=== PATIENT | male | born 1945 | race Caucasian/White ===

== ENCOUNTER 2017-06-07 09:24 | Emergency (ER) | payer OTHER ==
--- NOTE | 2017-06-07 10:25 | RAD REPORT ---
EXAM DESCRIPTION: CT - CTHCSPWOC - 06/07/2017 10:10 am CLINICAL HISTORY: Fall, head and neck injury COMPARISON: None. TECHNIQUE: Axial 5 mm thick images of the head were obtained. Axial 2 mm thick images of the cervic al spine were obtained with sagittal and coronal reconstruction images generated and reviewed. All CT scans are performed using dose optimization technique as appropriate and may include automated exposure control or mA/KV adjustment according to patient size. FINDINGS: No intracranial hemorrhage, mass, edema or acute intracranial finding. No suspicion for acute infarct ion. Atrophy and chronic ischemic changes are present similar to the April study. Ventricular size is in proportion. Arterial and physiologic calcifications are present. Mastoid air cells and paranas al sinuses are clear. No globe or orbit abnormality seen. Cervical body height and alignment are normal. C4-5, C5-6 and C6-7 disc space narrowing seen. Posteri or endplate spurring changes are present. No significant central spinal stenosis. Mild multilevel bon y foraminal encroachment changes are present. Central canal detail is inherently limited. No fracture or acute bony abnormality. No paraspinal mass or hematoma. IMPRESSION: Atrophy and chronic ischemic changes are present similar to prior imaging. No acute find ings seen. Cervical spine degenerative changes are present not substantially different from comparison. No acute finding.
--- NOTE | 2017-06-07 10:44 | RAD REPORT ---
EXAM DESCRIPTION: RAD - Pelvis - 06/07/2017 10:37 am CLINICAL HISTORY: History of fall with pain. COMPARISON: None. FINDINGS: No fracture, dislocation or radiographic evidence of AVN. IMPRESSION: Negative study.
--- NOTE | 2017-06-07 10:49 | RAD REPORT ---
EXAM DESCRIPTION: RAD - Wrist Right 3 View - 06/07/2017 10:37 am CLINICAL HISTORY: Pain COMPARISON: None. FINDINGS: Widening of the scapholunate interval is present suggesting underlying scapholunate ligame nt tear. Degenerative changes involve the first carpometacarpal joint. No acute fracture seen. No dis location evident. Soft tissue swelling is seen along the dorsum of the hand.
--- NOTE | 2017-06-07 10:50 | RAD REPORT ---
EXAM DESCRIPTION: RAD - Knee Left 3 View - 06/07/2017 10:37 am CLINICAL HISTORY: Trip and fall, knee pain COMPARISON: None. FINDINGS: No fracture, dislocation or periosteal reaction.No joint effusion seen. Medial compartment narrowing is present, mild in degree, with mild marginal spurring. There are mild spurs along the ar ticular margins of the patella. Arterial calcifications are present. No foreign body in the soft tiss ues. IMPRESSION: Knee degenerative changes are present but no acute bone or joint finding identifiable. Clinical concerns for internal derangement or occult bony injury could be further assessed with MR im aging.
[2017-06-07] MEDS ORDERED: HYDROCODONE/APAP 5/325 MG TAB ONE (11:04)
--- NOTE | 2017-06-07 11:21 | ER ---
Nurse's Notes [facility] Name: Honorio Toussaint Age: 71 yrs Sex: Male : 1945 Arrival Date: 06/07/2017 Time: 09:25 Bed 20 Private MD: Parveen Osborn Diagnosis: Sprain of ligaments of cervical spine;Other internal derangements of left knee;Disorder of ligament, right wrist Presentation: 06/07 09:42 Presenting complaint: Patient states: tripped over brick yesterday, falling from a ss standing position. Pt c/o pian to L knee and R hand. Transition of care: patient was not received from another setting of care. Onset of symptoms was June 06, 2017. Care prior to arrival: knee brace noted to L knee. 09:42 Method Of Arrival: Wheelchair ss 09:42 Acuity: ATIF 4 ss Historical: - Allergies: 09:43 Codeine; ss 09:43 PENICILLINS; ss - PMHx: 09:43 Anxiety; Cancer; Cellulitis; constipation; COPD; CVA; Depression; Diabetes - NIDDM; ss Hyperlipidemia; Hypertension; neck pain; Lymphadema; prostate probelm; Sleep Apnea; trigeminal neuralgia; - Immunization history:: Adult Immunizations up to date. - Social history:: Smoking status: Patient/guardian denies using tobacco, the patient reports quitting approximately 15 years ago. Screenin:51 Abuse screen: Denies threats or abuse. Nutritional screening: No deficits noted. em Tuberculosis screening: No symptoms or risk factors identified. Fall Risk None identified. Assessment: 09:50 General: Appears in no apparent distress. uncomfortable, Behavior is calm, cooperative. em General: reports tripping yesterday and hurting right hand and left knee, denies hitting head, is taking Warfarin. Pain: Complains of pain in left knee Pain currently is 10 out of 10 on a pain scale. Neuro: Level of Consciousness is awake, alert, obeys commands, Oriented to person, place, time, situation. Neuro: Denies dizziness, numbness. Cardiovascular: Capillary refill < 3 seconds Patient's skin is warm and dry. Respiratory: Airway is patent Respiratory effort is even, unlabored, Respiratory pattern is regular, symmetrical, wears oxygen at home via NC at 2L. GI: Abdomen is round non-distended, Patient currently denies nausea, vomiting. : No signs and/or symptoms were reported regarding the genitourinary system. EENT: No signs and/or symptoms were reported regarding the EENT system. Derm: Wound noted left knee Wound is abrasion noted to the left knee. Musculoskeletal: Range of motion: intact in all extremities. Injury Description: trip injury. 09:55 General: The previous assessment is accurate, call light remains within reach. . ss 10:56 Reassessment: Patient appears in no apparent distress at this time. Patient and/or em family updated on plan of care and expected duration. Pain level reassessed. Patient is alert, oriented x 3, equal unlabored respirations, skin warm/dry/pink. 11:55 Reassessment: Patient appears in no apparent distress at this time. Patient and/or em family updated on plan of care and expected duration. Pain level reassessed. Patient is alert, oriented x 3, equal unlabored respirations, skin warm/dry/pink. Patient states feeling better. Vital Signs: 09:43 BP 154 / 91; Pulse 78; Resp 23; Temp 98.3(O); Pulse Ox 96% on 2 lpm NC; Weight 96.16 ss kg; Height 5 ft. 8 in. (172.72 cm); Pain 10/10; 10:40 BP 127 / 86; Pulse 94; Resp 20; Pulse Ox 98% on 2 lpm NC; Pain 10/10; em 11:40 BP 146 / 94; Pulse 85; Resp 22; Pulse Ox 99% on 2 lpm NC; Pain 7/10; em 12:30 BP 150 / 88; Pulse 92; Resp 20; Pulse Ox 97% on 2 lpm NC; Pain 6/10; em 09:43 Body Mass Index 32.23 (96.16 kg, 172.72 cm) ED Course: 09:25 Patient arrived in ED. as 09:25 [facility], [facility] is Private Physician. as 09:39 Ceasar Costa LVN is Primary Nurse. em 09:42 Donavan Daily MD is Attending Physician. gs 09:42 Triage completed. ss 09:43 Arm band placed on right wrist. ss 09:51 Patient has correct armband on for positive identification. Bed in low position. Call em light in reach. Side rails up X2. Adult w/ patient. Pulse ox on. NIBP on. 09:51 No provider procedures requiring assistance completed. em 10:00 Radiology exam delayed due to PT IN CT. jb2 10:02 CT completed. Patient tolerated procedure well. Patient moved to CT via wheelchair. sj Patient moved to radiology Patient moved back from CT. 10:10 CT Head C Spine In Process Unspecified. EDMS 10:36 X-ray completed. Patient tolerated procedure well. Patient moved back from radiology. kw1 10:37 Wrist Right 3 View XRAY In Process Unspecified. EDMS 10:37 Knee Left 3 View XRAY In Process Unspecified. EDMS 10:37 Pelvis XRAY In Process Unspecified. EDMS 11:19 Junaid Lowery MD is Referral Physician. gs 12:28 Riky wrap to left knee Orthoglass splint: Thumb spica splint applied on right forearm. ag CMS and capillary refill with the right thumb spica are good. Patient wanted the riky bandages tighter but, informed him I could not do that. I explained to him he had to have room for the swelling. Knee immobilizer applied on left knee. 12:45 Patient did not have IV access during this emergency room visit. em Administered Medications: No medications were administered Outcome: 11:21 Discharge ordered by . gs 12:45 Discharged to home via wheelchair. em 12:45 Condition: good 12:45 Discharge instructions given to patient, Instructed on discharge instructions, follow up and referral plans. medication usage, Demonstrated understanding of instructions, follow-up care, medications, Prescriptions given X 1. 12:45 Patient left the ED. Signatures: Dispatcher [employer] EDMS Fabrice Martinez jb2 Alaina Green Edgar, ERGONOMICS TECHNICIAN ERGONOMICS TECHNICIAN Ramona Lewis Shelby, MANOLO RN Billie Robertson Gregory, MD MD Terese Capellan kw1 Corrections: (The following items were deleted from the chart) 12:39 12:28 Riky wrap to left knee Orthoglass splint: Thumb spica splint applied on right ag forearm. Knee immobilizer applied on left knee. ag
--- NOTE | 2017-06-07 11:21 | EDPHYS ---
Physician Documentation [facility] Name: Honorio Toussaint Age: 71 yrs Sex: Male : 1945 Arrival Date: 06/07/2017 Time: 09:25 Bed 20 [facility] Donavan Daily HPI: 06/07 11:15 This 71 yrs old Male presents to ER via Wheelchair with complaints of Fall gs Injury, Knee Pain, Hand Pain. 11:15 Details of fall: The patient fell from an upright position, while walking. Onset: The gs symptoms/episode began/occurred acutely, yesterday. Associated injuries: The patient sustained injury to the head, neck injury, medial aspect of right wrist, painful injury, swelling, left knee, painful injury, swelling. Severity of symptoms: At their worst the symptoms were moderate, in the emergency department the symptoms are unchanged. The patient has experienced a previous episode. The patient has not recently seen a physician. Historical: - Allergies: 09:43 Codeine; ss 09:43 PENICILLINS; ss - PMHx: 09:43 Anxiety; Cancer; Cellulitis; constipation; COPD; CVA; Depression; Diabetes - NIDDM; ss Hyperlipidemia; Hypertension; neck pain; Lymphadema; prostate probelm; Sleep Apnea; trigeminal neuralgia; - Immunization history:: Adult Immunizations up to date. - Social history:: Smoking status: Patient/guardian denies using tobacco, the patient reports quitting approximately 15 years ago. ROS: 11:15 Neuro: Negative for headache, on coumadin. gs 11:15 All other systems are negative. Exam: 11:15 Head/Face: Normocephalic, atraumatic. Eyes: Pupils equal round and reactive to light, gs extra-ocular motions intact. Lids and lashes normal. Conjunctiva and sclera are non-icteric and not injected. Cornea within normal limits. Periorbital areas with no swelling, redness, or edema. ENT: Nares patent. No nasal discharge, no septal abnormalities noted. Tympanic membranes are normal and external auditory canals are clear. Oropharynx with no redness, swelling, or masses, exudates, or evidence of obstruction, uvula midline. Mucous membranes moist. 11:15 Chest/axilla: Normal chest wall appearance and motion. Nontender with no deformity. No lesions are appreciated. Cardiovascular: Regular rate and rhythm with a normal S1 and S2. No gallops, murmurs, or rubs. Normal PMI, no JVD. No pulse deficits. Respiratory: Lungs have equal breath sounds bilaterally, clear to auscultation and percussion. No rales, rhonchi or wheezes noted. No increased work of breathing, no retractions or nasal flaring. Abdomen/GI: Soft, non-tender, with normal bowel sounds. No distension or tympany. No guarding or rebound. No evidence of tenderness throughout. Back: No spinal tenderness. No costovertebral tenderness. Full range of motion. 11:15 Constitutional: The patient appears alert, awake. 11:15 Neck: C-spine: vertebral tenderness, that is mild, appreciated at C5. 11:15 Musculoskeletal/extremity: Circulation is intact in all extremities. Sensation intact. Joints: the right wrist displays swelling, tenderness, the left knee displays effusion, swelling, tenderness, abrasion. 11:15 Skin: injury, abrasion(s), small abrasion noted, of the right arm, left arm and left leg. 11:15 Neuro: Orientation: is normal, Mentation: is normal, Memory: is normal, Cranial nerves: CN II- XII are normal as tested, Motor: no acute changes, Sensation: no acute changes. 12:25 Musculoskeletal/extremity: decreased extension left knee.. Vital Signs: 09:43 BP 154 / 91; Pulse 78; Resp 23; Temp 98.3(O); Pulse Ox 96% on 2 lpm NC; Weight 96.16 ss kg; Height 5 ft. 8 in. (172.72 cm); Pain 10/10; 10:40 BP 127 / 86; Pulse 94; Resp 20; Pulse Ox 98% on 2 lpm NC; Pain 10/10; em 11:40 BP 146 / 94; Pulse 85; Resp 22; Pulse Ox 99% on 2 lpm NC; Pain 7/10; em 12:30 BP 150 / 88; Pulse 92; Resp 20; Pulse Ox 97% on 2 lpm NC; Pain 6/10; em 09:43 Body Mass Index 32.23 (96.16 kg, 172.72 cm) ss MDM: 09:46 Patient medically screened. 11:15 Differential diagnosis: closed head injury, contusion, fracture. Data reviewed: vital gs signs, nurses notes. Response to treatment: the patient's symptoms have mildly improved after treatment, and as a result, I will discharge patient. 06/07 09:47 Order name: CT Head C Spine; Complete Time: 11:12 06/07 09:47 Order name: Wrist Right 3 View XRAY; Complete Time: 11:12 06/07 09:47 Order name: Knee Left 3 View XRAY; Complete Time: 11:12 06/07 09:47 Order name: Pelvis XRAY; Complete Time: 11:12 06/07 11:13 Order name: Splint - Thumb Spica; Complete Time: 12:19 gs 06/07 11:13 Order name: Knee Immobilizer; Complete Time: 12:19 gs Administered Medications: No medications were administered Disposition: 06/07/17 11:21 Discharged to Home. Impression: Sprain of ligaments of cervical spine, Other internal derangements of left knee, Disorder of ligament, right wrist. - Condition is Stable. - Discharge Instructions: Knee Effusion, Knee Immobilizer, Cervical Sprain. - Prescriptions for Tylenol- Codeine #4 300-60 mg Oral Tablet - take 1 tablet by ORAL route every 6 hours As needed; 10 tablet. - Medication Reconciliation Form, Thank You Letter, Antibiotic Education, Prescription Opioid Use form. - Follow up: Junaid Lowery MD; When: 2 - 3 days; Reason: Re-evaluation by your physician. Signatures: Dispatcher [employer] Dai Ochoa RN RN Donavan Daily MD MD
[2017-06-07 12:49] VITALS: TEMP 98.3
[2017-06-07 12:53] VITALS: BP 150/88; O2SAT 97
== END 2017-06-07 12:45 | disposition home or self-care (01) ==
LOC: ER 09:24
DX: M23.8X2 Other internal derangements of left knee (principal); S13.4XXA Sprain of ligaments of cervical spine, initial encounter; M24.231 Disorder of ligament, right wrist; W18.39XA Other fall on same level, initial encounter; Y93.01 Activity, walking, marching and hiking; Y92.89 Other specified places as the place of occurrence of the external cause; I10 Essential (primary) hypertension; Z79.01 Long term (current) use of anticoagulants; Z88.5 Allergy status to narcotic agent; Z88.0 Allergy status to penicillin; Z85.9 Personal history of malignant neoplasm, unspecified; Z86.73 Personal history of transient ischemic attack (TIA), and cerebral infarction without residual deficits
CPT/HCPCS: 70450; 72125; 72170; 99284

== ENCOUNTER 2017-07-11 09:43 | Inpatient (IN) | payer OTHER ==
--- NOTE | 2017-07-11 11:47 | RAD REPORT ---
EXAM DESCRIPTION: RAD - Chest Pa And Lat (2 Views) - 07/11/2017 11:39 am CLINICAL HISTORY: Shortness of breath COMPARISON: 05/06/2017 FINDINGS: The lungs are mildly emphysematous with an ill-defined opacity in the left posterior upper lobe. The heart is mildly prominent size. No displaced fractures. Multi lead pacer/defibrillator dev ice is present. IMPRESSION: No acute abnormality is seen.
[2017-07-11] MEDS ORDERED: ONDANSETRON 4 MG/2 ML VIAL ONE (12:07)
[2017-07-11] MEDS ORDERED: ALBUTEROL 2.5 MG/3 ML NEB SOL ONE (12:07)
[2017-07-11] MEDS ORDERED: CLINDAMYCIN 900MG/D5W 900 MG/50 ML BAG IV ONE (12:07)
[2017-07-11] MEDS ORDERED: MORPHINE 4 MG/ML SYR ONE ×2 (12:07→15:11)
--- NOTE | 2017-07-11 12:16 | EKG ---
Test Date: 2017-07-11 Test Time: 11:44:48 Entertainment Manager: MARBELLA MEASUREMENT RESULTS: Intervals: Rate: 81 TN: 220 QRSD: 88 QT: 384 QTc: 446 [place]: P: 39 TN: 220 QRS: 7 T: 31 INTERPRETIVE STATEMENTS: Sinus rhythm with 1st degree AV block Otherwise normal ECG Compared to ECG 05/03/2017 14:08:40 No significant changes Electronically Signed On 07-11-17 12:15:37 CDT by Fritz Sibley
[2017-07-11 12:56] LABS: Absolute Monocytes 1.1 K/uL (0.1-1.3); Absolute Neutrophil 10.9 K/uL (1.8-8.0); Basophils % 0.8 % (0-1.3); Eosinophils % 0.6 % (0-4.4); Hematocrit 37.2 % (39.6-49.0); Lymphocytes % 7.8 % (15.3-44.8); MCH 27.8 pg (27.0-35.0); MCV 86.7 fL (80-100); Monocytes % 8.2 % (3.3-12.3); RBC Red Blood Cell Count 4.29 M/uL (4.33-5.43)
[2017-07-11 13:07] LABS: Bicarbonate 26 mEq/L (21-31); Glucose Level 98 mg/dL (65-120); Potassium 4.4 mEq/L (3.6-5.0); Sodium Level 137 mEq/L (135-145)
[2017-07-11 13:08] LABS: Protime INR 3.61
[2017-07-11 13:14] LABS: ALT/SGPT 21 IU/L (10-60); AST/SGOT 19 IU/L (10-42); Albumin 4.1 g/dL (3.2-5.5); Alkaline Phosphatase 81 IU/L (42-121); BUN Blood Urea Nitrogen 20 mg/dL (6-20); Bilirubin Direct < 0.1 mg/dL (0-0.2); Bilirubin Total 0.7 mg/dL (0.3-1.2); Magnesium 1.6 mg/dL (1.8-2.5); Protein, Total 7.5 g/dL (6.0-8.3)
[2017-07-11] MEDS ORDERED: ACETAMINOPHEN 500 MG TAB PO PRN (14:29)
[2017-07-11] MEDS ORDERED: ONDANSETRON 4 MG/2 ML VIAL IV PRN (14:29)
[2017-07-11] MEDS ORDERED: VANCOMYCIN/NS 1 gm 1 GM/250 ML BAG IVPB SCH (14:30)
--- NOTE | 2017-07-11 14:30 | EDPHYS ---
Physician Documentation [facility] Name: Honorio Toussaint Age: 72 yrs Sex: Male : 1945 Arrival Date: 07/11/2017 Time: 09:46 Bed 18 Private MD: RAMY [place] ED Physician David Workman HPI: 07/11 14:18 This 72 yrs old Male presents to ER via Ambulatory with complaints of Arm wa Swelling. 14:18 The patient or guardian complains of swelling, tenderness. The complaints affect the wa Right forearm. Context: c/o swelling, redness and pain to R lateral forearm. denies fever.. 14:22 Onset: The symptoms/episode began/occurred 3 day(s) ago. Treatment prior to arrival wa includes: no previous treatment. Modifying factors: The symptoms are alleviated by nothing. the symptoms are aggravated by nothing. Associated signs and symptoms: Pertinent positives: erythema, pain, swelling, warmth, Pertinent negatives: deformity, fever. Severity of symptoms: At their worst the symptoms were moderate, in the emergency department the symptoms are unchanged. The patient has not experienced similar symptoms in the past. The patient has been recently seen by a physician: the patient's primary care provider. Historical: - Allergies: 10:17 Codeine; aj 10:17 PENICILLINS; aj - Home Meds: 10:17 albuterol sulfate 90 mcg/actuation Inhl HFAA 1 puff as needed [Active]; allopurinol 100 aj mg Oral tab 1 tab 2 times per day [Active]; Aspir-81 81 mg Oral TbEC 1 tab once daily [Active]; atrovastatin 40 mg daily [Active]; bupropion HCl 100 mg Oral tab 2 tab 2 times per day [Active]; Coumadin 3 mg Oral tab 1 tab mon-sat. [Active]; cyanocobalamin (vit B-12) 1000 mcg daily miscellaneous [Active]; docusate sodium 100 mg Oral cap 1 cap 2 times per day [Active]; finasteride 5 mg Oral tab 1 tab once daily [Active]; gabapentin 300 mg Oral cap 1 cap 3 times per day [Active]; Glucophage 1,000 mg Oral tab [Active]; isosorbide mononitrate 30 mg Oral Tb24 3 tabs once daily [Active]; Lasix 40 mg Oral tab 1 tab every other day. [Active]; montelukast 10 mg Oral tab [Active]; [place] 5-325 mg Oral tab 1 tab as needed [Active]; Prilosec 20 mg Oral cpDR 1 cap once daily [Active]; Spiriva with HandiHaler 18 mcg inhalation CpDv 1 cap once daily [Active]; spironolactone 25 mg Oral tab 1 tab once daily [Active]; Symbicort 160-4.5 mcg/actuation inhalation HFAA 2 puffs 2 times per day [Active]; tamsulosin 0.4 mg Oral cp24 1 cap once daily [Active]; valsartin [Active]; verapamil 120 mg Oral tab twice a day [Active]; warfarin 3 mg Oral tab once daily [Active]; - PMHx: 10:17 Anxiety; Cancer; Cellulitis; constipation; COPD; CVA; Depression; Diabetes - NIDDM; aj Hyperlipidemia; Hypertension; Lymphadema; neck pain; prostate probelm; Sleep Apnea; trigeminal neuralgia; - PSHx: 10:17 Pacemaker/Defibrillator; aj - Immunization history:: Adult Immunizations up to date. - Social history:: Smoking status: Patient/guardian denies using tobacco. - Family history:: not pertinent. - Hospitalizations: : No recent hospitalization is reported. ROS: 14:23 Constitutional: Negative for fever, chills, and weight loss, Eyes: Negative for injury, wa pain, redness, and discharge, ENT: Negative for injury, pain, and discharge, Neck: Negative for injury, pain, and swelling, Cardiovascular: Negative for chest pain, palpitations, and edema, Respiratory: Negative for shortness of breath, cough, wheezing, and pleuritic chest pain, Abdomen/GI: Negative for abdominal pain, nausea, vomiting, diarrhea, and constipation, Back: Negative for injury and pain, : Negative for injury, bleeding, discharge, and swelling, Neuro: Negative for headache, weakness, numbness, tingling, and seizure. 14:23 MS/extremity: Positive for erythema, pain, swelling, tenderness, of the dorsal aspect of right forearm. 14:23 Skin: Positive for abscess, cellulitis, erythema, swelling, of the dorsal aspect of right forearm. 14:23 All other systems are negative. Exam: 14:24 Constitutional: This is a well developed, well nourished patient who is awake, alert, wa and in no acute distress. Head/Face: Normocephalic, atraumatic. Eyes: Pupils equal round and reactive to light, extra-ocular motions intact. Lids and lashes normal. Conjunctiva and sclera are non-icteric and not injected. Cornea within normal limits. Periorbital areas with no swelling, redness, or edema. ENT: Nares patent. No nasal discharge, no septal abnormalities noted. Tympanic membranes are normal and external auditory canals are clear. Oropharynx with no redness, swelling, or masses, exudates, or evidence of obstruction, uvula midline. Mucous membranes moist. Neck: Trachea midline, no thyromegaly or masses palpated, and no cervical lymphadenopathy. Supple, full range of motion without nuchal rigidity, or vertebral point tenderness. No Meningismus. Chest/axilla: Normal chest wall appearance and motion. Nontender with no deformity. No lesions are appreciated. Cardiovascular: Regular rate and rhythm with a normal S1 and S2. No gallops, murmurs, or rubs. Normal PMI, no JVD. No pulse deficits. Abdomen/GI: Soft, non-tender, with normal bowel sounds. No distension or tympany. No guarding or rebound. No evidence of tenderness throughout. Back: No spinal tenderness. No costovertebral tenderness. Full range of motion. Neuro: Awake and alert, GCS 15, oriented to person, place, time, and situation. Cranial nerves II-XII grossly intact. Motor strength 5/5 in all extremities. Sensory grossly intact. Cerebellar exam normal. Normal gait. Psych: Awake, alert, with orientation to person, place and time. Behavior, mood, and affect are within normal limits. 14:24 Respiratory: the patient does not display signs of respiratory distress, Respirations: labored breathing, Breath sounds: decreased breath sounds, that are mild, are scattered. 14:24 Skin: Appearance: normal except for affected area, Color: abscess, of the right arm and dorsal aspect of right forearm, cellulitis, that is moderate. Vital Signs: 10:17 BP 116 / 64; Pulse 87; Resp 17; Temp 97.2; Pulse Ox 94% on 2 lpm NC; Weight 122.47 kg; aj Height 5 ft. 8 in. (172.72 cm); Pain 10/10; 14:00 BP 128 / 88; Pulse 75; Resp 19 S; Pulse Ox 95% on 2 lpm NC; Pain 10/10; iw 15:26 BP 127 / 64; Pulse 84; Resp 18 S; Pulse Ox 96% on 2 lpm NC; Pain 7/10; iw 10:17 Body Mass Index 41.05 (122.47 kg, 172.72 cm) aj Procedures: 14:28 I \T\ D: Incision and drainage was performed for an abscess of the right Prepped with ok Betadine, Anesthetized with 1 ml's 1% Lidocaine. Incised with #11 blade. Drained small amount Packed with none. Dressing: sterile 4x4 gauze, non-Adherent dressing, the patient tolerated the procedure well. MDM: 11:02 Patient medically screened. ok 14:25 Differential diagnosis: cellulitis arising from localized R lateral forearm small wa abscess. pt more SOB from baseline. wears home O2. will treat with abx. Will I\T\D. Data reviewed: vital signs, nurses notes. 14:27 Test interpretation: by ED physician or midlevel provider: labs noted for leukocytosis. wa CXR: no acute process. Response to treatment: the patient's symptoms have markedly improved after treatment. 14:36 Test interpretation: by ED physician or midlevel provider: EKG: HR 81. 1st Deg AV wa block. otherwise WNL. 07/11 11:23 Order name: BMP; Complete Time: 13:22 07/11 11:23 Order name: BNP; Complete Time: 13:22 07/11 11:23 Order name: CBC with Diff; Complete Time: 13:22 07/11 11:23 Order name: Hepatic Function; Complete Time: 13:22 07/11 11:23 Order name: Magnesium; Complete Time: 13:22 07/11 11:23 Order name: PT-INR; Complete Time: 13:22 07/11 11:23 Order name: XRAY Chest Pa And Lat (2 Views); Complete Time: 11:52 07/11 11:23 Order name: Troponin (emerg Dept Use Only); Complete Time: 13:22 07/11 11:23 Order name: EKG; Complete Time: 11:24 07/11 11:23 Order name: Cardiac monitoring; Complete Time: 13:01 07/11 11:23 Order name: EKG - Nurse/Tech; Complete Time: 13:07/11 11:23 Order name: IV Saline Lock; Complete Time: 13:07/11 11:23 Order name: Labs collected and sent; Complete Time: 13:07/11 11:23 Order name: O2 Per Protocol; Complete Time: 13:07/11 11:23 Order name: O2 Sat Monitoring; Complete Time: 13:07/11 14:00 Order name: Diet Regular; Complete Time: 14:01 iw Administered Medications: 13:00 Drug: Clindamycin 900 mg Route: IVPB; Infused Over: 30 mins; Site: left antecubital; em 14:00 Follow up: IV Status: Completed infusion iw 13:01 Drug: Albuterol 1.25 mg Route: Inhalation; em 13:05 Drug: morphine 4 mg Route: IVP; Site: left antecubital; iw 14:30 Follow up: Response: No adverse reaction iw 13:05 Drug: Zofran 4 mg Route: IVP; Site: left antecubital; iw 15:30 Follow up: Response: No adverse reaction iw 15:13 Drug: morphine 4 mg Route: IVP; Site: left antecubital; iw 15:30 Follow up: Response: No adverse reaction; Pain is decreased iw Disposition: 07/11/17 14:30 Hospitalization ordered by Dee Dee Boone for Observation. Preliminary diagnosis are Right lateral forearm abscess and Cellulitis, Dyspnea. - Bed requested for Telemetry/MedSurg (observation). - Status is Observation. em - Condition is Stable. - Problem is new. - Symptoms have improved. UTI on Admission? No Signatures: Dispatcher [employer] EDMS Taisha Funk Amanda, RN Ceasar Longoria, DOCK BUILDER DOCK BUILDER em Jessica Perez RN RN David Workman MD MD ok Corrections: (The following items were deleted from the chart) 17:39 14:30 Hospitalization Ordered by Dee Dee Boone MD for Observation. Preliminary diagnosis bd is Right lateral forearm abscess and Cellulitis; Dyspnea. Bed requested for Telemetry/MedSurg (observation). Status is Observation. Condition is Stable. Problem is new. Symptoms have improved. UTI on Admission? No. ok 18:18 17:39 07/11/2017 14:30 Hospitalization Ordered by Dee Dee Boone MD for Observation. em Preliminary diagnosis is Right lateral forearm abscess and Cellulitis; Dyspnea. Bed requested for Telemetry/MedSurg (observation). Status is Observation. Condition is Stable. Problem is new. Symptoms have improved. UTI on Admission? No. bd
--- NOTE | 2017-07-11 14:30 | ER ---
Nurse's Notes [facility] Name: Honorio Toussaint Age: 72 yrs Sex: Male : 1945 Arrival Date: 07/11/2017 Time: 09:46 Bed 18 Private MD: RAMY MCCANN Diagnosis: Right lateral forearm abscess and Cellulitis;Dyspnea Presentation: 07/11 10:14 Presenting complaint: Patient states: Abscess to posterior right forearm since aj yesterday. Redness and inflammation noted. Transition of care: patient was not received from another setting of care. Onset of symptoms was July 11, 2017. Initial Sepsis Screen: Does the patient meet any 2 criteria? No. Patient's initial sepsis screen is negative. Does the patient have a suspected source of infection? No. Patient's initial sepsis screen is negative. Care prior to arrival: None. 10:14 Method Of Arrival: Ambulatory 10:14 Acuity: ATIF 3 aj Triage Assessment: 10:17 General: Appears in no apparent distress. comfortable, Behavior is calm, cooperative, aj appropriate for age. Pain: Complains of pain in palmar aspect of right forearm Pain currently is 10 out of 10 on a pain scale. Neuro: Level of Consciousness is awake, alert, obeys commands, Oriented to person, place, time, situation, Appropriate for age. Respiratory: Airway is patent Respiratory effort is even, unlabored, Respiratory pattern is regular, symmetrical. Derm: Skin is intact, is healthy with good turgor, Skin is pink, warm \T\ dry. normal, Abscess located on palmar aspect of right forearm is dime sized, has no drainage, is hot to touch, is red, is raised. Historical: - Allergies: 10:17 Codeine; aj 10:17 PENICILLINS; aj - Home Meds: 10:17 albuterol sulfate 90 mcg/actuation Inhl HFAA 1 puff as needed [Active]; allopurinol 100 aj mg Oral tab 1 tab 2 times per day [Active]; Aspir-81 81 mg Oral TbEC 1 tab once daily [Active]; atrovastatin 40 mg daily [Active]; bupropion HCl 100 mg Oral tab 2 tab 2 times per day [Active]; Coumadin 3 mg Oral tab 1 tab mon-sat. [Active]; cyanocobalamin (vit B-12) 1000 mcg daily miscellaneous [Active]; docusate sodium 100 mg Oral cap 1 cap 2 times per day [Active]; finasteride 5 mg Oral tab 1 tab once daily [Active]; gabapentin 300 mg Oral cap 1 cap 3 times per day [Active]; Glucophage 1,000 mg Oral tab [Active]; isosorbide mononitrate 30 mg Oral Tb24 3 tabs once daily [Active]; Lasix 40 mg Oral tab 1 tab every other day. [Active]; montelukast 10 mg Oral tab [Active]; [place] 5-325 mg Oral tab 1 tab as needed [Active]; Prilosec 20 mg Oral cpDR 1 cap once daily [Active]; Spiriva with HandiHaler 18 mcg inhalation CpDv 1 cap once daily [Active]; spironolactone 25 mg Oral tab 1 tab once daily [Active]; Symbicort 160-4.5 mcg/actuation inhalation HFAA 2 puffs 2 times per day [Active]; tamsulosin 0.4 mg Oral cp24 1 cap once daily [Active]; valsartin [Active]; verapamil 120 mg Oral tab twice a day [Active]; warfarin 3 mg Oral tab once daily [Active]; - PMHx: 10:17 Anxiety; Cancer; Cellulitis; constipation; COPD; CVA; Depression; Diabetes - NIDDM; aj Hyperlipidemia; Hypertension; Lymphadema; neck pain; prostate probelm; Sleep Apnea; trigeminal neuralgia; - PSHx: 10:17 Pacemaker/Defibrillator; aj - Immunization history:: Adult Immunizations up to date. - Social history:: Smoking status: Patient/guardian denies using tobacco. - Family history:: not pertinent. - Hospitalizations: : No recent hospitalization is reported. Screenin:30 Abuse screen: Denies threats or abuse. Nutritional screening: No deficits noted. em Tuberculosis screening: No symptoms or risk factors identified. Fall Risk None identified. Assessment: 11:00 General: Appears in no apparent distress. uncomfortable, Behavior is calm, cooperative. em Pain: Complains of pain in dorsal aspect of right forearm and palmar aspect of right forearm Pain currently is 10 out of 10 on a pain scale. Pain began 1 day ago. Neuro: Level of Consciousness is awake, alert, obeys commands, Oriented to person, place, time, situation. Cardiovascular: Capillary refill < 3 seconds Patient's skin is warm and dry. Respiratory: Airway is patent Respiratory effort is even, unlabored, Respiratory pattern is regular, symmetrical, Breath sounds are diminished. GI: : No signs and/or symptoms were reported regarding the genitourinary system. EENT: No signs and/or symptoms were reported regarding the EENT system. Derm: Skin is intact, Skin is pink, warm \T\ dry. Derm: No signs and/or symptoms reported regarding the dermatologic system. Skin is abscess with redness noted to the right forearm. Musculoskeletal: Capillary refill < 3 seconds, Range of motion: intact in all extremities. 11:10 Reassessment: Patient appears in no apparent distress at this time. No changes from iw previously documented assessment. I agree with above assessment by Ceasar Costa LVN. 12:00 Reassessment: Patient appears in no apparent distress at this time. Patient and/or em family updated on plan of care and expected duration. Pain level reassessed. Patient is alert, oriented x 3, equal unlabored respirations, skin warm/dry/pink. Patient states feeling better. 13:00 Reassessment: Patient appears in no apparent distress at this time. Patient and/or em family updated on plan of care and expected duration. Pain level reassessed. Patient is alert, oriented x 3, equal unlabored respirations, skin warm/dry/pink. pt request a lunch tray, lunch tray ordered per Dr. Workman. 15:10 Reassessment: Patient appears in no apparent distress at this time. Patient and/or iw family updated on plan of care and expected duration. Pain level reassessed. Patient is alert, oriented x 3, equal unlabored respirations, skin warm/dry/pink. pt c/o pain, medicated per MAR, pt given sandwich. 16:53 Reassessment: Patient appears in no apparent distress at this time. Patient and/or em family updated on plan of care and expected duration. Pain level reassessed. Patient is alert, oriented x 3, equal unlabored respirations, skin warm/dry/pink. awaiting room assignment Patient states feeling better. Vital Signs: 10:17 BP 116 / 64; Pulse 87; Resp 17; Temp 97.2; Pulse Ox 94% on 2 lpm NC; Weight 122.47 kg; aj Height 5 ft. 8 in. (172.72 cm); Pain 10/10; 14:00 BP 128 / 88; Pulse 75; Resp 19 S; Pulse Ox 95% on 2 lpm NC; Pain 10/10; iw 15:26 BP 127 / 64; Pulse 84; Resp 18 S; Pulse Ox 96% on 2 lpm NC; Pain 7/10; iw 10:17 Body Mass Index 41.05 (122.47 kg, 172.72 cm) aj ED Course: 09:46 Patient arrived in ED. mr 09:47 VA, VA is Private Physician. mr 10:15 Triage completed. aj 10:17 Arm band placed on left wrist. Patient placed in waiting room, Patient notified of wait aj time. 11:02 David Workman MD is Attending Physician. wa 11:38 XRAY Chest Pa And Lat (2 Views) In Process Unspecified. EDMS 12:03 Ceasar Costa LVN is Primary Nurse. em 13:00 Patient has correct armband on for positive identification. Placed in gown. Call light em in reach. Side rails up X2. Adult w/ patient. 13:00 Inserted saline lock: 20 gauge in left antecubital area, using aseptic technique. Blood em collected. 13:00 Initial lab(s) drawn, by me, sent to lab. em 14:00 Assist provider with I \T\ D: of an abscess on right RFA Set up I\T\D tray. Performed by sandip Boone MD Wound packed. 4X4s, Dressing with 4X4s, tape Patient tolerated well. 14:29 Dee Dee Boone MD is Hospitalizing Provider. wa 18:17 Patient admitted, IV remains in place. em Administered Medications: 13:00 Drug: Clindamycin 900 mg Route: IVPB; Infused Over: 30 mins; Site: left antecubital; em 14:00 Follow up: IV Status: Completed infusion iw 13:01 Drug: Albuterol 1.25 mg Route: Inhalation; em 13:05 Drug: morphine 4 mg Route: IVP; Site: left antecubital; iw 14:30 Follow up: Response: No adverse reaction iw 13:05 Drug: Zofran 4 mg Route: IVP; Site: left antecubital; iw 15:30 Follow up: Response: No adverse reaction iw 15:13 Drug: morphine 4 mg Route: IVP; Site: left antecubital; iw 15:30 Follow up: Response: No adverse reaction; Pain is decreased iw Outcome: 14:30 Decision to Hospitalize by Provider. wa 18:17 Admitted to Med/surg accompanied by tech, via wheelchair, room 414, with oxygen, with em chart, Report called to Rosa Mendoza RN 18:17 Condition: good 18:17 Instructed on the need for admit, Demonstrated understanding of instructions. 18:18 Patient left the ED. em Signatures: Dispatcher [employer] Grace Gonzales, Andria Arteaga RN, Edgar, CAR SHAKEOUT OPERATOR CAR SHAKEOUT OPERATOR em Jessica Perez RN RN David Workman MD MD wa Corrections: (The following items were deleted from the chart) 15:29 13:00 No provider procedures requiring assistance completed. em iw
[2017-07-11] MEDS: Levofloxacin500mg IV 500 MG/100 ML BAG IV SCH (15:00)
[2017-07-11] MEDS: NA CHLORIDE 0.9% 1,000 ML IV SCH (15:00)
[2017-07-11] MEDS ORDERED: Levofloxacin500mg IV 500 MG/100 ML BAG IV ONE (17:06)
[2017-07-11] MEDS ORDERED: NA CHLORIDE 0.9% 1,000 ML ONE (17:06)
[2017-07-11] MEDS ORDERED: D50W 25 GM/50 ML SYRINGE IV PRN (17:44)
[2017-07-11] MEDS ORDERED: GLUCAGON 1 MG/VIAL IM PRN (17:44)
[2017-07-11] MEDS: VANCOMYCIN 2 GM in NA CHLORIDE 0.9% 500 ML IVPB SCH (19:00)
[2017-07-11] MEDS: INSULIN -REGULAR HUMAN 50 UNIT/0.5 ML ML SQ SCH (21:00)
[2017-07-11] MEDS: HYDROCODONE/APAP 7.5/325 MG TAB PO PRN (22:37)
[2017-07-12] MEDS: NA CHLORIDE 0.9% 1,000 ML IV SCH ×3 (01:00→11:00)
[2017-07-12 04:19] LABS: Absolute Lymphocytes (CBC) 1.2 K/uL (0.7-4.9); Basophils % 0.7 % (0-1.3); Eosinophils % 1.1 % (0-4.4); Hematocrit 37.3 % (39.6-49.0); Lymphocytes % 11.5 % (15.3-44.8); MCH 28.1 pg (27.0-35.0); MCV 87.2 fL (80-100); MPV 9.5 fL (7.6-11.3); Monocytes % 9.5 % (3.3-12.3); RBC Red Blood Cell Count 4.28 M/uL (4.33-5.43)
[2017-07-12 04:27] LABS: Potassium 3.9 mEq/L (3.6-5.0)
--- NOTE | 2017-07-12 04:46 | HP ---
Date of Admission: 07/11/2017 Chief Complaint: Right arm abscess. Code Status: Full. Primary Care Physician: RAMY. History Of Present Illness: The patient is a 72-year-old male with past medical history of hypertension; hyperlipidemia; diabetes; COPD, oxygen requiring; atrial fibrillation, on Coumadin; who was in his usual state of health until day of admission when the patient woke up with swelling of his right arm with some abscess. The patient denies any falls, trauma, or any insect bite. The patient does report some fever and chills, which were subjective. The patient's symptoms are constant, moderate, and progressively worsening. No alleviating or aggravating factors. When the patient came into the ER for vitals, his vital signs were stable. He was afebrile. His workup revealed white count of 13.2, H and H 11.9 and 37. Chest x-ray did not show any acute changes. The patient had an abscess on the right arm that was drained. The patient tolerated the procedure well. He was referred for admission for cellulitis of the right arm. When seen in the ER, the patient was awake, alert, oriented x3, in some mild distress. Past Medical History: Hypertension; hyperlipidemia; benign prostatic hyperplasia; diabetes mellitus type 2, non-insulin requiring; COPD with chronic respiratory failure, on 2 L of oxygen; history of lung cancer; chronic back pain ; atrial fibrillation. Surgical History: Pacemaker placement. Family History: Father had lung disease. Allergies: TO CODEINE, CAUSES HIVES AND RASH. PENICILLIN ALSO CAUSES HIVES. Social History: The patient is a former heavy smoker. No alcohol use, current tobacco use or illicit drug use. Lives at home, independent in his activities of daily living. Review of Systems: An 11-point system reviewed, negative except as per HPI. Physical Examination: Vital Signs: Temperature 97.2, heart rate 87, blood pressure 116/64, respirations 17, O2 saturation 94% on 2 L via nasal cannula. General: Awake, alert, oriented x3, in some mild distress. Ill-appearing elderly male, morbidly obese. HEENT: Normocephalic, atraumatic. PERRLA. EOMI. Moist mucous membranes. Oropharynx is clear. Poor dentition. Conjunctiva anicteric. Neck: Supple. No JVD. Trachea midline. CV: S1, S2. Peripheral pulses present. No murmurs. Respiratory: Moving air well bilaterally. No wheezing. No stridor. No use of accessory muscles. Gastrointestinal: Abdomen is soft, nontender, nondistended. Positive bowel sounds. No guarding or rigidity. Extremities: No clubbing, cyanosis. The patient does have lower extremity edema, 2+ bilaterally. Skin: Right arm erythematous, edematous. Mild tenderness to palpation. Incision site is bandaged. No drainage. Neuro: Cranial nerves 2 through 12 intact grossly. No focal neurological deficits. Speech is normal. Strength is 5/5 bilateral lower extremities. Sensation is decreased to light touch on the lower extremities. Psych: Mood is okay. Affect is full. Insight and judgment are good. Laboratory Data: Sodium 137, potassium 4.4, chloride 101, CO2 26, BUN 20, creatinine 0.98, glucose 98, calcium 9.1, magnesium 1.6. INR 3.61. WBC 13.2, H and H 11.9 and 37.2, platelets 249, neutrophils 82%. Chest x-ray, personally reviewed, shows no acute abnormality. Does have an ill-defined opacity in the left posterior upper lobe. Pacemaker defibrillator is present. Assessment And Plan: A 72-year-old male with, 1. Right arm cellulitis status post incision and drainage. We will obtain Ortho consult. We will monitor blood cultures and wound cultures. Continue with broad-spectrum IV antibiotics. Pain control. 2. Chronic obstructive pulmonary disease with chronic respiratory failure. The patient is on 2 L of oxygen at home. 3. Diastolic heart failure, chronic. Ejection fraction is 58% from 2016, compensated. 4. Diabetes mellitus type 2, non-insulin requiring with hyperglycemia. We will continue sliding scale insulin. 5. History of lung cancer. 6. Hyperlipidemia. 7. Benign prostatic hyperplasia, on Flomax. 8. Essential hypertension, stable. 9. Atrial fibrillation, controlled ventricular rate. INR is supratherapeutic. We will hold tonight's Coumadin dose. 10. Gastrointestinal and deep venous thrombosis prophylaxis with PPI and the patient is already on Coumadin. Plan: Admit the patient to Med-Surg for observation. No MPOA or living will SA/GERMAN Voice ID: [id number] MTDD
[2017-07-12 04:47] LABS: Protime INR 4.4
[2017-07-12] MEDS: HYDROCODONE/APAP 7.5/325 MG TAB PO PRN ×4 (05:21→20:56)
[2017-07-12] MEDS: INSULIN -REGULAR HUMAN 50 UNIT/0.5 ML ML SQ SCH ×4 (07:30→21:00)
[2017-07-12 09:03] LABS: Urine Appearance CLEAR; Urine Bilirubin NEGATIVE (NEG); Urine Blood NEGATIVE (NEG); Urine Color YELLOW; Urine Glucose NEGATIVE (NEG); Urine Protein NEGATIVE (NEG); Urine Specific Gravity 1.025 (1.005-1.030)
[2017-07-12 09:36] LABS: Urine Microscopic Reflex NO UMIC
[2017-07-12] MEDS: VANCOMYCIN 2 GM in NA CHLORIDE 0.9% 500 ML IVPB SCH (09:39)
[2017-07-12] MEDS ORDERED: TIOTROPIUM (SPIRIVA) 5 SPRAYS/INHALER IH SCH (12:15)
[2017-07-12] MEDS: VERAPAMIL SR 240 MG TABLET PO SCH ×2 (12:30→20:58)
[2017-07-12] MEDS ORDERED: VITAMIN K (ADULT) 10 MG/ML SQ SCH (13:00)
[2017-07-12] MEDS: ALBUTEROL 2.5 MG/3 ML NEB SOL NEB PRN ×2 (13:56→21:05)
[2017-07-12] MEDS: GABAPENTIN 300 MG CAP PO SCH ×2 (14:10→20:59)
[2017-07-12] MEDS: Levofloxacin500mg IV 500 MG/100 ML BAG IV SCH (15:45)
[2017-07-12] MEDS: METFORMIN HCL 500 MG TAB PO SCH (16:22)
[2017-07-12] MEDS ORDERED: WARFARIN SODIUM 3 MG TAB PO SCH (17:00)
--- NOTE | 2017-07-12 20:04 | PN ---
Date of Progress Note: 07/12/2017 Subjective: The patient seen and examined, chart reviewed, and case discussed with RN and Dr. Randall hdz. The patient states his arm feels better overall. Pain is controlled. Review of Systems: Negative except as per HPI. Medications: Reviewed. Objective: Vital Signs: Temperature 97.5, heart rate 83, blood pressure 178/86, respirations 18, O2 94% on 2 L nasal cannula. General: Awake, alert, oriented x3. Elderly male, obese, ill-appearing. CV: S1, S2. Peripheral pulses present. Regular rate and rhythm. Respiratory: Clear to auscultation bilaterally. No wheezing. No stridor. No use of accessory musc les Gastrointestinal: Abdomen is soft, obese, nontender, nondistended. Positive bowel sounds. Extremities: No clubbing, cyanosis. The patient does have some lower extremity edema 2+. Skin: Right arm erythema. Incision site on the dorsal aspect of the right arm is clean, dry, intact , bandaged. Neurologic: Nonfocal. Laboratory Data: Sodium 138, potassium 3.9, chloride 102, CO2 28, BUN 21, creatinine 1.03, glucose 1 06, and calcium 8.7. INR 4.4. WBC 10.3, H and H 12.0, 37.3, and platelets 232. UA negative. Wound culture showing no organisms. Urine culture pending. Assessment: A 72-year-old male with; 1.Right arm cellulitis, status post incision and drainage in the ER. Dr. Anaya was consulted. Or [facility] recommended General surgery consultation. The patient will be continued on broad-spectrum IV antibiotics. Dr. Anaya recommends drainage, however, the patient has Coumadin coagulopathy. We will repeat INR after vitamin K. 2.Chronic obstructive pulmonary disease with chronic respiratory failure. The patient on 2 L of oxy gen at home. We will continue nebulizer treatments and inhalers. 3.Diastolic heart failure, chronic, ejection fraction 58% from 2016, compensated. 4.Coumadin coagulopathy. We will hold warfarin. Give vitamin K and FFP x1. 5.Diabetes mellitus type 2 hpg-xxattki-ddkcqbzgi with hyperglycemia. We will continue sliding scale insulin. 6.History of lung cancer. 7.Hyperlipidemia, mixed. 8.We will continue home medications. 9.Benign prostatic hypertrophy. Continue Flomax. 10.Essential hypertension, stable. 11.Atrial fibrillation with controlled ventricular rate, paroxysmal. INR is supratherapeutic. We w ill hold Coumadin. 12.Gastrointestinal and deep venous thrombosis prophylaxis PPI. The patient currently has elevated INR. Plan: Prep for surgery. /GERMAN Voice ID: [id number] Report ID: [id number]
[2017-07-12] MEDS: buPROPion HCl 100 MG TAB PO SCH (20:57)
[2017-07-12] MEDS: ATORVASTATIN 40 MG TAB PO SCH (20:59)
[2017-07-12] MEDS ORDERED: HOME MED 1 EA UNK (Budesonide/Formoterol Fumarate [Symbicort 160-4.5 Mcg Inhaler] 2 PUFF) IH SCH (21:00)
[2017-07-12] MEDS: DOCUSATE NA 100 MG CAP PO SCH (21:00)
[2017-07-12] MEDS: ALLOPURINOL 100 MG TAB PO SCH (21:00)
[2017-07-13] MEDS ORDERED: NA CHLORIDE 0.9% 250 ML ONE (02:44)
[2017-07-13] MEDS: NA CHLORIDE 0.9% 1,000 ML IV SCH ×3 (03:42→15:53)
[2017-07-13] MEDS: VANCOMYCIN 2 GM in NA CHLORIDE 0.9% 500 ML IVPB SCH ×2 (03:47→22:45)
--- NOTE | 2017-07-13 05:44 | CON ---
Date of Consultation: 07/12/2017 Reason For Consultation: Right arm and forearm abscess. Brief History Of Present Illness: The patient is a 72-year-old male with past medical hist ory significant for hypertension, hyperlipidemia, diabetes, COPD, and atrial fibrillation on Coumadin , who was in usual state of health until the day of admission on 07/11/2017, when he woke up with swe lling of his right arm and some pain. He had some drainage from the volar aspect of his right arm an d approximately the mid forearm area. He denies any boils, falls, trauma, insect bites, or any other inciting factor. He does have some fever and chills which are subjective. The swelling extended al l the way up to his biceps region. Past Medical History: Significant for hypertension, hyperlipidemia, BPH, diabetes, COPD on 2 L of ox ygen chronically, history of lung cancer, chronic back pain, atrial fibrillation. Past Surgical History: Pacemaker. Family History: Lung disease. Allergies: TO CODEINE WHICH CAUSES HIVES AND RASH; PENICILLIN, WHICH ALSO CAUSES HIVES AND RASH. Social History: He quit smoking years ago but has a significant pack-year history. He denies alcoho l, tobacco, or other recreational drug use at this time. He lives at home alone. Review of Systems: A 10-point review of systems other than HPI denies. Home Medications: Coumadin, albuterol, allopurinol, aspirin, Lipitor, Symbicort, Wellbutrin, Colace, Proscar, Lasix, Gralise, isosorbide mononitrate, Glucophage, Prilosec, Flomax, Spiriva, and verapami l. Physical Examination: Vital Signs: At the time of my examination, his blood pressure is 148/68, pulse is 70, respiratory r ate 18, temperature 97.3. General: He is awake, alert, and oriented. Psychiatric: He is appropriate and conversive. HEENT: He is normocephalic. His sclerae are anicteric. His mucous membranes are moist. His oropha rynx is clear. Extremities: Focused examination of the right upper extremity shows significant swelling in this are a with cellulitis extending all the way up to the biceps region. His hand is grossly swollen. There is an abscess on the volar aspect of the right arm at the midshaft area consistent with the above hi story. Laboratory Data: His white blood cell count on examination was 10.3, hemoglobin was 12.0, hematocrit of 37.3, platelet count was 232, neutrophils were 77.2%. His PT was 52.7, INR 4.4. Sodium 138, pot assium 3.9, chloride 102, carbon dioxide 28, BUN 21, creatinine 1.03, glucose is 106. His UA was ess entially negative. He had a chest x-ray on admission, which showed no acute abnormality seen. Assessment And Plan: This is a 72-year-old male who presents with an abscess of the right forearm. 1.IV fluid hydration. 2.Antibiotic coverage. 3.I have explained the risks, benefits, and alternatives of incision and drainage of this abscess; h owever, due to his hypercoagulable state, I recommend reversal of this anticoagulation and we will pl an for surgery in the morning should his coagulopathy be reversed adequately. Continue the medical m anagement until such time that we can perform this procedure and his coagulopathy is corrected with i t within specified range. I have explained the risks, benefits, and alternatives of the above stated plan and patient agrees to proceed with the plan. Thank you for this interesting consult. YANIV/GERMAN Voice ID: [id number] Report ID: [id number]
[2017-07-13] MEDS: PANTOPRAZOLE 40MG TABLET PO SCH (06:11)
[2017-07-13] MEDS: INSULIN -REGULAR HUMAN 50 UNIT/0.5 ML ML SQ SCH ×4 (07:30→21:00)
[2017-07-13] MEDS: METFORMIN HCL 500 MG TAB PO SCH ×2 (08:00→16:31)
[2017-07-13] MEDS: ISOSORBIDE MONO SR 30 MG TAB PO SCH (08:28)
[2017-07-13] MEDS: ASPIRIN EC 81 MG TAB PO SCH (08:29)
[2017-07-13] MEDS: VERAPAMIL SR 240 MG TABLET PO SCH ×2 (08:29→20:38)
[2017-07-13] MEDS: DOCUSATE NA 100 MG CAP PO SCH ×2 (08:29→20:37)
[2017-07-13] MEDS: TAMSULOSIN 0.4 MG SR CAP PO SCH (08:29)
[2017-07-13] MEDS: FUROSEMIDE 40 MG TABLET PO SCH (08:29)
[2017-07-13] MEDS: FINASTERIDE 5 MG TAB PO SCH (08:30)
[2017-07-13] MEDS: GABAPENTIN 300 MG CAP PO SCH ×3 (08:30→20:37)
[2017-07-13] MEDS: ALLOPURINOL 100 MG TAB PO SCH ×2 (08:30→20:39)
[2017-07-13] MEDS: buPROPion HCl 100 MG TAB PO SCH ×2 (08:30→20:37)
[2017-07-13 08:43] LABS: Protime INR 2.3
[2017-07-13 08:44] LABS: Absolute Monocytes 0.7 K/uL (0.1-1.3); Absolute Neutrophil 7.2 K/uL (1.8-8.0); Basophils % 0.8 % (0-1.3); Eosinophils % 2.6 % (0-4.4); Hematocrit 35.2 % (39.6-49.0); Lymphocytes % 10.6 % (15.3-44.8); MCH 28.4 pg (27.0-35.0); MCV 87.8 fL (80-100); Monocytes % 7.8 % (3.3-12.3); RBC Red Blood Cell Count 4.01 M/uL (4.33-5.43)
[2017-07-13 08:45] LABS: Potassium 4.6 mEq/L (3.6-5.0)
--- NOTE | 2017-07-13 11:36 | P.PN ---
Subjective Date of Service: 07/13/17 Chief Complaint: forearm abscess Subjective: Improving (swelling improved, but abscess remains, slightly smaller , continues to drain) Physical Examination - Vital Signs Temperature: 97.7 F Blood Pressure: 182/79 Pulse: 76 Respirations: 20 Pulse Ox (%): 96 - Physical Exam General: Alert, Cooperative Integumentary: Other (absess of forewarm continues to drain minimal pus, otherwise improved swelling to hand) - Studies Laboratory Data (last 24 hrs) 07/13/17 08:09: PT 27.4 H, INR 2.30, APTT 41.9 H 07/13/17 08:09: Sodium 140, Potassium 4.6, BUN 18, Creatinine 0.98, Glucose 117 07/13/17 08:00: WBC 9.2, Hgb 11.4 L, Hct 35.2 L, Plt Count 226 07/13/17 05:00: PT Cancelled, INR Cancelled Microbiology Data (last 24 hrs): 07/11/17 08:20 Wound - Back Gram Stain - Final Assessment And Plan - Current Problems (Diagnosis) (1) Abscess of right forearm Onset Date: 07/12/17 Current Visit: Yes Status: Acute Plan: - Patient remains hypercoagulable - will plan for incision and drainage in AM as he showed some improvement with non-operative management - continue medical management
[2017-07-13] MEDS: HYDROCODONE/APAP 7.5/325 MG TAB PO PRN ×2 (13:02→20:39)
[2017-07-13] MEDS ORDERED: VITAMIN K (ADULT) 10 MG/ML SQ ONE (14:00)
[2017-07-13] MEDS: Levofloxacin500mg IV 500 MG/100 ML BAG IV SCH (14:09)
--- NOTE | 2017-07-13 18:01 | PN ---
Date of Progress Note: 07/13/2017 Subjective: The patient seen and examined, chart reviewed, and case discussed with RN and Dr. Randall hdz. The patient unfortunately still has an elevated INR despite vitamin K and FFP. Unable to go for abscess drainage. Review of Systems: Negative except as above. Medications: Reviewed. Objective: Vital Signs: Temperature 97.7, heart rate 76, blood pressure 182/79, respirations 20, an d O2 96% on 2 L via nasal cannula. General: Awake, alert, oriented x3. Some mild distress. Morbidly obese, ill-appearing male, elderl y. CV: S1, S2. Peripheral pulses present bilaterally. Regular rate and rhythm. Respiratory: Moving air well bilaterally. No wheezing. Gastrointestinal: Abdomen is soft, nontender, nondistended. Positive bowel sounds. Extremities: No clubbing, cyanosis. Right upper extremity swelling and edema. Skin: right upper extremity erythema, edema, mild tenderness to palpation. Abscess on the dorsal as pect of the arm with some ulceration in the middle. Neuro: Nonfocal. Laboratory Data: Sodium 140, potassium 4.6, chloride 107, CO2 27, BUN 18, creatinine 0.98, glucose 1 17, and calcium 9. INR 2.3. WBC 9.2, H and H 11.4, 35.2, and platelets 226. Urine culture shows no growth. Wound culture 2+ coagulase positive staph. Assessment And Plan: A 72-year-old male with; 1.Right arm cellulitis. The patient received bedside incision and drainage in the ER. Appreciate Kathi Anaya's input. The patient will need more further debridement and drainage; however, INR is sti ll elevated. We will continue with IV antibiotics. Follow up on cultures. 2.Chronic obstructive pulmonary diease, chronic respiratory failure. The patient on 2 L of oxygen. Continue nebulizer treatments. 3.Diastolic heart failure, chronic, ejection fraction 58%, compensated. 4.Coumadin coagulopathy, status post vitamin K and FFP. Continue to hold Coumadin for the procedure . 5.Diabetes mellitus type 2 osn-aasuoet-ovkgbexlo with hyperglycemia. Continue sliding scale insulin . 6.History of lung cancer. 7.Hyperlipidemia, mixed. Continue statin. 8.Benign prostatic hypertrophy. Continue Flomax. 9.Essential hypertension, stable. 10.Atrial fibrillation with controlled ventricular rate, paroxysmal. Coumadin on hold for procedure . 11.Gastrointestinal and deep venous thrombosis prophylaxis with PPI and SCDs. No chemical anticoagu lation due to impending procedure. /GERMAN Voice ID: [id number] Report ID: [id number]
[2017-07-13] MEDS: ATORVASTATIN 40 MG TAB PO SCH (20:39)
[2017-07-13] MEDS: ALBUTEROL 2.5 MG/3 ML NEB SOL NEB PRN (20:47)
[2017-07-14] MEDS: NA CHLORIDE 0.9% 1,000 ML IV SCH ×3 (00:49→12:47)
[2017-07-14 05:19] LABS: Absolute Monocytes 0.8 K/uL (0.1-1.3); Absolute Neutrophil 6.1 K/uL (1.8-8.0); Basophils % 1.1 % (0-1.3); Eosinophils % 3.8 % (0-4.4); Hematocrit 34.4 % (39.6-49.0); Lymphocytes % 12.3 % (15.3-44.8); MCV 88.5 fL (80-100); MPV 9.6 fL (7.6-11.3); RBC Red Blood Cell Count 3.89 M/uL (4.33-5.43)
[2017-07-14 05:27] LABS: Protime INR 1.55
[2017-07-14 05:31] LABS: Potassium 4.2 mEq/L (3.6-5.0)
[2017-07-14] MEDS: PANTOPRAZOLE 40MG TABLET PO SCH (06:30)
[2017-07-14] MEDS ORDERED: HYDRALAZINE HCL 20 MG/ML VIAL IV PRN (06:36)
[2017-07-14] MEDS: INSULIN -REGULAR HUMAN 50 UNIT/0.5 ML ML SQ SCH ×4 (07:30→21:00)
[2017-07-14] MEDS: METFORMIN HCL 500 MG TAB PO SCH ×2 (07:58→17:25)
[2017-07-14] MEDS ORDERED: BUPIVACA 0.25%/EPI 0.0005%/PF 30 ML VIAL ONE (08:47)
[2017-07-14] MEDS ORDERED: HYDRALAZINE HCL 20 MG/ML VIAL ONE (08:50)
[2017-07-14] MEDS ORDERED: ALBUTEROL 2.5 MG/3 ML NEB SOL ONE (08:51)
[2017-07-14] MEDS: ALBUTEROL 2.5 MG/3 ML NEB SOL NEB PRN ×2 (08:52→20:06)
[2017-07-14] MEDS ORDERED: PROPOFOL 200 MG/20 ML VIAL IV ONE (08:55)
[2017-07-14] MEDS ORDERED: FENTANYL CITR 100 MCG/2 ML ONE (08:56)
[2017-07-14] MEDS ORDERED: MIDAZOLAM HCL 2 MG/2 ML INJ ONE (08:56)
[2017-07-14] MEDS ORDERED: ONDANSETRON 4 MG/2 ML VIAL ONE (08:56)
[2017-07-14] MEDS ORDERED: LIDOCAINE 1% MPF 5 ML VIAL ONE (08:56)
[2017-07-14] MEDS ORDERED: KETOROLAC 30 MG/ML INJ ONE (08:56)
--- NOTE | 2017-07-14 09:28 | P.OP ---
Preoperative diagnosis: Right forearm abscess Postoperative diagnosis: Right forearm abscess Primary procedure: Incision, drainage and debridement of Right forearm abscess Anesthesia: GETA + Local Estimated blood loss: <2cc Specimen: Cultures and tissue sent Findings: necrotic skin, abscess ~4cm Complications: None Transferred to: Recovery Room Condition: Good
[2017-07-14] MEDS ORDERED: NA CHLORIDE 0.9% 1,000 ML ONE (10:08)
[2017-07-14] MEDS: ISOSORBIDE MONO SR 30 MG TAB PO SCH (11:01)
[2017-07-14] MEDS: FINASTERIDE 5 MG TAB PO SCH (11:01)
[2017-07-14] MEDS: TAMSULOSIN 0.4 MG SR CAP PO SCH (11:02)
[2017-07-14] MEDS: buPROPion HCl 100 MG TAB PO SCH ×2 (11:02→21:10)
[2017-07-14] MEDS: ALLOPURINOL 100 MG TAB PO SCH ×2 (11:02→21:09)
[2017-07-14] MEDS: DOCUSATE NA 100 MG CAP PO SCH ×2 (11:03→21:09)
[2017-07-14] MEDS: VERAPAMIL SR 240 MG TABLET PO SCH ×2 (11:03→21:10)
[2017-07-14] MEDS: ASPIRIN EC 81 MG TAB PO SCH (11:04)
[2017-07-14] MEDS: GABAPENTIN 300 MG CAP PO SCH ×3 (11:04→21:09)
[2017-07-14] MEDS: HYDROCODONE/APAP 7.5/325 MG TAB PO PRN ×2 (11:09→21:10)
--- NOTE | 2017-07-14 13:42 | OP ---
Date of Procedure: 07/14/2017 Surgeon: Tonio Anaya MD, Preoperative Diagnosis: Right forearm abscess. Postoperative Diagnosis: Right forearm abscess. Procedure Performed: Incision, drainage and debridement of right forearm abscess and associated skin . Anesthesia: General endotracheal plus local with 0.25% Marcaine with epinephrine. Estimated Blood Loss: Less than 2 cc. Specimen: Culture and tissues sent for examination. Findings: Necrotic tissue and an abscess approximately 4 cm elliptical size. Complications: None. Disposition: Transferred to recovery room in good condition. Procedure In Detail: After informed consent was obtained, the patient was brought to the operating r oom, prepped and draped in the usual sterile fashion. After adequate anesthesia was achieved, an ell iptical incision was made around the mid right forearm, around approximately 4 cm area of necrotic sk in with purulent discharge. The electrocautery was then used to dissect after the elliptical skin in cision was made with a 15-blade down through subcutaneous tissues. The muscle fascial planes were no t violated; however, the arm still remains grossly edematous and quite a bit of fluid and edema were leaking from this area. The skin ellipse was taken with its associated abscess cavity after appropri ately being cultured and sent off for pathologic examination and culture. The area was then irrigate d multiple times and hemostasis was achieved with electrocautery. It was then packed after undermini ng slightly in the skin surrounding with electrocautery with quarter-inch iodoform packing and a ster ile dressing was placed over top. The patient tolerated the procedure well without complication and transferred back in good condition. All counts were correct at the end of the case. YANIV/GERMAN Voice ID: [id number] Report ID: [id number]
[2017-07-14] MEDS: Levofloxacin500mg IV 500 MG/100 ML BAG IV SCH (14:55)
--- NOTE | 2017-07-14 15:24 | PN ---
Date of Progress Note: 07/14/2017 Subjective: The patient seen and examined. Chart reviewed, and case discussed with RN and Dr. Sallie dominguez. The patient went for I and D today. States he is feeling better. No other complaints. Review of Systems: Negative except as above. Medications: Reviewed. Physical Examination: Vital Signs: Temperature 97.2, heart rate 79, blood pressure 151/65, respirations 16, O2 of 100% on 10 L via nasal cannula. General: Awake, alert, oriented, no acute distress. Elderly male, morbidly obese, BMI 40. CV: S1, S2. Regular rate and rhythm. Peripheral pulses present. Respiratory: Moving air well bilaterally. No wheezing. Gastrointestinal: Abdomen is soft, nontender, nondistended. Positive bowel sounds. Extremities: No clubbing, cyanosis. 2+ edema. Skin: Right forearm surgical bandages. Clean, dry, intact. Some mild erythema. Neurologic: Nonfocal. Laboratory Data: Sodium 139, potassium 4.2, chloride 108, CO2 of 28, BUN 18, creatinine 0.97, glucos e 130, calcium 8.7, INR 1.55. WBC 8.3, H and H are 10.9 and 34.4, platelets 240. Wound culture grow ing MRSA. Assessment And Plan: A 72-year-old male with: 1.Right arm cellulitis, status post incision and drainage of abscess. Wound culture growing methici llin-resistant Staphylococcus aureus. We will continue IV antibiotics. Appreciate Dr. Anaya's inp ut. 2.Chronic obstructive pulmonary disease with chronic respiratory failure. The patient is on supplem ental oxygen. We will wean down to his rate at home. Continue nebulizer treatments. 3.Diastolic heart failure, chronic, ejection fraction 58%, compensated. 4.Coumadin coagulopathy, corrected. We will hold Coumadin 24 hours and resume 24 hours post surgery . 5.Diabetes mellitus type 2, cqe-ntiyqyh-rlrgleaxu with hyperglycemia. Continue sliding scale insuli n. 6.History of lung cancer. 7.Hyperlipidemia. 8.Continue statin. 9.Benign prostatic hyperplasia. Continue Flomax. 10.Essential hypertension, stable. 11.Atrial fibrillation with paroxysmal, currently in sinus rhythm. Coumadin on hold due to recent s urgery. We will resume in a.m. 12.Gastrointestinal and deep venous thrombosis prophylaxis. Proton-pump inhibitor and SCDs. No sky mical anticoagulation due to surgery today. /GERMAN Voice ID: [id number] Report ID: [id number]
[2017-07-14] MEDS: VANCOMYCIN 2 GM in NA CHLORIDE 0.9% 500 ML IVPB SCH (16:29)
[2017-07-14] MEDS: SMZ./TMP. 800/160 MG TABLET PO SCH (21:09)
[2017-07-14] MEDS: ATORVASTATIN 40 MG TAB PO SCH (21:10)
[2017-07-15] MEDS: HYDROCODONE/APAP 7.5/325 MG TAB PO PRN ×4 (01:18→21:14)
[2017-07-15] MEDS: ALBUTEROL 2.5 MG/3 ML NEB SOL NEB PRN ×3 (01:29→20:40)
[2017-07-15 05:15] VITALS: BMI 45.6
[2017-07-15 05:26] LABS: Protime INR 1.23
[2017-07-15] MEDS: PANTOPRAZOLE 40MG TABLET PO SCH (05:33)
[2017-07-15] MEDS: INSULIN -REGULAR HUMAN 50 UNIT/0.5 ML ML SQ SCH ×4 (07:30→21:00)
[2017-07-15] MEDS: METFORMIN HCL 500 MG TAB PO SCH ×2 (09:00→17:11)
[2017-07-15] MEDS: VERAPAMIL SR 240 MG TABLET PO SCH ×2 (10:14→21:14)
[2017-07-15] MEDS: buPROPion HCl 100 MG TAB PO SCH ×2 (10:15→21:15)
[2017-07-15] MEDS: ALLOPURINOL 100 MG TAB PO SCH ×2 (10:15→21:14)
[2017-07-15] MEDS: GABAPENTIN 300 MG CAP PO SCH ×3 (10:15→21:14)
[2017-07-15] MEDS: TAMSULOSIN 0.4 MG SR CAP PO SCH (10:16)
[2017-07-15] MEDS: FUROSEMIDE 40 MG TABLET PO SCH (10:16)
[2017-07-15] MEDS: ISOSORBIDE MONO SR 30 MG TAB PO SCH (10:16)
[2017-07-15] MEDS: FINASTERIDE 5 MG TAB PO SCH (10:17)
[2017-07-15] MEDS: DOCUSATE NA 100 MG CAP PO SCH ×2 (10:17→21:13)
[2017-07-15] MEDS: ASPIRIN EC 81 MG TAB PO SCH (10:17)
[2017-07-15] MEDS: SMZ./TMP. 800/160 MG TABLET PO SCH ×2 (10:17→21:13)
--- NOTE | 2017-07-15 14:46 | PN ---
Date of Progress Note: 07/15/2017 History: The patient was seen and examined. Chart reviewed and case discussed with RN. The patient is doing well. No acute events overnight. Review of Systems: Negative except as above. Medications: Reviewed. Physical Examination: Vital Signs: Temperature 97.8, heart rate 76, blood pressure 157/74, respirations 18, O2 98% on 2 L via nasal cannula. General: Awake, alert, oriented x3, in no acute distress. Morbidly obese male, elderly. CV: S1, S2. Regular rate and rhythm. Peripheral pulses present. Respiratory: Moving air well bilaterally red gastrointestinal. Abdomen: Abdomen is soft, nontender, nondistended. Positive bowel sounds. Extremities: No clubbing, cyanosis, 2+ edema bilateral lower extremity and right upper extremity 1+ edema. Skin: Right upper extremity has erythema. No tenderness to palpation. Abscesses bandaged. No drai nage. Neurologic: Nonfocal. Laboratory Data: Glucose 108. Procalcitonin less than 0.05. INR 1.23. WBC 8.3. Wound culture moncho w growing MRSA. Assessment And Plan: A 72-year-old male with: 1.Right arm cellulitis status post incision and drainage by Dr. Anaya. Consult regarding MRSA. W e will continue IV antibiotics. ID consulted. 2.Chronic obstructive pulmonary disease with chronic respiratory failure. The patient on supplement al oxygen at home. We will continue nebulizer treatments. 3.Diastolic heart failure, chronic, EF 58%. 4.Coumadin coagulopathy, corrected. 5.Diabetes mellitus type 2 bcv-uejigfx-urmfujbbj with hyperglycemia. Continue sliding scale insulin . 6.History of lung cancer. 7.Hyperlipidemia. Continue statin. 8.Benign prostatic hypertrophy. Continue Flomax. 9.Essential hypertension, stable. 10.Atrial fibrillation, paroxysmal, currently in sinus rhythm. We will resume Coumadin. The patien t to check INR in 2-3 days. Once discharged, have PCP adjust Coumadin dose to keep INR between 2 and 3. 11.Gastrointestinal and deep venous thrombosis prophylaxis, PPI and Coumadin. SA/MODL Voice ID: [id number] Report ID: [id number]
[2017-07-15] MEDS ORDERED: WARFARIN SODIUM 3 MG TAB PO SCH (17:00)
--- NOTE | 2017-07-15 19:58 | CON ---
History Of Present Illness: This is a 72-year-old male, I was consulted for right arm abscess with a history of diabetes mellitus. The patient also has history of hyperlipidemia, COPD, atrial fibrilla tion, on Coumadin. The patient had surgical debridement done by surgical team. Doing well. Denies any headache, nausea, vomiting, chest pain, abdominal pain, constipation, diarrhea. Being treated wi th IV antibiotic and has been switched to oral Bactrim. The patient is growing MRSA in his wound. Past Medical History: As per HPI. Social History: Nonsmoker, nondrinker. Family History: Noncontributory. Medications: Vancomycin and Levaquin, which has been discontinued now. The patient is on Bactrim. Allergies: TO PENICILLIN AND CODEINE. Review of Systems: A 10-point review was performed. Physical Examination: General: This is a 72-year-old male, sitting in easy chair, not in any acute cardiopulmonary distres s. Vital Signs: Temperature 97.5, pulse 83, respiration 18, blood pressure 133/51. HEENT: Unremarkabl e. Neck: Supple. Lungs: Basal crackles. Heart: S1, S2. Regular. Abdomen: Soft, nontender. Bowel sounds positive. Extremity: Right arm with erythematous changes noted, and wound site also examined with dark black d iscoloration, status post silver nitrate exposure to the wound site. Assessment And Plan: Right arm abscess in a diabetic patient status post debridement, MRSA growth. We will recommend the patient to be on Bactrim for a total of 2 weeks and start the patient on Santyl daily. [facility] 2 p.m. We will c bibianainue to treat the patient to come back to the hospital if not improved. Thank you Dr. Boone for consult. FRANCES/GERMAN Voice ID: [id number] Report ID: [id number]
[2017-07-15] MEDS: ATORVASTATIN 40 MG TAB PO SCH (21:13)
[2017-07-15 21:26] VITALS: O2SAT 96
[2017-07-16] MEDS: HYDROCODONE/APAP 7.5/325 MG TAB PO PRN ×2 (04:49→09:29)
[2017-07-16 05:45] VITALS: TEMP 97.2
[2017-07-16] MEDS: PANTOPRAZOLE 40MG TABLET PO SCH (06:07)
[2017-07-16] MEDS: ALBUTEROL 2.5 MG/3 ML NEB SOL NEB PRN (07:28)
[2017-07-16] MEDS: INSULIN -REGULAR HUMAN 50 UNIT/0.5 ML ML SQ SCH (07:30)
[2017-07-16] MEDS ORDERED: COLLAGENASE 30 GM OINTMENT TOP SCH (09:00)
[2017-07-16] MEDS: buPROPion HCl 100 MG TAB PO SCH (09:26)
[2017-07-16] MEDS: METFORMIN HCL 500 MG TAB PO SCH (09:26)
[2017-07-16] MEDS: VERAPAMIL SR 240 MG TABLET PO SCH (09:27)
[2017-07-16] MEDS: DOCUSATE NA 100 MG CAP PO SCH (09:28)
[2017-07-16] MEDS: ISOSORBIDE MONO SR 30 MG TAB PO SCH (09:28)
[2017-07-16] MEDS: GABAPENTIN 300 MG CAP PO SCH (09:28)
[2017-07-16] MEDS: ALLOPURINOL 100 MG TAB PO SCH (09:28)
[2017-07-16] MEDS: FINASTERIDE 5 MG TAB PO SCH (09:29)
[2017-07-16] MEDS: SMZ./TMP. 800/160 MG TABLET PO SCH (09:29)
[2017-07-16] MEDS: TAMSULOSIN 0.4 MG SR CAP PO SCH (09:29)
[2017-07-16] MEDS: ASPIRIN EC 81 MG TAB PO SCH (09:29)
[2017-07-16 09:30] VITALS: BP 160/78
--- NOTE | 2017-07-16 18:54 | P.DS ---
Admission Date: 07/13/17 Discharge Date: 07/16/17 Disposition: ROUTINE DISCHARGE Discharge Condition: GOOD Reason for Admission: forearm abscess Consultations: Surgery Procedures: I&D - Problems (1) Abrasion of right upper extremity Onset Date: 05/04/17 Status: Acute Qualifiers: Encounter type: initial encounter Qualified Code(s): S40.811A - Abrasion of right upper arm, initial encounter (2) Afib Onset Date: 05/04/17 Status: Acute Qualifiers: Atrial fibrillation type: chronic Qualified Code(s): I48.2 - Chronic atrial fibrillation (3) Essential (primary) hypertension Onset Date: 05/04/17 Status: Chronic (4) History of COPD Status: Chronic (5) Hyperlipidemia Onset Date: 05/04/17 Status: Chronic Qualifiers: Hyperlipidemia type: mixed hyperlipidemia Qualified Code(s): E78.2 - Mixed hyperlipidemia (6) Type 2 diabetes mellitus without complications Onset Date: 05/04/17 Status: Chronic Qualifiers: Diabetes mellitus penitentiary insulin use: without watermelon inspector use Qualified Code(s): E11.9 - Type 2 diabetes mellitus without complications (7) History of lung cancer Status: Chronic Brief History of Present Illness: See HPI Hospital Course: Overall during the hospital stay patient remained stable The patient was initially admitted to the hospital for right arm cellulitis. Patient was found to have abscess of the right arm as well. General surgery was consulted who performed an incision and drainage for the patient here in the hospital. Wound cultures were sent. Wound cultures were growing MR BAUTISTA. ID was consulted at that time recommended Bactrim for total of 2 weeks along with wound care. Patient had marked improvement in his cellulitis and abscess in the area and this is discharged home under stable condition. Patient does have a history of atrial fibrillation for which she takes Coumadin. Coumadin was held here in the hospital for surgical procedure however was restarted here in the hospital. Patient on discharge were errors educated about repeating an INR in about 2-3 days to make sure that it is in the therapeutic range. Patient was also asked to follow up with a primary care provider. Other chronic conditions remained stable while here in the hospital. Vital Signs/Physical Exam: Temp Pulse Resp BP Pulse Ox 97.2 F 86 20 160/78 H 96 07/16/17 08:00 07/16/17 09:27 07/16/17 08:00 07/16/17 09:27 07/16/17 08:00 General: Alert, In no apparent distress HEENT: Atraumatic Neck: Supple, JVD not distended Respiratory: Clear to auscultation bilaterally, Normal air movement Cardiovascular: Regular rate/rhythm, Normal S1 S2 Gastrointestinal: Normal bowel sounds, Soft and benign, Non-distended, No tenderness Musculoskeletal: No tenderness Integumentary: No rashes Neurological: Normal speech, Normal tone, Normal affect Lymphatics: No axilla or inguinal lymphadenopathy Laboratory Data at Discharge: WBC 8.3 K/uL (4.3-10.9) 07/14/17 04:06 Hgb 10.9 g/dL (13.6-17.9) L 07/14/17 04:06 Hct 34.4 % (39.6-49.0) L 07/14/17 04:06 Plt Count 240 K/uL (152-406) 07/14/17 04:06 PT 14.6 SECONDS (9.5-12.5) H 07/15/17 04:11 INR 1.23 07/15/17 04:11 APTT 41.9 SECONDS (24.3-36.9) H 07/13/17 08:09 Sodium 139 mEq/L (135-145) 07/14/17 04:06 Potassium 4.2 mEq/L (3.6-5.0) 07/14/17 04:06 BUN 18 mg/dL (6-20) 07/14/17 04:06 Creatinine 0.97 mg/dL (0.61-1.24) 07/14/17 04:06 Glucose 130 mg/dL (65-120) H 07/14/17 04:06 Magnesium 1.6 mg/dL (1.8-2.5) L D 07/11/17 12:45 Total Bilirubin 0.7 mg/dL (0.3-1.2) 07/11/17 12:45 AST 19 IU/L (10-42) 07/11/17 12:45 ALT 21 IU/L (10-60) 07/11/17 12:45 Alkaline Phosphatase 81 IU/L (42-121) 07/11/17 12:45 B-Natriuretic Peptide 46 pg/ml (<=100) 07/11/17 12:45 Home Medications: RX: Albuterol Sulfate [Proair Respiclick] 90 mcg IH Q4H PRN 07/20/15 RX: Aspirin [Low Dose Aspirin EC] 81 mg PO DAILY 07/20/15 RX: Atorvastatin Calcium [Lipitor*] 40 mg PO BEDTIME 07/20/15 RX: Bupropion HCl [Wellbutrin*] 150 mg PO BID 07/20/15 RX: Docusate Sodium 100 mg PO BID 07/20/15 RX: Finasteride [Proscar*] 5 mg PO DAILY 07/20/15 RX: Furosemide [Lasix] 40 mg PO SEECOM 07/20/15 RX: Gabapentin [Gralise] 900 mg PO TID 07/20/15 RX: Metformin HCl [Glucophage] 1,000 mg PO BID 07/20/15 RX: Omeprazole [Prilosec] 20 mg PO DAILY 07/20/15 RX: Tiotropium [Spiriva Handihaler*] 1 puff IH DAILY 07/20/15 RX: Warfarin Sodium [Coumadin] 3 mg PO DAILY 07/20/15 RX: Allopurinol [Zyloprim*] 100 mg PO BID 05/04/17 RX: Budesonide/Formoterol Fumarate [Symbicort 160-4.5 Mcg Inhaler] 2 puff IH BID 05/04/17 RX: Isosorbide Mononitrate [Isosorbide Mononitrate ER] 90 mg PO DAILY 05/04/17 RX: Verapamil HCl [Verapamil ER] 120 mg PO BID 05/04/17 RX: Tamsulosin [Flomax*] 1 cap PO DAILY 07/12/17 RX: Smz./Tmp. [Bactrim Ds 800 MG/160 MG*] 1 tab PO BID #28 tab 07/16/17 New Medications: RX: Smz./Tmp. [Bactrim Ds 800 MG/160 MG*] 1 tab PO BID #28 tab Patient Discharge Instructions: Please f/u with PCP in 1 to 2 days post discharge. -You are prescribed Bactrim DS for 14 days. You are also restarted on coumadin. You will need to get INR check to ensure it is in Therapeutic range post discharge. Please f/u with Dr Jackson in 2 days post discharge Diet: Regular Activity: Ad alexandru Followup: Guillermo Jackson MD [ACTIVE - CAN ADMIT] - 07/18/17 Tonio Anaya MD [ACTIVE - CAN ADMIT] - (call to schedule follow up appointment)
== END 2017-07-16 11:16 | disposition home or self-care (01) | DRG 603 ==
LOC: ER 09:43 → ERHOLD 14:33 → 4TH 18:10 → OBSVTOIN 07-13 11:22
PROVIDERS: ADMIT Family Medicine; ATTEND Family Medicine
PROC: 0J9G3ZX Drainage of Right Lower Arm Subcutaneous Tissue and Fascia, Percutaneous Approach, Diagnostic (ICD-10-PCS; principal; 2017-07-14 09:15)
DX: L03.113 Cellulitis of right upper limb (principal); J96.10 Chronic respiratory failure, unspecified whether with hypoxia or hypercapnia; I50.32 Chronic diastolic (congestive) heart failure; Z68.42 Body mass index [BMI] 45.0-49.9, adult; L02.413 Cutaneous abscess of right upper limb; B95.62 Methicillin resistant Staphylococcus aureus infection as the cause of diseases classified elsewhere; I48.2 Chronic atrial fibrillation; E78.5 Hyperlipidemia, unspecified; I10 Essential (primary) hypertension; E11.9 Type 2 diabetes mellitus without complications; N40.0 Benign prostatic hyperplasia without lower urinary tract symptoms; J44.9 Chronic obstructive pulmonary disease, unspecified; I11.0 Hypertensive heart disease with heart failure; Z95.0 Presence of cardiac pacemaker; Z88.0 Allergy status to penicillin; Z99.81 Dependence on supplemental oxygen; Z85.118 Personal history of other malignant neoplasm of bronchus and lung; Z79.01 Long term (current) use of anticoagulants; Z87.891 Personal history of nicotine dependence; E66.01 Morbid (severe) obesity due to excess calories
CPT/HCPCS: 36415; 71046; 80048; 80076; 80202; 81003; 82962; 83735; 83880; 84145; 84484; 85025; 85610; 85730; 86900; 86901; 87040; 87070; 87075; 87077; 87086; 87088; 87186; 87205; 88304; 88305; 93005; 94760; 96365; 96375; 99285; J0360; J2250; J2405; J3010; J3430; J3590; J7030; P9059

== ENCOUNTER 2017-11-16 13:00 | Emergency (ER) | payer OTHER ==
--- NOTE | 2017-11-16 13:51 | RAD REPORT ---
EXAM DESCRIPTION: CT - Head C Spine Mpr Wo Con - 11/16/2017 1:28 pm CLINICAL HISTORY: Head and neck injury status post fall. Head and neck pain COMPARISON: None. TECHNIQUE: Computed axial tomography of the head and cervical spine was obtained. Sagittal and coronal reconstruction was performed. All CT scans are performed using dose optimization technique as appropriate and may include automated exposure control or mA/KV adjustment according to patient size. FINDINGS: Left frontal scalp laceration is present without an underlying skull fracture. An intracranial bleed is not seen. The ventricles are normal in caliber. An extra-axial fluid collect ion is not noted.Fluid within the visualized sinuses and mastoids is not seen A cervical fracture is not visualized. No dislocation is noted. Spondylosis involves the cervical spi ne IMPRESSION: No acute intracranial abnormality is seen. A cervical fracture is not visualized. If the patient continues to have symptoms to suggest intracra nial /spinal cord pathology then MRI would be recommended
[2017-11-16] MEDS ORDERED: CEFAZOLIN/SWI 1gm 1 GM/10 ML SYR ONE (13:59)
[2017-11-16] MEDS ORDERED: TETANUS & DIPHTHERIA TOX,ADULT 0.5 ML VIAL ONE (13:59)
[2017-11-16] MEDS ORDERED: ONDANSETRON 4 MG/2 ML VIAL ONE (14:01)
[2017-11-16] MEDS ORDERED: MORPHINE 4 MG/ML SYR ONE (14:01)
[2017-11-16] MEDS ORDERED: LIDOCAINE 1% W/EPI 1:100,000 MDV 50 ML VIAL ONE (14:02)
--- NOTE | 2017-11-16 14:51 | ER ---
Nurse's Notes [facility] Name: Honorio Toussaint Age: 72 yrs Sex: Male : 1945 Arrival Date: 11/16/2017 Time: 13:04 Bed 3 Private MD: RAMY MCCANN Diagnosis: Fall, closed head injury, scalp laceration Presentation: 11/16 13:05 Presenting complaint: Patient states: " I tripped over my oxygen tubing and hit my head ph on the corner of the wall." Pt reports that he does take blood thinners, denies LOC, also denies N/V or dizziness. Care prior to arrival: None. Mechanism of Injury: Fall from standing position. Trauma event details: Injury occurred in the [facility], Injury occurred: at home. Injury occurred: November 16, 2017. 13:05 Acuity: ATIF 3 ph 13:05 Method Of Arrival: Ambulatory ph 13:05 Transition of care: patient was not received from another setting of care. Onset of ph symptoms was November 16, 2017. Risk Assessment: Do you want to hurt yourself or someone else? Patient reports no desire to harm self or others. Initial Sepsis Screen: Does the patient meet any 2 criteria? No. Patient's initial sepsis screen is negative. Does the patient have a suspected source of infection? No. Patient's initial sepsis screen is negative. 13:05 Onset of symptoms was November 16, 2017. ph Trauma Activation: Alert Physician: ED Physician; Name: ; Notified At: ; Arrived At: Physician: General Surgeon; Name: ; Notified At: ; Arrived At: Physician: Radiology; Name: ; Notified At: ; Arrived At: Physician: Respiratory; Name: ; Notified At: ; Arrived At: Physician: Lab; Name: ; Notified At: ; Arrived At: Historical: - Allergies: 15:25 Codeine; ph 15:25 PENICILLINS; ph - PMHx: 15:25 Anxiety; Cancer; Cellulitis; constipation; COPD; CVA; Depression; Diabetes - NIDDM; ph Hyperlipidemia; Hypertension; Lymphadema; neck pain; prostate probelm; Sleep Apnea; trigeminal neuralgia; - PSHx: 15:25 Pacemaker/Defibrillator; ph - Immunization history: Last tetanus immunization: > 10 years ago. - Social history:: Smoking status: Patient/guardian denies using tobacco. - Ebola Screening: : No symptoms or risks identified at this time. Screenin:00 Abuse screen: Denies threats or abuse. Denies injuries from another. Nutritional ph screening: No deficits noted. Tuberculosis screening: No symptoms or risk factors identified. Fall Risk Fall in past 12 months (25 points). No secondary diagnosis (0 pts). IV access (20 points). Ambulatory Aid- None/Bed Rest/Nurse Assist (0 pts). Gait- Normal/Bed Rest/Wheelchair (0 pts) Mental Status- Oriented to own ability (0 pts). Total [place] Fall Scale indicates High Risk Score (45 or more points). Fall prevention measures have been instituted. Side Rails Up X 2 Placed Close to Nursing Station Frequent Obs/Assessments Occuring Family Present and informed to notify staff if the need to leave the bedside As available patient and family educated on Fall Prevention Program and Strategies. Primary Survey: 13:15 A: Airway: patent. Breathing/Chest: Respiratory pattern: regular, Respiratory effort: ph spontaneous, unlabored, Breath sounds: clear, bilaterally. Circulation: Skin color: pink. Disability Alert. 15:00 Reassessment Airway Airway Patent Breathing/Chest Respiratory pattern Regular ph Circulation Color [place] Temperature Warm Dry Disability Alert. Secondary Survey: 13:15 HEENT: Head Other laceration noted to L top of head, bleeding controlled. ph Assessment: 13:15 General: Appears in no apparent distress. comfortable, well groomed, Behavior is calm, ph cooperative, appropriate for age. Pain: Complains of pain in top of head. Neuro: Level of Consciousness is awake, alert, obeys commands, Oriented to person, place, time, situation, Reports headache Denies weakness blurred vision dizziness, photophobia. Cardiovascular: Capillary refill < 3 seconds Patient's skin is warm and dry. Respiratory: Airway is patent Respiratory effort is even, unlabored. GI: No signs and/or symptoms were reported involving the gastrointestinal system. Patient currently denies nausea, vomiting. Derm: Skin is healthy with good turgor, Skin is pink, warm \\T\\ dry. Wound noted left frontal area. Musculoskeletal: Circulation, motion, and sensation intact. Range of motion: intact in all extremities. Injury Description: Abrasion sustained to right elbow is scabbed, Pt states, " That happened yesterday when I fell." Laceration sustained to left frontal area is clean, 7.6 to 20 cm long, a small amount of bleeding noted at this time. 14:30 Reassessment: Patient appears in no apparent distress at this time. Patient and/or ph family updated on plan of care and expected duration. Pain level reassessed. Patient is alert, oriented x 3, equal unlabored respirations, skin warm/dry/pink. Pt resting quietly, reports that pain has decreased after IV pain meds, friend at bedside, awaiting d/c. Vital Signs: 13:05 BP 119 / 64; Pulse 102; Resp 18; Temp 97.1; Pulse Ox 95% on 3 lpm NC; ph 14:00 BP 122 / 67; Pulse 87; Resp 18; Temp 98.0; Pulse Ox 97% on 3 lpm NC; ph 15:18 BP 117 / 58; Pulse 78; Resp 18; Temp 97.8; Pulse Ox 96% on 3 lpm NC; ph Sal Coma Score: 13:05 Eye Response: spontaneous(4). Verbal Response: oriented(5). Motor Response: obeys ph commands(6). Total: 15. 14:00 Eye Response: spontaneous(4). Verbal Response: oriented(5). Motor Response: obeys ph commands(6). Total: 15. 15:18 Eye Response: spontaneous(4). Verbal Response: oriented(5). Motor Response: obeys ph commands(6). Total: 15. Trauma Score (Adult): 13:05 Eye Response: spontaneous(1); Verbal Response: oriented(1); Motor Response: obeys ph commands(2); Systolic BP: > 89 mm Hg(4); Respiratory Rate: 10 to 29 per min(4); [place] Score: 15; Trauma Score: 12 14:00 Eye Response: spontaneous(1); Verbal Response: oriented(1); Motor Response: obeys ph commands(2); Systolic BP: > 89 mm Hg(4); Respiratory Rate: 10 to 29 per min(4); Sal Score: 15; Trauma Score: 12 15:18 Eye Response: spontaneous(1); Verbal Response: oriented(1); Motor Response: obeys ph commands(2); Systolic BP: > 89 mm Hg(4); Respiratory Rate: 10 to 29 per min(4); Sal Score: 15; Trauma Score: 12 ED Course: 13:04 Patient arrived in ED. sb2 13:04 VA, VA is Private Physician. sb2 13:05 Arm band placed on. ph 13:06 Ion Luke MD is Attending Physician. kdr 13:15 Patient has correct armband on for positive identification. Bed in low position. Call ph light in reach. Side rails up X 1. Pulse ox on. NIBP on. Warm blanket given. 13:17 Milena Velez RN is Primary Nurse. ph 13:20 Triage completed. ph 13:25 Initial lab(s) drawn, by me, held in ED. Inserted saline lock: 22 gauge in right ph antecubital area, using aseptic technique. Blood collected. Oxygen administration via nasal cannula \\T\\ 3L/min. 13:29 CT Head C Spine In Process Unspecified. EDMS 13:30 Thermoregulation: warm blanket given to patient. ph 14:15 Assist provider with laceration repair on left frontal area that was between 2.6 to 7.5 ph cm using itzel. Set up tray. Performed by Vannesa HAN Dressed with 4X4s, Patient tolerated well. Wound care: to laceration located on left frontal area was cleaned with Hibiclens, irrigated with normal saline. 15:25 No provider procedures requiring assistance completed. IV discontinued, intact, ph bleeding controlled, No redness/swelling at site. Pressure dressing applied. Administered Medications: 13:55 Drug: Zofran 4 mg Route: IVP; Site: right antecubital; ph 14:30 Follow up: Response: No adverse reaction ph 13:57 Drug: morphine 2 mg Route: IVP; Site: right antecubital; ph 14:30 Follow up: Response: No adverse reaction; Pain is decreased ph 14:00 Drug: Lidocaine-Epinephrine -1%: (1:100,000) 1 vials Volume: 20 ml; Route: Infiltration;ph 14:30 Follow up: Response: No adverse reaction ph 14:00 Drug: Ancef 1 grams Route: IVPB; Site: right antecubital; ph 14:30 Follow up: Response: No adverse reaction; IV Status: Completed infusion ph 14:08 Not Given (Other Intervention Used): Ancef 1 grams IM once ph 14:10 Drug: Tetanus-Diphtheria Toxoid Adult 0.5 ml {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 Exp: ph 07/20/2019. Lot #: [id number]. } Route: IM; Site: right deltoid; 14:30 Follow up: Response: No adverse reaction ph Intake: 13:05 PO: 0ml; Total: 0ml. ph 15:18 PO: 0ml; Total: 0ml. ph Output: 13:05 Urine: 0ml; Total: 0ml. ph 15:18 Urine: 0ml; Total: 0ml. ph Outcome: 14:50 Discharge ordered by . kdr 15:26 Patient left the ED. ph 15:26 Discharged to home via wheelchair, with friend. ph 15:26 Condition: good 15:26 Discharge instructions given to patient, Instructed on discharge instructions, follow up and referral plans. medication usage, wound care, Demonstrated understanding of instructions, follow-up care, medications, wound care, Prescriptions given X 2. 15:26 Patient's length of stay was not longer than 2 hours. ph Signatures: Dispatcher [employer] oIn Ambriz MD MD kdr Hall, Patricia, RN RN ph Jerri Britt sb2
--- NOTE | 2017-11-16 14:51 | EDPHYS ---
Physician Documentation [facility] Name: Honorio Toussaint Age: 72 yrs Sex: Male : 1945 Arrival Date: 11/16/2017 Time: 13:04 Bed 3 Private MD: RAMY IN ED Physician Ion Luke HPI: 11/16 13:19 This 72 yrs old Male presents to ER via Unassigned with complaints of Fall kdr Injury - HEAD. 13:19 Details of fall: The patient fell from an upright position, while walking, and struck. kdr Onset: The symptoms/episode began/occurred suddenly, just prior to arrival. Associated injuries: The patient sustained injury to the head. Severity of symptoms: At their worst the symptoms were mild, in the emergency department the symptoms are unchanged. The patient has not experienced similar symptoms in the past. The patient has not recently seen a physician. The patient states that he tripped over his oxygen tubing and hit his head on the corner of two kam. Historical: - Allergies: 15:25 Codeine; ph 15:25 PENICILLINS; ph - PMHx: 15:25 Anxiety; Cancer; Cellulitis; constipation; COPD; CVA; Depression; Diabetes - NIDDM; ph Hyperlipidemia; Hypertension; Lymphadema; neck pain; prostate probelm; Sleep Apnea; trigeminal neuralgia; - PSHx: 15:25 Pacemaker/Defibrillator; ph - Immunization history: Last tetanus immunization: > 10 years ago. - Social history:: Smoking status: Patient/guardian denies using tobacco. - Ebola Screening: : No symptoms or risks identified at this time. ROS: 13:19 Constitutional: Negative for fever, chills, and weight loss, Eyes: Negative for injury, kdr pain, redness, and discharge, ENT: Negative for injury, pain, and discharge, Neck: Negative for injury, pain, and swelling, Cardiovascular: Negative for chest pain, palpitations, and edema, Respiratory: Negative for shortness of breath, cough, wheezing, and pleuritic chest pain, Abdomen/GI: Negative for abdominal pain, nausea, vomiting, diarrhea, and constipation, Back: Negative for injury and pain, : Negative for injury, bleeding, discharge, and swelling, MS/Extremity: Negative for injury and deformity, Neuro: Negative for headache, weakness, numbness, tingling, and seizure activity. Psych: Negative for depression, anxiety, suicide ideation, homicidal ideation, and hallucinations, Allergy/Immunology: Negative for hives, rash, and allergies, Endocrine: Negative for neck swelling, polydipsia, polyuria, polyphagia, and marked weight changes, Hematologic/Lymphatic: Negative for swollen nodes, abnormal bleeding, and unusual bruising. 13:19 Skin: Positive for laceration(s), of the left frontal area. Exam: 13:19 Constitutional: This is a well developed, well nourished patient who is awake, alert, kdr and in no acute distress. Eyes: Pupils equal round and reactive to light, extra-ocular motions intact. Lids and lashes normal. Conjunctiva and sclera are non-icteric and not injected. Cornea within normal limits. Periorbital areas with no swelling, redness, or edema. ENT: Nares patent. No nasal discharge, no septal abnormalities noted. Tympanic membranes are normal and external auditory canals are clear. Oropharynx with no redness, swelling, or masses, exudates, or evidence of obstruction, uvula midline. Mucous membranes moist. Chest/axilla: Normal chest wall appearance and motion. Nontender with no deformity. No lesions are appreciated. Abdomen/GI: Soft, non-tender, with normal bowel sounds. No distension or tympany. No guarding or rebound. No evidence of tenderness throughout. Back: No spinal tenderness. No costovertebral tenderness. Full range of motion. Skin: Warm, dry with normal turgor. Normal color with no rashes, no lesions, and no evidence of cellulitis. HE does have lact to left parietal region MS/ Extremity: Pulses equal, no cyanosis. Neurovascular intact. Full, normal range of motion. Neuro: Awake and alert, GCS 15, oriented to person, place, time, and situation. Cranial nerves II-XII grossly intact. Motor strength 5/5 in all extremities. Sensory grossly intact. Cerebellar exam normal. Normal gait. Psych: Awake, alert, with orientation to person, place and time. Behavior, mood, and affect are within normal limits. Vital Signs: 13:05 BP 119 / 64; Pulse 102; Resp 18; Temp 97.1; Pulse Ox 95% on 3 lpm NC; ph 14:00 BP 122 / 67; Pulse 87; Resp 18; Temp 98.0; Pulse Ox 97% on 3 lpm NC; ph 15:18 BP 117 / 58; Pulse 78; Resp 18; Temp 97.8; Pulse Ox 96% on 3 lpm NC; ph [place] Coma Score: 13:05 Eye Response: spontaneous(4). Verbal Response: oriented(5). Motor Response: obeys ph commands(6). Total: 15. 14:00 Eye Response: spontaneous(4). Verbal Response: oriented(5). Motor Response: obeys ph commands(6). Total: 15. 15:18 Eye Response: spontaneous(4). Verbal Response: oriented(5). Motor Response: obeys ph commands(6). Total: 15. Trauma Score (Adult): 13:05 Eye Response: spontaneous(1); Verbal Response: oriented(1); Motor Response: obeys ph commands(2); Systolic BP: > 89 mm Hg(4); Respiratory Rate: 10 to 29 per min(4); Sal Score: 15; Trauma Score: 12 14:00 Eye Response: spontaneous(1); Verbal Response: oriented(1); Motor Response: obeys ph commands(2); Systolic BP: > 89 mm Hg(4); Respiratory Rate: 10 to 29 per min(4); Sal Score: 15; Trauma Score: 12 15:18 Eye Response: spontaneous(1); Verbal Response: oriented(1); Motor Response: obeys ph commands(2); Systolic BP: > 89 mm Hg(4); Respiratory Rate: 10 to 29 per min(4); Sal Score: 15; Trauma Score: 12 Laceration: 14:33 Wound Repair of 8cm ( 3.1in ) subcutaneous laceration to left frontal area. Linear kb shaped.. Distal neuro/vascular/tendon intact. Anesthesia: Wound infiltrated with 3 mls of 1% lidocaine w/ Epi. Wound prep: Extensive cleansing with hibiclenz by me, Wound irrigation with saline by me. Skin closed with 12 1-0 Brandee using staple gun. Dressed with Neosporin. Patient tolerated well. MDM: 14:50 Patient medically screened. kdr 17:58 Data reviewed: vital signs, nurses notes, radiologic studies. Counseling: I had a kdr detailed discussion with the patient and/or guardian regarding: the historical points, exam findings, and any diagnostic results supporting the discharge/admit diagnosis, radiology results, the need for outpatient follow up. 11/16 13:07 Order name: CT Head C Spine; Complete Time: 14:48 kdr 11/16 13:56 Order name: Dressing - Wound; Complete Time: 14:09 kb 11/16 13:56 Order name: Gloves, Sterile; Complete Time: 14:09 kb 11/16 13:56 Order name: Setup Suture Tray; Complete Time: 14:09 kb Administered Medications: 13:55 Drug: Zofran 4 mg Route: IVP; Site: right antecubital; ph 14:30 Follow up: Response: No adverse reaction ph 13:57 Drug: morphine 2 mg Route: IVP; Site: right antecubital; ph 14:30 Follow up: Response: No adverse reaction; Pain is decreased ph 14:00 Drug: Lidocaine-Epinephrine -1%: (1:100,000) 1 vials Volume: 20 ml; Route: Infiltration;ph 14:30 Follow up: Response: No adverse reaction ph 14:00 Drug: Ancef 1 grams Route: IVPB; Site: right antecubital; ph 14:30 Follow up: Response: No adverse reaction; IV Status: Completed infusion ph 14:08 Not Given (Other Intervention Used): Ancef 1 grams IM once ph 14:10 Drug: Tetanus-Diphtheria Toxoid Adult 0.5 ml {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 Exp: ph 07/20/2019. Lot #: [id number]. } Route: IM; Site: right deltoid; 14:30 Follow up: Response: No adverse reaction ph Disposition: 14:49 Co-signature as Attending Physician, Ion Luke MD. kdr 18:14 Co-signature as Attending Physician, Ion Luke MD I agree with the assessment and kdr plan of care. Disposition: 11/16/17 14:50 Discharged to Home. Impression: Fall, closed head injury, scalp laceration. - Condition is Stable. - Discharge Instructions: Laceration Care, Adult, Ixux-[id number], Head Injury, Adult, Skax-[id number], Facial or Scalp Contusion, [id number]. - Prescriptions for Keflex 500 mg Oral Capsule - take 1 capsule by ORAL route every 8 hours for 7 days; 21 capsule. Tylenol- Codeine #3 300-30 mg Oral Tablet - take 2 tablets by ORAL route every 4-6 hours As needed 1 - 2 tabs every four to six hours as needed for pain; 12 tablet. - Medication Reconciliation Form, Thank You Letter, Antibiotic Education form. - Follow up: Private Physician; When: 2 - 3 days; Reason: Wound Recheck, If symptoms return, Further diagnostic work-up, Recheck today's complaints, Continuance of care, Re-evaluation by your physician. - Problem is new. - Symptoms have improved. - Notes: Sutures out in 7 - 10 days Signatures: Dispatcher [employer] EDMS Vannesa Ace, ROSALINDA-C DUST MOP MAKER-CkIon Browne MD MD kdr Hall, Patricia, RN RN ph Corrections: (The following items were deleted from the chart) 15:26 14:50 11/16/2017 14:50 Discharged to Home. Impression: Fall, closed head injury, scalp ph laceration. Condition is Stable. Forms are Medication Reconciliation Form, Thank You Letter, Antibiotic Education, Prescription Opioid Use. Follow up: Private Physician; When: 2 - 3 days; Reason: Wound Recheck, If symptoms return, Further diagnostic work-up, Recheck today's complaints, Continuance of care, Re-evaluation by your physician. Problem is new. Symptoms have improved. kdr
[2017-11-16 15:33] VITALS: BP 117/58; TEMP 97.8; O2SAT 96
== END 2017-11-16 15:26 | disposition home or self-care (01) ==
LOC: ER 13:00
PROC: 0JQ00ZZ Repair Scalp Subcutaneous Tissue and Fascia, Open Approach (ICD-10-PCS; principal; 2017-11-16)
DX: S01.01XA Laceration without foreign body of scalp, initial encounter (principal); W01.198A Fall on same level from slipping, tripping and stumbling with subsequent striking against other object, initial encounter; Y93.9 Activity, unspecified; Y92.009 Unspecified place in unspecified non-institutional (private) residence as the place of occurrence of the external cause; Z23 Encounter for immunization; Z88.0 Allergy status to penicillin; Z88.5 Allergy status to narcotic agent; Z95.810 Presence of automatic (implantable) cardiac defibrillator; I10 Essential (primary) hypertension
CPT/HCPCS: 12004; 70450; 72125; 90714; 96365; 96375; 99285; J0690; J2405

== ENCOUNTER 2017-11-26 09:49 | Emergency (ER) | payer OTHER ==
--- NOTE | 2017-11-26 10:02 | EDPHYS ---
Physician Documentation [facility] Name: Honorio Toussaint Age: 72 yrs Sex: Male : 1945 Arrival Date: 11/26/2017 Time: 09:50 Bed Waiting Private MD: [place], [place] ED Physician Ag Patricio HPI: 11/26 10:02 This 72 yrs old Male presents to ER via Unassigned with complaints of Suture kb Removal. 10:02 The patient has itzel on the scalp. Previous treatment: The patient was initially kb treated 12 day(s) ago, the care was rendered at [facility], Treatment type: The patient's original treatment included itzel. Sutures/itzel progress: The patient has no c/o's. The wound is well-healing with no redness, swelling, discharge, or dehiscence reported. The patient has not experienced similar symptoms in the past. The patient has not recently seen a physician. Historical: - Allergies: 10:29 Codeine; iw 10:29 PENICILLINS; iw - PMHx: 10:29 Anxiety; Cancer; Cellulitis; constipation; COPD; CVA; Depression; Diabetes - NIDDM; iw Hyperlipidemia; Hypertension; Lymphadema; neck pain; prostate probelm; Sleep Apnea; trigeminal neuralgia; - Immunization history:: Adult Immunizations up to date. - Social history:: Smoking status: Patient/guardian denies using tobacco. - Ebola Screening: : Patient negative for fever greater than or equal to 101.5 degrees Fahrenheit, and additional compatible Ebola Virus Disease symptoms Patient denies exposure to infectious person Patient denies travel to an Ebola-affected area in the 21 days before illness onset No symptoms or risks identified at this time. ROS: 10:02 Constitutional: Negative for fever, chills, and weight loss, Cardiovascular: Negative kb for chest pain, palpitations, and edema, Respiratory: Negative for shortness of breath, cough, wheezing, and pleuritic chest pain, Abdomen/GI: Negative for abdominal pain, nausea, vomiting, diarrhea, and constipation, MS/Extremity: Negative for injury and deformity, Neuro: Negative for headache, weakness, numbness, tingling, and seizure. 10:02 Skin: Positive for of the scalp, sutures in place . Exam: 10:02 Constitutional: This is a well developed, well nourished patient who is awake, alert, kb and in no acute distress. Head/Face: Normocephalic, atraumatic. Chest/axilla: Normal chest wall appearance and motion. Nontender with no deformity. No lesions are appreciated. Cardiovascular: Regular rate and rhythm with a normal S1 and S2. No gallops, murmurs, or rubs. Normal PMI, no JVD. No pulse deficits. Respiratory: Lungs have equal breath sounds bilaterally, clear to auscultation and percussion. No rales, rhonchi or wheezes noted. No increased work of breathing, no retractions or nasal flaring. Abdomen/GI: Soft, non-tender, with normal bowel sounds. No distension or tympany. No guarding or rebound. No evidence of tenderness throughout. MS/ Extremity: Pulses equal, no cyanosis. Neurovascular intact. Full, normal range of motion. Neuro: Awake and alert, GCS 15, oriented to person, place, time, and situation. Cranial nerves II-XII grossly intact. Motor strength 5/5 in all extremities. Sensory grossly intact. Cerebellar exam normal. Normal gait. 10:02 Skin: Wound recheck: Staple laceration closure: the wound is healing well, the edges are well approximated, no evidence of dehiscence, no drainage, no erythema, no swelling. Vital Signs: 10:07 BP 108 / 75; Pulse 99; Resp 22 S; Temp 98.2(TE); Pulse Ox 97% on 3 lpm NC; Weight iw 103.87 kg; Height 5 ft. 8 in. (172.72 cm); Pain 7/10; 10:07 Body Mass Index 34.82 (103.87 kg, 172.72 cm) iw Procedures: 10:01 Suture/Staple removal: Removed 12 itzel, from scalp, site appears well healed, rashaun Patient tolerated well. MDM: 10:01 Patient medically screened. kb 10:01 Data reviewed: vital signs, nurses notes. Counseling: I had a detailed discussion with rashaun the patient and/or guardian regarding: the historical points, exam findings, and any diagnostic results supporting the discharge/admit diagnosis, the need for outpatient follow up, a family practitioner, to return to the emergency department if symptoms worsen or persist or if there are any questions or concerns that arise at home. Administered Medications: No medications were administered Disposition: 14:51 Co-signature as Attending Physician, Ag Patricio MD I agree with the assessment and yvon plan of care. Disposition: 11/26/17 10:02 Discharged to Home. Impression: Encounter for removal of sutures. - Condition is Stable. - Discharge Instructions: Suture Removal, Care After. - Medication Reconciliation Form, Thank You Letter, Antibiotic Education, Prescription Opioid Use form. - Follow up: Private Physician; When: 2 - 3 days; Reason: Recheck today's complaints, Continuance of care, Re-evaluation by your physician. Follow up: Emergency Department; When: As needed; Reason: Worsening of condition. Signatures: Vannesa Ace, HOSPITALITY INTERN-C HOSPITALITY INTERN-Ag Jonas MD MD cha Williams, Irene RN RN iw Corrections: (The following items were deleted from the chart) 10:08 10:02 11/26/2017 10:02 Discharged to Home. Impression: Encounter for removal of iw sutures. Condition is Stable. Forms are Medication Reconciliation Form, Thank You Letter, Antibiotic Education, Prescription Opioid Use. Follow up: Private Physician; When: 2 - 3 days; Reason: Recheck today's complaints, Continuance of care, Re-evaluation by your physician. Follow up: Emergency Department; When: As needed; Reason: Worsening of condition. kb
--- NOTE | 2017-11-26 10:08 | ER ---
Nurse's Notes [facility] Name: Honorio Toussaint Age: 72 yrs Sex: Male : 1945 Arrival Date: 11/26/2017 Time: 09:50 Bed Waiting Private MD: RAMY MCCANN Diagnosis: Encounter for removal of sutures Presentation: 11/26 10:00 Presenting complaint: Patient states: needs itzel removed from top of head. iw Transition of care: patient was not received from another setting of care. Onset of symptoms was November 19, 2017. Risk Assessment: Do you want to hurt yourself or someone else? Patient reports no desire to harm self or others. Initial Sepsis Screen: Does the patient meet any 2 criteria? No. Patient's initial sepsis screen is negative. Does the patient have a suspected source of infection? No. Patient's initial sepsis screen is negative. Care prior to arrival: None. 10:00 Method Of Arrival: Wheelchair iw 10:00 Acuity: ATIF 5 iw Triage Assessment: 10:08 General: Appears in no apparent distress. Behavior is calm, cooperative. iw Historical: - Allergies: 10:29 Codeine; iw 10:29 PENICILLINS; iw - PMHx: 10:29 Anxiety; Cancer; Cellulitis; constipation; COPD; CVA; Depression; Diabetes - NIDDM; iw Hyperlipidemia; Hypertension; Lymphadema; neck pain; prostate probelm; Sleep Apnea; trigeminal neuralgia; - Immunization history:: Adult Immunizations up to date. - Social history:: Smoking status: Patient/guardian denies using tobacco. - Ebola Screening: : Patient negative for fever greater than or equal to 101.5 degrees Fahrenheit, and additional compatible Ebola Virus Disease symptoms Patient denies exposure to infectious person Patient denies travel to an Ebola-affected area in the 21 days before illness onset No symptoms or risks identified at this time. Screenin:05 Abuse screen: Denies threats or abuse. Denies injuries from another. Nutritional iw screening: No deficits noted. Tuberculosis screening: No symptoms or risk factors identified. Fall Risk None identified. Assessment: 10:05 General: Appears in no apparent distress. Behavior is calm, cooperative. Pain: iw Complains of pain in scalp. Neuro: Level of Consciousness is awake, alert, obeys commands, Moves all extremities. Cardiovascular: Patient's skin is warm and dry. Respiratory: Respiratory effort is even, unlabored, Respiratory pattern is regular. GI:. Derm: Skin is fragile. Musculoskeletal: Range of motion: intact in all extremities. Injury Description: Laceration sustained to top of head is 12 itzel noted to top of head, wound appears to be healing well, itzel removed by IRENA Granado. Vital Signs: 10:07 BP 108 / 75; Pulse 99; Resp 22 S; Temp 98.2(TE); Pulse Ox 97% on 3 lpm NC; Weight iw 103.87 kg; Height 5 ft. 8 in. (172.72 cm); Pain 7/10; 10:07 Body Mass Index 34.82 (103.87 kg, 172.72 cm) iw ED Course: 09:50 Patient arrived in ED. sb2 09:50 VA, VA is Private Physician. sb2 09:56 Vannesa Ace FNP-C is [facility]. kb 09:56 Ag Patricio MD is Attending Physician. kb 10:05 Arm band placed on. iw 10:05 Patient has correct armband on for positive identification. iw 10:07 Jessica Perez, RN is Primary Nurse. iw 10:08 Triage completed. iw 10:08 No provider procedures requiring assistance completed. Patient did not have IV access iw during this emergency room visit. Administered Medications: No medications were administered Outcome: 10:02 Discharge ordered by MD. kb 10:07 Discharged to home via wheelchair. iw 10:07 Condition: good 10:07 Discharge instructions given to patient, Instructed on discharge instructions, follow up and referral plans. Demonstrated understanding of instructions, follow-up care. 10:07 No charge visit due to suture removal. 10:08 Patient left the ED. iw Signatures: Vannesa Ace FNP-C FNP-Jessica Donohue, RN RN Jerri Britt sb2
[2017-11-26 10:12] VITALS: BP 108/75; TEMP 98.2; O2SAT 97
== END 2017-11-26 10:08 | disposition home or self-care (01) ==
LOC: ER 09:49
DX: Z48.02 Encounter for removal of sutures (principal); Z88.6 Allergy status to analgesic agent; Z88.0 Allergy status to penicillin

== ENCOUNTER 2017-12-30 14:08 | Inpatient (IN) | payer OTHER ==
[2017-12-30 15:04] LABS: Arterial Blood Carboxyhemoglob 0.9 % (0-1.5); Blood Gas Oxyhemoglobin 94.6 % (94-97); Blood O2 Saturation 96.5 % (92-98.5)
[2017-12-30] MEDS ORDERED: ALBUTEROL 2.5 MG/3 ML NEB SOL ONE (15:06)
[2017-12-30] MEDS ORDERED: predniSONE 20 MG TAB ONE (15:06)
[2017-12-30] MEDS ORDERED: IPRATROPIUM BROM 0.5MG/2.5ML ONE (15:06)
[2017-12-30 15:35] LABS: Absolute Lymphocytes (CBC) 0.7 K/uL (0.7-4.9); Absolute Monocytes 0.7 K/uL (0.1-1.3); Absolute Neutrophil 10.8 K/uL (1.8-8.0); Basophils % 0.1 % (0-1.3); Hematocrit 35.1 % (39.6-49.0); Lymphocytes % 5.8 % (15.3-44.8); MCH 29.7 pg (27.0-35.0); MCV 90.3 fL (80-100); MPV 9.3 fL (7.6-11.3); Monocytes % 5.4 % (3.3-12.3); RBC Red Blood Cell Count 3.89 M/uL (4.33-5.43)
[2017-12-30 15:39] LABS: Protime INR 1.88
[2017-12-30 15:53] LABS: ALT/SGPT 25 U/L (12-78); AST/SGOT 15 U/L (15-37); Albumin 3.3 g/dL (3.4-5.0); Alkaline Phosphatase 83 U/L (45-117); BUN Blood Urea Nitrogen 16 mg/dL (7-18); Bicarbonate 24 mmol/L (21-32); Bilirubin Direct 0.2 mg/dL (0-0.2); Bilirubin Total 0.6 mg/dL (0.2-1.0); CKMB Creatine Kinase MB 1.3 ng/mL (0.3-3.6); Creatine Phosphokinase 54 U/L (39-308); Glucose Level 88 mg/dL (74-106); Lipase 110 U/L (73-393); Protein, Total 7.4 g/dL (6.4-8.2); Sodium Level 135 mmol/L (136-145); Troponin (Emerg Dept Use Only) < 0.02 ng/mL (0.0-0.045)
--- NOTE | 2017-12-30 15:55 | EDPHYS ---
Physician Documentation [facility] Name: Honorio Toussaint Age: 72 yrs Sex: Male : 1945 Arrival Date: 12/30/2017 Time: 14:11 Bed 7 Private MD: ED Physician Ion Luke HPI: 12/30 14:52 This 72 yrs old Male presents to ER via Wheelchair with complaints of Flu snw Symptoms. 14:52 Onset: The symptoms/episode began/occurred suddenly, 2 day(s) ago. Associated signs and snw symptoms: Pertinent positives: congestion, cough, fever, wheezing. The patient has experienced similar episodes in the past. as noted. Historical: - Allergies: 14:38 Codeine; aj1 14:38 PENICILLINS; aj1 - Home Meds: 14:38 albuterol sulfate 90 mcg/actuation Inhl HFAA 1 puff as needed [Active]; allopurinol 100 aj1 mg Oral tab 1 tab 2 times per day [Active]; Aspir-81 81 mg Oral TbEC 1 tab once daily [Active]; atrovastatin 40 mg daily [Active]; bupropion HCl 100 mg Oral tab 2 tab 2 times per day [Active]; cyanocobalamin (vit B-12) 1000 mcg daily miscellaneous [Active]; Eliquis oral oral [Active]; Coumadin 3 mg Oral tab 1 tab mon-sat. [Active]; docusate sodium 100 mg Oral cap 1 cap 2 times per day [Active]; finasteride 5 mg Oral tab 1 tab once daily [Active]; gabapentin 300 mg Oral cap 1 cap 3 times per day [Active]; isosorbide mononitrate 30 mg Oral Tb24 3 tabs once daily [Active]; Glucophage 1,000 mg Oral tab [Active]; Lasix 40 mg Oral tab 1 tab every other day. [Active]; montelukast 10 mg Oral tab [Active]; [place] 5-325 mg Oral tab 1 tab as needed [Active]; Prilosec 20 mg Oral cpDR 1 cap once daily [Active]; Spiriva with HandiHaler 18 mcg inhalation CpDv 1 cap once daily [Active]; Symbicort 160-4.5 mcg/actuation inhalation HFAA 2 puffs 2 times per day [Active]; verapamil 120 mg Oral tab twice a day [Active]; spironolactone 25 mg Oral tab 1 tab once daily [Active]; tamsulosin 0.4 mg Oral cp24 1 cap once daily [Active]; valsartin [Active]; - PMHx: 14:38 Anxiety; Cancer; Cellulitis; constipation; COPD; CVA; Depression; Diabetes - NIDDM; aj1 Hyperlipidemia; Hypertension; Lymphadema; neck pain; prostate probelm; Sleep Apnea; trigeminal neuralgia; - Immunization history:: Adult Immunizations up to date. - Social history:: Smoking status: Patient/guardian denies using tobacco. - Ebola Screening: : No symptoms or risks identified at this time. ROS: 14:49 Constitutional: Negative for chills and weight loss, + fever Eyes: Negative for injury, snw pain, redness, and discharge, ENT: Negative for injury, pain, and discharge, Neck: Negative for injury, pain, and swelling, Cardiovascular: Negative for chest pain, palpitations, and edema. 14:49 Abdomen/GI: Negative for abdominal pain, nausea, vomiting, diarrhea, and constipation, Back: Negative for injury and pain, : Negative for injury, bleeding, discharge, and swelling, MS/Extremity: Negative for injury and deformity, Skin: Negative for injury, rash, and discoloration, pt states he was [facility] for cellulitis of right lower ext Neuro: Negative for headache, weakness, numbness, tingling, and seizure. 14:49 Respiratory: Positive for cough, pleurisy, of the left breast, shortness of breath, at rest. wheezing. Exam: 14:49 Head/Face: Normocephalic, atraumatic. Eyes: Pupils equal round and reactive to light, snw extra-ocular motions intact. Lids and lashes normal. Conjunctiva and sclera are non-icteric and not injected. Cornea within normal limits. Periorbital areas with no swelling, redness, or edema. ENT: Nares patent. No nasal discharge, no septal abnormalities noted. Tympanic membranes are normal and external auditory canals are clear. Oropharynx with no redness, swelling, or masses, exudates, or evidence of obstruction, uvula midline. Mucous membranes moist. Neck: Trachea midline, no thyromegaly or masses palpated, and no cervical lymphadenopathy. Supple, full range of motion without nuchal rigidity, or vertebral point tenderness. No Meningismus. Chest/axilla: Normal chest wall appearance and motion. Nontender with no deformity. No lesions are appreciated. 14:49 Abdomen/GI: Soft, non-tender, with normal bowel sounds. No distension or tympany. No guarding or rebound. No evidence of tenderness throughout. Back: No spinal tenderness. No costovertebral tenderness. Full range of motion. Skin: Warm, dry with normal turgor. Normal color with no rashes, no lesions, and no evidence of cellulitis. MS/ Extremity: Pulses equal, no cyanosis. Neurovascular intact. Full, normal range of motion. Neuro: Awake and alert, GCS 15, oriented to person, place, time, and situation. Cranial nerves II-XII grossly intact. Motor strength 5/5 in all extremities. Sensory grossly intact. Cerebellar exam normal. Normal gait. 14:49 Constitutional: The patient appears awake, obese, restless, uncomfortable. 14:49 Cardiovascular: Rate: tachycardic, Rhythm: regular, pacer/defib. 14:49 Respiratory: moderate respiratory distress is noted, Respirations: accessory muscle usage, grunting, nasal flaring, intercostal retractions, shallow respirations, tachypnea, Breath sounds: bronchial sounds, decreased breath sounds, wheezing: Vital Signs: 14:38 Pulse 102; Resp 28; Temp 98.4(TE); Pulse Ox 88% on 3 lpm NC; Weight 102.06 kg (R); aj1 Height 5 ft. 10 in. (177.80 cm) (R); Pain 9/10; 14:38 BP 105 / 61; aj1 15:45 BP 89 / 49; Pulse 110; Resp 28; Pulse Ox 93% on 3 lpm NC; hb 16:45 BP 107 / 48; Pulse 105; Resp 26; Pulse Ox 93% on 3 lpm NC; hb 14:38 Body Mass Index 32.28 (102.06 kg, 177.80 cm) aj1 MDM: 14:42 Patient medically screened. snw 15:53 Data reviewed: vital signs, nurses notes. Data interpreted: Pulse oximetry: on room air snw 2L(s) per nasal canula, is 88 %. Interpretation: hypoxia. Counseling: I had a detailed discussion with the patient and/or guardian regarding: the historical points, exam findings, and any diagnostic results supporting the discharge/admit diagnosis, lab results, radiology results, the need for further work-up and treatment in the hospital. Physician consultation: Dee Dee Boone MD was called at 15:54, was contacted at 15:54, regarding admission, to the telemetry unit. 12/30 14:42 Order name: ABG; Complete Time: 15:31 snw 12/30 14:42 Order name: Sputum Culture snw 12/30 14:42 Order name: T\T\S; Complete Time: 16:40 snw 12/30 14:42 Order name: Basic Metabolic Panel; Complete Time: 15:56 snw 12/30 14:42 Order name: Blood Culture Adult (2) snw 12/30 14:42 Order name: CBC with Diff; Complete Time: 16:26 snw 12/30 14:42 Order name: Ckmb; Complete Time: 15:56 snw 12/30 14:42 Order name: CPK; Complete Time: 15:56 snw 12/30 14:42 Order name: Lactate; Complete Time: 15:58 snw 12/30 14:42 Order name: LFT's; Complete Time: 15:56 snw 12/30 14:42 Order name: Lipase; Complete Time: 15:56 snw 12/30 14:42 Order name: Procalcitonin; Complete Time: 16:20 snw 12/30 14:42 Order name: Protime (+inr); Complete Time: 15:44 snw 12/30 14:42 Order name: Ptt, Activated; Complete Time: 15:44 snw 12/30 14:42 Order name: Troponin (emerg Dept Use Only); Complete Time: 15:56 snw 12/30 14:42 Order name: Urine Microscopic Only snw 12/30 14:42 Order name: Chest Single View XRAY snw 12/30 14:42 Order name: Flu; Complete Time: 15:48 snw 12/30 15:36 Order name: Diet Regular; Complete Time: 15:37 em 12/30 15:43 Order name: CBC Smear Scan; Complete Time: 16:26 EDMS 12/30 16:02 Order name: Basic Metabolic Panel EDMS 12/30 16:02 Order name: Basic Metabolic Panel EDMS 12/30 16:02 Order name: Basic Metabolic Panel EDMS 12/30 16:02 Order name: CBC with Automated Diff EDMS 12/30 16:02 Order name: CBC with Automated Diff EDMS 12/30 16:02 Order name: CBC with Automated Diff EDMS 12/30 16:53 Order name: Lactate EDMS 12/30 14:42 Order name: Accucheck; Complete Time: 15:29 snw 12/30 14:42 Order name: Cardiac monitoring; Complete Time: 15:29 snw 12/30 14:42 Order name: EKG - Nurse/Tech; Complete Time: 15:29 snw 12/30 14:42 Order name: IV Saline Lock - Large Bore; Complete Time: 15:29 snw 12/30 14:42 Order name: Labs collected and sent; Complete Time: 15:29 snw 12/30 14:42 Order name: O2 Per Protocol; Complete Time: 15:29 snw 12/30 14:42 Order name: O2 Sat Monitoring; Complete Time: 15:29 snw 12/30 16:03 Order name: Consistent Carb (ADA) 1800 Zi EDMS Administered Medications: 14:58 Drug: Albuterol - atroVENT (3:1) (2.5 mg - 0.5 mg) 3 ml Route: Nebulizer; hb 15:30 Follow up: Response: No adverse reaction hb 14:58 Drug: predniSONE 40 mg Route: PO; hb 15:40 Follow up: Response: No adverse reaction hb 16:14 Drug: LevaQUIN 500 mg Route: PO; bp 17:15 Follow up: Response: No adverse reaction hb Disposition: 12/30/17 15:54 Hospitalization ordered by Dee Dee Boone for Inpatient Admission. Preliminary diagnosis is Chronic obstructive pulmonary disease with (acute) exacerbation. - Bed requested for Telemetry/MedSurg (Inpatient). - Status is Inpatient Admission. hb - Condition is Fair. - Problem is an acute exacerbation. - Symptoms have worsened. UTI on Admission? No Signatures: Dispatcher [employer] EDUT Maia Sam RN RN aj1 Ariane Fields, CHIEF MEDICAL OFFICER-C CHIEF MEDICAL OFFICER-Csnw Vonda Odonnell RN RN hb Elda Swift RN RN df Peltier, Brian, RN RN bp Corrections: (The following items were deleted from the chart) 16:56 15:54 Hospitalization Ordered by Dee Dee Boone MD for Inpatient Admission. Preliminary df diagnosis is Chronic obstructive pulmonary disease with (acute) exacerbation. Bed requested for Telemetry/MedSurg (Inpatient). Status is Inpatient Admission. Condition is Fair. Problem is an acute exacerbation. Symptoms have worsened. UTI on Admission? No. snw 17:33 16:56 12/30/2017 15:54 Hospitalization Ordered by Dee Dee Boone MD for Inpatient hb Admission. Preliminary diagnosis is Chronic obstructive pulmonary disease with (acute) exacerbation. Bed requested for Telemetry/MedSurg (Inpatient). Status is Inpatient Admission. Condition is Fair. Problem is an acute exacerbation. Symptoms have worsened. UTI on Admission? No. df
--- NOTE | 2017-12-30 15:55 | ER ---
Nurse's Notes [facility] Name: Honorio Toussaint Age: 72 yrs Sex: Male : 1945 Arrival Date: 12/30/2017 Time: 14:11 Bed 7 Private MD: Diagnosis: Chronic obstructive pulmonary disease with (acute) exacerbation Presentation: 12/30 14:33 Presenting complaint: Patient states: "[facility] [address] My and everybody have the flu, so I caught that. I laid down and coughed all night long, and now my chest is hurting. I get to coughing so hard that I get dizzy" Breath sounds with rhonchi and wheezes. Patient is 88% on 3L nc. Transition of care: patient was not received from another setting of care. Onset of symptoms was December 28, 2017. Risk Assessment: Do you want to hurt yourself or someone else? Patient reports no desire to harm self or others. Initial Sepsis Screen: Does the patient meet any 2 criteria? RR > 20 per min. HR > 90 bpm. Yes Does the patient have a suspected source of infection? Yes: Productive cough/pneumonia. Care prior to arrival: None. 14:33 Method Of Arrival: Wheelchair [facility] 14:33 Acuity: ATIF 2 aj Historical: - Allergies: 14:38 Codeine; aj1 14:38 PENICILLINS; aj1 - Home Meds: 14:38 albuterol sulfate 90 mcg/actuation Inhl HFAA 1 puff as needed [Active]; allopurinol 100 aj1 mg Oral tab 1 tab 2 times per day [Active]; Aspir-81 81 mg Oral TbEC 1 tab once daily [Active]; atrovastatin 40 mg daily [Active]; bupropion HCl 100 mg Oral tab 2 tab 2 times per day [Active]; cyanocobalamin (vit B-12) 1000 mcg daily miscellaneous [Active]; Eliquis oral oral [Active]; Coumadin 3 mg Oral tab 1 tab mon-sat. [Active]; docusate sodium 100 mg Oral cap 1 cap 2 times per day [Active]; finasteride 5 mg Oral tab 1 tab once daily [Active]; gabapentin 300 mg Oral cap 1 cap 3 times per day [Active]; isosorbide mononitrate 30 mg Oral Tb24 3 tabs once daily [Active]; Glucophage 1,000 mg Oral tab [Active]; Lasix 40 mg Oral tab 1 tab every other day. [Active]; montelukast 10 mg Oral tab [Active]; [place] 5-325 mg Oral tab 1 tab as needed [Active]; Prilosec 20 mg Oral cpDR 1 cap once daily [Active]; Spiriva with HandiHaler 18 mcg inhalation CpDv 1 cap once daily [Active]; Symbicort 160-4.5 mcg/actuation inhalation HFAA 2 puffs 2 times per day [Active]; verapamil 120 mg Oral tab twice a day [Active]; spironolactone 25 mg Oral tab 1 tab once daily [Active]; tamsulosin 0.4 mg Oral cp24 1 cap once daily [Active]; valsartin [Active]; - PMHx: 14:38 Anxiety; Cancer; Cellulitis; constipation; COPD; CVA; Depression; Diabetes - NIDDM; aj1 Hyperlipidemia; Hypertension; Lymphadema; neck pain; prostate probelm; Sleep Apnea; trigeminal neuralgia; - Immunization history:: Adult Immunizations up to date. - Social history:: Smoking status: Patient/guardian denies using tobacco. - Ebola Screening: : No symptoms or risks identified at this time. Screenin:30 Abuse screen: Denies threats or abuse. Denies injuries from another. Nutritional hb screening: No deficits noted. Tuberculosis screening: No symptoms or risk factors identified. Fall Risk Total Cordero Fall Scale indicates Low Risk Score (25-44 pts). Fall prevention measures have been instituted. Side Rails Up X 2 Frequent Obs/Assesments occuring As available Patient and Family Educated on Fall Prevention Program and strategies. Assessment: 15:00 General: Appears distressed, Behavior is calm, cooperative. Pain: Denies pain. Neuro: hb Level of Consciousness is awake, alert, obeys commands, Oriented to person, place, time, situation. Cardiovascular: Heart tones S1 S2 present Capillary refill < 3 seconds Patient's skin is warm and dry. Respiratory: Airway is patent Trachea midline Respiratory effort is even, labored, Respiratory pattern is tachypnea Breath sounds with rhonchi Breath sounds with wheezes bilaterally. GI: No signs and/or symptoms were reported involving the gastrointestinal system. : No signs and/or symptoms were reported regarding the genitourinary system. EENT: No signs and/or symptoms were reported regarding the EENT system. Derm: No signs and/or symptoms reported regarding the dermatologic system. Skin is intact, is healthy with good turgor, Skin is pink, warm \\T\\ dry. Musculoskeletal: No signs and/or symptoms reported regarding the musculoskeletal system. 16:00 Reassessment: No changes from previously documented assessment. Patient and/or family hb updated on plan of care and expected duration. Pain level reassessed. 16:20 Reassessment: Dr. Boone at bedside. hb 16:45 Reassessment: No changes from previously documented assessment. Patient and/or family hb updated on plan of care and expected duration. Pain level reassessed. Admission ordered, awaiting room assignment at this time. Vital Signs: 14:38 Pulse 102; Resp 28; Temp 98.4(TE); Pulse Ox 88% on 3 lpm NC; Weight 102.06 kg (R); aj1 Height 5 ft. 10 in. (177.80 cm) (R); Pain 9/10; 14:38 BP 105 / 61; aj1 15:45 BP 89 / 49; Pulse 110; Resp 28; Pulse Ox 93% on 3 lpm NC; hb 16:45 BP 107 / 48; Pulse 105; Resp 26; Pulse Ox 93% on 3 lpm NC; hb 14:38 Body Mass Index 32.28 (102.06 kg, 177.80 cm) aj1 ED Course: 14:11 Patient arrived in ED. mr 14:31 Ariane Fields FNP-C is [facility]. snw 14:31 Ion Luke MD is Attending Physician. snw 14:35 Triage completed. aj1 14:44 Vonda Odonnell, RN is Primary Nurse. hb 14:48 Arm band placed on right wrist. hb 15:00 Patient has correct armband on for positive identification. Placed in gown. Bed in low hb position. Call light in reach. Side rails up X 1. 15:00 Inserted saline lock: 22 gauge in right antecubital area, using aseptic technique. hb Blood collected. 15:10 X-ray completed. Portable x-ray completed in exam room. Patient tolerated procedure sg4 well. 15:12 Chest Single View XRAY In Process Unspecified. EDMS 15:15 No provider procedures requiring assistance completed. hb 15:53 Dee Dee Boone MD is Hospitalizing Provider. snw 17:08 Patient admitted, IV remains in place. hb Administered Medications: 14:58 Drug: Albuterol - atroVENT (3:1) (2.5 mg - 0.5 mg) 3 ml Route: Nebulizer; hb 15:30 Follow up: Response: No adverse reaction hb 14:58 Drug: predniSONE 40 mg Route: PO; hb 15:40 Follow up: Response: No adverse reaction hb 16:14 Drug: LevaQUIN 500 mg Route: PO; bp 17:15 Follow up: Response: No adverse reaction hb Outcome: 15:54 Decision to Hospitalize by Provider. snw 17:32 Admitted to Tele accompanied by tech, via wheelchair, room 410, with oxygen, with hb chart, Report called to MANOLO Conroy 17:32 Condition: stable 17:32 Instructed on the need for admit, Demonstrated understanding of instructions. 17:33 Patient left the ED. hb Signatures: Dispatcher [employer] Maia Pickering RN RN aj1 Ariane Fields, HIGH FREQUENCY MILL OPERATOR-C HIGH FREQUENCY MILL OPERATOR-Csnw AmayaSri Vonda Odonnell RN RN Renny Mata RN Misa Luna sg4 Corrections: (The following items were deleted from the chart) 16:59 14:33 Presenting complaint: Patient states: "I [facility] [address] My and everybody have the flu, so I caught that. I laid down and coughed all night long, and now my chest is hurting. I get to coughing so hard that I get dizzy" O2 when rhonchi and wheezes. Patient is 88% on 3L nc [facility]
[2017-12-30] MEDS ORDERED: ACETAMINOPHEN 500 MG TAB PO PRN (16:00)
[2017-12-30] MEDS ORDERED: ONDANSETRON 4 MG/2 ML VIAL IV PRN (16:00)
[2017-12-30] MEDS ORDERED: levoFLOXacin 500 MG TAB ONE (16:19)
[2017-12-30 16:20] LABS: Blood Morphology Comment NOTED (NOT SEEN); Platelet Estimate ADEQ; Platelets, Giant FEW; Urine White Blood Cell Casts OK
[2017-12-30 16:21] LABS: Anisocytosis 1+
--- NOTE | 2017-12-30 17:48 | RAD REPORT ---
EXAM DESCRIPTION: RAD - Chest Single View - 12/30/2017 3:12 pm CLINICAL HISTORY: Cough, recent hospitalization COMPARISON: July 2017 TECHNIQUE: AP portable chest image was obtained 1507 hours . FINDINGS: Right lung field is clear of acute finding. Baseline interstitial prominence present. Righ t suprahilar focal density is slightly worse than the comparison though this is probably technical. T here are 2 clips at this site that were present on prior imaging. This can be monitored for developin g mass. Interstitial and alveolar opacification is scattered in the mid and upper left lung field. This is mo st likely pneumonia. Left apical nodular density is present. There are 2 clips at this site. Similar density was present more centrally in the left upper lung field on the July examination. This may be r etraction and scarring affect. Defibrillator is in place. Heart and vasculature are normal. No measurable pleural effusion and no pn eumothorax. No acute bony abnormality seen. No acute aortic findings suspected. IMPRESSION: Left lung field pneumonia Left apex and right suprahilar focal nodular opacification. 2 focal metal clips are present at each s ite which may indicate prior biopsy of these regions. Both findings warrant ongoing monitoring for gr owth or correlation with prior outside imaging
[2017-12-30 17:50] VITALS: BMI 32.3
[2017-12-30] MEDS: METHYLPREDNISOLONE 40 MG INJ IV SCH ×2 (18:05→23:59)
[2017-12-30 21:20] LABS: Urine Appearance CLEAR; Urine Bilirubin NEGATIVE (NEG); Urine Blood NEGATIVE (NEG); Urine Color YELLOW; Urine Glucose NEGATIVE (NEG); Urine Microscopic Reflex NO UMIC; Urine Protein NEGATIVE (NEG); Urine Specific Gravity 1.015 (1.005-1.030); Urine Urobilinogen 0.2 mg/dL (0.2-1.0); Urine pH 5.5 (5.0-7.0)
[2017-12-30] MEDS: OSELTAMIVIR 75 MG CAP PO SCH (21:51)
[2017-12-30] MEDS: VERAPAMIL HCL 120 MG TAB PO SCH (23:00)
[2017-12-30] MEDS: APIXABAN 5 MG TABLET PO SCH (23:53)
--- NOTE | 2017-12-30 23:57 | HP ---
Date of Admission: 12/30/2017 Code Status: Full. Chief Complaint: Shortness of breath and flu type symptoms. History Of Present Illness: The patient is a 72-year-old male with past medical history of atrial fi brillation, pacemaker history, COPD on oxygen 3 L, hypertension, hyperlipidemia, diabetes, who was re cently discharged from the [facility] for apparent diagnosis of depression according to his paperwork. The p atient states that for the past few days, he has been having some shortness of breath, cough, nausea, no vomiting. Has been having some fever and chills. The patient also reports ill contacts includin g and son who have contracted the flu. The patient otherwise has been more short of breath than usual. He has been taking his inhalers as prescribed. He does report being switched to Eliquis blo od thinner recently. The patient's symptoms are constant, moderate, progressively worsening. When conor joya came into the ER, his blood pressure was low at 105/61. His workup revealed elevated lactic acid l evel, elevated white count with left shift. His ABG was okay. His chest x-ray showed some COPD miguel ges. No acute infiltrates. There is no official report available at this time. The patient was tur silvia up to 4 L, was started on some steroids, given breathing treatments, and was referred for admissi on. The patient also received a dose of Levaquin. The patient's flu test was negative; however, has been exposed to flu and has symptoms therefore will be treated prophylactically. Past Medical History: Hypertension, diabetes mellitus type 2 non-insulin requiring, benign prostatic hyperplasia, hyperlipidemia, COPD with chronic respiratory failure on 3 L of oxygen 02/10, history of lung cancer, chronic back pain, atrial fibrillation recently switched to Eliquis. Surgical History: Pacemaker placement and defibrillator placement. Allergies: CODEINE, CAUSES HIVES AND RASH. PENICILLIN ALSO CAUSES HIVES. Medications: List reviewed. Family History: Father had lung disease. Social History: The patient is a former heavy smoker. No alcohol use, current tobacco use, or illic it drug use. The patient is , has a son, is a . Lives at home and fairly independent. Review of Systems: An 11-point system reviewed, negative except as per HPI. Physical Examination: Vital Signs: Blood pressure 105/61, respirations 28, heart rate 102, O2 saturation is 88% on 3 L, te mperature is 98.4. General: Awake, alert, oriented x3. Elderly male, ill-appearing, obese. HEENT: Normocephalic, atraumatic. PERRLA. EOMI. Moist mucous membranes. Oropharynx is clear. Po or dentition. Conjunctivae anicteric. Neck: Supple. Trachea midline. CV: S1, S2. No murmurs. Peripheral pulses present. Respiratory: Diminished breath sounds throughout. Some wheezing is heard. No crackles. No use of accessory muscles. The patient is tachypneic. Gastrointestinal: Abdomen is soft, nontender, nondistended. Positive bowel sounds. No guarding or rigidity. Extremities: No clubbing or cyanosis. The patient does have lower extremity edema 2+ up to the loo s. Skin: The patient has an abrasion on the left forearm with no active bleeding. Otherwise, no rashes . Neuro: Cranial nerves 2 through 12 intact grossly. No focal neurological deficit. Speech is normal . Strength is 5/5 bilateral upper and lower extremities. Sensation intact to light touch. Laboratory Data: Sodium 135, potassium 4, chloride 103, CO2 24, BUN 16, creatinine 1.2, glucose 88, lactate 2.1, calcium 8.6, albumin 3.3. Troponin less than 0.02. Procalcitonin 0.39. PH 7.43, pCO2 32.8, PO2 89.5, bicarb 21.4. INR 1.88. WBC 12.1, H and H 11.5 and 35.1, platelets 239, neutrophils 88.7%. Chest x-ray, no official report; however, does show some COPD changes and no acute infiltrate is seen. Some increased interstitial markings. Assessment And Plan: A 72-year-old male with. 1.Acute chronic obstructive pulmonary disease exacerbation. We will start on IV steroids and breath ing treatments. We will monitor O2 with continuous pulse ox. Continue home inhalers. 2.Influenza. The patient's influenza screen is negative; however, given his exposure to individuals with flu and concurrent symptoms, we will treat prophylactically with Tamiflu. 3.Hypertension. We will bolus patient 0.5 L normal saline and monitor. 4.Diabetes mellitus type 2, non-insulin requiring with hyperglycemia. We will continue with sliding scale insulin. 5.History of lung cancer. 6.Mixed hyperlipidemia. Continue statin. 7.Benign prostatic hyperplasia, on Flomax. 8.Essential hypertension. We will hold blood pressure medications for now as patient is hypotensive . 9.Atrial fibrillation with controlled ventricular rate. The patient on Eliquis. 10.Depression, on SSRI. 11.Gastrointestinal and deep venous thrombosis prophylaxis with proton pump inhibitors and Eliquis. Plan: Admit the patient to [facility], place as inpatient. We will resume home medications once reconc iled. BRIT Voice ID: [id number]
[2017-12-31 05:54] LABS: Absolute Lymphocytes (CBC) 0.4 K/uL (0.7-4.9); Absolute Monocytes 0.2 K/uL (0.1-1.3); Absolute Neutrophil 11.1 K/uL (1.8-8.0); Basophils % 0.1 % (0-1.3); Hematocrit 38.5 % (39.6-49.0); Lymphocytes % 3.6 % (15.3-44.8); MCH 29.6 pg (27.0-35.0); MPV 9.4 fL (7.6-11.3); Monocytes % 1.5 % (3.3-12.3); RBC Red Blood Cell Count 4.32 M/uL (4.33-5.43)
[2017-12-31 06:11] LABS: Potassium 3.9 mmol/L (3.5-5.1)
[2017-12-31] MEDS: PANTOPRAZOLE 40MG TABLET PO SCH (06:50)
[2017-12-31] MEDS: ALBUTEROL 2.5 MG/3 ML NEB SOL NEB PRN ×3 (08:23→20:31)
[2017-12-31] MEDS: IPRATROPIUM BROM 0.5MG/2.5ML NEB PRN ×3 (08:23→20:31)
[2017-12-31] MEDS: HOME MED 1 EA UNK (Gabapentin [Gralise] 300 MG) PO SCH ×3 (08:52→21:00)
[2017-12-31] MEDS: HOME MED 1 EA UNK (Budesonide/Formoterol Fumarate [Symbicort 160-4.5 Mcg Inhaler] 2 PUFF) IH SCH ×2 (08:52→21:00)
[2017-12-31] MEDS: OSELTAMIVIR 75 MG CAP PO SCH ×2 (08:53→21:22)
[2017-12-31] MEDS: APIXABAN 5 MG TABLET PO SCH ×2 (08:53→21:22)
[2017-12-31] MEDS: ALLOPURINOL 100 MG TAB PO SCH ×2 (08:54→21:23)
[2017-12-31] MEDS: FINASTERIDE 5 MG TAB PO SCH (08:54)
[2017-12-31] MEDS: BUPROPION HCL XL 150 MG TAB PO SCH (08:54)
[2017-12-31] MEDS: VERAPAMIL HCL 120 MG TAB PO SCH ×2 (08:54→21:26)
[2017-12-31] MEDS: DULOXETINE 30 MG CAP PO SCH (08:54)
[2017-12-31] MEDS: METHYLPREDNISOLONE 40 MG INJ IV SCH ×2 (08:55→18:28)
[2017-12-31] MEDS: ISOSORBIDE MONO SR 30 MG TAB PO SCH (08:55)
[2017-12-31] MEDS ORDERED: FUROSEMIDE 20 MG TABLET PO SCH (09:00)
--- NOTE | 2017-12-31 09:04 | EKG ---
Test Date: 2017-12-30 Test Time: 15:36:10 Director International: FLORA MEASUREMENT RESULTS: Intervals: Rate: 107 MI: 188 QRSD: 86 QT: 356 QTc: 475 Queen: P: 43 MI: 188 QRS: 48 T: 58 INTERPRETIVE STATEMENTS: Sinus tachycardia Otherwise normal ECG Compared to ECG 07/11/2017 11:44:48 Sinus rhythm no longer present First degree AV block no longer present Electronically Signed On 12-31-17 09:03:42 CDT by Fritz Sibley
[2017-12-31] MEDS ORDERED: TIOTROPIUM (SPIRIVA) INHALER IH SCH (12:45)
--- NOTE | 2017-12-31 17:10 | PN ---
Date of Progress Note: 12/31/2017 Subjective: The patient is seen and examined. Chart reviewed, and case discussed with RN. The kaley ent is doing well. Shortness of breath has improved since yesterday. Review of Systems: Negative except as above. Medications: List reviewed. Physical Examination: Vital Signs: Temperature 97.3, heart rate 93, blood pressure 184/91, respirations 24, O2 of 96% on 3 L via nasal cannula. General: Awake, alert, oriented x3. Some mild distress. An ill-appearing male, elderly, obese. CV: S1, S2. Peripheral pulses present. Respiratory: Diminished breath sounds. Significant wheezing is heard. No stridor. No use of acces winsome muscles. Gastrointestinal: Abdomen is soft, nontender, nondistended. Positive bowel sounds. Extremities: No clubbing or cyanosis. The patient does have 2+ edema. Neurologic: Nonfocal. Laboratory Data: Sodium 136, potassium 3.9, chloride 104, CO2 of 21, BUN 15, creatinine 1, glucose 1 74, calcium 8.7. WBC 11.7, H and H 12.8 and 38.5, platelets 241, neutrophils 94%. Blood cultures an d sputum cultures pending. Assessment And Plan: A 72-year-old male with: 1.Acute chronic obstructive pulmonary disease exacerbation. Continue IV steroids and nebulizer antonette tments. Continue to monitor O2. The patient states he is feeling somewhat better. 2.Influenza, screen was negative, however, given his symptoms and exposure to family members with fl u, we will treat prophylactically. 3.Hypotension. The patient's blood pressure in the 70s systolic upon admission. Blood pressure is now elevated to the 180s. We will adjust blood pressure medications. 4.Diabetes mellitus type 2, non-insulin requiring with hyperglycemia. We will continue sliding scal e insulin. Continue Accu-Cheks. 5.History of lung cancer. 6.Mixed hyperlipidemia, on statin. 7.Benign prostatic hypertrophy. Continue Flomax. 8.Essential hypertension. Resume home medications as appropriate. 9.Atrial fibrillation with controlled ventricular rate. Continue Eliquis and rate control. 10.Major depressive disorder, recurrent, on SSRI [facility] 11.Gastrointestinal and deep venous thrombosis prophylaxis addressed. The patient is on Eliquis. Plan: Continue current treatment. Monitor O2 levels. Likely discharge in the 24 to 48 hours contin ues to improve. Follow up on cultures. /GERMAN Voice ID: [id number] Report ID: [id number]
[2017-12-31] MEDS ORDERED: TAMSULOSIN 0.4 MG SR CAP PO SCH (21:00)
[2017-12-31] MEDS ORDERED: ATORVASTATIN 10 MG TAB PO SCH (21:00)
[2018-01-01] MEDS: METHYLPREDNISOLONE 40 MG INJ IV SCH ×2 (01:02→09:14)
[2018-01-01 06:09] LABS: Absolute Lymphocytes (CBC) 0.4 K/uL (0.7-4.9); Absolute Monocytes 0.3 K/uL (0.1-1.3); Absolute Neutrophil 9.9 K/uL (1.8-8.0); Basophils % 0.1 % (0-1.3); Lymphocytes % 3.6 % (15.3-44.8); MCV 88.5 fL (80-100); MPV 9.2 fL (7.6-11.3); Monocytes % 2.8 % (3.3-12.3); RBC Red Blood Cell Count 3.95 M/uL (4.33-5.43)
[2018-01-01] MEDS: PANTOPRAZOLE 40MG TABLET PO SCH (06:27)
[2018-01-01] MEDS: ALBUTEROL 2.5 MG/3 ML NEB SOL NEB PRN ×2 (07:35→13:25)
[2018-01-01] MEDS: IPRATROPIUM BROM 0.5MG/2.5ML NEB PRN ×2 (07:35→13:25)
[2018-01-01 08:20] LABS: Blood Morphology Comment NOT SEEN (NOT SEEN); Platelet Estimate ADEQ; Urine White Blood Cell Casts OK
[2018-01-01] MEDS: HOME MED 1 EA UNK (Budesonide/Formoterol Fumarate [Symbicort 160-4.5 Mcg Inhaler] 2 PUFF) IH SCH (09:00)
[2018-01-01] MEDS: HOME MED 1 EA UNK (Gabapentin [Gralise] 300 MG) PO SCH ×2 (09:00→12:27)
[2018-01-01] MEDS: ALLOPURINOL 100 MG TAB PO SCH (09:13)
[2018-01-01] MEDS: DULOXETINE 30 MG CAP PO SCH (09:13)
[2018-01-01] MEDS: BUPROPION HCL XL 150 MG TAB PO SCH (09:14)
[2018-01-01] MEDS: APIXABAN 5 MG TABLET PO SCH (09:14)
[2018-01-01] MEDS: ISOSORBIDE MONO SR 30 MG TAB PO SCH (09:14)
[2018-01-01] MEDS: FINASTERIDE 5 MG TAB PO SCH (09:14)
[2018-01-01] MEDS: VERAPAMIL HCL 120 MG TAB PO SCH (09:14)
[2018-01-01] MEDS: OSELTAMIVIR 75 MG CAP PO SCH (09:22)
[2018-01-01 13:32] VITALS: BP 126/64; TEMP 98.3
--- NOTE | 2018-01-01 15:07 | P.DS ---
Admission Date: 12/30/17 Discharge Date: 01/01/18 Disposition: ROUTINE DISCHARGE Discharge Condition: GOOD Brief History of Present Illness: The patient is a 72-year-old male with past medical history of atrial fibrillation, pacemaker history, COPD on oxygen 3 L, hypertension, hyperlipidemia, diabetes, who was recently [facility] for apparent diagnosis of depression according to his paperwork. The patient states that for the past few days, he has been having some shortness of breath, cough, nausea, no vomiting. Has been having some fever and chills. The patient also reports ill contacts including and son who have contracted the flu. The patient otherwise has been more short of breath than usual. He has been taking his inhalers as prescribed. He does report being switched to Eliquis blood thinner recently. The patient's symptoms are constant, moderate, progressively worsening. When he came into the ER, his blood pressure was low at 105/61. His workup revealed elevated lactic acid level, elevated white count with left shift. His ABG was okay. His chest x-ray showed some COPD changes. No acute infiltrates. There is no official report available at this time. The patient was turned up to 4 L, was started on some steroids, given breathing treatments, and was referred for admission. The patient also received a dose of Levaquin. The patient's flu test was negative; however, has been exposed to flu and has symptoms therefore will be treated prophylactically. Hospital Course: Patient was admitted to the hospital. For his acute on chronic obstructive pulmonary disease, he was started on IV steroids and breathing treatments. He was given oxygen via nasal cannula with continuous pulse ox and his home inhalers were continued. After treatment with IV steroids and breathing treatments his wrist or his symptoms improved and at the time of discharge, patient was breathing back at his baseline. For his possible exposure to the flu. He was treated prophylactically with Tamiflu. He was discharged and the prescription for Tamiflu to complete a 10 day course. For his blood pressure, he was given IV fluids as he was hypotensive upon admission. After his blood pressure is elevated, he was restarted on his home medications as blood pressure stabilizes. For his type 2 diabetes, he was continued on sliding scale insulin. At the time of discharge, he was switched back over to his home medications. For is history of lung cancer, he remained stable throughout this hospitalization. He will continue to follow up outpatient. Force hyperlipidemia, he was continued on his home statin. Remained stable. For his BPH, his Flomax was continued and he had no complaints or concerns regarding this throughout his hospitalization. For his atrial fibrillation my he remained rate controlled and his Eliquis was controlled. He was stable throughout his officers atrial fibrillation. Vital Signs/Physical Exam: Temp Pulse Resp BP Pulse Ox 98.3 F 88 24 H 126/64 95 01/01/18 12:00 01/01/18 12:00 01/01/18 12:00 01/01/18 12:00 01/01/18 12:00 General: Alert, In no apparent distress HEENT: Atraumatic, PERRLA, EOMI Neck: Supple, JVD not distended Respiratory: Clear to auscultation bilaterally, Normal air movement Cardiovascular: Regular rate/rhythm, Normal S1 S2 Gastrointestinal: Normal bowel sounds, No tenderness Musculoskeletal: No tenderness Integumentary: No rashes Neurological: Normal speech, Normal tone, Normal affect Lymphatics: No axilla or inguinal lymphadenopathy Laboratory Data at Discharge: WBC 10.6 K/uL (4.3-10.9) 01/01/18 05:11 Hgb 11.9 g/dL (13.6-17.9) L 01/01/18 05:11 Hct 35.0 % (39.6-49.0) L 01/01/18 05:11 Plt Count 255 K/uL (152-406) 01/01/18 05:11 PT 22.3 SECONDS (9.5-12.5) H 12/30/17 15:08 INR 1.88 12/30/17 15:08 APTT 41.8 SECONDS (24.3-36.9) H 12/30/17 15:08 Sodium 138 mmol/L (136-145) 01/01/18 05:11 Potassium 4.0 mmol/L (3.5-5.1) 01/01/18 05:11 BUN 28 mg/dL (7-18) H 01/01/18 05:11 Creatinine 0.90 mg/dL (0.55-1.3) 01/01/18 05:11 Glucose 172 mg/dL (74-106) H 01/01/18 05:11 Total Bilirubin 0.6 mg/dL (0.2-1.0) 12/30/17 15:08 AST 15 U/L (15-37) 12/30/17 15:08 ALT 25 U/L (12-78) 12/30/17 15:08 Alkaline Phosphatase 83 U/L (45-117) 12/30/17 15:08 Lipase 110 U/L (73-393) 12/30/17 15:08 Home Medications: Albuterol Sulfate [Proair Respiclick] 90 mcg IH Q6H PRN 07/20/15 Atorvastatin Calcium [Lipitor*] 40 mg PO BEDTIME 07/20/15 Finasteride [Proscar*] 5 mg PO DAILY 07/20/15 Furosemide [Lasix] 40 mg PO SEECOM 07/20/15 Gabapentin [Gralise] 300 mg PO TID 07/20/15 Metformin HCl [Glucophage] 1,000 mg PO BID 07/20/15 Omeprazole [Prilosec] 20 mg PO DAILY 07/20/15 Tiotropium [Spiriva Handihaler*] 1 puff IH DAILY 07/20/15 buPROPion HCl [Wellbutrin*] 150 mg PO DAILY 07/20/15 Allopurinol [Zyloprim*] 100 mg PO BID 05/04/17 Isosorbide Mononitrate [Isosorbide Mononitrate ER] 30 mg PO DAILY 05/04/17 Verapamil HCl [Verapamil ER] 120 mg PO BID 05/04/17 Tamsulosin [Flomax*] 1 cap PO BEDTIME 07/12/17 Apixaban [Eliquis] 5 mg PO BID 12/30/17 Budesonide/Formoterol Fumarate [Symbicort 160-4.5 Mcg Inhaler] 2 puff IH BID Capsaicin [Arthritis Pain Relief] 0.025 gm TP BID 12/30/17 Duloxetine HCl [Cymbalta] 60 mg PO DAILY 12/30/17 Oseltamivir Phosphate [Tamiflu] 75 mg PO DAILY #8 capsule 01/01/18 New Medications: Oseltamivir Phosphate [Tamiflu] 75 mg PO DAILY #8 capsule Patient Discharge Instructions: Please follow up primary care physician in 1 week Diet: AHA Activity: Ad alexandru Time spent managing pt's care (in minutes): 35
[2018-01-01 16:14] VITALS: O2SAT 95
== END 2018-01-01 15:36 | disposition home or self-care (01) | DRG 191 ==
LOC: ER 14:08 → 4TH 17:13
PROVIDERS: ADMIT Family Medicine; ATTEND Family Medicine
DX: J44.1 Chronic obstructive pulmonary disease with (acute) exacerbation (principal); J96.10 Chronic respiratory failure, unspecified whether with hypoxia or hypercapnia; F33.9 Major depressive disorder, recurrent, unspecified; Z88.5 Allergy status to narcotic agent; Z88.0 Allergy status to penicillin; I48.91 Unspecified atrial fibrillation; Z95.0 Presence of cardiac pacemaker; Z99.81 Dependence on supplemental oxygen; I10 Essential (primary) hypertension; N40.0 Benign prostatic hyperplasia without lower urinary tract symptoms; Z85.118 Personal history of other malignant neoplasm of bronchus and lung; Z87.891 Personal history of nicotine dependence; E11.65 Type 2 diabetes mellitus with hyperglycemia; J11.1 Influenza due to unidentified influenza virus with other respiratory manifestations; E78.2 Mixed hyperlipidemia; I95.9 Hypotension, unspecified; Z79.01 Long term (current) use of anticoagulants; Z79.84 Long term (current) use of oral hypoglycemic drugs
CPT/HCPCS: 36415; 71045; 80048; 80076; 81003; 82550; 82553; 82805; 82962; 83605; 83690; 84145; 84484; 85025; 85610; 85730; 86850; 86900; 86901; 87040; 87804; 93005; 94640; 94760; 99285; J2920; J7512

== ENCOUNTER 2019-11-18 18:31 | Emergency (ER) | payer OTHER ==
[2019-11-18] MEDS ORDERED: LIDOCAINE 1% MPF 30 ML VIAL ONE (19:29)
[2019-11-18] MEDS ORDERED: ACETAMINOPHEN 500 MG TAB ONE (19:32)
[2019-11-18] MEDS ORDERED: TETANUS & DIPHTHERIA TOX,ADULT 0.5 ML VIAL ONE (19:32)
--- NOTE | 2019-11-18 20:20 | RAD REPORT ---
EXAM DESCRIPTION: RAD - Tib Fib Right - 11/18/2019 7:46 pm CLINICAL HISTORY: trauma, laceration, knee pain COMPARISON: No comparisons FINDINGS: No fracture is identified. There is no dislocation or periosteal reaction noted. No acute or suspicious bony finding. Moderate severity degenerative changes are present in the medial compartm ent of the knee. Joint effusion is present. Degenerative change present along the articular surface o f the patella. Anterior laceration changes are present. There is no foreign body. Contusion and/ or edema changes ar e seen in the subcutaneous fatty tissues of the lower right leg. IMPRESSION: Knee joint degenerative change with joint effusion. This effusion is believed be unrelat ed to the traumatic event. No foreign body in the soft tissues. Edema and/ or contusion present in the subcutaneous fatty tissue s.
--- NOTE | 2019-11-18 21:15 | ER ---
Nurse's Notes [facility] Name: Honorio Toussaint Age: 74 yrs Sex: Male : 1945 Arrival Date: 11/18/2019 Time: 18:34 Bed 2 Private MD: Diagnosis: Fall-Mechanical;Right Lower Leg Laceration;Right Knee Abrasion Presentation: 11/17 18:39 Chief complaint: Patient states: Tripped over a pile of books 2 hours [employer]. Right knee ll1 pain with abrasion noted. Laceration to to right loo area, no active bleeding. Takes eloquis. Coronavirus screen: Client denies travel out of the [place] in the last 14 days. At this time, the client does not indicate any symptoms associated with coronavirus-19. Ebola Screen: Patient denies travel to an Ebola-affected area in the 21 days before illness onset. Initial Sepsis Screen: Does the patient meet any 2 criteria? No. Patient's initial sepsis screen is negative. Risk Assessment: Do you want to hurt yourself or someone else? Patient reports no desire to harm self or others. Onset of symptoms was November 18, 2019. 18:39 Method Of Arrival: Ambulatory ll1 18:39 Acuity: ATIF 3 ll1 19:10 Care prior to arrival: None. Mechanism of Injury: Fall from standing position. rr5 19:10 Trauma event details: Injury occurred in the [facility], Injury occurred: at 5 home. Injury occurred: November 18, 2019. 19:15 Initial Sepsis Screen: Does the patient have a suspected source of infection? No. rr5 Patient's initial sepsis screen is negative. Trauma Activation: Not Applicable Physician: ED Physician; Name: ; Notified At: ; Arrived At: Physician: General Surgeon; Name: ; Notified At: ; Arrived At: Physician: Radiology; Name: ; Notified At: ; Arrived At: Physician: Respiratory; Name: ; Notified At: ; Arrived At: Physician: Lab; Name: ; Notified At: ; Arrived At: Historical: - Allergies: 18:41 Codeine; ll1 18:41 PENICILLINS; ll1 - PMHx: 18:41 Anxiety; Hypertension; COPD; Cellulitis; Lymphadema; prostate probelm; constipation; ll1 CVA; neck pain; Hyperlipidemia; Diabetes - NIDDM; Depression; Cancer; Sleep Apnea; trigeminal neuralgia; - Immunization history:: Flu vaccine is up to date. Last tetanus immunization: unknown. - Social history:: Smoking status: Patient denies any tobacco usage or history of. Patient/guardian denies using alcohol, street drugs. Screenin:10 Abuse screen: Denies threats or abuse. Denies injuries from another. Nutritional rr5 screening: No deficits noted. Tuberculosis screening: No symptoms or risk factors identified. Fall risk At risk due to injury, age, Intervention for positive screen: ED Physician notified, side rails up. 19:20 Fall Risk Ambulatory Aid- Crutches/Cane/Walker (15 pts). Gait- Impaired (20 pts.). rr5 Total Cordero Fall Scale indicates Low Risk Score (25-44 pts). Primary Survey: 19:10 NO uncontrolled hemorrhage observed. A: The patient is alert. Airway: patent, Oxygen rr5 via nasal cannula at 2 liters per minute. O2 via O2 dependent Oral cavity: clear, gag reflex present. 19:10 Breathing/Chest: Respiratory pattern: regular, Respiratory effort: spontaneous, rr5 unlabored, Breath sounds: clear, bilaterally. Chest inspection: symmetrical rise and fall of the chest. Circulation: Heart tones present. Pulses: palpable right radial artery and left radial artery. Disability Alert. Exposure/Environment: There is no evidence of uncontrolled external bleeding. Obvious injury(ies) are noted at this time: abrasion right knee lacerated wound right loo area. 20:10 Reassessment Airway Airway Breathing/Chest Respiratory pattern Regular Respiratory rr5 effort Spontaneous Unlabored Breath sounds Clear Chest inspection Symmetrical Circulation Pulses Palpable Disability Alert. Secondary Survey: 19:10 HEENT: No deficits noted. Gastrointestinal: Abdomen is soft. : No signs and/or rr5 symptoms were reported regarding the genitourinary system. Musculoskeletal: Capillary refill < 3 seconds, lacerated wound right loo area. Assessment: 19:10 General: Appears in no apparent distress. comfortable, Behavior is calm, cooperative, rr5 appropriate for age. Pain: Complains of pain in right loo Quality of pain is described as aching, Pain began suddenly, Is intermittent. Neuro: Level of Consciousness is awake, alert, obeys commands, Oriented to person, place, time, situation. Cardiovascular: Capillary refill < 3 seconds Patient's skin is warm and dry. Respiratory: Airway is patent Respiratory effort is even, unlabored, Respiratory pattern is regular, symmetrical. GI: No signs and/or symptoms were reported involving the gastrointestinal system. : No signs and/or symptoms were reported regarding the genitourinary system. EENT: hearing aid noted. Derm: Skin temperature is warm Wound noted right knee and right loo. Musculoskeletal: Capillary refill < 3 seconds. 20:30 Reassessment: Patient appears in no apparent distress at this time. Patient is alert, rr5 oriented x 3, equal unlabored respirations, skin warm/dry/pink. awaiting for xray result. 21:24 Reassessment: Patient appears in no apparent distress at this time. Patient is alert, rr5 oriented x 3, equal unlabored respirations, skin warm/dry/pink. discharge instruction given and explained without complaint made. Patient states feeling better. Patient states symptoms have improved. Vital Signs: 18:39 BP 168 / 80; Pulse 72; Resp 18; Temp 97.6; Pulse Ox 97% ; Pain 8/10; ll1 20:30 BP 155 / 85; Pulse 79; Resp 16; Pulse Ox 99% on 3 lpm NC; rr5 21:10 BP 145 / 75; Pulse 70; Resp 17; Pulse Ox 99% on 3 lpm NC; rr5 [place] Coma Score: 19:10 Eye Response: spontaneous(4). Verbal Response: oriented(5). Motor Response: obeys rr5 commands(6). Total: 15. Trauma Score (Adult): 19:10 Eye Response: spontaneous(1); Verbal Response: oriented(1); Motor Response: obeys rr5 commands(2); Systolic BP: > 89 mm Hg(4); Respiratory Rate: 10 to 29 per min(4); [place] Score: 15; Trauma Score: 12 ED Course: 18:34 Patient arrived in ED. ag5 18:40 Triage completed. ll1 18:41 Arm band placed on Patient placed in an exam room, on a stretcher. ll1 19:01 Moses Curtis RN is Primary Nurse. rr5 19:02 Lb Pascual MD is Attending Physician. mh7 19:15 Thermoregulation: warm blanket given to patient. rr5 19:38 Patient has correct armband on for positive identification. Bed in low position. Call rr5 light in reach. Side rails up X2. Oxygen administration via nasal cannula \T\ 2L/min. 19:46 Tib Fib Right XRAY In Process Unspecified. EDMS 20:50 Assist provider with laceration repair on right loo that was between 2.6 to 7.5 cm rr5 using Set up tray. Performed by Lb Pascual MD Dressed with 4X4s, Kerlix, Neosporin, Patient tolerated well. 20:50 Patient did not have IV access during this emergency room visit. rr5 Administered Medications: 19:24 Drug: Tetanus-Diphtheria Toxoid Adult 0.5 ml {Fire Prevention Inspector: Individual Digital. Exp: rr5 05/14/2022. Lot #: [id number]. } Route: IM; Site: left deltoid; 21:28 Follow up: Response: No adverse reaction rr5 19:25 Drug: Tylenol 1000 mg Route: PO; rr5 21:28 Follow up: Response: No adverse reaction rr5 20:40 Drug: Lidocaine (1 %) 5 ml {Note: given by dr. pascual.} Volume: 5 ml; Route: rr5 Infiltration; 21:29 Follow up: Response: No adverse reaction rr5 Intake: 21:30 PO: 0ml; Total: 0ml. rr5 Outcome: 20:30 awaiting for xray resultPatient's length of stay extended due to rr5 21:15 Discharge ordered by . 7 21:27 Discharged to home via wheelchair, with family. rr5 21:27 Condition: stable 21:27 Discharge instructions given to patient, Instructed on discharge instructions, follow up and referral plans. Demonstrated understanding of instructions, follow-up care. 21:33 Patient left the ED. rr5 Signatures: Dispatcher [employer] EDMS Moses Curtis RN RN rr5 Carl Johnson ag5 Rneo Martinez RN RN ll1 Lb Pascual MD MD 7 Corrections: (The following items were deleted from the chart) 21:25 20:30 Reassessment: Patient appears in no apparent distress at this time. Patient is rr5 alert, oriented x 3, equal unlabored respirations, skin warm/dry/pink. Patient is alert/active/playful, equal unlabored respirations, skin warm/dry/pink. awaiting for xray result rr5
--- NOTE | 2019-11-18 21:15 | EDPHYS ---
Physician Documentation [facility] Name: Honorio Toussaint Age: 74 yrs Sex: Male : 1945 Arrival Date: 11/18/2019 Time: 18:34 Bed 2 Private MD: ED Physician Lb Pascual HPI: 11/17 19:23 This 74 yrs old Male presents to ER via Ambulatory with complaints of Fall mh7 Injury, Laceration To Leg. 19:23 Details of fall: The patient fell from an upright position, while walking. Onset: The mh7 symptoms/episode began/occurred just prior to arrival, today. Associated injuries: The patient sustained right lower leg, laceration, 5 cm(s), right knee, abrasion. Severity of symptoms: At their worst the symptoms were moderate, earlier today, in the emergency department the symptoms are unchanged. Patient states that he tripped and fell over a pile of books while walking and was not paying attention. He denies any head trauma, LOC, neck pain, chest pain, abdominal pain, SOB, nausea, vomiting, dizziness, numbness/tingling, or weakness. He denies any symptoms prior to falling.. Historical: - Allergies: 18:41 Codeine; ll1 18:41 PENICILLINS; ll1 - PMHx: 18:41 Anxiety; Hypertension; COPD; Cellulitis; Lymphadema; prostate probelm; constipation; ll1 CVA; neck pain; Hyperlipidemia; Diabetes - NIDDM; Depression; Cancer; Sleep Apnea; trigeminal neuralgia; - Immunization history:: Flu vaccine is up to date. Last tetanus immunization: unknown. - Social history:: Smoking status: Patient denies any tobacco usage or history of. Patient/guardian denies using alcohol, street drugs. ROS: 19:23 Constitutional: Negative for fever, chills, and weight loss, Eyes: Negative for injury, mh7 pain, redness, and discharge, ENT: Negative for injury, pain, and discharge, Neck: Negative for injury, pain, and swelling, Cardiovascular: Negative for chest pain, palpitations, and edema, Respiratory: Negative for shortness of breath, cough, wheezing, and pleuritic chest pain, Abdomen/GI: Negative for abdominal pain, nausea, vomiting, diarrhea, and constipation, Back: Negative for injury and pain, : Negative for injury, bleeding, discharge, and swelling, Neuro: Negative for headache, weakness, numbness, tingling, and seizure, Psych: Negative for depression, anxiety, suicide ideation, homicidal ideation, and hallucinations, Allergy/Immunology: Negative for hives, rash, and allergies, Endocrine: Negative for neck swelling, polydipsia, polyuria, polyphagia, and marked weight changes, Hematologic/Lymphatic: Negative for swollen nodes, abnormal bleeding, and unusual bruising. Exam: 19:23 Constitutional: This is a well developed, well nourished patient who is awake, alert, mh7 and in no acute distress. Head/Face: Normocephalic, atraumatic. Eyes: Pupils equal round and reactive to light, extra-ocular motions intact. Lids and lashes normal. Conjunctiva and sclera are non-icteric and not injected. Cornea within normal limits. Periorbital areas with no swelling, redness, or edema. ENT: Nares patent. No nasal discharge, no septal abnormalities noted. Tympanic membranes are normal and external auditory canals are clear. Oropharynx with no redness, swelling, or masses, exudates, or evidence of obstruction, uvula midline. Mucous membranes moist. Neck: Trachea midline, no thyromegaly or masses palpated, and no cervical lymphadenopathy. Supple, full range of motion without nuchal rigidity, or vertebral point tenderness. No Meningismus. Chest/axilla: Normal chest wall appearance and motion. Nontender with no deformity. No lesions are appreciated. Cardiovascular: Regular rate and rhythm with a normal S1 and S2. No gallops, murmurs, or rubs. Normal PMI, no JVD. No pulse deficits. Respiratory: Lungs have equal breath sounds bilaterally, clear to auscultation and percussion. No rales, rhonchi or wheezes noted. No increased work of breathing, no retractions or nasal flaring. Abdomen/GI: Soft, non-tender, with normal bowel sounds. No distension or tympany. No guarding or rebound. No evidence of tenderness throughout. Back: No spinal tenderness. No costovertebral tenderness. Full range of motion. Neuro: Awake and alert, GCS 15, oriented to person, place, time, and situation. Cranial nerves II-XII grossly intact. Motor strength 5/5 in all extremities. Sensory grossly intact. Cerebellar exam normal. Normal gait. Psych: Awake, alert, with orientation to person, place and time. Behavior, mood, and affect are within normal limits. 11/18 03:59 Musculoskeletal/extremity: Extremities: noted in the right loo: laceration, noted in mh7 the right knee: abrasion, ROM: intact in all extremities, Pulses: are normal with no appreciated deficits, Perfusion: the patient is normally perfused throughout, Perfusion: the extremity is normally perfused throughout, Calf tenderness, is absent, Sensation intact. Compartment Syndrome exam of affected extremity: is normal. no numbness, no tingling, no sensation deficit, no palor, no weak pulses, Joints: All joints appear normal with full range of motion. Weight bearing: able to fully bear weight, without difficulty, Tendon exam: specific tendon testing normal through active and passive range of motion DVT Exam: no pain, no swelling, no tenderness, negative Homans' sign noted on exam, no appreciated bluish discoloration, no erythema, no increased warmth, Calves: are non-tender, have equal circumference. Skin: injury, laceration(s), the wound is approximately 8 cm(s), with a depth of 0.5 cm(s), of the right loo. Vital Signs: 11/17 18:39 BP 168 / 80; Pulse 72; Resp 18; Temp 97.6; Pulse Ox 97% ; Pain 8/10; ll1 20:30 BP 155 / 85; Pulse 79; Resp 16; Pulse Ox 99% on 3 lpm NC; rr5 21:10 BP 145 / 75; Pulse 70; Resp 17; Pulse Ox 99% on 3 lpm NC; rr5 Sal Coma Score: 19:10 Eye Response: spontaneous(4). Verbal Response: oriented(5). Motor Response: obeys rr5 commands(6). Total: 15. Trauma Score (Adult): 19:10 Eye Response: spontaneous(1); Verbal Response: oriented(1); Motor Response: obeys rr5 commands(2); Systolic BP: > 89 mm Hg(4); Respiratory Rate: 10 to 29 per min(4); Sal Score: 15; Trauma Score: 12 Laceration: 21:10 Wound Repair of 8cm ( 3.1in ) subcutaneous laceration to right loo. Irregularly mh7 shaped.. Distal neuro/vascular/tendon intact. Anesthesia: Local anesthetic administered with 7 mls of 1% lidocaine. Wound prep: Extensive cleansing with betadine, Wound irrigation with saline by me, Wound explored extensively, Copious irrigation. Skin closed with 19 3-0 Prolene using interrupted sutures and sterile technique. Dressed with Bacitracin, 4x4's, non-adherent dressing. Patient tolerated well. MDM: 19:16 Patient medically screened. [facility] 21:10 Differential diagnosis: abrasion, contusion, fracture, laceration. Data reviewed: vital [facility] signs, nurses notes, radiologic studies, plain films. Data interpreted: Pulse oximetry: on room air is 97 %. Interpretation: normal. Counseling: I had a detailed discussion with the patient and/or guardian regarding: the historical points, exam findings, and any diagnostic results supporting the discharge/admit diagnosis, the presence of at least one elevated blood pressure reading (>120/80) during this emergency department visit, radiology results, the need for outpatient follow up, to return to the emergency department if symptoms worsen or persist or if there are any questions or concerns that arise at home. 11/18 03:59 Response to treatment: the patient's symptoms have markedly improved after treatment. [facility] 11/17 19:17 Order name: Tib Fib Right XRAY; Complete Time: 20:28 [facility] 11/17 21:28 Order name: Prolene, Sutures; Complete Time: 21:28 [facility] 11/17 21:28 Order name: Vicryl, Sutures; Complete Time: 21:28 [facility] 11/17 21:28 Order name: Dressing - Wound; Complete Time: 21:28 [facility] 11/17 21:28 Order name: Gloves, Sterile; Complete Time: 21:28 [facility] 11/17 21:28 Order name: Setup Suture Tray; Complete Time: 21:33 rr5 Administered Medications: 11/17 19:24 Drug: Tetanus-Diphtheria Toxoid Adult 0.5 ml {Client Project Coordinator: MUBI. Exp: rr5 05/14/2022. Lot #: [id number]. } Route: IM; Site: left deltoid; 21:28 Follow up: Response: No adverse reaction rr5 19:25 Drug: Tylenol 1000 mg Route: PO; rr5 21:28 Follow up: Response: No adverse reaction rr5 20:40 Drug: Lidocaine (1 %) 5 ml {Note: given by dr. pascual.} Volume: 5 ml; Route: rr5 Infiltration; 21:29 Follow up: Response: No adverse reaction rr5 Disposition: 11/18 03:59 Co-signature as Attending Physician, Lb Pascual MD. 7 Disposition: 11/18/19 21:15 Discharged to Home. Impression: Fall-Mechanical, Right Lower Leg Laceration, Right Knee Abrasion. - Condition is Stable. - Discharge Instructions: Laceration Care, Adult, [id number], Abrasion, [id number], Fall Prevention in the Home, [id number]. - Medication Reconciliation Form, Thank You Letter, Antibiotic Education, Prescription Opioid Use form. - Follow up: Private Physician; When: 48 Hours; Reason: Wound Recheck, Worsening of condition, Recheck today's complaints, Continuance of care, Re-evaluation by your physician. - Problem is new. - Symptoms have improved. Signatures: Dispatcher [employer] [facility] Moses Curtis RN RN rr5 Reno Martinez RN RN ll1 Lb Pascual MD MD 7 Corrections: (The following items were deleted from the chart) 11/17 19:45 19:18 Knee Right 3 View+RAD.RAD.BRZ ordered. [facility] 21:33 21:15 11/18/2019 21:15 Discharged to Home. Impression: Fall-Mechanical; Right Lower Leg rr5 Laceration; Right Knee Abrasion. Condition is Stable. Forms are Medication Reconciliation Form, Thank You Letter, Antibiotic Education, Prescription Opioid Use. Follow up: Private Physician; When: 48 Hours; Reason: Wound Recheck, Worsening of condition, Recheck today's complaints, Continuance of care, Re-evaluation by your physician. Problem is new. Symptoms have improved. 7
[2019-11-19 00:22] VITALS: TEMP 97.6
[2019-11-19 00:23] VITALS: O2SAT 99
[2019-11-19 00:24] VITALS: BP 145/75
== END 2019-11-18 21:33 | disposition home or self-care (01) ==
LOC: ER 18:31
PROC: 0JQN0ZZ Repair Right Lower Leg Subcutaneous Tissue and Fascia, Open Approach (ICD-10-PCS; principal; 2019-11-18)
DX: S81.811A Laceration without foreign body, right lower leg, initial encounter (principal); W01.0XXA Fall on same level from slipping, tripping and stumbling without subsequent striking against object, initial encounter; Y93.01 Activity, walking, marching and hiking; Y92.9 Unspecified place or not applicable; Z23 Encounter for immunization; Z88.0 Allergy status to penicillin; Z88.5 Allergy status to narcotic agent; I10 Essential (primary) hypertension
CPT/HCPCS: 90471; 90714; 99284

== ENCOUNTER 2019-11-27 10:51 | Emergency (ER) | payer OTHER ==
[2019-11-27] MEDS ORDERED: SMZ./TMP. 800/160 MG TABLET ONE (12:12)
[2019-11-27] MEDS ORDERED: levoFLOXacin 750 MG TAB ONE (12:12)
[2019-11-27 12:21] LABS: Absolute Lymphocytes (CBC) 1.2 K/uL (0.7-4.9); Basophils % 0.7 % (0-1.3); Hematocrit 36.9 % (39.6-49.0); Lymphocytes % 12.6 % (15.3-44.8); MPV 9.9 fL (7.6-11.3); RBC Red Blood Cell Count 3.96 M/uL (4.33-5.43)
--- NOTE | 2019-11-27 12:35 | RAD REPORT ---
EXAM DESCRIPTION: RAD - Tib Fib Right - 11/27/2019 12:24 pm CLINICAL HISTORY: PAIN Laceration, pain COMPARISON: Tib Fib Right dated 11/18/2019 FINDINGS: Soft tissue edema is present involving the right leg. No evidence of fracture, dislocation or osteomyelitis. No radiopaque foreign body.
[2019-11-27 13:18] LABS: Potassium 4.4 mmol/L (3.5-5.1)
--- NOTE | 2019-11-27 14:39 | ER ---
Nurse's Notes [facility] Name: Honorio Toussaint Age: 74 yrs Sex: Male : 1945 Arrival Date: 11/27/2019 Time: 10:55 Bed 16 Private MD: Diagnosis: Cellulitis of anterior right mid tibia Presentation: 11/26 11:11 Chief complaint: Patient states: fell on Nov.17, came here and got sutures on the em right leg, thinks it is infected, reports redness, currently wrapped with anurag wrap, denies fever. Coronavirus screen: Client denies travel out of the [place] in the last 14 days. Ebola Screen: Patient negative for fever greater than or equal to 101.5 degrees Fahrenheit, and additional compatible Ebola Virus Disease symptoms Patient denies exposure to infectious person. Patient denies travel to an Ebola-affected area in the 21 days before illness onset. No symptoms or risks identified at this time. 11:11 Method Of Arrival: Wheelchair em 11:11 Initial Sepsis Screen: Does the patient meet any 2 criteria? No. Patient's initial em sepsis screen is negative. Does the patient have a suspected source of infection? Yes: Skin breakdown/wound. Risk Assessment: Do you want to hurt yourself or someone else? Patient reports no desire to harm self or others. Onset of symptoms was November 18, 2019. 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 - Social history:: Smoking status: Patient denies any tobacco usage or history of. Screenin:00 Abuse screen: Denies threats or abuse. Denies injuries from another. Nutritional hb screening: No deficits noted. Tuberculosis screening: No symptoms or risk factors identified. Fall Risk None identified. Assessment: 12:00 General: Appears in no apparent distress. Behavior is calm, cooperative. Pain: Pain hb currently is 8 out of 10 on a pain scale. Neuro: Level of Consciousness is awake, alert, obeys commands, Oriented to person, place, time, situation. Cardiovascular: Capillary refill < 3 seconds Patient's skin is warm and dry. Respiratory: Respiratory effort is even, unlabored, Respiratory pattern is regular, symmetrical. GI: No signs and/or symptoms were reported involving the gastrointestinal system. : No signs and/or symptoms were reported regarding the genitourinary system. EENT: No signs and/or symptoms were reported regarding the EENT system. Derm: Skin is pink, warm \T\ dry. laceration to right loo noted, sutures present. Right lower leg swelling and redness noted. Musculoskeletal: No signs and/or symptoms reported regarding the musculoskeletal system. 13:00 Reassessment: Patient appears in no apparent distress at this time. No changes from hb previously documented assessment. Patient and/or family updated on plan of care and expected duration. Pain level reassessed. Patient is alert, oriented x 3, equal unlabored respirations, skin warm/dry/pink. 14:00 Reassessment: Patient appears in no apparent distress at this time. No changes from hb previously documented assessment. Patient and/or family updated on plan of care and expected duration. Pain level reassessed. Patient is alert, oriented x 3, equal unlabored respirations, skin warm/dry/pink. 15:00 Reassessment: Patient appears in no apparent distress at this time. Patient and/or hb family updated on plan of care and expected duration. Pain level reassessed. Patient is alert, oriented x 3, equal unlabored respirations, skin warm/dry/pink. Vital Signs: 11:11 BP 98 / 61; Pulse 74; Resp 18; Temp 98.2(O); Pulse Ox 98% on R/A; Weight 108.86 kg; em Height 5 ft. 10 in. (177.80 cm); Pain 8/10; 13:00 BP 112 / 68; Pulse 72; Resp 17; Pulse Ox 3% on NC; hb 15:00 BP 116 / 66; Pulse 70; Resp 18; Pulse Ox 96% on 3 lpm NC; hb 11:11 Body Mass Index 34.44 (108.86 kg, 177.80 cm) em ED Course: 10:55 Patient arrived in ED. mr 11:09 Ion Luke MD is Attending Physician. kdr 11:14 Triage completed. em 11:15 Arm band placed on. em 11:20 Vonda Odonnell, RN is Primary Nurse. hb 11:54 Inserted saline lock: 20 gauge 24 gauge antecubital area, using aseptic technique. hb Blood collected. 12:00 Patient has correct armband on for positive identification. Bed in low position. Call hb light in reach. 12:25 Tib Fib Right XRAY In Process Unspecified. EDMS 15:10 IV discontinued, intact, bleeding controlled, No redness/swelling at site. Pressure hb dressing applied. 15:10 No provider procedures requiring assistance completed. hb Administered Medications: 12:00 Drug: Bactrim (160 mg-800 mg (DS) 1 tablet Route: PO; hb 12:52 Follow up: Response: No adverse reaction hb 12:00 Drug: LevaQUIN 750 mg Route: PO; hb 12:52 Follow up: Response: No adverse reaction hb Outcome: 14:39 Discharge ordered by MD. kdr 15:10 Discharged to home via wheelchair. hb 15:10 Condition: stable 15:10 Discharge instructions given to patient, Instructed on discharge instructions, follow up and referral plans. medication usage, wound care, Demonstrated understanding of instructions, follow-up care, medications, wound care, Prescriptions given X 1. 15:20 Patient left the ED. hb Signatures: Dispatcher [employer] EDMS Ion Luke MD MD kdr Rivera, Mary Ceasar Costa RN RN Vonda Odonnell, RN RN hb
--- NOTE | 2019-11-27 14:40 | EDPHYS ---
Physician Documentation [facility] Name: Honorio Toussaint Age: 74 yrs Sex: Male : 1945 Arrival Date: 11/27/2019 Time: 10:55 Bed 16 Private MD: ED Physician Ion Luke Historical: - Allergies: 11/26 11:15 Codeine; em 11:15 PENICILLINS; em - PMHx: 11:15 Anxiety; Cancer; Cellulitis; constipation; COPD; CVA; Depression; Diabetes - NIDDM; em Hyperlipidemia; Hypertension; Lymphadema; neck pain; prostate probelm; Sleep Apnea; trigeminal neuralgia; - PSHx: 11:15 pacemaker/defib; em - Immunization history:: Adult Immunizations not up to date. - Social history:: Smoking status: Patient denies any tobacco usage or history of. Vital Signs: 11:11 BP 98 / 61; Pulse 74; Resp 18; Temp 98.2(O); Pulse Ox 98% on R/A; Weight 108.86 kg; em Height 5 ft. 10 in. (177.80 cm); Pain 8/10; 13:00 BP 112 / 68; Pulse 72; Resp 17; Pulse Ox 3% on NC; hb 15:00 BP 116 / 66; Pulse 70; Resp 18; Pulse Ox 96% on 3 lpm NC; hb 11:11 Body Mass Index 34.44 (108.86 kg, 177.80 cm) em MDM: 14:39 Patient medically screened. kdr 11/26 11:56 Order name: CBC with Diff; Complete Time: 14:35 kdr 11/26 11:56 Order name: Chem 7; Complete Time: 14:35 kdr 11/26 11:56 Order name: Blood Culture Adult (2) kdr 11/26 11:56 Order name: Tib Fib Right XRAY; Complete Time: 14:35 kdr 11/26 12:51 Order name: Labs - recollect needed; Complete Time: 12:59 hb Administered Medications: 12:00 Drug: Bactrim (160 mg-800 mg (DS) 1 tablet Route: PO; hb 12:52 Follow up: Response: No adverse reaction hb 12:00 Drug: LevaQUIN 750 mg Route: PO; hb 12:52 Follow up: Response: No adverse reaction hb Disposition: 11/27/19 14:39 Discharged to Home. Impression: Cellulitis of anterior right mid tibia. - Condition is Stable. - Discharge Instructions: Cellulitis, Adult, [id number]. - Prescriptions for Levaquin 500 mg Oral Tablet - take 1 tablet by ORAL route once daily for 7 days; 7 tablet. - Medication Reconciliation Form, Thank You Letter, Antibiotic Education form. - Follow up: Private Physician; When: 2 - 3 days; Reason: Wound Recheck, If symptoms return, Further diagnostic work-up, Recheck today's complaints, Continuance of care, Re-evaluation by your physician. - Problem is new. - Symptoms have improved. Signatures: Dispatcher [employer] EDIon Delgado MD MD kdr Ceasar Costa RN RN Vonda Odonnell RN RN Corrections: (The following items were deleted from the chart) 15:06 14:39 11/27/2019 14:39 Discharged to Home. Impression: Gallstone ileus. Condition is kdr Stable. Forms are Medication Reconciliation Form, Thank You Letter, Antibiotic Education, Prescription Opioid Use. Follow up: Private Physician; When: 2 - 3 days; Reason: Wound Recheck, If symptoms return, Further diagnostic work-up, Recheck today's complaints, Continuance of care, Re-evaluation by your physician. Problem is new. Symptoms have improved. kdr 15:20 15:06 11/27/2019 14:39 Discharged to Home. Impression: Cellulitis of anterior right mid hb tibia. Condition is Stable. Forms are Medication Reconciliation Form, Thank You Letter, Antibiotic Education, Prescription Opioid Use. Follow up: Private Physician; When: 2 - 3 days; Reason: Wound Recheck, If symptoms return, Further diagnostic work-up, Recheck today's complaints, Continuance of care, Re-evaluation by your physician. Problem is new. Symptoms have improved. kdr
[2019-11-27 15:31] VITALS: BP 98/61; TEMP 98.2; O2SAT 98
== END 2019-11-27 15:20 | disposition home or self-care (01) ==
LOC: ER 10:51
DX: L03.115 Cellulitis of right lower limb (principal); I10 Essential (primary) hypertension; Z88.0 Allergy status to penicillin; Z88.5 Allergy status to narcotic agent; Z95.810 Presence of automatic (implantable) cardiac defibrillator
CPT/HCPCS: 36415; 80048; 85025; 87040; 99284

== ENCOUNTER 2020-02-23 12:07 | Inpatient (IN) | payer OTHER ==
[2020-02-23 13:18] LABS: Absolute Lymphocytes (CBC) 0.9 K/uL (0.7-4.9); Basophils % 0.8 % (0-1.3); Hematocrit 41.4 % (39.6-49.0); Lymphocytes % 4.1 % (15.3-44.8); MPV 8.9 fL (7.6-11.3); RBC Red Blood Cell Count 4.62 M/uL (4.33-5.43)
[2020-02-23 13:30] LABS: Protime INR 1.36
[2020-02-23 13:45] LABS: Blood Morphology Comment NOT SEEN (NOT SEEN); Platelet Estimate ADEQ
[2020-02-23 13:49] LABS: ALT/SGPT 49 U/L (12-78); Albumin 2.9 g/dL (3.4-5.0); Alkaline Phosphatase 94 U/L (45-117); BUN Blood Urea Nitrogen 13 mg/dL (7-18); Bicarbonate 25 mmol/L (21-32); Bilirubin Direct 0.2 mg/dL (0-0.2); Bilirubin Total 0.8 mg/dL (0.2-1.0); Ferritin 304.1 ng/mL (26-388); Glucose Level 118 mg/dL (74-106); Lipase 123 U/L (73-393); Protein, Total 8.5 g/dL (6.4-8.2); Sodium Level 136 mmol/L (136-145); Troponin (Emerg Dept Use Only) < 0.02 ng/mL (0.0-0.045)
[2020-02-23 13:50] LABS: AST/SGOT 38 U/L (15-37); Potassium 4.6 mmol/L (3.5-5.1)
[2020-02-23] MEDS ORDERED: LORazepam 2 MG/ML VIAL ONE (13:55)
[2020-02-23 14:11] LABS: Urine Bacteria 20-50 /HPF (NONE SEEN); Urine Mucus 2+ /HPF (NONE SEEN)
[2020-02-23 14:12] LABS: Urine Blood 3+ (NEG); Urine Glucose NEGATIVE (NEG); Urine Protein 3+ (NEG); Urine pH >8.5 (5.0-7.0)
[2020-02-23] MEDS ORDERED: HALOPERIDOL LACT 5 MG/ML INJ ONE (14:58)
[2020-02-23] MEDS ORDERED: AZITHROMYCIN 500 MG INJ IVPB ONE (15:08)
[2020-02-23] MEDS ORDERED: NA CHLORIDE 0.9% 250 ML ONE (15:08)
[2020-02-23] MEDS ORDERED: CEFTRIAXONE/SWI 1gm 1 GM/10 ML SYR ONE (15:09)
--- NOTE | 2020-02-23 15:48 | RAD REPORT ---
EXAM DESCRIPTION: CT - Head Brain Wo Cont - 02/23/2020 3:38 pm CLINICAL HISTORY: CONFUSED Headache, drowsiness, altered consciousness COMPARISON: Head Brain Wo Cont dated 04/17/2017; Head angio dated 07/30/2016 TECHNIQUE: All CT scans are performed using dose optimization technique as appropriate and may inclu de automated exposure control or mA/KV adjustment according to patient size. FINDINGS: No intracranial hemorrhage, hydrocephalus or extra-axial fluid collection.Moderate brain a trophy is noted.No areas of brain edema or evidence of midline shift. The paranasal sinuses and mastoids are clear. The calvarium is intact. IMPRESSION: No acute intracranial abnormality. Moderate brain atrophy.
--- NOTE | 2020-02-23 15:54 | RAD REPORT ---
EXAM DESCRIPTION: CT - Chest For Pe Angio - 02/23/2020 3:38 pm CLINICAL HISTORY: Chest pain. ? covid + elevated DD COMPARISON: Chest For Pe Angio dated 05/03/2017; Head C Spine Mpr Wo Con dated 11/16/2017 TECHNIQUE: CT angiogram of the pulmonary arteries was performed with MIP. All CT scans are performed using dose optimization technique as appropriate and may include automated exposure control or mA/KV adjustment according to patient size. FINDINGS: No evidence of pulmonary thromboembolism. No acute aortic finding demonstrated. The lungs are mildly emphysematous. Focally prominent 3 cm soft tissue lesion is seen in the posterio r right upper lobe. Mild ground-glass opacities in the periphery of both lungs. No significant pericardial or pleural fluid. No concerning bony finding. IMPRESSION: No evidence of pulmonary thromboembolism. Ground-glass opacities peripherally and in the lung bases bilaterally would be compatible with COVID- 19 infection. 3 cm soft tissue mass in the posterior right upper lobe noted which may contain metallic marker clips .
--- NOTE | 2020-02-23 16:05 | RAD REPORT ---
EXAM DESCRIPTION: RAD - Chest Single View - 02/23/2020 3:55 pm CLINICAL HISTORY: covid Chest pain. COMPARISON: Chest Single View dated 12/30/2017; Chest Pa And Lat (2 Views) dated 07/11/2017; Chest Sin gle View dated 05/06/2017; Chest Single View dated 05/03/2017 FINDINGS: Portable technique limits examination quality. Peripheral ground-glass lung opacities are seen, greater on the right, most compatible with COVID-19. The heart is upper limit normal in size with a multi lead pacer/ defibrillator device present.
--- NOTE | 2020-02-23 16:12 | EDPHYS ---
Physician Documentation [facility] Name: Honorio Toussaint Age: 74 yrs Sex: Male : 1945 Arrival Date: 02/23/2020 Time: 12:13 Bed 16 Private MD: ED Physician Altaf Bray HPI: 02/22 14:19 This 74 yrs old Male presents to ER via EMS with complaints of Breathing ps1 Difficulty. 14:19 Everyone at house has COVID. He tested negative. Now has symptoms Sunday. Tested again, ps1 inconclusive. Never went back. Now confused and not keeping his O2 on. Disoriented. . Historical: - Allergies: 12:51 Codeine; iw 12:51 PENICILLINS; iw - Home Meds: 12:51 albuterol sulfate 90 mcg/actuation Inhl HFAA 1 puff as needed [Active]; allopurinol 100 iw mg Oral tab 1 tab 2 times per day [Active]; Aspir-81 81 mg Oral TbEC 1 tab once daily [Active]; atrovastatin 40 mg daily [Active]; bupropion HCl 100 mg Oral tab 2 tab 2 times per day [Active]; Coumadin 3 mg Oral tab 1 tab sun-sun. [Active]; cyanocobalamin (vit B-12) 1000 mcg daily miscellaneous [Active]; docusate sodium 100 mg Oral cap 1 cap 2 times per day [Active]; Eliquis Oral [Active]; gabapentin 300 mg Oral cap 1 cap 3 times per day [Active]; finasteride 5 mg Oral tab 1 tab once daily [Active]; Glucophage 1,000 mg Oral tab [Active]; isosorbide mononitrate 30 mg Oral Tb24 3 tabs once daily [Active]; Lasix 40 mg Oral tab 1 tab every other day. [Active]; montelukast 10 mg Oral tab [Active]; Huntly 5-325 mg Oral tab 1 tab as needed [Active]; Prilosec 20 mg Oral cpDR 1 cap once daily [Active]; Spiriva with HandiHaler 18 mcg inhalation CpDv 1 cap once daily [Active]; spironolactone 25 mg Oral tab 1 tab once daily [Active]; Symbicort 160-4.5 mcg/actuation inhalation HFAA 2 puffs 2 times per day [Active]; tamsulosin 0.4 mg Oral cp24 1 cap once daily [Active]; valsartin [Active]; verapamil 120 mg Oral tab twice a day [Active]; - PMHx: 12:51 Anxiety; Cancer; Cellulitis; constipation; COPD; CVA; Depression; Diabetes - NIDDM; iw Hyperlipidemia; Hypertension; Lymphadema; neck pain; prostate probelm; Sleep Apnea; trigeminal neuralgia; - Immunization history:: Adult Immunizations up to date. - Social history:: Smoking status: Patient/guardian denies using tobacco, but has a distant history of tobacco abuse. - Code Status:: Full code. ROS: 14:19 Unable to obtain ROS due to altered mental status. ps1 Exam: 14:19 Constitutional: This is a well developed, well nourished patient who is awake, alert, ps1 and in no acute distress. Head/Face: Normocephalic, atraumatic. Chest/axilla: Normal chest wall appearance and motion. Nontender with no deformity. No lesions are appreciated. Cardiovascular: Regular rate and rhythm. No gallops, murmurs, or rubs. Normal PMI, no JVD. No pulse deficits. 14:19 Abdomen/GI: Soft, non-tender, with normal bowel sounds. No distension or tympany. No guarding or rebound. No evidence of tenderness throughout. MS/ Extremity: Pulses equal, no cyanosis. Neurovascular intact. Full, normal range of motion. 14:19 Respiratory: the patient does not display signs of respiratory distress, Respirations: tachypnea, Breath sounds: are clear throughout. 14:19 Neuro: Orientation: Not oriented to situation, Mentation: confused. Vital Signs: 12:13 BP 146 / 79; Pulse 90; Resp 22; Temp 98.1; Pulse Ox 85% on R/A; zb 13:15 BP 167 / 100; Pulse 88; Resp 23; Pulse Ox 97% on 4 lpm NC; Weight 108.86 kg; Height 5 zb ft. 8 in. (172.72 cm); 14:15 BP 117 / 52; Pulse 90; Resp 20; Pulse Ox 98% on R/A; zb 14:15 BP 141 / 73; Pulse 88; Resp 20; Pulse Ox 98% on 4 lpm NC; zb 15:15 BP 142 / 76; Pulse 85; Resp 20; Pulse Ox 99% on 4 lpm NC; zb 16:15 BP 157 / 139; Pulse 87; Resp 20; Pulse Ox 98% 4 lpm ; zb 17:15 BP 146 / 78; Pulse 78; Resp 20; Pulse Ox 98% on 4 lpm NC; zb 19:00 BP 149 / 59; Pulse 98; Resp 26; Pulse Ox 95% on 4 lpm NC; ll2 13:15 Body Mass Index 36.49 (108.86 kg, 172.72 cm) zb MDM: 12:20 Patient medically screened. ps1 02/22 12:20 Order name: Blood Culture Adult (2) ps1 02/22 12:20 Order name: BMP ps1 02/22 12:20 Order name: C-Reactive Protein ps1 02/22 12:20 Order name: CBC with Diff; Complete Time: 13:56 ps1 02/22 12:20 Order name: D-Dimer ps1 02/22 12:20 Order name: Ferritin; Complete Time: 13:56 ps1 02/22 12:20 Order name: Flu; Complete Time: 14:42 ps1 02/22 12:20 Order name: Lactate; Complete Time: 13:56 ps1 02/22 12:20 Order name: LFT's; Complete Time: 13:56 ps1 02/22 12:20 Order name: Lipase; Complete Time: 13:56 ps1 02/22 12:20 Order name: Procalcitonin; Complete Time: 14:10 ps1 02/22 12:20 Order name: PT-INR; Complete Time: 13:56 ps1 02/22 12:20 Order name: Ptt, Activated; Complete Time: 13:56 ps1 02/22 12:20 Order name: Strep; Complete Time: 14:42 ps1 02/22 12:20 Order name: Troponin (emerg Dept Use Only); Complete Time: 13:56 ps1 02/22 12:20 Order name: Urine Microscopic Only; Complete Time: 14:13 ps1 14 14:14 Interpretation: Abnormal: UWBC >50; URBC 10-20; UBACT 20-50. ps1 02/22 12:20 Order name: CXR XRAY; Complete Time: 16:10 ps1 02/22 12:21 Order name: Blood Culture EDMS 02/22 12:21 Order name: Basic Metabolic Panel; Complete Time: 13:56 EDMS 02/22 12:21 Order name: C-Reactive Protein; Complete Time: 13:56 EDOR 02/22 12:21 Order name: D-Dimer; Complete Time: 13:56 EDOR 02/22 13:45 Order name: Manual Differential; Complete Time: 13:56 EDOR 02/22 13:58 Order name: Urine Dipstick--Ancillary (enter results) bd 02/22 13:59 Order name: Urine Dipstick-Ancillary; Complete Time: 14:13 EDOR 02/22 14:12 Order name: Urine Culture [facility] 02/22 14:42 Order name: Throat Culture EDOR 02/22 17:06 Order name: Lactate Sepsis 2 HR Follow-up; Complete Time: 17:12 EDOR 02/22 17:43 Order name: SARS-COV-2 RT PCR; Complete Time: 18:23 EDOR 02/22 12:20 Order name: EKG; Complete Time: 12:21 ps1 02/22 12:20 Order name: Cardiac monitoring; Complete Time: 12:54 ps1 02/22 12:20 Order name: Droplet/Contact Precautions; Complete Time: 12:54 ps1 02/22 12:20 Order name: EKG - Nurse/Tech; Complete Time: 12:54 ps1 02/22 12:20 Order name: Shin; Complete Time: 14:01 ps1 02/22 12:20 Order name: IV Start; Complete Time: 13:11 ps1 02/22 12:20 Order name: Labs collected and sent; Complete Time: 13:12 ps1 02/22 12:20 Order name: O2 Per Protocol; Complete Time: 12:54 ps1 02/22 12:20 Order name: O2 Sat Monitoring; Complete Time: 12:54 ps1 02/22 12:20 Order name: Urine Dipstick-Ancillary (obtain specimen); Complete Time: 14:08 ps1 02/22 13:32 Order name: CT Chest For PE Angio; Complete Time: 16:10 ps1 02/22 13:33 Order name: CT Head Brain wo Cont; Complete Time: 15:53 ps1 02/22 16:06 Order name: Labs - recollect needed: lactate sepsis due; Complete Time: 16:52 iw 02/22 16:50 Order name: CONS Physician Consult EDMS Administered Medications: 13:42 Drug: Ativan 0.5 mg {Note: verbal order ford, PA.} Route: IVP; Site: left hand; zb 14:00 Follow up: Response: No adverse reaction; Anxiety unchanged zb 14:30 Drug: Ativan 0.5 mg Route: IVP; Site: left hand; zb 14:55 Follow up: Response: No adverse reaction; Anxiety unchanged zb 14:47 Drug: HALdol 5 mg {Note: 2.5 give per ECP .} Route: IVP; Site: right hand; zb 15:00 Follow up: Response: No adverse reaction; Pain is decreased zb 15:06 Drug: AZITHromycin 500 mg Route: IVPB; Infused Over: 1 hrs; Site: right hand; zb 16:06 Follow up: Response: No adverse reaction; IV Status: Completed infusion; IV Intake: zb 250ml 15:07 Drug: Rocephin 1 grams Route: IV; Rate: bolus; Site: right antecubital; zb 15:30 Follow up: Response: No adverse reaction; IV Status: Completed infusion zb Disposition: 02/23/20 16:12 Hospitalization ordered by Moses Fishman for Inpatient Admission. Preliminary diagnosis are COVID-19, Confusion. - Bed requested for Intensive Care Unit. - Status is Inpatient Admission. dm5 - Condition is Fair. - Problem is new. - Symptoms are unchanged. Signatures: Dispatcher [employer] EDOR Taisha Funk Deana RN RN dm5 Jessica Perez RN RN iw Altaf Bray MD MD ps1 Kiya Martinez RN RN zb Corrections: (The following items were deleted from the chart) 13:26 12:20 [facility] [phone]/ ordered. ps1 iw 13:27 12:20 Document PUI# ordered. ps1 iw 14:14 14:14 UWBC >50; URBC 10-20; UBACT 20-50. ps1 ps1 16:38 12:51 Immunization history: Adult Immunizations unknown, iw zb 16:38 12:51 Social history: Smoking status: unknown iw zb 16:51 16:40 CORONAVIRUS+MR.LAB.BRZ ordered. EDMS EDMS 18:39 16:12 Hospitalization Ordered by Moses Fishman MD for Inpatient Admission. Preliminary bd diagnosis is COVID-19; Confusion. Bed requested for Telemetry/MedSurg (Inpatient). Status is Inpatient Admission. Condition is Fair. Problem is new. Symptoms are unchanged. ps1 20:36 18:39 02/23/2020 16:12 Hospitalization Ordered by Moses Fishman MD for Inpatient dm5 Admission. Preliminary diagnosis is COVID-19; Confusion. Bed requested for Intensive Care Unit. Status is Inpatient Admission. Condition is Fair. Problem is new. Symptoms are unchanged. bd
--- NOTE | 2020-02-23 16:12 | ER ---
Nurse's Notes [facility] Name: Honorio Gonzalez Age: 74 yrs Sex: Male : 1945 Arrival Date: 02/23/2020 Time: 12:13 Bed 16 Private MD: Diagnosis: COVID-19;Confusion Presentation: 02/22 12:13 Chief complaint: EMS states: family called EMS, patient found on the ground, no LOC, zb disoriented, experiencing generalized weakness, hx of covid tested positive . hx of copd, sating at 96% on 6L nc. Coronavirus screen: Client presents with at least one sign or symptom that may indicate coronavirus-19. Standard/surgical mask placed on the client. Provider contacted for isolation considerations. Ebola Screen: No symptoms or risks identified at this time. Initial Sepsis Screen: Does the patient meet any 2 criteria? RR > 20 per min. Altered Mental Status. Does the patient have a suspected source of infection? Yes:. Risk Assessment: Do you want to hurt yourself or someone else? Patient reports no desire to harm self or others. Onset of symptoms is unknown. 12:13 Method Of Arrival: EMS: [facility] zb 12:13 Acuity: ATIF 2 zb Triage Assessment: 12:13 General: Appears distressed, uncomfortable, Behavior is agitated, anxious. Pain: Unable zb to use pain scale. Patient is disoriented. EENT: No signs and/or symptoms were reported regarding the EENT system. Neuro: Level of Consciousness is awake, alert, Oriented to disoriented . Cardiovascular: Capillary refill is > 3 seconds is sluggish in bilateral fingers. Respiratory: Airway is patent Respiratory effort is labored, Respiratory pattern is tachypnea Breath sounds are coarse bilaterally. Breath sounds with wheezes bilaterally. GI: Abdomen is obese, Bowel sounds present X 4 quads. : No signs and/or symptoms were reported regarding the genitourinary system. Derm: Skin is pale. Musculoskeletal: Circulation, motion, and sensation intact. Range of motion: intact in all extremities. Historical: - Allergies: 12:51 Codeine; iw 12:51 PENICILLINS; iw - Home Meds: 12:51 albuterol sulfate 90 mcg/actuation Inhl HFAA 1 puff as needed [Active]; allopurinol 100 iw mg Oral tab 1 tab 2 times per day [Active]; Aspir-81 81 mg Oral TbEC 1 tab once daily [Active]; atrovastatin 40 mg daily [Active]; bupropion HCl 100 mg Oral tab 2 tab 2 times per day [Active]; Coumadin 3 mg Oral tab 1 tab mon-sat. [Active]; cyanocobalamin (vit B-12) 1000 mcg daily miscellaneous [Active]; docusate sodium 100 mg Oral cap 1 cap 2 times per day [Active]; Eliquis Oral [Active]; gabapentin 300 mg Oral cap 1 cap 3 times per day [Active]; finasteride 5 mg Oral tab 1 tab once daily [Active]; Glucophage 1,000 mg Oral tab [Active]; isosorbide mononitrate 30 mg Oral Tb24 3 tabs once daily [Active]; Lasix 40 mg Oral tab 1 tab every other day. [Active]; montelukast 10 mg Oral tab [Active]; [place] 5-325 mg Oral tab 1 tab as needed [Active]; Prilosec 20 mg Oral cpDR 1 cap once daily [Active]; Spiriva with HandiHaler 18 mcg inhalation CpDv 1 cap once daily [Active]; spironolactone 25 mg Oral tab 1 tab once daily [Active]; Symbicort 160-4.5 mcg/actuation inhalation HFAA 2 puffs 2 times per day [Active]; tamsulosin 0.4 mg Oral cp24 1 cap once daily [Active]; valsartin [Active]; verapamil 120 mg Oral tab twice a day [Active]; - PMHx: 12:51 Anxiety; Cancer; Cellulitis; constipation; COPD; CVA; Depression; Diabetes - NIDDM; iw Hyperlipidemia; Hypertension; Lymphadema; neck pain; prostate probelm; Sleep Apnea; trigeminal neuralgia; - Immunization history:: Adult Immunizations up to date. - Social history:: Smoking status: Patient/guardian denies using tobacco, but has a distant history of tobacco abuse. - Code Status:: Full code. Screenin:13 Abuse screen: Denies threats or abuse. Denies injuries from another. Nutritional zb screening: No deficits noted. Tuberculosis screening: No symptoms or risk factors identified. Fall Risk No fall in past 12 months (0 pts). No secondary diagnosis (0 pts). IV access (20 points). Ambulatory Aid- None/Bed Rest/Nurse Assist (0 pts). Gait- Normal/Bed Rest/Wheelchair (0 pts) Mental Status- Overestimates/Forgets Limitations (15 pts.). Total Cordero Fall Scale indicates High Risk Score (45 or more points). Fall prevention measures have been instituted. Side Rails Up X 2 Placed Close to Nursing Station Frequent Obs/Assessments Occuring. Assessment: 12:13 Reassessment: see triage assessment. zb 13:13 Reassessment: Patient appears in no apparent distress at this time. Patient and/or zb family updated on plan of care and expected duration. Pain level reassessed. pt anxious, agitated, notified ECP. aox1. 14:13 Reassessment: pt anxious, agitated, attempted to get up. notified charge nurse. zb 15:13 Reassessment: Patient appears in no apparent distress at this time. Patient and/or zb family updated on plan of care and expected duration. Pain level reassessed. pt agitated notified MD. medication administered, pt now quietly resting. 16:13 Reassessment: Patient appears in no apparent distress at this time. Patient and/or zb family updated on plan of care and expected duration. Pain level reassessed. pt resting in bed. spoke to zaira gonzlaez [phone], ECP at bedside talking to on the phone. 17:13 Reassessment: Patient appears in no apparent distress at this time. Patient and/or zb family updated on plan of care and expected duration. Pain level reassessed. pt remain resting in bed, not trying to get up at this time. 18:13 Reassessment: Patient appears in no apparent distress at this time. Patient and/or zb family updated on plan of care and expected duration. Pain level reassessed. pt more alert. staring to get anxious, currently obey verbal command to lay back in bed. 19:50 Reassessment: Patient and/or family updated on plan of care and expected duration. Pain ll2 level reassessed. Patient is alert, oriented x 3, equal unlabored respirations, skin warm/dry/pink. report given to MANOLO grove. Vital Signs: 12:13 BP 146 / 79; Pulse 90; Resp 22; Temp 98.1; Pulse Ox 85% on R/A; zb 13:15 BP 167 / 100; Pulse 88; Resp 23; Pulse Ox 97% on 4 lpm NC; Weight 108.86 kg; Height 5 zb ft. 8 in. (172.72 cm); 14:15 BP 117 / 52; Pulse 90; Resp 20; Pulse Ox 98% on R/A; zb 14:15 BP 141 / 73; Pulse 88; Resp 20; Pulse Ox 98% on 4 lpm NC; zb 15:15 BP 142 / 76; Pulse 85; Resp 20; Pulse Ox 99% on 4 lpm NC; zb 16:15 BP 157 / 139; Pulse 87; Resp 20; Pulse Ox 98% 4 lpm ; zb 17:15 BP 146 / 78; Pulse 78; Resp 20; Pulse Ox 98% on 4 lpm NC; zb 19:00 BP 149 / 59; Pulse 98; Resp 26; Pulse Ox 95% on 4 lpm NC; ll2 13:15 Body Mass Index 36.49 (108.86 kg, 172.72 cm) zb ED Course: 12:13 Patient arrived in ED. zb 12:13 Missed attempt(s): 22 gauge in right antecubital area. Bleeding controlled, band aid ca1 applied, catheter tip intact. 12:13 Patient has correct armband on for positive identification. Bed in low position. Call zb light in reach. Side rails up X 1. Door closed. Noise minimized. Warm blanket given. Head of bed. 12:14 Altaf Bray MD is Attending Physician. ps1 12:20 Missed attempt(s): 22 gauge in right forearm. Bleeding controlled, band aid applied, ca1 catheter tip intact. 12:23 Triage completed. zb 12:25 Missed attempt(s): 22 gauge in left antecubital area. Bleeding controlled, band aid ca1 applied, catheter tip intact. 12:48 Jessica Perez, MANOLO is Primary Nurse. iw 13:05 Missed attempt(s): 20 gauge in right antecubital area. Bleeding controlled, band aid sv applied, catheter tip intact. 13:05 Inserted saline lock: 22 gauge in left antecubital area, using aseptic technique. jp3 13:10 Inserted saline lock: 22 gauge in right hand, using aseptic technique. Blood collected. sv Flushed right hand with 5 ml normal saline. 13:10 Initial lab(s) drawn, by me, sent to lab. Second set of blood cultures drawn by me. sv 13:24 Flu and/or RSV swab sent to lab. Strep swab sent to lab. Urine collected: Shin jp3 catheter specimen, cloudy, tea colored. Oxygen administration via nasal cannula \T\ 2L/min. Shin cath inserted, using sterile technique, 16 Fr., by me, balloon inflated, urine specimen collected. 13:27 Arm band placed on. iw 15:38 CT Chest For PE Angio In Process Unspecified. EDMS 15:38 CT Head Brain wo Cont In Process Unspecified. EDMS 15:55 CXR XRAY In Process Unspecified. EDMS 16:12 Moses Fishman MD is Hospitalizing Provider. ps1 16:36 Repeat lab(s) drawn. by me, sent to lab. jp3 16:42 COVID swab sent to lab. jp3 19:59 Primary Nurse role handed off by Jessica Perez RN mw2 20:28 Tawnya Lyon RN is Primary Nurse. ll2 Administered Medications: 13:42 Drug: Ativan 0.5 mg {Note: verbal order SHRUTHI youngblood.} Route: IVP; Site: left hand; zb 14:00 Follow up: Response: No adverse reaction; Anxiety unchanged zb 14:30 Drug: Ativan 0.5 mg Route: IVP; Site: left hand; zb 14:55 Follow up: Response: No adverse reaction; Anxiety unchanged zb 14:47 Drug: HALdol 5 mg {Note: 2.5 give per ECP .} Route: IVP; Site: right hand; zb 15:00 Follow up: Response: No adverse reaction; Pain is decreased zb 15:06 Drug: AZITHromycin 500 mg Route: IVPB; Infused Over: 1 hrs; Site: right hand; zb 16:06 Follow up: Response: No adverse reaction; IV Status: Completed infusion; IV Intake: zb 250ml 15:07 Drug: Rocephin 1 grams Route: IV; Rate: bolus; Site: right antecubital; zb 15:30 Follow up: Response: No adverse reaction; IV Status: Completed infusion zb Intake: 16:06 IV: 250ml; Total: 250ml. zb Outcome: 16:12 Decision to Hospitalize by Provider. ps1 20:36 Patient left the ED. dm5 Signatures: Dispatcher [employer] EDCinthia Portillo, RN MANOLO dm5 Cortney Handley RN RN sv Williams, Irene, RN RN Darlene Gutierrez [facility] Altaf Bray MD MD ps1 Chinedu, Ole mw2 Ronal Miranda 3 Kimberly Smith RN RN ca1 Tawnya Lyon RN RN 2 Kiya Martinez RN RN zb Corrections: (The following items were deleted from the chart) 12:38 12:00 Missed attempt(s): 22 gauge in right antecubital area. Bleeding controlled, band ca1 aid applied, catheter tip intact. ca1 12:38 12:10 Missed attempt(s): 22 gauge in right forearm. Bleeding controlled, band aid ca1 applied, catheter tip intact. ca1 12:38 12:15 Missed attempt(s): 22 gauge in left antecubital area. Bleeding controlled, band ca1 aid applied, catheter tip intact. ca1 16:38 12:51 Immunization history: Adult Immunizations unknown, zb 16:38 12:51 Social history: Smoking status: unknown zb 16:45 13:15 BP 167 / 100; Pulse 88bpm; Resp 23bpm; Pulse Ox 97% 4 lpm Nasal Cannula; zb zb 16:52 16:36 Repeat lab(s) drawn. by sc, sent to lab. [place] [id number] 16:52 16:42 COVID swab sent to lab. [place] [address] 16:54 16:54 URINE DIPSTICK--ANCILLARY+U.LAB.BRZ drawn and sent. [place] [id number] 16:54 16:54 D-DIMER+COAG.LAB.BRZ drawn and sent. [place] [id number] 19:52 17:06 Response: No adverse reaction; IV Status: Completed infusion; IV Intake: 250ml zb zb
--- NOTE | 2020-02-23 16:55 | P.HP ---
Certification for Inpatient Patient admitted to: Inpatient With expected LOS: >2 Midnights Practitioner: I am a practitioner with admitting privileges, knowledge of patient current condition, hospital course, and medical plan of care. Services: Services provided to patient in accordance with Admission requirements found in Title 42 Section 412.3 of the Code of Federal Regulations Patient History Date of Service: 02/23/20 Reason for admission: Sepsis, UTI, COVID19 pneumonia History of Present Illness: 74-year-old male, PMH: AFib, and NIDDM2, COPD on chronic 3 L nasal cannula, HTN, sleep apnea who presents to the ED with 1 week of a of slowly worsening altered mental status/confusion. The patient is very sleepy and minimally arousable at time of my exam. He received Haldol due to some agitation and trying to get out of bed. Unable to get more HPI from the patient. I spoke with his who stated patient has not been sleeping very much, constantly complaining about having to urinate, and he has had intermittent confusion. Apparently some family members tested positive for COVID In the ED, he had a leukocytosis of 21.8, lactic acidosis of 2.1, CRP 187, elevated D-dimer in UA grossly positive for UTI. COVID +. He was saturating at > 95% on 3 L nasal cannula. CTA: Negative for PE, positive for covered pneumonia. Soft tissue mass which reports is old. CT head negative for acute process. Moderate brain atrophy is noted. Allergies codeine [Codeine] Allergy (Unknown, Verified 07/20/15 03:42) Hives/Rash Penicillins Allergy (Unknown, Verified 07/20/15 03:42) Hives/Rash Home Medications: Albuterol Sulfate [Proair Respiclick] 90 mcg IH Q6H PRN 07/20/15 Atorvastatin Calcium [Lipitor*] 40 mg PO BEDTIME 07/20/15 Finasteride [Proscar*] 5 mg PO DAILY 07/20/15 Furosemide [Lasix] 40 mg PO SEECOM 07/20/15 Gabapentin [Gralise] 300 mg PO TID 07/20/15 Metformin HCl [Glucophage] 1,000 mg PO BID 07/20/15 Omeprazole [Prilosec] 20 mg PO DAILY 07/20/15 Tiotropium [Spiriva Handihaler*] 1 puff IH DAILY 07/20/15 buPROPion HCL [Wellbutrin*] 150 mg PO DAILY 07/20/15 Isosorbide Mononitrate [Isosorbide Mononitrate ER] 30 mg PO DAILY 05/04/17 Verapamil HCl [Verapamil ER] 120 mg PO BID 05/04/17 allopurinoL [Zyloprim*] 100 mg PO BID 05/04/17 Tamsulosin [Flomax*] 1 cap PO BEDTIME 07/12/17 Apixaban [Eliquis] 5 mg PO BID 12/30/17 Budesonide/Formoterol Fumarate [Symbicort 160-4.5 Mcg Inhaler] 2 puff IH BID 12/30/17 Capsaicin [Arthritis Pain Relief] 0.025 gm TP BID 12/30/17 Duloxetine HCl [Cymbalta] 60 mg PO DAILY 12/30/17 Oseltamivir Phosphate [Tamiflu] 75 mg PO DAILY #8 capsule 01/01/18 - Past Medical/Surgical History Diabetic: Yes -: DM-2 -: COPD -: LUNG CANCER -: Back Pain -: HTN -: AFib -: LUNG CANCER- RADIATION 2012 -: pacemaker/defibrillator 2007 - Family History Family History: Reviewed- Non-Contributory - Family History Father -: Heart disease, Lung disease, Diabetes Brother -: Cancer Mother -: Heart disease, Diabetes, Stroke - Social History Smoking Status: Unknown if ever smoked Alcohol use: No CD- Drugs: No Caffeine use: Yes Review of Systems is unable to be obtained Physical Examination - Physical Exam General: Unresponsive (Minimally responsive, unable to answer any questions) HEENT: Sclerae nonicteric Respiratory: Crackles/rales (Throughout), Expiratory wheezes Cardiovascular: Regular rate/rhythm, Edema Gastrointestinal: Soft and benign, No tenderness Integumentary: No rashes Neurological: Other (Unable to test) Urinary: Shin catheter - Studies Laboratory Data (last 24 hrs) 02/23/20 13:07: PT 16.0 H, INR 1.36, APTT 30.8 02/23/20 12:54: WBC 21.8 H*, Hgb 13.3 L, Hct 41.4, Plt Count 261 02/23/20 12:54: Sodium 136, Potassium 4.6, BUN 13, Creatinine 1.03, Glucose 118 H, Total Bilirubin 0.8, AST 38 H, ALT 49, Alkaline Phosphatase 94, Lipase 123 Microbiology Data (last 24 hrs): 02/23/20 13:24 Throat Group A Streptococcus Rapid Screen - Final 02/23/20 13:24 Nasopharnyx Influenza Type A Antigen Screen - Final 02/23/20 13:24 Nasopharnyx Influenza Type B Antigen Screen - Final Assessment and Plan - Advance Directives Does patient have a Living Will: Yes Does patient have a Durable POA for Healthcare: Yes Physician Review Additional Text: Sepsis secondary to UTI, without shock/severe sepsis COVID-19 pneumonia COPD on chronic oxygen (3L) AFib Noninsulin dependent DM 2 HTN HL the Prior CVA Sleep apnea Reviewed prior cultures-Has had MRSA, Pseudomonas and wounds. E. coli, Proteus, enterococcus in urine many years ago Will cover with cefepime and vancomycin Unable to obtain home medication list, but did report he takes Eliquis Will need to obtain home medications and restart as appropriate. Trend lactate IV fluids Given altered mental status, will need bedside swallow Altered mental status likely secondary to sepsis from UTI Patient on baseline oxygen for now With some wheezing, will treat with 40mg IV solumedrol for now, will help COVID pneumonia as well Pulm consulted Dispo: anticipate hospitalization >48hrs Time Spent Managing Pts Care (In Minutes): 70
[2020-02-23] MEDS: INSULIN -REGULAR HUMAN 50 UNIT/0.5 ML ML SQ SCH (21:26)
[2020-02-23] MEDS ORDERED: APIXABAN 2.5 MG TABLET PO SCH (21:26)
[2020-02-23] MEDS ORDERED: ACETAMINOPHEN 500 MG TAB PO PRN (21:26)
[2020-02-23] MEDS ORDERED: VANCOMYCIN 2 GM in NA CHLORIDE 0.9% 500 ML IVPB ONE (21:26)
[2020-02-23 22:00] VITALS: BMI 33.6
[2020-02-23] MEDS ORDERED: CEFEPIME IV SCH (22:00)
[2020-02-23] MEDS: NA CHLORIDE 0.9% 1,000 ML IV SCH (22:39)
[2020-02-23] MEDS ORDERED: VANCOMYCIN 1 GM/VIAL ONE (22:41)
[2020-02-23] MEDS ORDERED: NA CHLORIDE 0.9% 500 ML ONE (22:41)
[2020-02-23] MEDS: METHYLPREDNISOLONE 40 MG INJ IV SCH (22:41)
[2020-02-23] MEDS ORDERED: CEFEPIME 2 GM VIAL ONE (22:51)
[2020-02-23 22:58] LABS: Ferritin 337.4 ng/mL (26-388)
[2020-02-24 05:02] LABS: Absolute Lymphocytes (CBC) 0.6 K/uL (0.7-4.9); Basophils % 0.1 % (0-1.3); Hematocrit 36.8 % (39.6-49.0); Lymphocytes % 2.1 % (15.3-44.8); MPV 9.3 fL (7.6-11.3); RBC Red Blood Cell Count 4.09 M/uL (4.33-5.43)
[2020-02-24 05:31] LABS: Albumin 2.6 g/dL (3.4-5.0); Bilirubin Total 0.6 mg/dL (0.2-1.0); Ferritin 401.5 ng/mL (26-388); Magnesium 1.8 mg/dL (1.8-2.4); Protein, Total 7.8 g/dL (6.4-8.2)
[2020-02-24] MEDS: INSULIN -REGULAR HUMAN 50 UNIT/0.5 ML ML SQ SCH ×4 (07:30→21:00)
[2020-02-24] MEDS ORDERED: INFLUENZA VACCINE (for 3y+) 0.5 ML DOSE IMVAC ONE (08:00)
[2020-02-24] MEDS ORDERED: VANCOMYCIN 1.25 GM in NA CHLORIDE 0.9% 250 ML IVPB SCH (09:00)
[2020-02-24] MEDS ORDERED: MAGNESIUM SULFATE 1 gm IVPB 1 GM/100 ML BAG IV ONE (09:00)
[2020-02-24] MEDS ORDERED: APIXABAN 5 MG TABLET PO SCH (09:00)
[2020-02-24] MEDS: METHYLPREDNISOLONE 40 MG INJ IV SCH ×2 (09:11→21:15)
[2020-02-24] MEDS: NA CHLORIDE 0.9% 1,000 ML IV SCH ×2 (10:46→15:20)
[2020-02-24] MEDS: VANCOMYCIN 1.75 GM in NA CHLORIDE 0.9% 500 ML IVPB SCH (11:32)
--- NOTE | 2020-02-24 12:55 | P.PN ---
Subjective Date of Service: 02/24/20 Chief Complaint: Sepsis, UTI, COVID19 pneumonia Subjective: No new changes Patient remain altered, somnolent. He is on 3 L of oxygen by nasal cannula. He is currently NPO. No agitation overnight. Noted patient was given Haldol yesterday. Physical Examination - Vital Signs Temperature: 96.3 F Blood Pressure: 168/73 Pulse: 65 Respirations: 17 Pulse Ox (%): 95 - Physical Exam General: Other (Somnolent) Neck: Supple, JVD not distended Respiratory: Clear to auscultation bilaterally, Normal air movement Cardiovascular: No edema, Regular rate/rhythm Gastrointestinal: Normal bowel sounds, Soft and benign Musculoskeletal: No swelling, No tenderness Integumentary: No rashes Neurological: Other (Somnolent) - Studies Laboratory Data (last 24 hrs) 02/23/20 13:07: PT 16.0 H, INR 1.36, APTT 30.8 02/23/20 12:54: WBC 21.8 H*, Hgb 13.3 L, Hct 41.4, Plt Count 261 02/23/20 12:54: Sodium 136, Potassium 4.6, BUN 13, Creatinine 1.03, Glucose 118 H, Total Bilirubin 0.8, AST 38 H, ALT 49, Alkaline Phosphatase 94, Lipase 123 Microbiology Data (last 24 hrs): 02/23/20 12:54 Blood - Blood Anaerobic Blood Culture - Final 02/23/20 13:24 Throat Group A Streptococcus Rapid Screen - Final 02/23/20 13:24 Nasopharnyx Influenza Type A Antigen Screen - Final 02/23/20 13:24 Nasopharnyx Influenza Type B Antigen Screen - Final Assessment And Plan - Current Problems (Diagnosis) (1) Sepsis Current Visit: Yes Status: Acute (2) UTI (urinary tract infection) Onset Date: 07/21/15 Current Visit: No Status: Acute (3) Pneumonia due to COVID-19 virus Current Visit: Yes Status: Acute (4) Acute metabolic encephalopathy Current Visit: Yes Status: Acute (5) Diabetes mellitus type 2 in nonobese Current Visit: Yes Status: Acute (6) History of COPD Current Visit: No Status: Chronic (7) History of lung cancer Current Visit: No Status: Chronic - Plan Continue IV antibiotics. Follow urine culture and blood cultures. Supplemental oxygen for COVID pneumonia. High risk of progression of COVID pneumonia. Continue IV steroid. Patient is currently NPO. Continue IV fluid. Insulin sliding scale for glucose management. Haldol p.r.n. for agitation. Monitor CBC to follow severe leukocytosis. Physician Review Additional Text: Sepsis secondary to UTI, without shock/severe sepsis COVID-19 pneumonia COPD on chronic oxygen (3L) AFib Noninsulin dependent DM 2 HTN HL the Prior CVA Sleep apnea Reviewed prior cultures-Has had MRSA, Pseudomonas and wounds. E. coli, Proteus, enterococcus in urine many years ago Will cover with cefepime and vancomycin Unable to obtain home medication list, but did report he takes Eliquis Will need to obtain home medications and restart as appropriate. Trend lactate IV fluids Given altered mental status, will need bedside swallow Altered mental status likely secondary to sepsis from UTI Patient on baseline oxygen for now With some wheezing, will treat with 40mg IV solumedrol for now, will help COVID pneumonia as well Pulm consulted Dispo: anticipate hospitalization >48hrs
[2020-02-24] MEDS ORDERED: HYDRALAZINE HCL 20 MG/ML VIAL IV PRN (18:10)
--- NOTE | 2020-02-24 19:35 | EKG ---
Test Date: 2020-02-23 Test Time: 12:36:34 Irrigation Specialist: VANIA MEASUREMENT RESULTS: Intervals: Rate: 88 FL: 196 QRSD: 84 QT: 354 QTc: 428 [place]: P: 75 FL: 196 QRS: 46 T: 14 INTERPRETIVE STATEMENTS: Normal sinus rhythm Normal ECG Compared to ECG 12/30/2017 15:36:10 Sinus tachycardia no longer present Electronically Signed On 02-24-20 19:32:37 HAMMER [employer]ILL OPERATOR by Nicho Smith
[2020-02-24] MEDS ORDERED: CEFEPIME/SWI 2gm 2 GM/20 ML SYR IV SCH (21:00)
[2020-02-24] MEDS: TAMSULOSIN 0.4 MG SR CAP PO SCH (21:15)
[2020-02-24] MEDS: BENZONATATE 100 MG CAP PO PRN (21:15)
[2020-02-24] MEDS: APIXABAN 5 MG TABLET PO SCH (21:15)
[2020-02-24] MEDS: allopurinoL 100 MG TAB PO SCH (21:15)
[2020-02-25 04:55] LABS: Absolute Lymphocytes (CBC) 0.4 K/uL (0.7-4.9); Basophils % 0.3 % (0-1.3); Hematocrit 36.3 % (39.6-49.0); Lymphocytes % 1.7 % (15.3-44.8); MPV 8.8 fL (7.6-11.3); RBC Red Blood Cell Count 4.05 M/uL (4.33-5.43)
[2020-02-25] MEDS: NA CHLORIDE 0.9% 1,000 ML IV SCH (05:02)
[2020-02-25] MEDS: VANCOMYCIN 1.75 GM in NA CHLORIDE 0.9% 500 ML IVPB SCH (05:02)
[2020-02-25 05:42] LABS: Ferritin 622.8 ng/mL (26-388); Magnesium 2.6 mg/dL (1.8-2.4); Potassium 4.6 mmol/L (3.5-5.1)
[2020-02-25] MEDS: INSULIN -REGULAR HUMAN 50 UNIT/0.5 ML ML SQ SCH ×4 (07:30→21:00)
--- NOTE | 2020-02-25 08:39 | P.CNS ---
Date of Consult: 02/25/20 Reason for Consult: Foss virus pneumonia Chief Complaint: Sepsis, UTI, COVID19 pneumonia History of Present Illness: Patient is 74 years of age multiple medical problems including lung cancer admitted with altered mental status confusion as minimally arousable admitted with a diagnosis of foss virus pneumonia he is doing much better on nasal cannula oxygen Allergies codeine [Codeine] Allergy (Unknown, Verified 02/24/20 05:23) Hives/Rash Penicillins Allergy (Unknown, Verified 02/24/20 05:23) Hives/Rash Home Medications: Atorvastatin Calcium [Lipitor*] 80 mg PO BEDTIME 07/20/15 Metformin HCl [Glucophage] 1,000 mg PO BID 07/20/15 Tiotropium [Spiriva Handihaler*] 1 puff IH DAILY 07/20/15 buPROPion HCL [Wellbutrin*] 150 mg PO DAILY 07/20/15 allopurinoL [Zyloprim*] 100 mg PO BID 05/04/17 Tamsulosin [Flomax*] 1 cap PO BEDTIME 07/12/17 Apixaban [Eliquis] 5 mg PO BID 12/30/17 Budesonide/Formoterol Fumarate [Symbicort 160-4.5 Mcg Inhaler] 2 puff IH BID 12/30/17 Duloxetine HCl [Cymbalta] 60 mg PO DAILY 12/30/17 Cholecalciferol (Vitamin D3) [Vitamin D 1000 Iu Tab*] 1 tab PO DAILY 02/24/20 Gabapentin [Neurontin*] 400 mg PO BID 02/24/20 Isosorbide Mononitrate [Isosorbide Mononitrate ER] 60 mg PO DAILY 02/24/20 Lisinopril [Zestril] 2.5 mg PO DAILY 02/24/20 Vit B12/Levomefolate/Vit B6/B2 [l-Methyl-Mc Tablet] 1 tab PO DAILY 02/24/20 - Past Medical/Surgical History Diabetic: Yes -: DM-2, gout -: COPD -: LUNG CANCER -: Back Pain, back pain -: HTN,HLD -: AFib -: anxiety, depression -: cellulitis, lymphedema -: cva -: constipation -: prostate problems -: trigeminal neuralgia -: LUNG CANCER- RADIATION 2012 -: pacemaker/defibrillator 2007 - Family History Father Medical History: Heart disease, Lung disease, Diabetes Brother Medical History: Cancer Mother Medical History: Heart disease, Diabetes, Stroke - Social History Smoking Status: Current every day smoker Alcohol use: No CD- Drugs: No Caffeine use: Yes Place of Residence: Home Review of Systems General: Weakness Respiratory: Shortness of Breath Physical Examination Temp Pulse Resp BP Pulse Ox 97.2 F 88 19 147/69 H 97 02/25/20 04:00 02/25/20 04:00 02/25/20 04:00 02/25/20 04:00 02/25/20 04:00 General: Other (Deferred) - Problems (1) Pneumonia due to COVID-19 virus Current Visit: Yes Status: Acute Plan: Patient is 74 years of age multiple medical problems admitted with altered mental status pneumonia due to foss virus Dc antibiotics change to p.o. levofloxacin change to p.o. prednisone arrange for home O2 patient has a right upper lobe lung mass reduce dose of steroids plan for discharge this hemodynamically stable vital signs stable
[2020-02-25] MEDS: allopurinoL 100 MG TAB PO SCH ×2 (09:00→20:43)
[2020-02-25] MEDS ORDERED: HOME MED 1 EA UNK (Lisinopril [Zestril] 2.5 MG Tablet) PO SCH (09:00)
[2020-02-25] MEDS ORDERED: dexAMETHasone 4 MG TAB PO SCH (09:00)
[2020-02-25] MEDS: APIXABAN 5 MG TABLET PO SCH ×2 (09:20→20:44)
[2020-02-25] MEDS: lisinopriL 5 MG TAB PO SCH (09:21)
[2020-02-25] MEDS: VITAMIN D 1000 UNIT TAB PO SCH (09:21)
[2020-02-25] MEDS: ISOSORBIDE MONO SR 60 MG TAB PO SCH (09:22)
[2020-02-25] MEDS: levoFLOXacin 500 MG TAB PO SCH (09:22)
[2020-02-25] MEDS: TIOTROPIUM 5 SPRAYS/INHALER IH SCH (09:22)
[2020-02-25] MEDS: dexAMETHasone 4 MG TAB PO SCH ×2 (10:44→20:44)
--- NOTE | 2020-02-25 11:12 | P.PN ---
Subjective Date of Service: 02/25/20 Chief Complaint: Sepsis, UTI, COVID19 pneumonia Patient is more awake and communicating today He is on 3 L of oxygen by nasal cannula. Feeding on oral medications resumed. Stable respiratory neves. Physical Examination - Vital Signs Temperature: 96.5 F Blood Pressure: 147/69 Pulse: 73 Respirations: 20 Pulse Ox (%): 98 - Physical Exam General: In no apparent distress, Other (Awake) HEENT: Mucous membr. moist/pink Neck: Supple, JVD not distended Respiratory: Clear to auscultation bilaterally, Normal air movement Cardiovascular: No edema, Regular rate/rhythm, Normal S1 S2 Gastrointestinal: Normal bowel sounds, Soft and benign, No tenderness Musculoskeletal: No swelling Integumentary: No rashes Neurological: Other (Nonfocal) - Studies Microbiology Data (last 24 hrs): 02/23/20 13:24 Throat Culture & Sensitivity - Final NORMAL UPPER RESPIRATORY MAXIM GROWN. 02/23/20 12:54 Blood - Blood Anaerobic Blood Culture - Final Assessment And Plan - Current Problems (Diagnosis) (1) Sepsis Current Visit: Yes Status: Acute (2) UTI (urinary tract infection) Onset Date: 07/21/15 Current Visit: No Status: Acute (3) Pneumonia due to COVID-19 virus Current Visit: Yes Status: Acute (4) Acute metabolic encephalopathy Current Visit: Yes Status: Acute (5) Diabetes mellitus type 2 in nonobese Current Visit: Yes Status: Acute (6) History of COPD Current Visit: No Status: Chronic (7) History of lung cancer Current Visit: No Status: Chronic - Plan Urine culture is growing Proteus Blood cultures: No growth to date. Continue IV Levaquin Supplemental oxygen for COVID pneumonia. ontinue IV steroid. Feeding resumed. Discontinue IV fluid. Insulin sliding scale for glucose management. Haldol p.r.n. for agitation. Monitor CBC to follow severe leukocytosis.
[2020-02-25] MEDS: BENZONATATE 100 MG CAP PO PRN (15:10)
[2020-02-25] MEDS: TAMSULOSIN 0.4 MG SR CAP PO SCH (20:43)
[2020-02-26 04:06] LABS: Absolute Lymphocytes (CBC) 0.8 K/uL (0.7-4.9); Basophils % 0.1 % (0-1.3); Hematocrit 34.2 % (39.6-49.0); Lymphocytes % 3.8 % (15.3-44.8); MPV 9.5 fL (7.6-11.3); RBC Red Blood Cell Count 3.84 M/uL (4.33-5.43)
[2020-02-26 04:16] LABS: BUN Blood Urea Nitrogen 37 mg/dL (7-18); Bicarbonate 23 mmol/L (21-32); Glucose Level 150 mg/dL (74-106); Potassium 4.6 mmol/L (3.5-5.1); Sodium Level 143 mmol/L (136-145)
[2020-02-26] MEDS: INSULIN -REGULAR HUMAN 50 UNIT/0.5 ML ML SQ SCH ×4 (07:30→21:00)
[2020-02-26] MEDS: levoFLOXacin 500 MG TAB PO SCH (08:35)
[2020-02-26] MEDS: VITAMIN D 1000 UNIT TAB PO SCH (08:35)
[2020-02-26] MEDS: lisinopriL 5 MG TAB PO SCH (08:36)
[2020-02-26] MEDS: APIXABAN 5 MG TABLET PO SCH ×2 (08:36→21:30)
[2020-02-26] MEDS: dexAMETHasone 4 MG TAB PO SCH ×2 (08:36→21:31)
[2020-02-26] MEDS: ISOSORBIDE MONO SR 60 MG TAB PO SCH (08:37)
[2020-02-26] MEDS: TIOTROPIUM 5 SPRAYS/INHALER IH SCH (08:38)
[2020-02-26] MEDS: allopurinoL 100 MG TAB PO SCH ×2 (08:38→21:30)
--- NOTE | 2020-02-26 12:25 | P.PN ---
Subjective Date of Service: 02/26/20 Chief Complaint: Sepsis, UTI, COVID19 pneumonia Patient states he feels much better today. He was, sitting on the edge of the bed and finished his meal. He is currently tolerating room air with good oxygen saturation. Leukocytosis is slowly trending down. Physical Examination - Vital Signs Temperature: 97.5 F Blood Pressure: 164/72 Pulse: 70 Respirations: 19 Pulse Ox (%): 95 - Physical Exam General: Alert, In no apparent distress Neck: Supple, JVD not distended Respiratory: Normal air movement, Crackles/rales (Mild bibasilar crackles) Cardiovascular: No edema, Regular rate/rhythm Gastrointestinal: Soft and benign, Non-distended Musculoskeletal: No swelling Integumentary: No rashes Neurological: Normal strength at 5/5 x4 extr - Studies Microbiology Data (last 24 hrs): 02/23/20 13:20 Clean Catch Urine [place] Count - Final >100,000 CFU/ML. 02/23/20 13:20 Clean Catch Urine - Final Proteus Mirabilis 02/23/20 13:24 Throat Culture & Sensitivity - Final NORMAL UPPER RESPIRATORY MAXIM GROWN. Assessment And Plan - Current Problems (Diagnosis) (1) Sepsis Current Visit: Yes Status: Acute (2) UTI (urinary tract infection) Onset Date: 07/21/15 Current Visit: No Status: Acute (3) Pneumonia due to COVID-19 virus Current Visit: Yes Status: Acute (4) Acute metabolic encephalopathy Current Visit: Yes Status: Acute (5) Diabetes mellitus type 2 in nonobese Current Visit: Yes Status: Acute (6) History of COPD Current Visit: No Status: Chronic (7) History of lung cancer Current Visit: No Status: Chronic - Plan Urine culture is growing pansensitive Proteus Blood cultures: No growth to date. IV Levaquin switched to oral. Continue IV steroid. Feeding as tolerated. Insulin sliding scale for glucose management. Monitor CBC.
[2020-02-26] MEDS ORDERED: CEPACOL LOZENGES PO PRN (14:11)
[2020-02-26] MEDS: BENZONATATE 100 MG CAP PO PRN ×2 (16:19→22:48)
[2020-02-26] MEDS: CEPACOL LOZENGES PO PRN (18:30)
[2020-02-26] MEDS ORDERED: guaiFENesin 100 MG/5 ML UCUP ONE (19:53)
--- NOTE | 2020-02-26 20:39 | RAD REPORT ---
EXAM DESCRIPTION: RAD - Chest Single View - 02/26/2020 8:19 pm CLINICAL HISTORY: sob, coughing COMPARISON: February 22 TECHNIQUE: AP portable chest image was obtained 02/26/2020 8:19 pm . FINDINGS: No new mass or consolidation. The bilateral ground-glass opacification pattern seen on the February 22 study has significantly in prove but not fully resolved. Pacemaker/defibrillator remains in place. Heart and vasculature are normal. No measurable pleural effusion and no pneumothorax. No a cute bony abnormality seen. No acute aortic findings suspected. IMPRESSION: Significant but incomplete improvement in the bilateral pneumonia pattern. No new or progressive finding.
[2020-02-26] MEDS ORDERED: ALBUTEROL 2.5 MG/3 ML NEB SOL NEB PRN (20:40)
[2020-02-26] MEDS: TAMSULOSIN 0.4 MG SR CAP PO SCH (21:30)
[2020-02-27] MEDS: GUAIFENESIN/DM 5 ML UCUP PO PRN ×2 (01:16→12:28)
[2020-02-27] MEDS ORDERED: ALBUTEROL 2.5 MG/3 ML NEB SOL NEB PRN (03:51)
[2020-02-27] MEDS: CEPACOL LOZENGES PO PRN ×2 (03:56→08:26)
[2020-02-27] MEDS ORDERED: HYDRALAZINE HCL 25 MG TABLET PO ONE (04:22)
[2020-02-27 06:32] LABS: Absolute Lymphocytes (CBC) 0.9 K/uL (0.7-4.9); Basophils % 0.2 % (0-1.3); Hematocrit 32.4 % (39.6-49.0); MPV 9.3 fL (7.6-11.3); RBC Red Blood Cell Count 3.64 M/uL (4.33-5.43)
[2020-02-27] MEDS: INSULIN -REGULAR HUMAN 50 UNIT/0.5 ML ML SQ SCH ×2 (07:30→11:16)
[2020-02-27 07:38] LABS: Blood Morphology Comment NOT SEEN (NOT SEEN); Platelet Estimate ADEQ
[2020-02-27] MEDS: levoFLOXacin 500 MG TAB PO SCH (08:22)
[2020-02-27] MEDS: lisinopriL 5 MG TAB PO SCH (08:22)
[2020-02-27] MEDS: dexAMETHasone 4 MG TAB PO SCH (08:22)
[2020-02-27] MEDS: allopurinoL 100 MG TAB PO SCH (08:22)
[2020-02-27] MEDS: APIXABAN 5 MG TABLET PO SCH (08:22)
[2020-02-27] MEDS: ISOSORBIDE MONO SR 60 MG TAB PO SCH (08:25)
[2020-02-27] MEDS: BENZONATATE 100 MG CAP PO PRN (08:26)
--- NOTE | 2020-02-27 09:00 | P.DS ---
Admission Date: 02/23/20 Discharge Date: 02/27/20 Disposition: DC HOME/HOME HEALTH CARE Discharge Condition: FAIR Reason for Admission: Sepsis, UTI, COVID19 pneumonia - Problems (1) Sepsis Status: Acute (2) UTI (urinary tract infection) Onset Date: 07/21/15 Status: Acute (3) Pneumonia due to COVID-19 virus Status: Acute (4) Acute metabolic encephalopathy Status: Acute (5) Diabetes mellitus type 2 in nonobese Status: Acute (6) History of COPD Status: Chronic (7) History of lung cancer Status: Chronic Brief History of Present Illness: 74-year-old gentleman with a history of obstructive sleep apnea, diabetes mellitus type 2, lung cancer was brought to the emergency department due to progressive worsening altered mental status. Patient's pulse reported patient was very drowsy for days. Workup in the emergency department [place] [address]. His D-dimer was elevated. CTA thorax was negative for pulmonary embolism but demonstrated ground-glass opacities consistent with COVID pneumonia. He tested positive for COVID pneumonia. The patient was admitted for further management. Hospital Course: Patient admitted to the medical floor and treated for COVID pneumonia and COPD exacerbation with IV steroid. He takes Eliquis for atrial fibrillation which was continued for thromboembolism prophylaxis during the hospital stay. Patient clinically improved with treatment. He did not require oxygen. Patient's mental status improved and was back to baseline during the hospital stay. His urine analysis drawn Proteus which was treated with Levaquin. Patient has clinically improved and deemed stable for discharge. He is discharged with oral Levaquin to continue treatment for UTI and prednisone to continue treatment for the COVID pneumonia. Vital Signs/Physical Exam: Temp Pulse Resp BP Pulse Ox 96.4 F L 70 18 191/84 H 97 02/27/20 07:59 02/27/20 08:22 02/27/20 07:59 02/27/20 08:22 02/27/20 07:59 General: Alert, In no apparent distress Neck: JVD not distended Respiratory: Clear to auscultation bilaterally, Normal air movement Cardiovascular: No edema, Normal S1 S2, Irregular heart rate/rhythm Gastrointestinal: Soft and benign, No tenderness Musculoskeletal: No swelling Integumentary: No rashes Neurological: Other (Nonfocal.) Laboratory Data at Discharge: WBC 12.7 K/uL (4.3-10.9) H D 02/27/20 05:54 Hgb 10.8 g/dL (13.6-17.9) L 02/27/20 05:54 Hct 32.4 % (39.6-49.0) L 02/27/20 05:54 Plt Count 335 K/uL (152-406) 02/27/20 05:54 PT 16.0 SECONDS (9.5-12.5) H 02/23/20 13:07 INR 1.36 02/23/20 13:07 APTT 30.8 SECONDS (24.3-36.9) 02/23/20 13:07 Sodium 143 mmol/L (136-145) 02/26/20 03:28 Potassium 4.6 mmol/L (3.5-5.1) 02/26/20 03:28 BUN 37 mg/dL (7-18) H 02/26/20 03:28 Creatinine 0.81 mg/dL (0.55-1.3) 02/26/20 03:28 Glucose 150 mg/dL (74-106) H 02/26/20 03:28 Magnesium Cancelled 02/25/20 05:00 Total Bilirubin 0.6 mg/dL (0.2-1.0) 02/24/20 04:16 AST 25 U/L (15-37) 02/24/20 04:16 ALT 39 U/L (12-78) 02/24/20 04:16 Alkaline Phosphatase 99 U/L (45-117) 02/24/20 04:16 Troponin I < 0.02 ng/mL (0.0-0.045) 02/24/20 10:39 Lipase 123 U/L (73-393) 02/23/20 12:54 Home Medications: Atorvastatin Calcium [Lipitor*] 80 mg PO BEDTIME 07/20/15 Metformin HCl [Glucophage] 1,000 mg PO BID 07/20/15 buPROPion HCL [Wellbutrin*] 150 mg PO DAILY 07/20/15 allopurinoL [Zyloprim*] 100 mg PO BID 05/04/17 Tamsulosin [Flomax*] 1 cap PO BEDTIME 07/12/17 Apixaban [Eliquis] 5 mg PO BID 12/30/17 Budesonide/Formoterol Fumarate [Symbicort 160-4.5 Mcg Inhaler] 2 puff IH BID 12/30/17 Duloxetine HCl [Cymbalta] 60 mg PO DAILY 12/30/17 Cholecalciferol (Vitamin D3) [Vitamin D 1000 Iu Tab*] 1 tab PO DAILY 02/24/20 Gabapentin [Neurontin*] 400 mg PO BID 02/24/20 Isosorbide Mononitrate [Isosorbide Mononitrate ER] 60 mg PO DAILY 02/24/20 Lisinopril [Zestril] 2.5 mg PO DAILY 02/24/20 Vit B12/Levomefolate/Vit B6/B2 [l-Methyl-Mc Tablet] 1 tab PO DAILY 02/24/20 Albuterol Neb [Proventil 0.083% Neb Soln] 2.5 mg NEB [id number] PRN #120 amp 02/27/20 Benzonatate [Tessalon Perle*] 100 mg PO TID PRN #30 cap 02/27/20 Guaif/Dm [Robitussin Dm*] 5 ml PO Q6H PRN #30 ucup 02/27/20 Tiotropium [Spiriva Handihaler*] 1 puff IH DAILY #1 inh 02/27/20 dexAMETHasone [Decadron*] 4 mg PO BID #21 tab 02/27/20 levoFLOXacin [Levaquin*] 500 mg PO DAILY #5 tab 02/27/20 New Medications: Albuterol Neb [Proventil 0.083% Neb Soln] 2.5 mg NEB [id number] PRN #120 amp PRN Reason: Wheezing dexAMETHasone [Decadron*] 4 mg PO BID #21 tab levoFLOXacin [Levaquin*] 500 mg PO DAILY #5 tab Guaif/Dm [Robitussin Dm*] 5 ml PO Q6H PRN #30 ucup PRN Reason: Cough Tiotropium [Spiriva Handihaler*] 1 puff IH DAILY #1 inh Benzonatate [Tessalon Perle*] 100 mg PO TID PRN #30 cap PRN Reason: Cough Diet: ADA Activity: Fall precautions Followup: NONE,NONE [Primary Care Provider] - Tariq Coleman MD [ACTIVE - CAN ADMIT] - 1-2 Weeks Time spent managing pt's care (in minutes): 36
[2020-02-27] MEDS: VITAMIN D 1000 UNIT TAB PO SCH (09:57)
[2020-02-27] MEDS: TIOTROPIUM 5 SPRAYS/INHALER IH SCH (09:57)
[2020-02-27 11:25] VITALS: BP 155/71; TEMP 98.5
[2020-02-27 11:47] VITALS: O2SAT 93
== END 2020-02-27 12:46 | disposition home health service (06) | DRG 871 ==
LOC: ER 12:07 → ERHOLD 16:49 → 3RD-ICU 19:56 → 4TH 02-25 17:02
PROVIDERS: ADMIT Hospitalist; ATTEND Internal Medicine
DX: A41.9 Sepsis, unspecified organism (principal); U07.1 COVID-19; J12.89 Other viral pneumonia; G93.41 Metabolic encephalopathy; N39.0 Urinary tract infection, site not specified; J44.1 Chronic obstructive pulmonary disease with (acute) exacerbation; J44.0 Chronic obstructive pulmonary disease with (acute) lower respiratory infection; I10 Essential (primary) hypertension; G47.30 Sleep apnea, unspecified; E78.5 Hyperlipidemia, unspecified; I48.91 Unspecified atrial fibrillation; E11.9 Type 2 diabetes mellitus without complications; F17.200 Nicotine dependence, unspecified, uncomplicated; B96.4 Proteus (mirabilis) (morganii) as the cause of diseases classified elsewhere; Z88.5 Allergy status to narcotic agent; Z88.0 Allergy status to penicillin; Z79.82 Long term (current) use of aspirin; Z79.01 Long term (current) use of anticoagulants; Z79.51 Long term (current) use of inhaled steroids; Z79.899 Other long term (current) drug therapy; Z86.73 Personal history of transient ischemic attack (TIA), and cerebral infarction without residual deficits; Z79.84 Long term (current) use of oral hypoglycemic drugs; Z85.118 Personal history of other malignant neoplasm of bronchus and lung; Z95.810 Presence of automatic (implantable) cardiac defibrillator; Z99.81 Dependence on supplemental oxygen
CPT/HCPCS: 36415; 51702; 70450; 71045; 71275; 80048; 80053; 80076; 81003; 81015; 82728; 82947; 83605; 83690; 83735; 83880; 84145; 84484; 85025; 85379; 85610; 85730; 86140; 87040; 87070; 87077; 87081; 87086; 87088; 87186; 87804; 93005; 94640; 99285; J0360; J0456; J0692; J0696; J1630; J2920; J3370; J3475; J7030; J7040; J7050; J8540; Q9967; U0003

== ENCOUNTER 2020-11-14 17:50 | Emergency (ER) | payer OTHER ==
[2020-11-14 18:54] LABS: Basophils % 0.4 % (0-1.3); Hematocrit 41.2 % (39.6-49.0); Lymphocytes % 10.2 % (15.3-44.8); MPV 9.1 fL (7.6-11.3)
[2020-11-14 18:56] LABS: Protime INR 1.19
[2020-11-14 19:10] LABS: ALT/SGPT 31 U/L (12-78); AST/SGOT 10 U/L (15-37); Albumin 4.1 g/dL (3.4-5.0); Alkaline Phosphatase 76 U/L (45-117); BUN Blood Urea Nitrogen 16 mg/dL (7-18); Bicarbonate 24 mmol/L (21-32); Bilirubin Direct 0.2 mg/dL (0-0.2); Bilirubin Total 0.5 mg/dL (0.2-1.0); Glucose Level 115 mg/dL (74-106); Magnesium 1.7 mg/dL (1.8-2.4); NT PRO-BNP 270 pg/mL (<450); Potassium 4.3 mmol/L (3.5-5.1); Protein, Total 7.8 g/dL (6.4-8.2); Sodium Level 141 mmol/L (136-145); Troponin (Emerg Dept Use Only) < 0.02 ng/mL (0.0-0.045)
--- NOTE | 2020-11-14 19:26 | RAD REPORT ---
EXAM DESCRIPTION: CT - Head Brain Wo Cont - 11/14/2020 7:15 pm CLINICAL HISTORY: dizziness COMPARISON: Head Brain Wo Cont dated 02/23/2020; Head Brain Wo Cont dated 04/17/2017 TECHNIQUE: All CT scans are performed using dose optimization technique as appropriate and may inclu de automated exposure control or mA/KV adjustment according to patient size. FINDINGS: No intracranial hemorrhage, hydrocephalus or extra-axial fluid collection.No areas of brai n edema or evidence of midline shift. Age advanced cerebral atrophy. The paranasal sinuses and mastoids are clear. The calvarium is intact. IMPRESSION: No acute intracranial abnormality. Age advanced cerebral atrophy.
[2020-11-14] MEDS ORDERED: FAMOTIDINE 20 MG/2 ML VIAL IV ONE (22:27)
[2020-11-14] MEDS ORDERED: ONDANSETRON 4 MG/2 ML VIAL ONE (22:27)
[2020-11-14] MEDS ORDERED: NA CHLORIDE 0.9% 1,000 ML ONE (22:27)
[2020-11-14 23:44] LABS: Urine Blood Negative (Negative); Urine Glucose Negative (Negative); Urine Protein 1+ (Negative); Urine Specific Gravity >=1.030 (1.005-1.030); Urine pH 5.5 (5.0-7.0)
--- NOTE | 2020-11-15 00:01 | ER ---
Nurse's Notes [facility] Name: Honorio Toussaint Age: 75 yrs Sex: Male : 1945 Arrival Date: 11/14/2020 Time: 17:58 Bed 12 Private MD: Diagnosis: Dizziness and giddiness;Nausea with vomiting, unspecified Presentation: 11/14 18:32 Chief complaint: Patient states: dizziness for a few days, tested for covid-19 on aa5 Sunday and result was negative. Pt reports vomiting started last night and he is unable to keep any fluids down. Pt also reports ARITA. Coronavirus screen: headache. Ebola Screen: Patient negative for fever greater than or equal to 101.5 degrees Fahrenheit, and additional compatible Ebola Virus Disease symptoms. Initial Sepsis Screen: Does the patient meet any 2 criteria? No. Patient's initial sepsis screen is negative. Does the patient have a suspected source of infection? No. Patient's initial sepsis screen is negative. Risk Assessment: Do you want to hurt yourself or someone else? Patient reports no desire to harm self or others. Onset of symptoms was November 2020. 18:32 Method Of Arrival: Wheelchair aa5 18:32 Acuity: ATIF 3 aa5 Historical: - Allergies: 18:33 Codeine; aa5 18:33 PENICILLINS; aa5 - PMHx: 18:33 Anxiety; Cancer; Cellulitis; constipation; COPD; CVA; Depression; Diabetes - NIDDM; aa5 Hyperlipidemia; Hypertension; Lymphadema; neck pain; prostate probelm; Sleep Apnea; trigeminal neuralgia; - Immunization history:: Client reports receiving the 2nd dose of the Covid vaccine. - Social history:: Smoking status: Patient denies any tobacco usage or history of. Screenin:59 Abuse screen: Denies threats or abuse. Denies injuries from another. Nutritional lp1 screening: No deficits noted. Tuberculosis screening: No symptoms or risk factors identified. Fall Risk Total Cordero Fall Scale indicates High Risk Score (45 or more points). Fall prevention measures have been instituted. Side Rails Up X 2 As available patient and family educated on Fall Prevention Program and Strategies. Assessment: 22:00 General: Appears in no apparent distress. Behavior is calm, cooperative, appropriate lp1 for age. Pain: Denies pain. Neuro: Level of Consciousness is awake, alert, obeys commands, Oriented to person, place, time, situation, Gait is unsteady, Reports dizziness, with motion. Cardiovascular: Patient's skin is warm and dry. Respiratory: Respiratory effort is even, unlabored. GI: Abdomen is non-distended, Reports nausea. : No signs and/or symptoms were reported regarding the genitourinary system. EENT: No signs and/or symptoms were reported regarding the EENT system. Derm: Skin is intact, Skin is dry, Skin is normal. Musculoskeletal: No deficits noted. 23:54 Reassessment: Patient is alert, oriented x 3, equal unlabored respirations, skin lp1 warm/dry/pink. Reports readiness for discharge; Dr. Pascual at bedside to discuss plan of care Patient states feeling better. Patient states symptoms have improved. 11/15 00:25 Reassessment: Reports he has not taken his night time blood pressure meds yet. lp1 Vital Signs: 11/14 18:32 BP 154 / 77; Pulse 76; Resp 16 S; Temp 98.4(TE); Pulse Ox 99% on R/A; Weight 99.79 kg aa5 (R); Height 5 ft. 10 in. (177.80 cm) (R); Pain 7/10; 22:00 BP 187 / 85; Pulse 71; Resp 18; Pulse Ox 97% on R/A; Pain 0/10; lp1 23:40 BP 198 / 90 LA Supine (auto/reg); Pulse 72; ds4 23:43 BP 193 / 90 LA Sitting (auto/reg); Pulse 72; ds4 23:46 BP 192 / 90 Standing; Pulse 72; ds4 18:32 Body Mass Index 31.57 (99.79 kg, 177.80 cm) aa5 ED Course: 17:58 Patient arrived in ED. mr 18:32 Arm band placed on. aa5 18:33 Triage completed. aa5 18:45 EKG completed in triage. Results shown to . aa5 20:29 Vivi Mcbride, RN is Primary Nurse. lp1 20:34 Lb Pascual MD is Attending Physician. 7 23:59 Patient has correct armband on for positive identification. lp1 23:59 No provider procedures requiring assistance completed. lp1 11/15 00:25 IV discontinued, No redness/swelling at site. Pressure dressing applied. lp1 Administered Medications: 11/14 22:05 Drug: NS 0.9% 1000 ml Route: IV; Rate: 1000 ml; Site: right antecubital; lp1 23:45 Follow up: IV Status: Completed infusion; IV Intake: 1000ml lp1 22:05 Drug: Zofran (Ondansetron) 4 mg Route: IVP; Site: right antecubital; lp1 23:54 Follow up: Response: Marked relief of symptoms lp1 22:05 Drug: Pepcid (famotidine) 20 mg Route: IVP; Site: right antecubital; lp1 23:54 Follow up: Response: Marked relief of symptoms lp1 Intake: 23:45 IV: 1000ml; Total: 1000ml. lp1 Outcome: 11/15 00:00 Discharge ordered by . [facility] 00:25 Discharged to home via wheelchair, with family. lp1 00:25 Condition: stable 00:25 Discharge instructions given to patient, Instructed on discharge instructions, follow up and referral plans. medication usage, Demonstrated understanding of instructions, follow-up care, medications, Prescriptions given X 1. 00:25 Patient left the ED. lp1 Signatures: Sri Amaya mr ParraMelissa RN RN aa5 Vivi Mcbride RN RN lp1 Arthur Bonner ds4 Lb Pascual MD MD 7
--- NOTE | 2020-11-15 00:01 | EDPHYS ---
Physician Documentation [facility] Name: Honorio Toussaint Age: 75 yrs Sex: Male : 1945 Arrival Date: 11/14/2020 Time: 17:58 Bed 12 Private MD: ED Physician Lb Pascual HPI: 11/14 21:28 This 75 yrs old Male presents to ER via Wheelchair with complaints of mh7 Vomiting, Dizziness. 21:28 The patient presents with dizziness, lightheadedness. Onset: The symptoms/episode mh7 began/occurred yesterday. Context: occurred at home, occurred while the patient was standing, just prior to the episode the patient experienced no apparent symptoms. Modifying factors: The symptoms are alleviated by holding head still, the symptoms are aggravated by standing up, changing position. Associated signs and symptoms: Pertinent positives: headache, nausea, vomiting, Pertinent negatives: abdominal pain, agitation, ataxia, blurred vision, chest pain, combativeness, confusion, diaphoresis, focal weakness, head injury, near-syncope, numbness, palpitations, seizure, shortness of breath, syncope, tingling. Severity of symptoms: At their worst the symptoms were moderate yesterday, in the emergency department the symptoms have improved moderately. Patient's baseline: Neuro: alert and fully oriented, Motor: no deficits, Ambulation: walks without assistance, Speech: normal. Historical: - Allergies: 18:33 Codeine; aa5 18:33 PENICILLINS; aa5 - PMHx: 18:33 Anxiety; Cancer; Cellulitis; constipation; COPD; CVA; Depression; Diabetes - NIDDM; aa5 Hyperlipidemia; Hypertension; Lymphadema; neck pain; prostate probelm; Sleep Apnea; trigeminal neuralgia; - Immunization history:: Client reports receiving the 2nd dose of the Covid vaccine. - Social history:: Smoking status: Patient denies any tobacco usage or history of. ROS: 21:28 Constitutional: Negative for fever, chills, and weight loss, Eyes: Negative for injury, mh7 pain, redness, and discharge, ENT: Negative for injury, pain, and discharge, Neck: Negative for injury, pain, and swelling, Cardiovascular: Negative for chest pain, palpitations, and edema, Respiratory: Negative for shortness of breath, cough, wheezing, and pleuritic chest pain, Back: Negative for injury and pain, : Negative for injury, bleeding, discharge, and swelling, MS/Extremity: Negative for injury and deformity, Skin: Negative for injury, rash, and discoloration, Psych: Negative for depression, anxiety, suicide ideation, homicidal ideation, and hallucinations, Allergy/Immunology: Negative for hives, rash, and allergies, Endocrine: Negative for neck swelling, polydipsia, polyuria, polyphagia, and marked weight changes, Hematologic/Lymphatic: Negative for swollen nodes, abnormal bleeding, and unusual bruising. 21:28 Neuro: Negative for altered mental status, gait disturbance, hearing loss, loss of consciousness, numbness, seizure activity, speech changes, syncope, near syncope, tingling, tinnitus, tremor, visual changes, weakness. Exam: 21:28 Constitutional: This is a well developed, well nourished patient who is awake, alert, mh7 and in no acute distress. Head/Face: Normocephalic, atraumatic. Eyes: Pupils equal round and reactive to light, extra-ocular motions intact. Lids and lashes normal. Conjunctiva and sclera are non-icteric and not injected. Cornea within normal limits. Periorbital areas with no swelling, redness, or edema. Neck: Trachea midline, no thyromegaly or masses palpated, and no cervical lymphadenopathy. Supple, full range of motion without nuchal rigidity, or vertebral point tenderness. No Meningismus. Chest/axilla: Normal chest wall appearance and motion. Nontender with no deformity. No lesions are appreciated. Cardiovascular: Regular rate and rhythm with a normal S1 and S2. No gallops, murmurs, or rubs. Normal PMI, no JVD. No pulse deficits. Respiratory: Lungs have equal breath sounds bilaterally, clear to auscultation and percussion. No rales, rhonchi or wheezes noted. No increased work of breathing, no retractions or nasal flaring. Abdomen/GI: Soft, non-tender, with normal bowel sounds. No distension or tympany. No guarding or rebound. No evidence of tenderness throughout. Back: No spinal tenderness. No costovertebral tenderness. Full range of motion. Skin: Warm, dry with normal turgor. Normal color with no rashes, no lesions, and no evidence of cellulitis. MS/ Extremity: Pulses equal, no cyanosis. Neurovascular intact. Full, normal range of motion. 21:28 Psych: Awake, alert, with orientation to person, place and time. Behavior, mood, and affect are within normal limits. 21:28 Neuro: Orientation: is normal, Mentation: is normal, Memory: is normal, Cranial nerves: grossly normal, Cerebellar function: is grossly normal, Motor: is normal, Sensation: is normal, Gait: not tested. seizure activity, is not displayed by the patient, Abnormal movements: there are no abnormal movements. Vital Signs: 18:32 BP 154 / 77; Pulse 76; Resp 16 S; Temp 98.4(TE); Pulse Ox 99% on R/A; Weight 99.79 kg aa5 (R); Height 5 ft. 10 in. (177.80 cm) (R); Pain 7/10; 22:00 BP 187 / 85; Pulse 71; Resp 18; Pulse Ox 97% on R/A; Pain 0/10; lp1 23:40 BP 198 / 90 LA Supine (auto/reg); Pulse 72; ds4 23:43 BP 193 / 90 LA Sitting (auto/reg); Pulse 72; ds4 23:46 BP 192 / 90 Standing; Pulse 72; ds4 18:32 Body Mass Index 31.57 (99.79 kg, 177.80 cm) aa5 MDM: 23:54 Differential diagnosis: cardiac arrhythmia, hypovolemia, idiopathic dizziness, mh7 near-syncope, sepsis, TIA, vertigo. Data reviewed: vital signs, nurses notes, old medical records, lab test result(s), cardiac enzymes, CBC, electrolytes, urinalysis, EKG, radiologic studies, CT scan. Data interpreted: Pulse oximetry: on room air is 99 %. Interpretation: normal. Counseling: I had a detailed discussion with the patient and/or guardian regarding: the historical points, exam findings, and any diagnostic results supporting the discharge/admit diagnosis, the presence of at least one elevated blood pressure reading (>120/80) during this emergency department visit, lab results, radiology results. Response to treatment: the patient's symptoms have resolved after treatment, the patient's blood pressure is in an acceptable range, mental status has returned to baseline, the patient no longer shows bradycardia, the patient is not short of breath, the patient is not tachycardic, the patient's pain is gone, the patient's temperature has normalized, the patient is now symptom free, patient is well hydrated. ED course: Appearing, no acute distress, vital signs stable, no focal neurological deficits. No dizziness, nausea, vomiting, or other complaints. Discussed all test results and findings with the patient. He request to be discharged from the ED at this time.. 11/15 00:00 Patient medically screened. [facility] 11/14 18:57 Order name: Protime (+INR); Complete Time: 20:38 [facility] 11/14 18:58 Order name: CBC with Automated Diff; Complete Time: 20:38 [facility] 11/14 19:12 Order name: Basic Metabolic Panel; Complete Time: 20:38 [facility] 11/14 19:12 Order name: Liver (Hepatic) Function; Complete Time: 20:38 [facility] 11/14 19:12 Order name: Troponin (Emerg Dept Use Only); Complete Time: 20:38 [facility] 11/14 19:12 Order name: NT PRO-BNP; Complete Time: 20:38 [facility] 11/14 19:12 Order name: Magnesium; Complete Time: 20:38 [facility] 11/14 19:27 Order name: CT; Complete Time: 20:38 [facility] 11/14 21:21 Order name: EKG - Nurse/Tech; Complete Time: 22:01 [facility] 11/14 21:21 Order name: Urine Dipstick-Ancillary (obtain specimen); Complete Time: 23:44 [facility] 11/14 23:43 Order name: Urine Dipstick-Ancillary; Complete Time: 23:44 [facility] 11/14 21:33 Order name: Orthostatics; Complete Time: 23:50 [facility] Administered Medications: 11/14 22:05 Drug: NS 0.9% 1000 ml Route: IV; Rate: 1000 ml; Site: right antecubital; lp1 23:45 Follow up: IV Status: Completed infusion; IV Intake: 1000ml 1 22:05 Drug: Zofran (Ondansetron) 4 mg Route: IVP; Site: right antecubital; lp1 23:54 Follow up: Response: Marked relief of symptoms lp1 22:05 Drug: Pepcid (famotidine) 20 mg Route: IVP; Site: right antecubital; lp1 23:54 Follow up: Response: Marked relief of symptoms lp1 Disposition Summary: 11/15/20 00:00 Discharge Ordered Location: Home [facility] Problem: new [facility] Symptoms: have improved [facility] Condition: Stable [facility] Diagnosis - Dizziness and giddiness [facility] - Nausea with vomiting, unspecified [facility] Followup: [facility] - With: Private Physician - When: 1 - 2 days - Reason: Worsening of condition, Recheck today's complaints, Continuance of care, Re-evaluation by your physician Discharge Instructions: - Discharge Summary Sheet [facility] - Dizziness [facility] - Nausea and Vomiting, Adult [facility] Forms: - Medication Reconciliation Form [facility] - Thank You Letter [facility] - Antibiotic Education [facility] - Prescription Opioid Use [facility] Prescriptions: - ondansetron 4 mg Oral tablet,disintegrating - place 1 tablet by TRANSLINGUAL route every 8 hours As needed; 6 tablet; [facility] Refills: 0, Product Selection Permitted Signatures: Dispatcher [employer] Melissa Turner RN RN aa5 Vivi Mcbride RN RN lp1 Lb Pascual MD MD [facility]
[2020-11-15 00:29] VITALS: TEMP 98.4
[2020-11-15 00:31] VITALS: O2SAT 97
[2020-11-15 00:34] VITALS: BP 192/90
--- NOTE | 2020-11-16 10:59 | EKG ---
Test Date: 2020-11-14 Test Time: 18:53:40 Mass Spec: ANTONIA MEASUREMENT RESULTS: Intervals: Rate: 71 ME: 212 QRSD: 80 QT: 390 QTc: 423 [place]: P: 67 ME: 212 QRS: 46 T: 34 INTERPRETIVE STATEMENTS: Sinus rhythm with 1st degree AV block with premature supraventricular complexes Otherwise normal ECG Compared to ECG 02/23/2020 12:36:34 Atrial premature complex(es) now present First degree AV block now present Electronically Signed On 11-16-20 10:54:30 CDT by Nicho Smith
== END 2020-11-15 00:25 | disposition home or self-care (01) ==
LOC: ER 17:50
DX: R11.2 Nausea with vomiting, unspecified (principal); I10 Essential (primary) hypertension; Z88.0 Allergy status to penicillin; Z88.5 Allergy status to narcotic agent
CPT/HCPCS: 96361; 93005; 85025; 80048; 36415; 83735; 85610; 80076; 81003; 84484; 83880; 70450; 96375; 96374; 99283; J7030; J2405

== ENCOUNTER 2021-01-25 10:22 | Observation (INO) | payer OTHER ==
[2021-01-25] MEDS ORDERED: NA CHLORIDE 0.9% 1,000 ML ONE ×2 (11:16→12:44)
[2021-01-25 11:25] LABS: Absolute Lymphocytes (CBC) 1.2 K/uL (0.7-4.9); Basophils % 0.4 % (0-1.3); Hematocrit 46.7 % (39.6-49.0); MPV 9.3 fL (7.6-11.3); RBC Red Blood Cell Count 5.03 M/uL (4.33-5.43)
[2021-01-25 11:39] LABS: Albumin 4.1 g/dL (3.4-5.0); Bilirubin Direct 0.2 mg/dL (0-0.2); Bilirubin Total 0.7 mg/dL (0.2-1.0); Potassium 3.9 mmol/L (3.5-5.1); Protein, Total 8.7 g/dL (6.4-8.2)
--- NOTE | 2021-01-25 12:39 | RAD REPORT ---
EXAM DESCRIPTION: CTAbdomen Pelvis Wo Contrast - 01/25/2021 12:28 pm CLINICAL HISTORY: ABD PAIN COMPARISON: Abdomen Pelvis W Contrast dated 07/19/2015; CT ABDOMEN PELVIS WO CONTRAST dated 2; CT DISSECTION W WO CONTRAST dated 04/21/2011; CT ABDOMEN PELVIS WO CONTRAST dated 10/26/2010 TECHNIQUE: CT of the abdomen and pelvis was performed. All CT scans are performed using dose optimization technique as appropriate and may include automated exposure control or mA/KV adjustment according to patient size. FINDINGS: Lower chest: Pacemaker leads. Small hiatal hernia Liver: No acute abnormality or suspicious lesions. Biliary: No biliary ductal dilatation. Stomach: No significant focal abnormality. Duodenum: No significant focal abnormality. Pancreas: No significant abnormality. Spleen: No significant abnormality. Adrenal: No suspicious lesions. Kidney/ureter: No hydronephrosis. No renal calculi. Right-sided renal sinus cysts. Too small to ebony cterize mildly hyperdense right lower pole renal lesion which is of doubtful clinical significance. Retroperitoneum: No retroperitoneal adenopathy. Vascular: No aneurysm. Atherosclerosis. Bowel: Multiple air-fluid levels are present in the colon. No bowel obstruction. Diverticulosis. No e vidence of acute diverticulitis.. Normal appendix. Peritoneum: No ascites or free air. Ventral hernia and umbilical hernia containing fat. Bladder: Grossly unremarkable. Reproductive: No adnexal masses. Bones: No acute fracture. Multilevel degenerative changes are present in the spine. Other: n/a IMPRESSION: Air-fluid levels in the colon consistent with diarrheal disease. No bowel obstruction id entified. Diverticulosis but no diverticulitis. Normal appendix.
[2021-01-25] MEDS ORDERED: DICYCLOMINE HCL 20 MG/2 ML AMP IM ONE (12:42)
--- NOTE | 2021-01-25 12:52 | EDPHYS ---
Physician Documentation [facility] Name: Honorio Toussaint Age: 75 yrs Sex: Male : 1945 Arrival Date: 01/25/2021 Time: 10:26 Bed 10 Private MD: ED Physician Yariel Fishman HPI: 01/25 11:15 This 75 yrs old Male presents to ER via Ambulatory with complaints of jr8 Diarrhea, Weakness, Decreased Appetite. 11:15 This is a 75-year-old male patient that presented to the emergency room with 3 days of jr8 continued diarrhea. Patient stated that he has had multiple episodes of diarrhea throughout those days. Denies any nausea or vomiting. Does complain of mid abdominal cramping. Denies having symptoms like this before. Denies fevers, body aches, chills or other symptoms at this time. Patient stated that he came today because he started to feel increased weakness and dizziness.. Historical: - Allergies: 10:32 Codeine; ll1 10:32 PENICILLINS; ll1 - PMHx: 10:32 Diabetes - NIDDM; prostate probelm; Depression; Lymphadema; neck pain; trigeminal ll1 neuralgia; Sleep Apnea; Cellulitis; Anxiety; Hypertension; CVA; COPD; constipation; Cancer; Hyperlipidemia; - Immunization history:: Client reports receiving the 2nd dose of the Covid vaccine. - Social history:: Smoking status: Patient/guardian denies using tobacco, the patient reports quitting approximately 20 years ago. ROS: 11:15 Eyes: Negative for injury, pain, redness, and discharge, ENT: Negative for injury, jr8 pain, and discharge, Neck: Negative for injury, pain, and swelling, Cardiovascular: Negative for chest pain, palpitations, and edema, Respiratory: Negative for shortness of breath, cough, wheezing, and pleuritic chest pain, Back: Negative for injury and pain, MS/Extremity: Negative for injury and deformity, Skin: Negative for injury, rash, and discoloration, Neuro: Negative for headache, weakness, numbness, tingling, and seizure. 11:15 Constitutional: Positive for fatigue, malaise. 11:15 Abdomen/GI: Positive for diarrhea, abdominal cramps, Negative for nausea and vomiting. Exam: 11:15 Constitutional: This is a well developed, well nourished patient who is awake, alert, jr8 and in no acute distress. ENT: Nares patent. No nasal discharge, no septal abnormalities noted. Tympanic membranes are normal and external auditory canals are clear. Oropharynx with no redness, swelling, or masses, exudates, or evidence of obstruction, uvula midline. Mucous membranes moist. Neck: Trachea midline, no thyromegaly or masses palpated, and no cervical lymphadenopathy. Supple, full range of motion without nuchal rigidity, or vertebral point tenderness. No Meningismus. Cardiovascular: Regular rate and rhythm with a normal S1 and S2. No gallops, murmurs, or rubs. Normal PMI, no JVD. No pulse deficits. Respiratory: Lungs have equal breath sounds bilaterally, clear to auscultation and percussion. No rales, rhonchi or wheezes noted. No increased work of breathing, no retractions or nasal flaring. Abdomen/GI: Soft with normal bowel sounds. No distension or tympany. No guarding or rebound. Mild tenderness to the mid abdomen left and right side. Back: No spinal tenderness. No costovertebral tenderness. Full range of motion. Skin: Warm, dry with normal turgor. Normal color with no rashes, no lesions, and no evidence of cellulitis. MS/ Extremity: Pulses equal, no cyanosis. Neurovascular intact. Full, normal range of motion. Neuro: Awake and alert, GCS 15, oriented to person, place, time, and situation. Cranial nerves II-XII grossly intact. Motor strength 5/5 in all extremities. Sensory grossly intact. Cerebellar exam normal. Normal gait. Vital Signs: 10:33 BP 101 / 64; Pulse 98; Resp 20; Temp 97.9; Pulse Ox 93% ; Weight 99.79 kg; Height 5 ft. ll1 9 in. (175.26 cm); Pain 8/10; 11:12 BP 123 / 65; Pulse 89; Resp 22; Pulse Ox 100% on 3 lpm NC; vg1 12:22 BP 130 / 75; Pulse 88; Resp 20; Pulse Ox 100% on 3 lpm NC; vg1 13:00 BP 125 / 77; Pulse 70; Resp 20; Pulse Ox 98% on 3 lpm NC; vg1 14:00 BP 147 / 83; Pulse 74; Resp 20; Pulse Ox 99% on 3 lpm NC; vg1 15:00 BP 149 / 69; Pulse 80; Resp 22; Pulse Ox 100% on 3 lpm NC; vg1 16:00 BP 128 / 96; Pulse 89; Resp 14; Pulse Ox 98% on 3 lpm NC; vg1 17:03 BP 138 / 92; Pulse 88; Resp 18; Pulse Ox 99% on 3 lpm NC; vg1 10:33 Body Mass Index 32.49 (99.79 kg, 175.26 cm) ll1 MDM: 10:46 Patient medically screened. jr8 12:49 Data reviewed: vital signs, nurses notes, lab test result(s), radiologic studies, CT jr8 scan. Data interpreted: Pulse oximetry: on room air is 100 %. Interpretation: normal. Counseling: I had a detailed discussion with the patient and/or guardian regarding: the historical points, exam findings, and any diagnostic results supporting the discharge/admit diagnosis, lab results, radiology results, the need for further work-up and treatment in the hospital. 01/25 10:58 Order name: Basic Metabolic Panel; Complete Time: 12:10 jr8 01/25 10:58 Order name: CBC with Diff; Complete Time: 11:38 jr8 01/25 10:58 Order name: Hepatic Function; Complete Time: 12:10 jr8 01/25 10:58 Order name: Lipase; Complete Time: 12:10 jr8 01/25 15:12 Order name: COVID-19 SARS RT PCR (Document "Date of Onset" if Symptomatic) 01/25 12:10 Order name: CT Abd/Pelvis - Without Contrast; Complete Time: 12:42 jr8 01/25 15:13 Order name: [facility] 01/25 16:59 Order name: SARS-COV-2 RT PCR; Complete Time: 17:10 [facility] 01/25 10:58 Order name: IV Saline Lock; Complete Time: 11:26 jr8 01/25 10:58 Order name: Labs collected and sent; Complete Time: 11:12 jr8 Administered Medications: 11:26 Drug: NS 0.9% 1000 ml {Note: placed by instructor.} Route: IV; Rate: 1000 ml; Site: vg1 left antecubital; 13:01 Follow up: IV Status: Completed infusion; IV Intake: 1000ml [facility] 12:50 Drug: NS 0.9% 1000 ml Route: IV; Rate: 125 ml/hr; Site: left antecubital; vg1 18:52 Follow up: IV Status: Infusion continued upon admission vg1 13:01 Drug: Dicyclomine 20 mg Route: IM; Site: left deltoid; vg1 14:12 Follow up: Response: No adverse reaction vg1 14:17 Drug: Pepcid (famotidine) 20 mg Route: IVP; Site: left antecubital; vg1 16:11 Follow up: Response: No adverse reaction; Marked relief of symptoms vg1 16:15 Drug: LoMOTIL (diphenoxylate-atropine) 2 tabs Route: PO; vg1 18:52 Follow up: Response: No adverse reaction vg1 Disposition: 01/26 07:04 Co-signature as Attending Physician, Yariel Fishman MD I agree with the assessment and rn plan of care. Attestation: The patient's history, exam findings, diagnostics, and a summary of any interventions or procedures was reviewed in detail with Momo HAWKINS. Disposition Summary: 01/25/21 12:51 Hospitalization Ordered Hospitalization Status: Observation jr8 Location: Telemetry/MedSurg (observation) jr8 Condition: Stable jr8 Problem: new jr8 Symptoms: have improved jr8 Bed/Room Type: Standard 8 Provider: Kirt Bishop(01/25/21 13:16) jr8 Room Assignment: [facility](01/25/21 17:38) ja Diagnosis - Acute kidney failure, unspecified jr8 - Diarrhea, unspecified jr8 - Dehydration jr8 Forms: - Medication Reconciliation Form jr8 - SBAR form jr8 Signatures: Dispatcher [employer] EDMS Yariel Fishman MD MD rn Roszak, Josh, PA PA jr8 Luis Wills RN RN ja1 Mary Llamas RN RN vg1 Reno Martinez RN RN ll1 Corrections: (The following items were deleted from the chart) 01/25 13:16 12:51 Delmy Mayfield jr8 jr8 17:38 12:51 jr8 ja1
--- NOTE | 2021-01-25 12:52 | ER ---
Nurse's Notes [facility] Name: Honorio Toussaint Age: 75 yrs Sex: Male : 1945 Arrival Date: 01/25/2021 Time: 10:26 Bed 10 Private MD: Diagnosis: Acute kidney failure, unspecified;Diarrhea, unspecified;Dehydration Presentation: 01/25 10:33 Chief complaint: Patient states: Diarrhea , weakness, no appetite for 4 days. No fever. ll1 Coronavirus screen: Vaccine status: Patient reports receiving the 2nd dose of the covid vaccine. Client denies travel out of the [place] in the last 14 days. At this time, the client does not indicate any symptoms associated with coronavirus-19. Ebola Screen: Patient denies travel to an Ebola-affected area in the 21 days before illness onset. Initial Sepsis Screen: Does the patient meet any 2 criteria? No. Patient's initial sepsis screen is negative. Does the patient have a suspected source of infection? Yes: Acute abdominal pain. Risk Assessment: Do you want to hurt yourself or someone else? Patient reports no desire to harm self or others. Onset of symptoms was January 22, 2021. 10:33 Method Of Arrival: Ambulatory ll1 10:33 Acuity: ATIF 3 ll1 Historical: - Allergies: 10:32 Codeine; ll1 10:32 PENICILLINS; ll1 - PMHx: 10:32 Diabetes - NIDDM; prostate probelm; Depression; Lymphadema; neck pain; trigeminal ll1 neuralgia; Sleep Apnea; Cellulitis; Anxiety; Hypertension; CVA; COPD; constipation; Cancer; Hyperlipidemia; - Immunization history:: Client reports receiving the 2nd dose of the Covid vaccine. - Social history:: Smoking status: Patient/guardian denies using tobacco, the patient reports quitting approximately 20 years ago. Screenin:13 Abuse screen: Denies threats or abuse. Nutritional screening: No deficits noted. vg1 Tuberculosis screening: No symptoms or risk factors identified. Fall Risk No fall in past 12 months (0 pts). No secondary diagnosis (0 pts). IV access (20 points). Ambulatory Aid- Crutches/Cane/Walker (15 pts). Gait- Normal/Bed Rest/Wheelchair (0 pts) Mental Status- Oriented to own ability (0 pts). Total Cordero Fall Scale indicates Low Risk Score (25-44 pts). Fall prevention measures have been instituted. Side Rails Up X 2 Placed close to Nursing Station. Assessment: 11:13 General: Appears in no apparent distress. comfortable, Behavior is calm, cooperative. vg1 Pain: Complains of pain in epigastric area Pain currently is 8 out of 10 on a pain scale. Pain began 2-3 days ago. Neuro: Level of Consciousness is awake, alert, obeys commands, Oriented to person, place, time, situation. Cardiovascular: Patient's skin is warm and dry. Respiratory: Airway is patent Respiratory effort is even, unlabored. GI: Reports diarrhea, Patient currently denies nausea, vomiting. : No signs and/or symptoms were reported regarding the genitourinary system. EENT: No signs and/or symptoms were reported regarding the EENT system. Derm: Skin is intact. Musculoskeletal: Circulation, motion, and sensation intact. 12:19 Reassessment: Patient appears in no apparent distress at this time. No changes from vg1 previously documented assessment. Patient and/or family updated on plan of care and expected duration. Pain level reassessed. Patient is alert, oriented x 3, equal unlabored respirations, skin warm/dry/pink. Pt requesting for pain medication. Provider notified. 12:42 Reassessment: received VO from Rob HAWKINS to administer Dicyclomine 20 mg IM x1. vg1 14:08 Reassessment: Patient appears in no apparent distress at this time. No changes from vg1 previously documented assessment. Patient and/or family updated on plan of care and expected duration. Pain level reassessed. Patient is alert, oriented x 3, equal unlabored respirations, skin warm/dry/pink. Pt states is having "heart burn" rates 9/10. Provider notified. 16:07 Reassessment: Patient appears in no apparent distress at this time. Patient and/or vg1 family updated on plan of care and expected duration. Pain level reassessed. Patient is alert, oriented x 3, equal unlabored respirations, skin warm/dry/pink. Pt stated had diarrhea and was assisted to the restroom by cat scan technologist. Pt is requesting medication for diarrhea. Provider notified. 16:58 Reassessment: Patient appears in no apparent distress at this time. Patient and/or vg1 family updated on plan of care and expected duration. Pain level reassessed. Patient is alert, oriented x 3, equal unlabored respirations, skin warm/dry/pink. assisted pt to restroom. Rates ABD 6/10. 17:44 Reassessment: attempted to call report. vg1 Vital Signs: 10:33 BP 101 / 64; Pulse 98; Resp 20; Temp 97.9; Pulse Ox 93% ; Weight 99.79 kg; Height 5 ft. ll1 9 in. (175.26 cm); Pain 8/10; 11:12 BP 123 / 65; Pulse 89; Resp 22; Pulse Ox 100% on 3 lpm NC; vg1 12:22 BP 130 / 75; Pulse 88; Resp 20; Pulse Ox 100% on 3 lpm NC; vg1 13:00 BP 125 / 77; Pulse 70; Resp 20; Pulse Ox 98% on 3 lpm NC; vg1 14:00 BP 147 / 83; Pulse 74; Resp 20; Pulse Ox 99% on 3 lpm NC; vg1 15:00 BP 149 / 69; Pulse 80; Resp 22; Pulse Ox 100% on 3 lpm NC; vg1 16:00 BP 128 / 96; Pulse 89; Resp 14; Pulse Ox 98% on 3 lpm NC; vg1 17:03 BP 138 / 92; Pulse 88; Resp 18; Pulse Ox 99% on 3 lpm NC; vg1 10:33 Body Mass Index 32.49 (99.79 kg, 175.26 cm) ll1 ED Course: 10:26 Patient arrived in ED. mr 10:33 Arm band placed on Patient placed in an exam room, on a stretcher. ll1 10:34 Triage completed. ll1 10:36 Momo Rivas PA is PHCP. jr8 10:36 Yariel Fishman MD is Attending Physician. jr8 10:44 Mary Llamas, MANOLO is Primary Nurse. vg1 11:08 No provider procedures requiring assistance completed. Initial lab(s) drawn, by me, vg1 sent to lab. Inserted saline lock: 20 gauge in right antecubital area, using aseptic technique. Blood collected. 11:13 Patient has correct armband on for positive identification. Bed in low position. Call vg1 light in reach. Side rails up X2. 11:15 IV discontinued, intact, bleeding controlled, No redness/swelling at site. Pressure vg1 dressing applied, infiltrated. 11:27 Inserted saline lock: 20 gauge in left antecubital area, using aseptic technique. vg1 ,using aseptic technique. placed by instructor. 12:[address] via wheelchair. vg1 12:28 CT Abd/Pelvis - Without Contrast In Process Unspecified. EDMS 12:50 Delmy Mayfield MD is Hospitalizing Provider. jr8 13:16 Kirt Bishop is Hospitalizing Provider. jr8 Administered Medications: 11:26 Drug: NS 0.9% 1000 ml {Note: placed by instructor.} Route: IV; Rate: 1000 ml; Site: vg1 left antecubital; 13:01 Follow up: IV Status: Completed infusion; IV Intake: 1000ml vg1 12:50 Drug: NS 0.9% 1000 ml Route: IV; Rate: 125 ml/hr; Site: left antecubital; vg1 18:52 Follow up: IV Status: Infusion continued upon admission vg1 13:01 Drug: Dicyclomine 20 mg Route: IM; Site: left deltoid; vg1 14:12 Follow up: Response: No adverse reaction vg1 14:17 Drug: Pepcid (famotidine) 20 mg Route: IVP; Site: left antecubital; vg1 16:11 Follow up: Response: No adverse reaction; Marked relief of symptoms vg1 16:15 Drug: LoMOTIL (diphenoxylate-atropine) 2 tabs Route: PO; vg1 18:52 Follow up: Response: No adverse reaction vg1 Intake: 13:01 IV: 1000ml; Total: 1000ml. vg1 Outcome: 12:51 Decision to Hospitalize by Provider. jr8 18:12 Admitted to Tele accompanied by tech, via wheelchair, room 214, with oxygen, with vg1 chart, Report called to Dennys FRENCH 18:12 Condition: stable 18:12 Instructed on the need for admit. 18:51 Patient left the ED. vg1 Signatures: Dispatcher [employer] Sri Villegas BrigidaMomo richards PA PA jr8 Mary Llamas, RN RN vg1 Reno Martinez RN RN ll1
--- NOTE | 2021-01-25 14:01 | P.HP ---
Certification for Inpatient Patient admitted to: Observation With expected LOS: <2 Midnights Practitioner: I am a practitioner with admitting privileges, knowledge of patient current condition, hospital course, and medical plan of care. Services: Services provided to patient in accordance with Admission requirements found in Title 42 Section 412.3 of the Code of Federal Regulations Patient History Date of Service: 01/25/21 Reason for admission: Diarrhea History of Present Illness: 75-year-old gentleman with a history of COPD, chronic respiratory failure on 3 L of oxygen by nasal cannula at baseline and hypertension presented to the emergency department with a complaint of diarrhea of 3 days duration. Patient reports multiple episodes of diarrhea. He stated he developed generalized weakness, and dizziness prompting the ED visit. In the ED, patient noted to have acute renal failure with creatinine up to 1.9. He reports poor oral intake. ED provider wishes to hospitalize him for hydration since patient is unable to keep up with fluid replacement for the diarrhea orally. He denied any fever or chills. He reported intermittent abdominal pain. Allergies codeine [Codeine] Allergy (Unknown, Verified 02/24/20 05:23) Hives/Rash Penicillins Allergy (Unknown, Verified 02/24/20 05:23) Hives/Rash Home Medications: Atorvastatin Calcium [Lipitor*] 80 mg PO BEDTIME 07/20/15 Metformin HCl [Glucophage] 1,000 mg PO BID 07/20/15 buPROPion HCL [Wellbutrin*] 150 mg PO DAILY 07/20/15 allopurinoL [Zyloprim*] 100 mg PO BID 05/04/17 Tamsulosin [Flomax*] 1 cap PO BEDTIME 07/12/17 Apixaban [Eliquis] 5 mg PO BID 12/30/17 Budesonide/Formoterol Fumarate [Symbicort 160-4.5 Mcg Inhaler] 2 puff IH BID 12/30/17 Duloxetine HCl [Cymbalta] 60 mg PO DAILY 12/30/17 Cholecalciferol (Vitamin D3) [Vitamin D 1000 Iu Tab*] 1 tab PO DAILY 02/24/20 Gabapentin [Neurontin*] 400 mg PO BID 02/24/20 Isosorbide Mononitrate [Isosorbide Mononitrate ER] 60 mg PO DAILY 02/24/20 Lisinopril [Zestril] 2.5 mg PO DAILY 02/24/20 Vit B12/Levomefolate/Vit B6/B2 [l-Methyl-Mc Tablet] 1 tab PO DAILY 02/24/20 Albuterol Neb [Proventil 0.083% Neb Soln] 2.5 mg NEB [id number] PRN #120 amp 02/27/20 Benzonatate [Tessalon Perle*] 100 mg PO TID PRN #30 cap 02/27/20 Guaif/Dm [Robitussin Dm*] 5 ml PO Q6H PRN #30 ucup 02/27/20 Tiotropium [Spiriva Handihaler*] 1 puff IH DAILY #1 inh 02/27/20 dexAMETHasone [Decadron*] 4 mg PO BID #21 tab 02/27/20 levoFLOXacin [Levaquin*] 500 mg PO DAILY #5 tab 02/27/20 - Past Medical/Surgical History Diabetic: Yes -: DM-2, gout -: COPD -: LUNG CANCER -: Back Pain, back pain -: HTN,HLD -: AFib -: anxiety, depression -: cellulitis, lymphedema -: cva -: constipation -: prostate problems -: trigeminal neuralgia -: LUNG CANCER- RADIATION 2012 -: pacemaker/defibrillator 2007 - Family History Father -: Heart disease, Lung disease, Diabetes Brother -: Cancer Mother -: Heart disease, Diabetes, Stroke - Social History Alcohol use: No CD- Drugs: No Caffeine use: Yes Review of Systems Other: Except as documented, all other systems reviewed and negative. Physical Examination - Physical Exam General: Alert, In no apparent distress, Oriented x3 HEENT: Atraumatic, Normocephalic, PERRLA, Mucous membr. moist/pink, Sclerae nonicteric Neck: Supple, JVD not distended, No Thyromegaly Respiratory: Clear to auscultation bilaterally, Normal air movement, Crackles/rales Cardiovascular: No edema, Regular rate/rhythm, Normal S1 S2, Other (Irregular heartbeat) Capillary refill: <2 Seconds Gastrointestinal: Normal bowel sounds, Soft and benign, Non-distended, No tenderness Musculoskeletal: No swelling, No tenderness Integumentary: No rashes, No cyanosis Neurological: Normal speech, Normal strength at 5/5 x4 extr, Cranial nerves 3-12 intact Lymphatics: No axilla or inguinal lymphadenopathy - Studies Laboratory Data (last 24 hrs) 01/25/21 11:10: WBC 11.20 H, Hgb 15.0, Hct 46.7, Plt Count 300 01/25/21 11:10: Sodium 138, Potassium 3.9, BUN 30 H, Creatinine 1.97 H, Glucose 121 H, Total Bilirubin 0.7, AST 20, ALT 37, Alkaline Phosphatase 79, Lipase 85 Assessment and Plan - Problems (Diagnosis) (1) Acute gastroenteritis Current Visit: Yes Status: Acute (2) Acute renal failure Current Visit: Yes Status: Acute (3) Chronic respiratory failure with hypoxia Current Visit: Yes Status: Acute (4) History of COPD Current Visit: No Status: Chronic (5) History of lung cancer Current Visit: No Status: Chronic - Plan Place patient under observation. Hydrate with IV normal saline. Correct and replete electrolytes. Monitor renal function for improvement. Resume home medication for COPD and hypertension. Clear liquid diet. IV Cipro and Flagyl for acute gastroenteritis. - Advance Directives Does patient have a Living Will: Yes Does patient have a Durable POA for Healthcare: Yes
[2021-01-25] MEDS ORDERED: FAMOTIDINE 20 MG/2 ML VIAL IV ONE (14:12)
[2021-01-25] MEDS ORDERED: DIPHENOX/ATROP SULF 1 TAB PO ONE (16:10)
[2021-01-25] MEDS ORDERED: ONDANSETRON 4 MG/2 ML VIAL IV PRN (19:43)
[2021-01-25] MEDS ORDERED: ACETAMINOPHEN 500 MG TAB PO PRN (19:43)
[2021-01-25 20:08] VITALS: BMI 30.7
[2021-01-25] MEDS: CIPROFLOXACIN 400mg IV 400 MG/200 ML BAG IV SCH (20:45)
[2021-01-25] MEDS: NA CHLORIDE 0.9% 1,000 ML IV SCH (20:45)
[2021-01-25] MEDS: METRONIDAZOLE 500mg IVPB 500 MG/100 ML BAG IV SCH (20:46)
[2021-01-25] MEDS: INSULIN -REGULAR HUMAN 50 UNIT/0.5 ML ML SQ SCH (20:57)
[2021-01-26 01:39] LABS: Urine Appearance Clear (Clear); Urine Blood Negative (Negative); Urine Color Yellow (Yellow); Urine Glucose Negative (Negative); Urine Protein 2+ (Negative); Urine Specific Gravity >=1.030 (1.005-1.030); Urine Urobilinogen 0.2 mg/dL (0.2-1.0); Urine pH 5.5 (5.0-7.0)
[2021-01-26 01:43] LABS: Urine Bilirubin NEGATIVE (Negative); Urine Microscopic Reflex ORDER UMIC
[2021-01-26 02:48] LABS: Urine Mucus 1+ /HPF (NONE SEEN)
[2021-01-26 02:50] LABS: Urine Bacteria 20-50 /HPF (NONE SEEN); Urine RBC <5 /HPF (NONE SEEN); Urine Urothelial Cells <5 /HPF (NONE SEEN)
[2021-01-26 03:44] VITALS: O2SAT 98
[2021-01-26] MEDS: METRONIDAZOLE 500mg IVPB 500 MG/100 ML BAG IV SCH (04:39)
[2021-01-26] MEDS: NA CHLORIDE 0.9% 1,000 ML IV SCH (05:03)
[2021-01-26 06:15] LABS: Absolute Lymphocytes (CBC) 0.8 K/uL (0.7-4.9); Basophils % 0.3 % (0-1.3); Hematocrit 40.2 % (39.6-49.0); Lymphocytes % 10.6 % (15.3-44.8); MPV 9.2 fL (7.6-11.3); RBC Red Blood Cell Count 4.32 M/uL (4.33-5.43)
[2021-01-26 06:31] LABS: Albumin 3.3 g/dL (3.4-5.0); Bilirubin Total 0.4 mg/dL (0.2-1.0); Magnesium 1.8 mg/dL (1.8-2.4); Phosphorus 3.5 mg/dL (2.5-4.9); Potassium 3.7 mmol/L (3.5-5.1)
[2021-01-26] MEDS: INSULIN -REGULAR HUMAN 50 UNIT/0.5 ML ML SQ SCH (07:30)
[2021-01-26 08:27] VITALS: BP 128/67; TEMP 97.2
[2021-01-26] MEDS ORDERED: MAGNESIUM SULFATE 1 gm IVPB 1 GM/100 ML BAG IV ONE (09:00)
[2021-01-26] MEDS ORDERED: POTASSIUM CL SA 10 MEQ TAB PO ONE (09:00)
[2021-01-26] MEDS: CIPROFLOXACIN 400mg IV 400 MG/200 ML BAG IV SCH (10:24)
--- NOTE | 2021-01-26 10:56 | P.DS ---
Admission Date: 01/25/21 Discharge Date: 01/26/21 Disposition: ROUTINE DISCHARGE Discharge Condition: FAIR Reason for Admission: Diarrhea - Problems (1) Acute gastroenteritis Status: Acute (2) Acute renal failure Status: Acute (3) Chronic respiratory failure with hypoxia Status: Acute (4) History of COPD Status: Chronic (5) History of lung cancer Status: Chronic Brief History of Present Illness: 75-year-old gentleman with a history of COPD, chronic respiratory failure on 3 L of oxygen by nasal cannula at baseline and hypertension presented to the emergency department with a complaint of diarrhea of 3 days duration. Patient reports multiple episodes of diarrhea. He stated he developed generalized weakness, and dizziness prompting the ED visit. In the ED, patient noted to have acute renal failure with creatinine up to 1.9. He reports poor oral intake. ED provider wishes to hospitalize him for hydration since patient is unable to keep up with fluid replacement for the diarrhea orally. He denied any fever or chills. He reported intermittent abdominal pain. Hospital Course: Placed on the medical floor, hydrated with IV fluid and treated with IV Cipro and Flagyl. His creatinine trended down. Patient became asymptomatic during the hospital stay. Diarrhea resolved. He tolerated solid diet, no nausea no vomiting. Patient deemed clinically stable for discharge. Vital Signs/Physical Exam: Temp Pulse Resp BP Pulse Ox 97.2 F 74 18 128/67 100 01/26/21 08:00 01/26/21 08:00 01/26/21 08:00 01/26/21 08:00 01/26/21 08:00 General: Alert, In no apparent distress, Oriented x3 HEENT: Mucous membr. moist/pink Neck: Supple, JVD not distended Respiratory: Clear to auscultation bilaterally, Normal air movement Cardiovascular: Regular rate/rhythm, Normal S1 S2 Gastrointestinal: Soft and benign, Non-distended, No tenderness Musculoskeletal: No swelling Integumentary: No rashes Neurological: Normal strength at 5/5 x4 extr Laboratory Data at Discharge: WBC 7.40 K/uL (4.3-10.9) D 01/26/21 05:42 Hgb 13.0 g/dL (13.6-17.9) L 01/26/21 05:42 Hct 40.2 % (39.6-49.0) 01/26/21 05:42 Plt Count 218 K/uL (152-406) D 01/26/21 05:42 Sodium 140 mmol/L (136-145) 01/26/21 05:42 Potassium 3.7 mmol/L (3.5-5.1) 01/26/21 05:42 BUN 38 mg/dL (7-18) H 01/26/21 05:42 Creatinine 1.65 mg/dL (0.55-1.3) H 01/26/21 05:42 Glucose 122 mg/dL (74-106) H 01/26/21 05:42 Phosphorus 3.5 mg/dL (2.5-4.9) 01/26/21 05:42 Magnesium 1.8 mg/dL (1.8-2.4) 01/26/21 05:42 Total Bilirubin 0.4 mg/dL (0.2-1.0) 01/26/21 05:42 AST 14 U/L (15-37) L 01/26/21 05:42 ALT 31 U/L (12-78) 01/26/21 05:42 Alkaline Phosphatase 64 U/L (45-117) 01/26/21 05:42 Lipase 85 U/L (73-393) 01/25/21 11:10 Home Medications: Atorvastatin Calcium [Lipitor*] 80 mg PO BEDTIME 07/20/15 Metformin HCl [Glucophage] 1,000 mg PO BID 07/20/15 buPROPion HCL [Wellbutrin*] 150 mg PO DAILY 07/20/15 allopurinoL [Zyloprim*] 100 mg PO BID 05/04/17 Tamsulosin [Flomax*] 1 cap PO BEDTIME 07/12/17 Apixaban [Eliquis] 5 mg PO BID 12/30/17 Budesonide/Formoterol Fumarate [Symbicort 160-4.5 Mcg Inhaler] 2 puff IH BID 12/30/17 Duloxetine HCl [Cymbalta] 60 mg PO DAILY 12/30/17 Cholecalciferol (Vitamin D3) [Vitamin D 1000 Iu Tab*] 1 tab PO DAILY 02/24/20 Gabapentin [Neurontin*] 400 mg PO BID 02/24/20 Isosorbide Mononitrate [Isosorbide Mononitrate ER] 60 mg PO DAILY 02/24/20 Lisinopril [Zestril] 2.5 mg PO DAILY 02/24/20 Vit B12/Levomefolate/Vit B6/B2 [l-Methyl-Mc Tablet] 1 tab PO DAILY 02/24/20 Albuterol Neb [Proventil 0.083% Neb Soln] 2.5 mg NEB [id number] PRN #120 amp 02/27/20 Benzonatate [Tessalon Perle*] 100 mg PO TID PRN #30 cap 02/27/20 Guaif/Dm [Robitussin Dm*] 5 ml PO Q6H PRN #30 ucup 02/27/20 Tiotropium [Spiriva Handihaler*] 1 puff IH DAILY #1 inh 02/27/20 Ciprofloxacin HCl 500 mg PO BID #4 tablet 01/26/21 metroNIDAZOLE [Flagyl] 500 mg PO Q8H #6 tablet 01/26/21 New Medications: Ciprofloxacin HCl 500 mg PO BID #4 tablet metroNIDAZOLE [Flagyl] 500 mg PO Q8H #6 tablet Diet: AHA Activity: Ad alexandru Followup: NONE,NONE [Primary Care Provider] - 1-2 Weeks
--- NOTE | 2021-01-26 17:00 | EKG ---
Test Date: 2021-01-25 Test Time: 14:28:57 Fishery Biologist: JENNA MEASUREMENT RESULTS: Intervals: Rate: 84 KS: 198 QRSD: 90 QT: 378 QTc: 446 Wallace: P: 53 KS: 198 QRS: 65 T: 11 INTERPRETIVE STATEMENTS: Sinus rhythm with occasional premature ventricular complexes Otherwise normal ECG Compared to ECG 11/14/2020 18:53:40 Ventricular premature complex(es) now present Atrial premature complex(es) no longer present First degree AV block no longer present Electronically Signed On 01-26-21 16:57:12 [employer] by Nicho Smith
== END 2021-01-26 12:12 | disposition home or self-care (01) ==
LOC: ER 10:22 → ERHOLD 14:01 → 2ND 18:14
PROVIDERS: ADMIT Internal Medicine; ATTEND Internal Medicine
DX: K52.9 Noninfective gastroenteritis and colitis, unspecified (principal); N17.9 Acute kidney failure, unspecified; J96.11 Chronic respiratory failure with hypoxia; J44.9 Chronic obstructive pulmonary disease, unspecified; I10 Essential (primary) hypertension; Z85.118 Personal history of other malignant neoplasm of bronchus and lung; Z99.81 Dependence on supplemental oxygen; Z88.0 Allergy status to penicillin; Z95.810 Presence of automatic (implantable) cardiac defibrillator; Z20.822 Contact with and (suspected) exposure to COVID-19
CPT/HCPCS: 96361; 93005; 87088; 85025 ×2; 87086; 80048; 36415; 83735; 84100; 82947 ×3; 80076; 83690; 80053; 74176; 94760 ×3; 96372; 96374; 99285; U0003; J0500; J3475; J7030 ×4; J0744 ×2; G0378 ×3; 81003; 81015

== ENCOUNTER 2021-04-03 08:47 | Emergency (ER) | payer OTHER ==
--- NOTE | 2021-04-03 09:57 | RAD REPORT ---
EXAM DESCRIPTION: CTChest Abdomen Pelvis W Cont - 04/03/2021 9:34 am CLINICAL HISTORY: back trauma, on eliquis;Blunt chest trauma COMPARISON: Chest For Pe Angio dated 02/23/2020 TECHNIQUE: CT of the chest, abdomen, and pelvis was performed. All CT scans are performed using dose optimization technique as appropriate and may include automated exposure control or mA/KV adjustment according to patient size. FINDINGS: Thorax: Chest Wall: No abnormal mass left upper chest wall pacemaker. Lungs: Right upper lobe lesion measuring 3.2 cm is unchanged. Metallic markers present in the lesion is well in the left upper lobe. Pleura: No effusions or pneumothorax. Connie/Mediastinum: No lymphadenopathy. Aorta/Pulmonary Arteries: Unremarkable Heart: Multi-vessel coronary artery disease. Pacemaker. Abdomen/Pelvis: Liver: No acute abnormality or suspicious lesions. Biliary: No biliary ductal dilatation. Stomach: No significant focal abnormality. Duodenum: No significant focal abnormality. Pancreas: No significant abnormality. Spleen: No significant abnormality. Adrenal: No suspicious lesions. Kidney/ureter: No hydronephrosis. No renal calculi. Too small to characterize and/or benign appearing renal lesions are noted. Retroperitoneum: No retroperitoneal adenopathy. Vascular: No aneurysm. Atherosclerosis. Bowel: Diverticulosis without diverticulitis.. Peritoneum: No ascites or free air. Fat containing ventral hernias. Bladder: Grossly unremarkable. Reproductive: No adnexal masses. Bones: No acute fracture. Remote rib and sternal fractures. Multilevel degenerative changes are prese nt in the spine. Other: n/a IMPRESSION: No evidence of significant acute trauma to the chest, abdomen, or pelvis. Multiple incid ental findings as noted above.
--- NOTE | 2021-04-03 10:08 | RAD REPORT ---
EXAM DESCRIPTION: RAD - Knee Left 2 View - 04/03/2021 9:48 am CLINICAL HISTORY: PAIN COMPARISON: Knee Left 3 View dated 06/07/2017 FINDINGS: No acute fracture. No malalignment. Moderate degenerative changes are present in the later al compartment were there is disc height loss and spurring. Minimal medial compartment and patellofem oral compartment spurring. Peripheral vascular calcifications IMPRESSION: No acute osseous abnormality involving the left knee.
--- NOTE | 2021-04-03 10:08 | RAD REPORT ---
EXAM DESCRIPTION: RAD - Knee Right 2 View - 04/03/2021 9:48 am CLINICAL HISTORY: PAIN COMPARISON: Knee Right 3 View dated 04/17/2017; Knee Right 3 View dated 01/12/2016 FINDINGS: No acute fracture. No malalignment. Mild to moderate degenerative changes in the medial co mpartment due to joint space loss and spurring. Mild lateral compartment spurring and moderate patell ofemoral compartment degenerative changes. No knee effusion. IMPRESSION: No acute osseous abnormality involving the right knee.
--- NOTE | 2021-04-03 10:22 | EDPHYS ---
Physician Documentation [facility] Name: Honorio Toussaint Age: 75 yrs Sex: Male : 1945 Arrival Date: 04/03/2021 Time: 08:50 Bed 7 Private MD: ED Physician Yariel Fishman HPI: 04/03 09:12 This 75 yrs old Male presents to ER via Ambulatory with complaints of Fall Injury, rn Shoulder Pain, Chest Wall Pain, Leg Pain. 09:12 Details of fall: The patient fell from an upright position, while walking. Onset: The rn symptoms/episode began/occurred yesterday. Associated injuries: The patient sustained injury to the low back, injury to the chest. Severity of symptoms: At their worst the symptoms were mild, in the emergency department the symptoms are unchanged. The patient has not experienced similar symptoms in the past. The patient has not recently seen a physician. Patient reports fall from standing yesterday. Reports fell forward and hit a 2 x 4 on the right anterior chest wall that has caused painful range of motion and worse when taking a deep breath. Also reports fell backwards and landed on a toy car, reporting. Lumbar back pain that is painful with range of motion. Patient is ambulatory. Also reports bilateral knee pain but does not feel broken. Patient takes Eliquis. Denies head injury or LOC. Remembers all events. No nausea or vomiting or focal neurological deficits reported. Historical: - Immunization history: Last tetanus immunization:. - Social history:: Smoking status: Patient denies any tobacco usage or history of. - Family history:: not pertinent. - Hospitalizations: : No recent hospitalization is reported. ROS: 09:12 Constitutional: Negative for fever, chills, and weight loss, Eyes: Negative for injury, rn pain, redness, and discharge, Neck: Negative for injury, pain, and swelling, Cardiovascular: Positive for right anterior chest pain Respiratory: Positive for pain with deep breath, denies shortness of breath Abdomen/GI: Negative for abdominal pain, nausea, vomiting, diarrhea, and constipation, Back: Positive for left lower back injury and pain MS/Extremity: Positive for injury and pain to both knees Skin: Positive for bruising, negative for laceration Neuro: Negative for headache, weakness, numbness, tingling, and seizure. Exam: 09:12 Constitutional: This is a well developed, well nourished patient who is awake, alert, rn and in no acute distress. Head/Face: Normocephalic, atraumatic. Eyes: Periorbital areas with no swelling, redness, or edema. ENT: No oral or nasal trauma noted Neck: Trachea midline, no cervical tenderness Chest/axilla: Right anterior chest wall ecchymosis without crepitus Cardiovascular: Regular rate and rhythm. No pulse deficits. Respiratory: Speaking full sentences, unlabored. No increased work of breathing, no retractions or nasal flaring. Abdomen/GI: Soft, non-tender Back: No spinal tenderness, positive left paralumbar ecchymosis and tenderness Skin: Warm, dry, no laceration MS/ Extremity: Pulses equal, no cyanosis. Neurovascular intact. Full, normal range of motion. Equal circumference. Mild swelling bilateral knees, able to support weight on both legs Neuro: Awake and alert, GCS 15, oriented to person, place, time, and situation. Cranial nerves II-XII grossly intact. Motor strength 5/5 in all extremities. Sensory grossly intact. Vital Signs: 08:58 BP 189 / 92; Pulse 60; Resp 20; Temp 97.6; Pulse Ox 98% on 3 lpm NC; Weight 108.86 kg; phelan Height 5 ft. 8 in. (172.72 cm); 10:11 BP 168 / 79; Pulse 61; Resp 18; Pulse Ox 98% on NC; ic1 08:58 Body Mass Index 36.49 (108.86 kg, 172.72 cm) phelan Sal Coma Score: 09:09 Eye Response: spontaneous(4). Verbal Response: oriented(5). Motor Response: obeys ic1 commands(6). Total: 15. Trauma Score (Adult): 09:09 Eye Response: spontaneous(1); Verbal Response: oriented(1); Motor Response: obeys ic1 commands(2); Systolic BP: > 89 mm Hg(4); Respiratory Rate: 10 to 29 per min(4); Hyannis Score: 15; Trauma Score: 12 MDM: 09:01 Patient medically screened. rn 10:16 Differential diagnosis: contusion, fracture, multiple trauma, sprain, strain. Data rn reviewed: vital signs, nurses notes, radiologic studies, CT scan, plain films, and as a result, I will discharge patient. Counseling: I had a detailed discussion with the patient and/or guardian regarding: the historical points, exam findings, and any diagnostic results supporting the discharge/admit diagnosis, lab results, radiology results, the need for outpatient follow up, to return to the emergency department if symptoms worsen or persist or if there are any questions or concerns that arise at home. Response to treatment: the patient's symptoms have mildly improved after treatment, and as a result, I will discharge patient. Special discussion: I discussed with the patient/guardian in detail that at this point there is no indication for admission to the hospital. It is understood, however, that if the symptoms persist or worsen the patient needs to return immediately for re-evaluation. ED course: No acute traumatic findings of the chest abdomen or pelvis found. Stable vitals. No increase in oxygen requirement. Will discharge home with symptomatic treatment.. 04/03 09:06 Order name: XRAY Knee LEFT 2 view; Complete Time: 10:15 rn 04/03 09:06 Order name: XRAY Knee RIGHT 2 view; Complete Time: 10:15 rn 04/03 09:06 Order name: CT Chest, Abdomen, Pelvis - W/Contrast; Complete Time: 10:15 rn 04/03 09:06 Order name: IV Start; Complete Time: 09:19 rn Administered Medications: No medications were administered Disposition Summary: 04/03/21 10:21 Discharge Ordered Location: Home rn Problem: new rn Symptoms: have improved rn Condition: Stable rn Diagnosis - Contusion of front wall of thorax rn - Contusion of lower back and pelvis, initial encounter rn - Contusion of left knee rn - Contusion of right knee rn Followup: rn - With: Private Physician - When: As needed - Reason: Recheck today's complaints, Re-evaluation by your physician Discharge Instructions: - Discharge Summary Sheet rn - Contusion rn Forms: - Medication Reconciliation Form rn - Thank You Letter rn - Antibiotic internal affairs commander - Prescription Opioid Use rn Signatures: Dispatcher [employer] EDYariel Sung MD MD rn Au-Stager, Heather, RN RN ha Corrections: (The following items were deleted from the chart) 09:00 08:59 PMHx: COPD; phelan phelan 09:00 08:59 PMHx: CVA; tapan phelan 09:00 08:59 PMHx: Hypertension; phelan phelan 09: 08:59 PMHx: Diabetes - NIDDM; phelan phelan 09: 08:59 PMHx: Sleep Apnea; phelan phelan 09: 08:59 PMHx: constipation; phelan phelan 09: 08:59 PMHx: Depression; phelan phelan 09: 08:59 PMHx: Cancer; phelan phelan 09: 08:59 PMHx: Cellulitis; phelan phelan 09: 08:59 PMHx: Lymphadema; phelan phelan 09: 08:59 PMHx: trigeminal neuralgia; phelan phelan 09: 08:59 PMHx: neck pain; phelan phelan 09: 08:59 PMHx: Anxiety; phelan phelan 09: 08:59 PMHx: Hyperlipidemia; phelan phelan 09: 08:59 PMHx: prostate probelm; phelan phelan
--- NOTE | 2021-04-03 10:22 | ER ---
Nurse's Notes [facility] Name: Honorio Toussaint Age: 75 yrs Sex: Male : 1945 Arrival Date: 04/03/2021 Time: 08:50 Bed 7 Private MD: Diagnosis: Contusion of front wall of thorax;Contusion of lower back and pelvis, initial encounter;Contusion of left knee;Contusion of right knee Presentation: 04/03 08:55 Chief complaint: Patient states: pt reported trip falling forward injuring right chest phelan wall, bilateral knees. pt fell back hitting grandchild's toy and injuried left back. pt on blood thinners and denied hitting head. Care prior to arrival: None. Mechanism of Injury: Fall. Trauma event details: Injury occurred: at home. 08:55 Method Of Arrival: Ambulatory phelan 08:55 Acuity: ATIF 3 phelan 08:58 Coronavirus screen: Vaccine status: Patient reports receiving the 2nd dose of the covid phelan vaccine. Ebola Screen: Patient denies travel to an Ebola-affected area in the 21 days before illness onset. Initial Sepsis Screen: Does the patient meet any 2 criteria? No. Patient's initial sepsis screen is negative. Does the patient have a suspected source of infection? No. Patient's initial sepsis screen is negative. Risk Assessment: Do you want to hurt yourself or someone else? Patient reports desire/thoughts of hurting themselves or someone else. Provider notified. Onset of symptoms was April 03, 2021. Trauma Activation: Not Applicable Physician: ED Physician; Name: ; Notified At: ; Arrived At: Physician: General Surgeon; Name: ; Notified At: ; Arrived At: Physician: Radiology; Name: ; Notified At: ; Arrived At: Physician: Respiratory; Name: ; Notified At: ; Arrived At: Physician: Lab; Name: ; Notified At: ; Arrived At: Historical: - Immunization history: Last tetanus immunization:. - Social history:: Smoking status: Patient denies any tobacco usage or history of. - Family history:: not pertinent. - Hospitalizations: : No recent hospitalization is reported. Screenin:09 Abuse screen: Denies threats or abuse. Denies injuries from another. Tuberculosis ic1 screening: No symptoms or risk factors identified. 10:11 Nutritional screening: No deficits noted. Fall Risk Fall in past 12 months (25 points). ic1 Gait- Normal/Bed Rest/Wheelchair (0 pts). Primary Survey: 09:06 NO uncontrolled hemorrhage observed. A: The patient is alert. Airway: patent. ic1 Breathing/Chest: Respiratory pattern: regular, Respiratory effort: spontaneous, Chest inspection: symmetrical rise and fall of the chest. Circulation: Pulses: palpable right radial artery and left radial artery. Skin color: pink. Disability Alert. Exposure/Environment: All clothing and personal items were removed. Forensic evidence collection is not deemed to be indicated at this time. Items placed in patient belonging bag. There is no evidence of uncontrolled external bleeding. Obvious injury(ies) are noted at this time: Pt has bruising noted to R side anterior chest/shoulder, Mid back area bruising, and L knee noted. Secondary Survey: 09:08 HEENT: No deficits noted. Gastrointestinal: No deficits noted. : No deficits noted. ic1 Musculoskeletal: No deficits noted. Injury Description: Abrasion sustained to left leg. Assessment: 08:55 General: Appears in no apparent distress. Behavior is calm. Pain: Complains of pain in phelan back and chest. 09:44 Reassessment: Patient appears in no apparent distress at this time. No changes from ic1 previously documented assessment. xray at pt's bedside. Pt tolerating. Denies further needs at this time. 10:15 Reassessment: Patient appears in no apparent distress at this time. No changes from ic1 previously documented assessment. Patient denies pain at this time. Vital Signs: 08:58 BP 189 / 92; Pulse 60; Resp 20; Temp 97.6; Pulse Ox 98% on 3 lpm NC; Weight 108.86 kg; phelan Height 5 ft. 8 in. (172.72 cm); 10:11 BP 168 / 79; Pulse 61; Resp 18; Pulse Ox 98% on NC; ic1 08:58 Body Mass Index 36.49 (108.86 kg, 172.72 cm) phelan Darby Coma Score: 09:09 Eye Response: spontaneous(4). Verbal Response: oriented(5). Motor Response: obeys ic1 commands(6). Total: 15. Trauma Score (Adult): 09:09 Eye Response: spontaneous(1); Verbal Response: oriented(1); Motor Response: obeys ic1 commands(2); Systolic BP: > 89 mm Hg(4); Respiratory Rate: 10 to 29 per min(4); Sal Score: 15; Trauma Score: 12 ED Course: 08:50 Patient arrived in ED. as 08:58 Triage completed. phelan 09:01 Yariel Fishman MD is Attending Physician. rn 09:06 Sabrina Maynard, MANOLO is Primary Nurse. ic1 09:09 Patient has correct armband on for positive identification. Bed in low position. Call ic1 light in reach. Side rails up X2. 09:09 Oxygen administration via nasal cannula \T\ 2L/min. ic1 09:19 Inserted saline lock: 20 gauge in right antecubital area, using aseptic technique. jl7 ,using aseptic technique. Inserted by , [facility] Blood collected. 09:34 CT Chest, Abdomen, Pelvis - W/Contrast In Process Unspecified. EDMS 09:48 XRAY Knee LEFT 2 view In Process Unspecified. EDMS 09:48 XRAY Knee RIGHT 2 view In Process Unspecified. EDMS 10:28 IV discontinued, intact, bleeding controlled, No redness/swelling at site. Pressure ic1 dressing applied. Administered Medications: No medications were administered Outcome: 10:21 Discharge ordered by . rn 10:22 Discharged to home ambulatory, with family, using cane ic1 10:22 Condition: stable 10:22 Discharge instructions given to patient, Instructed on discharge instructions, follow up and referral plans. Demonstrated understanding of instructions, follow-up care. 10:31 Patient left the ED. ic1 Signatures: Dispatcher [employer] EDMS Ramona Ramos Roman, MD MD rn Leal, Jahala, RN RN jl7 Au-StagerVonda RN RN ha Creggett, Iesha, RN RN ic1 Corrections: (The following items were deleted from the chart) 08:59 08:55 Acuity: ATIF 4 phelan phelan 09:00 08:59 PMHx: COPD; phealn phelan 09: 08:59 PMHx: CVA; phelan phelan 09:00 08:59 PMHx: Hypertension; phelan phelan 09:00 08:59 PMHx: Diabetes - NIDDM; phelan phelan 09:00 08:59 PMHx: Sleep Apnea; phelan phelan 09:00 08:59 PMHx: constipation; phelan phelan 09:00 08:59 PMHx: Depression; phelan phelan : 08:59 PMHx: Cancer; phelan phelan 08:59 PMHx: Cellulitis; phelan phelan 08:59 PMHx: Lymphadema; phelan phelan 08:59 PMHx: trigeminal neuralgia; phelan phelan 08:59 PMHx: neck pain; phelan phelan 08:59 PMHx: Anxiety; phelan phelan 08:59 PMHx: Hyperlipidemia; phelan phelan 08:59 PMHx: prostate probelm; phelan phelan
[2021-04-03 12:38] VITALS: TEMP 97.6; O2SAT 98
[2021-04-03 12:40] VITALS: BP 168/79
== END 2021-04-03 10:31 | disposition home or self-care (01) ==
LOC: ER 08:47
DX: S30.0XXA Contusion of lower back and pelvis, initial encounter (principal); S20.212A Contusion of left front wall of thorax, initial encounter; S80.02XA Contusion of left knee, initial encounter; S80.01XA Contusion of right knee, initial encounter; W18.30XA Fall on same level, unspecified, initial encounter; Y93.01 Activity, walking, marching and hiking
CPT/HCPCS: 82565; 71260; 74177; 73560 ×2; Q9967; 99284

== ENCOUNTER 2021-10-03 12:39 | Emergency (ER) | payer OTHER ==
--- NOTE | 2021-10-03 14:26 | RAD REPORT ---
EXAM DESCRIPTION: Shoulder Right 2 View - 10/03/2021 1:45 pm CLINICAL HISTORY: reported fx COMPARISON: Shoulder Right 2 View dated 02/14/2017 TECHNIQUE: Internal and external rotation views of the right shoulder were obtained. FINDINGS: There is no fracture or dislocation. No AC separation or significant AC joint degenerativ e change. The acromial humeral joint space is narrowed. This is not new but is progressive from 2017. No abnormal soft tissue calcifications. No pathologic bone process. Ribs and parenchyma of the upper right chest show no acute findings. There is an old posterior right third rib fracture. IMPRESSION: Degenerative change at the shoulder joint as detailed. This is minimally progressive. No fracture or acute finding seen.
--- NOTE | 2021-10-03 16:03 | RAD REPORT ---
EXAM DESCRIPTION: RAD - Humerus Right - 10/03/2021 3:42 pm CLINICAL HISTORY: PAIN COMPARISON: Humerus Right dated 02/14/2017; Shoulder Right 2 View dated 10/03/2021 FINDINGS: No acute fracture changes are present. No periosteal reaction or suspicious right humerus finding. Shoulder joint degenerative changes are present in the separate right shoulder report. No barrera spicious soft tissue finding. IMPRESSION: No acute right humerus finding. Shoulder joint degenerative changes are present and deta iled in separate report.
--- NOTE | 2021-10-03 16:12 | ER ---
Nurse's Notes [facility] Name: Honorio Toussaint Age: 76 yrs Sex: Male : 1945 Arrival Date: 10/03/2021 Time: 12:50 Bed 9 Private MD: Diagnosis: Pain in right shoulder Presentation: 10/03 13:09 Chief complaint: Patient states: he was sleeping in an office chair a few days ago, ap3 when he fell out and injured his right shoulder. patient went to the [facility] this morning for continued pain, where he was informed via imaging that he fx his right shoulder and needed to come to the ED for orthopedic follow up. Coronavirus screen: At this time, the client does not indicate any symptoms associated with coronavirus-19. Ebola Screen: No symptoms or risks identified at this time. Initial Sepsis Screen: Does the patient meet any 2 criteria? No. Patient's initial sepsis screen is negative. Does the patient have a suspected source of infection? No. Patient's initial sepsis screen is negative. Risk Assessment: Do you want to hurt yourself or someone else? Patient reports no desire to harm self or others. Onset of symptoms was October 01, 2021. 13:09 Method Of Arrival: Ambulatory ap3 13:09 Acuity: ATIF 4 ap3 Triage Assessment: 13:12 General: Appears uncomfortable, Behavior is calm, cooperative. Pain: Complains of pain ap3 in anterior aspect of right shoulder and posterior aspect of right shoulder Pain currently is 8 out of 10 on a pain scale. at worst was 10 out of 10 on a pain scale. Neuro: Level of Consciousness is awake, alert, obeys commands, Oriented to person, place, time, situation. Cardiovascular: Patient's skin is warm and dry. Respiratory: Airway is patent Respiratory effort is even, unlabored. Musculoskeletal: Range of motion: intact in all extremities. Historical: - Allergies: 13:11 PENICILLINS; ap3 13:11 Codeine; ap3 - PMHx: 13:11 Diabetes mellitus; Hypertensive disorder; Hypercholesterolemia; ap3 - PSHx: 13:11 pacemaker/defib; ap3 - Immunization history:: Client reports receiving the 2nd dose of the Covid vaccine. - Social history:: Smoking status: Patient denies any tobacco usage or history of. Screenin:13 Abuse screen: Denies threats or abuse. Nutritional screening: No deficits noted. ap3 Tuberculosis screening: No symptoms or risk factors identified. 16:46 Fall Risk None identified. jl7 Vital Signs: 13:09 BP 158 / 80; Pulse 82; Resp 18; Temp 98.1; Pulse Ox 98% ; Weight 104.33 kg; Height 5 ap3 ft. 8 in. (172.72 cm); Pain 8/10; 13:09 Body Mass Index 34.97 (104.33 kg, 172.72 cm) ap3 ED Course: 12:50 Patient arrived in ED. rg4 13:11 Triage completed. ap3 13:13 Arm band placed on left wrist. ap3 13:47 XRAY Shoulder RIGHT 2 view In Process Unspecified. EDMS 14:41 Vannesa Ace FNP-C is PHCP. kb 14:41 Ag Patricio MD is Attending Physician. kb 15:44 Humerus Right XRAY In Process Unspecified. EDMS 15:50 Kal Madsen, RN is Primary Nurse. jl7 16:46 Patient has correct armband on for positive identification. jl7 16:46 No provider procedures requiring assistance completed. Patient did not have IV access jl7 during this emergency room visit. Sling \T\ swathe to right arm. Administered Medications: No medications were administered Medication: 16:46 VIS not applicable for this client. jl7 Outcome: 16:12 Discharge ordered by . kb 16:46 Discharged to home ambulatory. jl7 16:46 Condition: stable 16:46 Discharge instructions given to patient, Instructed on discharge instructions, follow up and referral plans. Demonstrated understanding of instructions, follow-up care. 16:46 Patient left the ED. jl7 Signatures: Dispatcher [employer] EDMS Vannesa Ace FNP-C FNP-Ckb Garcia, Rubi rg4 Kal Madsen, RN RN jl7 Grace Henriquez RN RN ap3
--- NOTE | 2021-10-03 16:12 | EDPHYS ---
Physician Documentation [facility] Name: Honorio Toussaint Age: 76 yrs Sex: Male : 1945 Arrival Date: 10/03/2021 Time: 12:50 Bed 9 Private MD: RASHID Physician Ag Patricio HPI: 10/03 16:38 This 76 yrs old Male presents to ER via Ambulatory with complaints of Shoulder Pain. kb 16:38 The patient or guardian complains of pain, tenderness. right shoulder. Context: The kb problem was sustained at home, resulted from a fall, The patient reports no decreased range of motion. The patient reports no obvious deformity. Onset: The symptoms/episode began/occurred 3 day(s) ago. Modifying factors: the symptoms are alleviated by nothing. The symptoms are aggravated by movement. Associated signs and symptoms: The patient has no apparent associated signs or symptoms. Severity of symptoms: At their worst the symptoms were moderate, in the emergency department the symptoms are unchanged. Treatment prior to arrival includes: no previous treatment. The patient has not experienced similar symptoms in the past. The patient has been recently seen by a physician:. Reports he fell a couple of days ago now complaining of right shoulder pain. [facility] and told to come to the ER for orthopedic follow-up.. Historical: - Allergies: 13:11 PENICILLINS; ap3 13:11 Codeine; ap3 - PMHx: 13:11 Diabetes mellitus; Hypertensive disorder; Hypercholesterolemia; ap3 - PSHx: 13:11 pacemaker/defib; ap3 - Immunization history:: Client reports receiving the 2nd dose of the Covid vaccine. - Social history:: Smoking status: Patient denies any tobacco usage or history of. ROS: 16:37 Constitutional: Negative for fever, chills, and weight loss. kb 16:37 MS/extremity: Positive for pain, of the posterior aspect of right shoulder and right upper arm. 16:37 All other systems are negative. Exam: 16:37 Constitutional: This is a well developed, well nourished patient who is awake, alert, kb and in no acute distress. Head/Face: Normocephalic, atraumatic. ENT: Moist Mucous membranes Respiratory: Respirations even and unlabored. No increased work of breathing. Talking in full sentences Skin: Warm, dry with normal turgor. Normal color. Neuro: Awake and alert, GCS 15, oriented to person, place, time, and situation. Moves all extremities. Normal gait. Psych: Awake, alert, with orientation to person, place and time. Behavior, mood, and affect are within normal limits. 16:37 Musculoskeletal/extremity: Extremities: grossly normal except: noted in the right upper arm and posterior aspect of right shoulder and anterior aspect of right shoulder: pain, tenderness, ROM: intact in all extremities, Circulation is intact in all extremities. Sensation intact. Vital Signs: 13:09 BP 158 / 80; Pulse 82; Resp 18; Temp 98.1; Pulse Ox 98% ; Weight 104.33 kg; Height 5 ap3 ft. 8 in. (172.72 cm); Pain 8/10; 13:09 Body Mass Index 34.97 (104.33 kg, 172.72 cm) ap3 MDM: 14:41 Patient medically screened. kb 16:08 Data reviewed: vital signs, nurses notes. Data interpreted: Pulse oximetry: on room air kb is 98 %. Interpretation: normal. Counseling: I had a detailed discussion with the patient and/or guardian regarding: the historical points, exam findings, and any diagnostic results supporting the discharge/admit diagnosis, radiology results, the need for outpatient follow up, a orthopedic surgeon, to return to the emergency department if symptoms worsen or persist or if there are any questions or concerns that arise at home. 10/03 13:14 Order name: XRAY Shoulder RIGHT 2 view; Complete Time: 14:41 ap3 10/03 14:57 Order name: Humerus Right XRAY; Complete Time: 16:08 kb 10/03 16:11 Order name: Sling; Complete Time: 16:45 kb Administered Medications: No medications were administered Disposition Summary: 10/03/21 16:12 Discharge Ordered Location: Home kb Condition: Stable kb Diagnosis - Pain in right shoulder kb Followup: kb - With: Emergency Department - When: As needed - Reason: Worsening of condition Followup: kb - With: Private Physician - When: 2 - 3 days - Reason: Recheck today's complaints, Continuance of care, Re-evaluation by your physician Discharge Instructions: - Discharge Summary Sheet kb - Musculoskeletal Pain kb - Shoulder Pain, [id number] kb Forms: - Medication Reconciliation Form kb - Thank You Letter kb - Antibiotic Education kb - Prescription Opioid Use kb Signatures: Dispatcher [employer] Vannesa Spear, BIBLE TEACHER-C ROSALINDA-Grace Calloway, RN RN ap3
[2021-10-03 18:08] VITALS: BP 158/80; TEMP 98.1; O2SAT 98
== END 2021-10-03 16:46 | disposition home or self-care (01) ==
LOC: ER 12:39
DX: M25.511 Pain in right shoulder (principal); E11.9 Type 2 diabetes mellitus without complications; I10 Essential (primary) hypertension; Z88.0 Allergy status to penicillin; Z88.5 Allergy status to narcotic agent
CPT/HCPCS: 99283

== ENCOUNTER 2021-12-24 16:03 | Emergency (ER) | payer OTHER ==
[2021-12-24] MEDS ORDERED: FENTANYL CITR 100 MCG/2 ML ONE (16:32)
[2021-12-24 16:44] LABS: Absolute Lymphocytes (CBC) 1.5 K/uL (0.7-4.9); Hematocrit 42.4 % (39.6-49.0); MCV 91.7 fL (80-100); MPV 8.8 fL (7.6-11.3); Protime INR 1.15; RBC Red Blood Cell Count 4.62 M/uL (4.33-5.43)
[2021-12-24 17:00] LABS: Albumin 3.8 g/dL (3.4-5.0); Bilirubin Direct 0.2 mg/dL (0-0.2); Bilirubin Total 0.4 mg/dL (0.2-1.0); Potassium 4.3 mmol/L (3.5-5.1); Protein, Total 7.9 g/dL (6.4-8.2); Troponin High Sensitivity 10.1 pg/mL (<58.9)
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
--- NOTE | 2021-12-24 17:45 | RAD REPORT ---
EXAM DESCRIPTION: Lety Single View12/24/2021 4:42 pm CLINICAL HISTORY: Chest pain COMPARISON: 2019 FINDINGS: Right upper lobe opacity without significant change Lungs appear clear of acute infiltrate. The heart is normal size Pacemaker leads in place IMPRESSION: No acute abnormalities displayed
--- NOTE | 2021-12-24 19:09 | RAD REPORT ---
EXAM DESCRIPTION: RAD - Knee Right 3 View - 12/24/2021 7:00 pm CLINICAL HISTORY: Right knee pain status post injury FINDINGS: No fracture or dislocation is seen. Small joint effusion. Moderate osteoarthritis
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
[2021-12-24 20:10] VITALS: TEMP 98.3
[2021-12-24 20:26] VITALS: O2SAT 100
[2021-12-24 20:27] VITALS: BP 142/78
--- NOTE | 2021-12-26 16:11 | EKG ---
Test Date: 2021-12-24 Test Time: 16:51:57 Notereader: MEASUREMENT RESULTS: Intervals: Rate: 76 HI: 198 QRSD: 84 QT: 380 QTc: 427 Allison: P: 51 HI: 198 QRS: 54 T: 48 INTERPRETIVE STATEMENTS: Normal sinus rhythm Normal ECG Compared to ECG 01/25/2021 14:28:57 Ventricular premature complex(es) no longer present Electronically Signed On 12-26-21 16:09:04 CDT by Jose Aguirre
== END 2021-12-24 19:38 | disposition home or self-care (01) ==
LOC: ER 16:03
DX: M54.2 Cervicalgia (principal); R07.9 Chest pain, unspecified; M25.561 Pain in right knee; R10.9 Unspecified abdominal pain; V53.5XXA Driver of pick-up truck or van injured in collision with car, pick-up truck or van in traffic accident, initial encounter; Y93.89 Activity, other specified; Y92.410 Unspecified street and highway as the place of occurrence of the external cause; Z88.0 Allergy status to penicillin; Z88.6 Allergy status to analgesic agent; I10 Essential (primary) hypertension; E11.9 Type 2 diabetes mellitus without complications; E78.00 Pure hypercholesterolemia, unspecified
CPT/HCPCS: 93005; 85025; 80048; 36415; 85610; 82565; 80076; 84484; 70450; 72125; 71260; 74177; 71045; 73562; 96374; 99285; Q9967; J3010

== ENCOUNTER 2022-06-23 06:28 | Inpatient (IN) | payer OTHER ==
[2022-06-23] MEDS ORDERED: LEVALBUTEROL 1.25 MG/3 ML NEB ONE ×2 (07:00→09:03)
[2022-06-23] MEDS ORDERED: METHYLPREDNISOLONE 125 MG INJ ONE ×2 (07:00→07:46)
--- NOTE | 2022-06-23 07:22 | RAD REPORT ---
EXAM DESCRIPTION: RAD - Chest Single View - 06/23/2022 6:50 am CLINICAL HISTORY: DYSPNEA Chest pain. COMPARISON: Chest Single View dated 12/24/2021; Chest Single View dated 02/26/2020; Chest Single Vie w dated 02/23/2020; Chest Single View dated 12/30/2017 FINDINGS: Portable technique limits examination quality. The lungs are grossly clear. The heart is normal in size. No displaced fractures.Dual lead pacer/ def ibrillator device noted. IMPRESSION: No acute intrathoracic process suspected.
[2022-06-23 07:24] LABS: Arterial Blood Carboxyhemoglob 0.9 % (0-1.5); Blood Gas Oxyhemoglobin 93.4 % (94-97); Blood O2 Saturation 95.6 % (92-98.5)
--- NOTE | 2022-06-23 07:24 | RAD REPORT ---
EXAM DESCRIPTION: US - Extremity Venous Uni Ltd - 06/23/2022 7:16 am CLINICAL HISTORY: SWELLING Leg swelling and edema. COMPARISON: <Comparisons> FINDINGS: Right lower extremity venous system was interrogated with Doppler technique. Normal flow, compressibility and augmentation was noted. There is no DVT present. IMPRESSION: No evidence of right lower extremity deep venous thrombosis.
[2022-06-23] MEDS ORDERED: NA CHLORIDE 0.9% 500 ML ONE (07:46)
[2022-06-23 07:49] LABS: Absolute Lymphocytes (CBC) 0.6 K/uL (0.7-4.9); Hematocrit 42.5 % (39.6-49.0); Lymphocytes % 2.8 % (15.3-44.8); MCV 88.7 fL (80-100); MPV 9.1 fL (7.6-11.3); RBC Red Blood Cell Count 4.79 M/uL (4.33-5.43)
--- NOTE | 2022-06-23 07:50 | ER ---
Nurse's Notes [facility] Name: Honorio Toussaint Age: 77 yrs Sex: Male : 1945 Arrival Date: 06/23/2022 Time: 06:28 Bed 3 Private MD: Diagnosis: Dyspnea;Hypoxemia;COPD/ Chronic obstructive pulmonary disease with (acute) exacerbation;Elevated white blood cell count Presentation: 06/23 06:46 Chief complaint: EMS states: Pt was found by family to be confused O2 sats at home were ea2 82% pt was placed on 2L per family, family reports pt was confused and called EMS,A\T\A initiated per EMS. Coronavirus screen: Client presents with at least one sign or symptom that may indicate coronavirus-19. Ebola Screen: No symptoms or risks identified at this time. Initial Sepsis Screen: Does the patient meet any 2 criteria? Yes Does the patient have a suspected source of infection? Yes:. Risk Assessment: Do you want to hurt yourself or someone else? Patient reports no desire to harm self or others. Onset of symptoms was June 23, 2022. 06:46 Method Of Arrival: EMS: [facility] ea2 06:46 Acuity: ATIF 2 ea2 Historical: - Allergies: 06:51 Codeine; ea2 06:51 PENICILLINS; ea2 19:11 Vancomycin; kl - PMHx: 06:51 COPD; diabetes mellitus; Hypercholesterolemia; Hypertensive disorder; ea2 - PSHx: 06:51 Pacemaker/Defib; ea2 - Immunization history:: Adult Immunizations unknown. - Family history:: not pertinent. - Social history:: Smoking status: unknown. - Hospitalizations: : No recent hospitalization is reported. Screenin:51 Abuse screen: Denies threats or abuse. Nutritional screening: No deficits noted. ea2 Tuberculosis screening: No symptoms or risk factors identified. 12:33 [facility] ED Fall Risk Assessment (Adult) Confusion or Disorientation Yes (5 pts) ll1 Impaired Gait Yes (1 pt) Mobility Assist Device Used Yes (1 pt) Score/Fall Risk Level 3 or more points = High Risk Oriented to surroundings, Maintained a safe environment, Educated pt \T\ family on fall prevention, incl call for assistance when getting out of bed, Hourly rounding (assess needs \T\ fall precautionary measures) done, Used ambulatory aids as needed (educated on \T\ assisted with), Offered frequent toileting (1:1 observation). Assessment: 07:01 General: Appears uncomfortable, Behavior is cooperative. Pain: Denies pain. Neuro: ea2 Level of Consciousness is awake, alert, obeys commands, Oriented to person, place. Respiratory: Airway is patent Respiratory effort is labored, Respiratory pattern is tachypnea. Derm: Skin is clammy, Skin is pale, Skin temperature is warm. 08:00 Reassessment: No changes from previously documented assessment. Patient and/or family ll1 updated on plan of care and expected duration. Pain level reassessed. Patient is alert, oriented x 3, equal unlabored respirations, skin warm/dry/pink. 09:00 Reassessment: No changes from previously documented assessment. Patient and/or family ll1 updated on plan of care and expected duration. Pain level reassessed. Patient is alert, oriented x 3, equal unlabored respirations, skin warm/dry/pink. 10:00 Reassessment: No changes from previously documented assessment. ll1 11:00 Reassessment: No changes from previously documented assessment. Patient and/or family ll1 updated on plan of care and expected duration. Pain level reassessed. 11:50 Reassessment: No changes from previously documented assessment. Patient and/or family ll1 updated on plan of care and expected duration. Pain level reassessed. lab vee another blood culture. 12:30 Reassessment: No changes from previously documented assessment. Patient and/or family ll1 updated on plan of care and expected duration. Pain level reassessed. 13:00 Reassessment: No changes from previously documented assessment. ll1 14:00 Reassessment: No changes from previously documented assessment. Patient and/or family ll1 updated on plan of care and expected duration. Pain level reassessed. 15:00 Reassessment: No changes from previously documented assessment. Charge Nurse notified ll1 waiting on admission orders still. 16:00 Reassessment: No changes from previously documented assessment. Patient and/or family ll1 updated on plan of care and expected duration. Pain level reassessed. 17:00 Reassessment: No changes from previously documented assessment. Patient and/or family ll1 updated on plan of care and expected duration. Pain level reassessed. See [email or web address] for further documentation. Vital Signs: 06:46 BP 86 / 60; Pulse 101; Resp 26; Temp 97.8; Pulse Ox 96% ; Weight 104.33 kg; Height 5 ea2 ft. 8 in. ; 07:00 BP 94 / 54; Pulse 98; as6 09:45 BP 121 / 64; Pulse 85; Resp 22; Pulse Ox 95% on 2 lpm NC; ll1 11:00 BP 113 / 72; Pulse 77; Resp 22; Pulse Ox 94% on 2 lpm NC; ll1 12:31 BP 131 / 71; Pulse 82; Resp 22; Pulse Ox 96% on Nebulizer Mask; ll1 13:46 BP 147 / 72; Pulse 68; Resp 23; Pulse Ox 94% ; as6 14:30 BP 146 / 73; Pulse 96; Resp 22; Pulse Ox 96% ; as6 15:30 BP 151 / 80; Pulse 99; Resp 23; Pulse Ox 95% ; as6 16:30 BP 123 / 85; Pulse 93; Resp 22; Pulse Ox 93% ; as6 17:30 BP 148 / 67; Pulse 95; Resp 22; Pulse Ox 95% on NC; as6 18:57 BP 147 / 85; Pulse 87; Resp 18; Pulse Ox 97% on 2.5 lpm NC; ll1 20:47 BP 130 / 86; Pulse 78; Resp 24; Temp 98.7; Pulse Ox 98% on 2 lpm NC; Pain 0/10; kl 06:46 Body Mass Index 34.97 (104.33 kg, 172.72 cm) ea2 20:47 Pain Scale: Adult kl ED Course: 06:33 Patient arrived in ED. rn 06:33 Yariel Fishman MD is Attending Physician. rn 06:51 Triage completed. ea2 06:51 Arm band placed on right wrist. Patient placed in an exam room, on a stretcher, on ea2 oxygen, on pulse oximetry. EKG completed in triage. Results shown to MD. 06:51 Patient has correct armband on for positive identification. Bed in low position. Call ea2 light in reach. Side rails up X2. 06:52 Chest Single View XRAY In Process Unspecified. EDMS 06:59 Missed attempt(s): 22 gauge in left forearm. kl 07:06 Mariza Yoon RN is Primary Nurse. ko1 07:16 Attending Physician role handed off by Yariel Fishman MD yvon 07:16 Ag Patricio MD is Attending Physician. yvon 07:18 Extremity Venous Uni Ltd US In Process Unspecified. EDMS 07:49 Arnol Ch MD is Hospitalizing Provider. yvon 07:49 Ptt, Activated Sent. mm9 07:49 Protime (+inr) Sent. mm9 07:49 Lactate w/ 2H reflex if indic. Sent. mm9 07:49 CMP Sent. mm9 07:49 CBC with Diff Sent. mm9 08:00 Inserted saline lock: 20 gauge in right antecubital area, using aseptic technique. ss ,using aseptic technique. US guided. 08:10 Tariq Coleman MD is Hospitalizing Provider. yvon 08:10 Initial lab(s) drawn, by ED staff, sent to lab. COVID swab sent to lab. Flu and/or RSV mm9 swab sent to lab. 08:35 First set of blood cultures drawn by me. ll1 08:50 Second set of blood cultures drawn yellow blood culture bottle sent. ll1 09:00 intact, bleeding controlled, Pressure dressing applied, site infiltrated. ll1 09:40 Inserted saline lock: 18 gauge in right EJ, using aseptic technique. ,using aseptic ll1 technique. by Dr. Patricio. 10:50 Reno Martinez, RN is Primary Nurse. ll1 12:33 No provider procedures requiring assistance completed. ll1 13:45 Urinalysis w/ reflexes Sent. mm9 13:45 Urine collected: clean catch specimen, cloudy. mm9 15:14 Missed attempt(s): 22 gauge in left in right forearm. Bleeding controlled, band aid ll1 applied, catheter tip intact. 17:06 Inserted saline lock: 22 gauge in right hand, using aseptic technique. ss Administered Medications: 07:01 Drug: Levalbuterol Inhalation 1.25 mg Route: Inhalation; ea2 07:37 Follow up: Response: No adverse reaction ll1 07:47 Drug: MethylPrednisoLONE IVP 125 mg Route: IVP; Site: left antecubital; ll1 08:53 Follow up: Response: No adverse reaction ll1 07:47 Drug: NS 0.9% IV 500 ml Route: IV; Rate: bolus; Site: left antecubital; ll1 08:53 Follow up: IV Status: Completed infusion; IV Intake: 500ml ll1 09:00 Drug: Meropenem IV 1 grams Route: IV; Rate: per protocol; Site: right jugular; ll1 10:12 Follow up: Response: No adverse reaction; IV Status: Completed infusion; IV Intake: ll1 100ml 09:46 Not Given (Patient Refused): Levalbuterol Inhalation 1.25 mg Inhalation once ll1 09:46 Not Given (Hemodynamic Parameters): NS 0.9% IV 1000 ml IV at 1 bolus Per protocol; 1000 ll1 mL bolus 10:13 Drug: Zithromax IVPB 500 mg Route: IVPB; Infused Over: 1 hrs; Site: right jugular; ll1 11:49 Follow up: Response: No adverse reaction; IV Status: Completed infusion; IV Intake: ll1 250ml 11:49 Drug: NS 0.9% IV 1000 ml Route: IV; Rate: 125 ml/hr; Site: right jugular; ll1 18:49 Follow up: Response: No adverse reaction; IV Status: Infusion continued upon admission; ll1 IV Intake: 500ml 12:31 Drug: Levalbuterol Inhalation 1.25 mg Route: Inhalation; ll1 18:49 Follow up: Response: No adverse reaction ll1 18:49 Not Given (see [facility]): vancoMYCIN IVPB 1 grams IVPB once over 2 hrs ll1 19:30 Drug: Famotidine IVP 20 mg Route: IVP; Site: right hand; kl 19:37 Drug: diphenhydrAMINE IVP 25 mg Route: IVP; Site: right hand; kl Medication: 12:33 VIS not applicable for this client. ll1 Intake: 08:53 IV: 500ml; Total: 500ml. ll1 10:12 IV: 100ml; Total: 600ml. ll1 11:49 IV: 250ml; Total: 850ml. ll1 18:49 IV: 500ml; Total: 1350ml. ll1 Outcome: 07:49 Decision to Hospitalize by Provider. yvon 18:41 Admitted to ER Hold. Please see [facility] for further documentation. ll1 18:41 Condition: stable 18:41 Instructed on the need for admit. 20:48 Admitted to Med/surg via stretcher, room 410. 20:48 Condition: improved 21:33 Patient left the ED. as6 Signatures: Dispatcher [facility] EDMS Juan, Terese, RN RN Ag Viveros MD MD cha Nieto, Roman, MD MD rn Smirch, Dai, RN RN ss Reno Martinez, RN RN ll1 Jeff Allred, RN RN as6 Mariza Yoon, RN RN [email or web address] Andria Ramos mm9 Bre Carson RN RN ea2
--- NOTE | 2022-06-23 07:50 | EDPHYS ---
Physician Documentation [facility] Name: Honorio Toussaint Age: 77 yrs Sex: Male : 1945 Arrival Date: 06/23/2022 Time: 06:28 Bed 3 Private MD: ED Physician Ag Patricio HPI: 06/23 06:44 This 77 yrs old Male presents to ER via Unassigned with complaints of sob. rn 06:44 The patient has shortness of breath at rest, with light activity. Onset: The rn symptoms/episode began/occurred 4 day(s) ago. Duration: The symptoms are continuous. The patient's shortness of breath is aggravated by coughing, exertion, light activity, talking, is alleviated by rest, sitting up, application of supplemental oxygen. Associated signs and symptoms: Pertinent positives: non-productive cough, Pertinent negatives: chest pain, fever, hemoptysis. Severity of symptoms: At their worst the symptoms were moderate in the emergency department the symptoms are unchanged. The patient has experienced similar episodes in the past. The patient has not recently seen a physician. Historical: - Allergies: 06:51 Codeine; ea2 06:51 PENICILLINS; ea2 19:11 Vancomycin; kl - PMHx: 06:51 COPD; diabetes mellitus; Hypercholesterolemia; Hypertensive disorder; ea2 - PSHx: 06:51 Pacemaker/Defib; ea2 - Immunization history:: Adult Immunizations unknown. - Family history:: not pertinent. - Social history:: Smoking status: unknown. - Hospitalizations: : No recent hospitalization is reported. ROS: 06:44 Constitutional: Negative for fever, chills, and weight loss, Cardiovascular: Negative rn for chest pain, palpitations Respiratory: + sob and cough Abdomen/GI: Negative for abdominal pain, nausea, vomiting, diarrhea, and constipation, MS/Extremity: Negative for injury and deformity, Skin: Negative for injury, rash, and discoloration, Neuro: + generalized weakness Exam: 06:44 Constitutional: Disheveled patient with mild to moderate tachypnea Head/Face: rn Normocephalic, atraumatic. ENT: no stridor, dry MM Cardiovascular: Tachycardic, irregular Respiratory: Moderate tachypnea with faint wheezing Abdomen/GI: Soft, non-tender Skin: Warm, dry MS/ Extremity: Pulses equal, no cyanosis. RLE > circumference than LLE Neuro: Awake and alert, GCS 15 Vital Signs: 06:46 BP 86 / 60; Pulse 101; Resp 26; Temp 97.8; Pulse Ox 96% ; Weight 104.33 kg; Height 5 ea2 ft. 8 in. ; 07:00 BP 94 / 54; Pulse 98; as6 09:45 BP 121 / 64; Pulse 85; Resp 22; Pulse Ox 95% on 2 lpm NC; ll1 11:00 BP 113 / 72; Pulse 77; Resp 22; Pulse Ox 94% on 2 lpm NC; ll1 12:31 BP 131 / 71; Pulse 82; Resp 22; Pulse Ox 96% on Nebulizer Mask; ll1 13:46 BP 147 / 72; Pulse 68; Resp 23; Pulse Ox 94% ; as6 14:30 BP 146 / 73; Pulse 96; Resp 22; Pulse Ox 96% ; as6 15:30 BP 151 / 80; Pulse 99; Resp 23; Pulse Ox 95% ; as6 16:30 BP 123 / 85; Pulse 93; Resp 22; Pulse Ox 93% ; as6 17:30 BP 148 / 67; Pulse 95; Resp 22; Pulse Ox 95% on NC; as6 18:57 BP 147 / 85; Pulse 87; Resp 18; Pulse Ox 97% on 2.5 lpm NC; ll1 20:47 BP 130 / 86; Pulse 78; Resp 24; Temp 98.7; Pulse Ox 98% on 2 lpm NC; Pain 0/10; kl 06:46 Body Mass Index 34.97 (104.33 kg, 172.72 cm) ea2 20:47 Pain Scale: Adult kl Procedures: 09:40 Peripheral line: by aseptic technique a peripheral line was placed in the right [facility] external jugular vein. MDM: 06:33 Patient medically screened. rn 07:19 Patient medically screened. [facility] 08:18 Differential diagnosis: Anemia asthma, Bronchitis Chronic Obstructive Pulmonary Disease yvon Myocardial Infarction pneumonia, pulmonary edema, reactive airway disease, Sepsis. Antibiotic administration: merrem. Immunization status: Pneumococcal vaccine: within last 5 years. Influenza vaccine: Data reviewed: vital signs, nurses notes, lab test result(s), EKG, radiologic studies, plain films. Consideration of Admission/Observation Patient was admitted/placed on observation. Escalation of care including admission/observation considered. Management of patient was discussed with the following: Hospitalist: dr enriquez and dr romero. Independent interpretation of the following test(s) in the Emergency Department EKG: See my EKG interpretation above. Test considered but Not performed: CT: no ct chest ro pe. Care significantly affected by the following chronic conditions: Diabetes, Hypertension, Chronic Obstructive Pulmonary Disease, Chronic Kidney Disease. Counseling: I had a detailed discussion with the patient and/or guardian regarding: the historical points, exam findings, and any diagnostic results supporting the discharge/admit diagnosis, lab results, radiology results, the need for further work-up and treatment in the hospital. 06/23 06:36 Order name: Blood Culture Adult (2) rn 06/23 06:36 Order name: CBC with Diff rn 06/23 06:36 Order name: CMP; Complete Time: 08:17 rn 06/23 06:36 Order name: Lactate w/ 2H reflex if indic.; Complete Time: 08:17 rn 06/23 06:36 Order name: Protime (+inr); Complete Time: 08:17 rn 06/23 06:36 Order name: Ptt, Activated; Complete Time: 08:17 rn 06/23 06:36 Order name: Urinalysis w/ reflexes rn 06/23 06:36 Order name: BNP; Complete Time: 08:17 rn 06/23 06:36 Order name: COVID-19/FLU A+B; Complete Time: 08:17 rn 06/23 07:01 Order name: ABG rn 06/23 07:52 Order name: CBC Smear Scan EDID 06/23 08:12 Order name: Glucose, Ancillary Testing; Complete Time: 08:17 EDID 06/23 11:16 Order name: Lactate Sepsis 2 HR Follow-up EDID 06/23 17:05 Order name: CBC with Automated Diff EDMS 06/23 17:05 Order name: CBC with Automated Diff EDMS 06/23 17:05 Order name: Comprehensive Metabolic Panel EDID 06/23 17:05 Order name: Comprehensive Metabolic Panel EDID 06/23 17:09 Order name: Thyroid Stimulating Hormone EDID 06/23 19:59 Order name: Gram Stain--Aerobic Bottle EDMS 06/23 19:59 Order name: Gram Stain--Anaerobic Bottle EDMS 06/23 20:00 Order name: Gram Stain--Aerobic Bottle EDID 06/23 06:36 Order name: Chest Single View XRAY; Complete Time: 07:25 rn 06/23 06:48 Order name: Extremity Venous Uni Ltd US; Complete Time: 07:25 rn 06/23 06:36 Order name: EKG; Complete Time: 06:37 rn 06/23 17:05 Order name: 60g Consistent Carbohydrate (ADA 1800/1999) EDMS 06/23 06:36 Order name: Accucheck; Complete Time: 08:01 rn 06/23 06:36 Order name: Cardiac monitoring; Complete Time: 06:42 rn 06/23 06:36 Order name: EKG - Nurse/Tech; Complete Time: 06:42 rn 06/23 06:36 Order name: IV Saline Lock - Large Bore; Complete Time: 08:01 rn 06/23 06:36 Order name: Labs collected and sent; Complete Time: 08:01 rn 06/23 06:36 Order name: O2 Per Protocol; Complete Time: 06:52 rn 06/23 06:36 Order name: O2 Sat Monitoring; Complete Time: 06:52 rn 06/23 06:36 Order name: Vital Signs; Complete Time: 06:52 rn Administered Medications: 07:01 Drug: Levalbuterol Inhalation 1.25 mg Route: Inhalation; ea2 07:37 Follow up: Response: No adverse reaction ll1 07:47 Drug: MethylPrednisoLONE IVP 125 mg Route: IVP; Site: left antecubital; ll1 08:53 Follow up: Response: No adverse reaction ll1 07:47 Drug: NS 0.9% IV 500 ml Route: IV; Rate: bolus; Site: left antecubital; ll1 08:53 Follow up: IV Status: Completed infusion; IV Intake: 500ml ll1 09:00 Drug: Meropenem IV 1 grams Route: IV; Rate: per protocol; Site: right jugular; ll1 10:12 Follow up: Response: No adverse reaction; IV Status: Completed infusion; IV Intake: ll1 100ml 09:46 Not Given (Patient Refused): Levalbuterol Inhalation 1.25 mg Inhalation once ll1 09:46 Not Given (Hemodynamic Parameters): NS 0.9% IV 1000 ml IV at 1 bolus Per protocol; 1000 ll1 mL bolus 10:13 Drug: Zithromax IVPB 500 mg Route: IVPB; Infused Over: 1 hrs; Site: right jugular; ll1 11:49 Follow up: Response: No adverse reaction; IV Status: Completed infusion; IV Intake: ll1 250ml 11:49 Drug: NS 0.9% IV 1000 ml Route: IV; Rate: 125 ml/hr; Site: right jugular; ll1 18:49 Follow up: Response: No adverse reaction; IV Status: Infusion continued upon admission; ll1 IV Intake: 500ml 12:31 Drug: Levalbuterol Inhalation 1.25 mg Route: Inhalation; 1 18:49 Follow up: Response: No adverse reaction ll1 18:49 Not Given (see meditechh): vancoMYCIN IVPB 1 grams IVPB once over 2 hrs 1 19:30 Drug: Famotidine IVP 20 mg Route: IVP; Site: right hand; 19:37 Drug: diphenhydrAMINE IVP 25 mg Route: IVP; Site: right hand; Disposition Summary: 06/23/22 07:49 Hospitalization Ordered Hospitalization Status: Inpatient Admission yvon Location: Telemetry/[facility] (Inpatient) yvon Condition: Fair yvon Problem: new yvon Symptoms: have improved yvon Bed/Room Type: Standard yvon Provider: Tariq Coleman(06/23/22 08:10) yvon Room Assignment: 410(06/23/22 20:05) Diagnosis - Dyspnea yvon - Hypoxemia yvon - COPD/ Chronic obstructive pulmonary disease with (acute) exacerbation yvon - Elevated white blood cell count yvon Forms: - Medication Reconciliation Form yvon - SBAR form yvon Signatures: Dispatcher [employer] EDTerese Álvarez RN RN kl Anderson, Corey, MD MD cha Nieto, Roman, MD MD rn Attema, Lee, HTML WEB DEVELOPER-C HTML WEB DEVELOPER-Cla1 Thea Llamas RN RN Reno Martinez RN RN ll1 Bre Carson RN RN ea2 Corrections: (The following items were deleted from the chart) 06:46 06:44 Constitutional: Negative for fever, chills, and weight loss, Cardiovascular: rn Negative for chest pain, palpitations, and edema, Respiratory: + sob and cough Abdomen/GI: Negative for abdominal pain, nausea, vomiting, diarrhea, and constipation, MS/Extremity: Negative for injury and deformity, Skin: Negative for injury, rash, and discoloration, Neuro: + generalized weakness rn 08:10 07:49 Jing, Arnol yvon yvon 20:05 07:49 yvon cg
[2022-06-23 07:52] LABS: SARS-COV-2 RT PCR NEGATIVE (NEGATIVE)
[2022-06-23 07:55] LABS: Protime INR 1.24
[2022-06-23 08:10] LABS: Albumin 3.5 g/dL (3.4-5.0); Potassium 4.1 mEq/L (3.5-5.1); Protein, Total 7.4 g/dL (6.4-8.2)
[2022-06-23 08:29] LABS: Blood Morphology Comment NOT SEEN (NOT SEEN); Platelet Estimate ADEQ; White Blood Cell Scan OK (OK)
[2022-06-23] MEDS ORDERED: Meropenem 1000 MG/VIAL IV ONE (09:02)
[2022-06-23] MEDS ORDERED: NA CHLORIDE 0.9% 1,000 ML ONE (09:03)
[2022-06-23] MEDS ORDERED: NA CHLORIDE 0.9% 250 ML ONE (09:03)
[2022-06-23] MEDS ORDERED: NA CHLORIDE 0.9% 100 ML ONE (09:03)
[2022-06-23] MEDS ORDERED: AZITHROMYCIN 500 MG INJ IVPB ONE (09:03)
[2022-06-23 14:27] LABS: Specific Gravity 1.028 (1.005-1.030); Urine Bacteria None Seen /HPF (<20); Urine Bilirubin NEGATIVE (Negative); Urine Blood 1+ (Negative); Urine Clarity Clear (Clear); Urine Color Yellow (Yellow); Urine Glucose 4+ (Over) (Negative); Urine Mucus Slight /HPF (None Seen); Urine Protein TRACE (Negative); Urine RBC <5 /HPF (None Seen); Urine Urobilinogen Normal (Normal); Urine pH 5.5 (5.0-7.0)
[2022-06-23] MEDS: ARFORMOTEROL TARTRATE 15 MCG/2 ML VIAL.NEB NEB SCH ×2 (17:06→20:40)
--- NOTE | 2022-06-23 17:07 | P.HP ---
Patient History Date of Service: 06/23/22 Reason for admission: Shortness of breath hypoxemia altered mental status History of Present Illness: Patient is 77 years of age very poor historian admitted complaining of shortness of breath for the past 4 days he came in altered hypoxic is currently more stable off the oxygen blood pressure is stable but he is very short of breath is also very hard of hearing has had lower extremity edema cardiac history Allergies codeine [Codeine] Allergy (Unknown, Verified 02/24/20 05:23) Hives/Rash Penicillins Allergy (Unknown, Verified 02/24/20 05:23) Hives/Rash Home Medications: Atorvastatin Calcium [Lipitor*] 80 mg PO BEDTIME 07/20/15 Metformin HCl [Glucophage] 1,000 mg PO BID 07/20/15 buPROPion HCL [Wellbutrin*] 150 mg PO DAILY 07/20/15 allopurinoL [Zyloprim*] 100 mg PO BID 05/04/17 Tamsulosin [Flomax*] 1 cap PO BEDTIME 07/12/17 Apixaban [Eliquis] 5 mg PO BID 12/30/17 Budesonide/Formoterol Fumarate [Symbicort 160-4.5 Mcg Inhaler] 2 puff IH BID 12/30/17 Duloxetine HCl [Cymbalta] 60 mg PO DAILY 12/30/17 Cholecalciferol (Vitamin D3) [Vitamin D 1000 Iu Tab*] 1 tab PO DAILY 02/24/20 Gabapentin [Neurontin*] 400 mg PO BID 02/24/20 Isosorbide Mononitrate [Isosorbide Mononitrate ER] 60 mg PO DAILY 02/24/20 Lisinopril [Zestril] 2.5 mg PO DAILY 02/24/20 Vit B12/Levomefolate/Vit B6/B2 [l-Methyl-Mc Tablet] 1 tab PO DAILY 02/24/20 Albuterol Neb [Proventil 0.083% Neb Soln] 2.5 mg NEB [id number] PRN #120 amp 02/27/20 Benzonatate [Tessalon Perle*] 100 mg PO TID PRN #30 cap 02/27/20 Guaif/Dm [Robitussin Dm*] 5 ml PO Q6H PRN #30 ucup 02/27/20 Tiotropium [Spiriva Handihaler*] 1 puff IH DAILY #1 inh 02/27/20 Ciprofloxacin HCl 500 mg PO BID #4 tablet 01/26/21 metroNIDAZOLE [Flagyl] 500 mg PO Q8H #6 tablet 01/26/21 - Past Medical/Surgical History Diabetic: Yes -: DM-2, gout -: COPD -: LUNG CANCER -: Back Pain, back pain -: HTN,HLD -: AFib -: anxiety, depression -: cellulitis, lymphedema -: cva -: constipation -: prostate problems -: trigeminal neuralgia -: LUNG CANCER- RADIATION 2012 -: pacemaker/defibrillator 2007 - Family History Father -: Heart disease, Lung disease, Diabetes Brother -: Cancer Mother -: Heart disease, Diabetes, Stroke - Social History Alcohol use: No CD- Drugs: No Caffeine use: Yes Review of Systems 10-point ROS is otherwise unremarkable General: Weakness Respiratory: Shortness of Breath Physical Examination - Vital Signs Temperature: 97.8 F Blood Pressure: 86/60 Pulse: 101 Respirations: 26 Pulse Ox (%): 96 - Physical Exam General: Alert, Mild distress Neck: Supple Respiratory: Clear to auscultation bilaterally, Diminished, Expiratory wheezes Cardiovascular: Edema (Edema) Gastrointestinal: Normal bowel sounds, Soft and benign Musculoskeletal: No clubbing, Swelling Neurological: Normal speech, Cranial nerves 3-12 intact - Studies Laboratory Data (last 24 hrs) 06/23/22 07:35: PT 13.6 H, INR 1.24, APTT 26.5 06/23/22 07:35: Sodium 138, Potassium 4.1, BUN 25 H, Creatinine 1.82 H, Glucose 130 H, Total Bilirubin 1.0, AST 37, ALT 59, Alkaline Phosphatase 78 06/23/22 07:35: WBC 22.80 H, Hgb 13.5 L, Hct 42.5, Plt Count 221 Assessment and Plan - Problems (Diagnosis) (1) Congestive heart failure Current Visit: Yes Status: Acute Plan: Patient is 77 years of age very poor historian history of diabetes hypertension possible underlying COPD although he denies smoking admitted with worsening dyspnea over the past 4 days as far as labs are concerned his lactic acid is elevated 3.6 renal failure creatinine is 1.82 ACCESS DIRECTOR is over 16,000 ABG shows respiratory alkalosis chest x-ray diminished lung volumes White count is also elevated urinalysis is negative we will admit the patient we will do an echocardiogram nebulizers antibiotics diuretics (2) COPD (chronic obstructive pulmonary disease) Current Visit: Yes Status: Acute Plan: Patient does have a history of COPD will continue with bronchodilators for now Qualifiers: Emphysema type: unspecified - Advance Directives Does patient have a Living Will: Yes Does patient have a Durable POA for Healthcare: Yes
[2022-06-23] MEDS: FUROSEMIDE 40 MG/4 ML VIAL IV SCH (17:10)
[2022-06-23] MEDS ORDERED: FUROSEMIDE 40 MG/4 ML VIAL ONE (18:03)
[2022-06-23] MEDS ORDERED: VANCOMYCIN 2 GM in NA CHLORIDE 0.9% 500 ML IVPB ONE (18:30)
--- NOTE | 2022-06-23 19:12 | P.PN ---
Date of Service: 06/23/22 Was called and notified of positive blood culture by lab staff, reported to be gram-positive cocci preliminarily. Initially added vancomycin, patient had allergic reaction with hives/rash/itching. Vancomycin was immediately discontinued, he was given Benadryl, famotidine. Antibiotics changed to doxycycline IV, vancomycin discontinued and allergy added.
[2022-06-23] MEDS ORDERED: FAMOTIDINE 20 MG/2 ML VIAL IV ONE (19:32)
[2022-06-23] MEDS ORDERED: DIPHENHYDRAMINE 50 MG/ML VIAL ONE (19:32)
[2022-06-23] MEDS ORDERED: DOXYCYCLINE 100 MG in NA CHLORIDE 0.9% 100 ML IVPB SCH (21:00)
[2022-06-24 04:40] LABS: Absolute Lymphocytes (CBC) 0.5 K/uL (0.7-4.9); Hematocrit 38.7 % (39.6-49.0); Lymphocytes % 3.5 % (15.3-44.8); MCV 87.9 fL (80-100); MPV 9.7 fL (7.6-11.3)
[2022-06-24 05:06] LABS: Albumin 3.2 g/dL (3.4-5.0); Bilirubin Total 0.5 mg/dL (0.2-1.0); Potassium 3.7 mEq/L (3.5-5.1); Protein, Total 7.4 g/dL (6.4-8.2)
[2022-06-24] MEDS: FUROSEMIDE 40 MG/4 ML VIAL IV SCH (07:50)
[2022-06-24] MEDS: CEFTRIAXONE 1,000 MG in NA CHLORIDE 0.9% 50 ML IVPB SCH (07:51)
[2022-06-24] MEDS: ARFORMOTEROL TARTRATE 15 MCG/2 ML VIAL.NEB NEB SCH ×2 (08:35→20:40)
[2022-06-24] MEDS ORDERED: DOXYCYCLINE 100 MG in NA CHLORIDE 0.9% 100 ML IVPB SCH (09:00)
[2022-06-24] MEDS ORDERED: VANCOMYCIN 1 GM in NA CHLORIDE 0.9% 250 ML IVPB SCH ×2 (09:00→18:00)
[2022-06-24] MEDS: NA CHLORIDE 0.9% IVPB SCH (11:20)
[2022-06-24] MEDS: DAPTOMYCIN IVPB SCH (11:20)
--- NOTE | 2022-06-24 15:01 | P.PN ---
Subjective Date of Service: 06/24/22 Chief Complaint: Shortness of breath hypoxemia altered mental status Overnight, 3/4 blood cultures returned positive for coagulase-positive Staphylococcus. Overnight team started him on vancomycin, but he developed hives and pruritis so this was discontinued. Switched to daptomycin. This morning, he reports persistent shortness of breath, unchanged compared to yesterday. He denies any chest pain or palpitations. Review of Systems 10-point ROS is otherwise unremarkable Respiratory: Shortness of Breath Cardiovascular: Edema Physical Examination - Vital Signs Temperature: 97.9 F Blood Pressure: 165/80 Pulse: 74 Respirations: 18 Pulse Ox (%): 99 - Physical Exam General: Alert, In no apparent distress, Oriented x3 HEENT: Atraumatic, Mucous membr. moist/pink, EOMI, Sclerae nonicteric Neck: JVD not distended Respiratory: Clear to auscultation bilaterally, Diminished Cardiovascular: Regular rate/rhythm, Normal S1 S2, No gallops, No rubs, No murmurs, Edema (BLE - right > left) Gastrointestinal: Normal bowel sounds, Soft and benign, Non-distended, No tenderness, No rebound, No guarding Musculoskeletal: No clubbing Integumentary: No rashes Neurological: Normal speech, Normal affect - Studies Microbiology Data (last 24 hrs): 06/23/22 11:49 Blood - Blood Anaerobic Blood Culture - Final Assessment And Plan - Plan # Severe Sepsis secondary to Gram-Positive Bacteremia - POA # Suspected Vancomycin Allergy He met criteria based on HR > 90 bpm and WBC > 12,000, and the suspected source is bacteremia. Severe sepsis is suspected due to concern for tissue hypoperfusion/organ dysfunction based on hypotension (SBP < 90) and lactic acid > 2 mmol/L. - Consulted Infectious Diseases and spoke with Dr. Jackson - recommendations appreciated - No obvious source of infection, ordered CT chest/abdomen/pelvis to evaluate for infection - Sepsis order set was initiated - Lactate trend: 3.6 -> 1.4 - Blood cultures drawn before antibiotics were given - 3/4 positive for coagulase-positive Staphylococcus - Broad spectrum antibiotics started: Vancomycin + Ceftriaxone - Vancomycin switched to Daptomycin due to concern for allergy - In regards to fluids: - 30 mL/kg of IV fluids was not administered given lactic acid < 4 and concern for volume overload (CHF) - Ordered a transthoracic echocardiogram to evaluate for endocarditis # Chronic Atrial Fibrillation s/p PPM/AICD (2007) His [id number] = 5 (HTN=1, Age>75=2, DM=1, CVA=1), which warrants anticoagulation. 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 He appears euvolemic. He denies a history of CHF. His transthoracic echocardiogram from 05/04/2017 revealed, "normal 2D echo. mild tricuspid regurgitation. no evidence of congestive heart failure." Her chest x- ray revealed, "no acute intrathoracic process suspected." - Continue home inhalers - Discontinue furosemide # Bilateral Lower Extremity Swelling - chronic Lymphedema (Right > Left) - Right lower extremity Doppler = "no evidence of right lower extremity deep venous thrombosis." # Gout - Continue home allopurinol # Anxiety # Depression - Continue home bupropion Arnol Ch M.D.
[2022-06-24] MEDS ORDERED: GLUCAGON 1 MG/VIAL IM PRN (15:46)
[2022-06-24] MEDS ORDERED: D50W 25 GM/50 ML SYRINGE IV PRN (15:46)
[2022-06-24] MEDS: INSULIN -REGULAR HUMAN 50 UNIT/0.5 ML ML SQ SCH ×2 (16:30→20:58)
--- NOTE | 2022-06-24 17:15 | RAD REPORT ---
EXAM DESCRIPTION: CTChest Abd Pelvis Wo Con - 06/24/2022 4:51 pm CLINICAL HISTORY: bacteremia, unclear source COMPARISON: Chest For Pe Angio dated 02/23/2020; Chest For Pe Angio dated 05/03/2017; CTANGIO CHEST F OR PE dated 05/09/2015; THORAX W CONTRAST dated 05/17/2011 TECHNIQUE: CT of the chest, abdomen, and pelvis was performed. All CT scans are performed using dose optimization technique as appropriate and may include automated exposure control or mA/KV adjustment according to patient size. FINDINGS: Thorax: Chest Wall: Left upper chest wall pacemaker. Coronary artery calcifications. Lungs: Bilateral upper lobe lesions that are similar to prior. There may be fiducial markers within t he lesions. They have a similar appearance to 02/23/2020. Motion limited. Subpleural nodule along the right major fissure is likely a lymph node and is similar to prior. Pleura: No effusions or pneumothorax. Connie/Mediastinum: No lymphadenopathy. Small hiatal hernia. Aorta/Pulmonary Arteries: Unremarkable Heart: Normal size. Abdomen/Pelvis: Liver: No acute abnormality or suspicious lesions. Biliary: No biliary ductal dilatation. Stomach: No significant focal abnormality. Duodenum: No significant focal abnormality. Pancreas: No significant abnormality. Spleen: No significant abnormality. Adrenal: No suspicious lesions. Kidney/ureter: No hydronephrosis. No renal calculi. Right upper pole renal cyst. Left renal sinus cys ts. Retroperitoneum: No retroperitoneal adenopathy. Vascular: No aneurysm. Bowel: Diverticulosis without diverticulitis.. Normal appendix. Moderate stool in the colon. Peritoneum: Fat containing ventral and umbilical hernias. Bladder: Decompressed via Shin catheter. Reproductive: Shin catheter balloon is deployed within the prostate. If the patient has had a prior TURP, it could be within the defect. Bones: No acute fracture. Remote rib fractures. Multilevel degenerative changes are present in the sp ine. Other: n/a IMPRESSION: No source of bacteremia identified by CT. Shin catheter balloon deployed within the prostate. Suggest repositioning. If the patient has had a prior TURP, the Shin catheter may keep retracting into the defect.
[2022-06-24] MEDS: ENOXAPARIN 100 MG/ML SYR SQ SCH (20:57)
[2022-06-24] MEDS: ATORVASTATIN 80 MG TAB PO SCH (20:57)
[2022-06-24] MEDS: GABAPENTIN 300 MG CAP PO SCH (20:57)
[2022-06-24] MEDS: allopurinoL 100 MG TAB PO SCH (20:58)
[2022-06-25 04:36] LABS: Absolute Lymphocytes (CBC) 0.9 K/uL (0.7-4.9); Hematocrit 40.6 % (39.6-49.0); Lymphocytes % 6.3 % (15.3-44.8); MCV 87.5 fL (80-100); MPV 9.7 fL (7.6-11.3); RBC Red Blood Cell Count 4.64 M/uL (4.33-5.43)
[2022-06-25 05:00] LABS: Potassium 3.4 mEq/L (3.5-5.1)
[2022-06-25] MEDS: INSULIN -REGULAR HUMAN 50 UNIT/0.5 ML ML SQ SCH ×4 (07:30→20:32)
[2022-06-25] MEDS: ARFORMOTEROL TARTRATE 15 MCG/2 ML VIAL.NEB NEB SCH ×2 (08:00→20:25)
[2022-06-25] MEDS: CEFTRIAXONE 1,000 MG in NA CHLORIDE 0.9% 50 ML IVPB SCH (08:02)
[2022-06-25] MEDS: ENOXAPARIN 100 MG/ML SYR SQ SCH ×2 (08:02→20:16)
[2022-06-25] MEDS: GABAPENTIN 300 MG CAP PO SCH ×3 (08:03→20:16)
[2022-06-25] MEDS: DULOXETINE 30 MG CAP PO SCH (08:03)
[2022-06-25] MEDS: allopurinoL 100 MG TAB PO SCH ×2 (08:03→20:16)
[2022-06-25] MEDS: BUPROPRION HCL S.R. 150MG TAB PO SCH (09:34)
[2022-06-25] MEDS: DAPTOMYCIN IVPB SCH (11:24)
[2022-06-25] MEDS: NA CHLORIDE 0.9% IVPB SCH (11:24)
--- NOTE | 2022-06-25 15:44 | P.PN ---
Subjective Date of Service: 06/25/22 Chief Complaint: Shortness of breath hypoxemia altered mental status This morning, he was sitting up and eating breakfast. Overnight, 3/3 repeat blood cultures returned positive for gram-positive cocci in clusters. He reports no new symptoms at this time. He reports that his shortness of breath is mildly improved today. He denies any chest pain or palpitations. Review of Systems 10-point ROS is otherwise unremarkable Respiratory: Shortness of Breath Physical Examination - Vital Signs Temperature: 98.3 F Blood Pressure: 115/71 Pulse: 85 Respirations: 18 Pulse Ox (%): 94 Assessment And Plan - Plan - Physical Exam General: Alert, In no apparent distress, Oriented x3 HEENT: Atraumatic, Mucous membr. moist/pink, Sclerae nonicteric Neck: JVD not distended Respiratory: Clear to auscultation bilaterally, Diminished Cardiovascular: Regular rate/rhythm, No murmurs, Edema (BLE - right > left) Gastrointestinal: Normal bowel sounds, Soft, Non-distended, No tenderness Musculoskeletal: No clubbing Integumentary: No rashes Neurological: Normal speech, Normal affect # Severe Sepsis secondary to Gram-Positive Bacteremia - POA # Suspected Vancomycin Allergy He met criteria based on HR > 90 bpm and WBC > 12,000, and the suspected source is bacteremia. Severe sepsis is suspected due to concern for tissue hypoperfusion/organ dysfunction based on hypotension (SBP < 90) and lactic acid > 2 mmol/L. - Consulted Infectious Diseases and spoke with Dr. Jackson - recommendations appreciated - CT chest/abdomen/pelvis = "no source of bacteremia identified by CT. Shin catheter balloon deployed within the prostate. Suggest repositioning. If the patient has had a prior TURP, the Shin catheter may keep retracting into the defect." - Requested Shin catheter removal - Sepsis order set was initiated - Lactate trend: 3.6 -> 1.4 - Blood cultures drawn before antibiotics were given - 3/4 positive for coagulase-positive Staphylococcus - Broad spectrum antibiotics started: Vancomycin + Ceftriaxone - Vancomycin switched to Daptomycin due to concern for allergy - In regards to fluids: - 30 mL/kg of IV fluids was not administered given lactic acid < 4 and concern for volume overload (CHF) - Ordered a transthoracic echocardiogram to evaluate for endocarditis - May require transesophageal echocardiogram - appreciate Cards recs # Chronic Atrial Fibrillation s/p PPM/AICD (2007) His [id number] = 5 (HTN=1, Age>75=2, DM=1, CVA=1), which warrants anticoagulation. 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 He appears euvolemic. He denies a history of CHF. His transthoracic echocardiogram from 05/04/2017 revealed, "normal 2D echo. mild tricuspid regurgitation. no evidence of congestive heart failure." Her chest x- ray revealed, "no acute intrathoracic process suspected." - Continue home inhalers - Discontinue furosemide # Bilateral Lower Extremity Swelling - chronic Lymphedema (Right > Left) - Right lower extremity Doppler = "no evidence of right lower extremity deep venous thrombosis." # Gout - Continue home allopurinol # Anxiety # Depression - Continue home bupropion Arnol Ch M.D.
[2022-06-25] MEDS: ATORVASTATIN 80 MG TAB PO SCH (20:16)
[2022-06-26 05:12] LABS: Absolute Lymphocytes (CBC) 0.9 K/uL (0.7-4.9); Hematocrit 42.5 % (39.6-49.0); Lymphocytes % 10.2 % (15.3-44.8); MCV 87.8 fL (80-100); MPV 9.5 fL (7.6-11.3); RBC Red Blood Cell Count 4.84 M/uL (4.33-5.43)
[2022-06-26 05:29] LABS: Albumin 2.6 g/dL (3.4-5.0); Bilirubin Total 0.6 mg/dL (0.2-1.0); Potassium 3.7 mEq/L (3.5-5.1); Protein, Total 6.8 g/dL (6.4-8.2)
[2022-06-26] MEDS: INSULIN -REGULAR HUMAN 50 UNIT/0.5 ML ML SQ SCH ×4 (07:30→21:00)
[2022-06-26] MEDS: CEFTRIAXONE 1,000 MG in NA CHLORIDE 0.9% 50 ML IVPB SCH ×2 (07:56→07:57)
[2022-06-26] MEDS: GABAPENTIN 300 MG CAP PO SCH ×3 (07:57→20:10)
[2022-06-26] MEDS: BUPROPRION HCL S.R. 150MG TAB PO SCH (07:57)
[2022-06-26] MEDS: allopurinoL 100 MG TAB PO SCH ×2 (07:57→20:10)
[2022-06-26] MEDS: ENOXAPARIN 100 MG/ML SYR SQ SCH ×2 (07:57→20:09)
[2022-06-26] MEDS: DULOXETINE 30 MG CAP PO SCH (07:57)
[2022-06-26] MEDS: ARFORMOTEROL TARTRATE 15 MCG/2 ML VIAL.NEB NEB SCH ×2 (08:00→19:35)
[2022-06-26] MEDS: NA CHLORIDE 0.9% IVPB SCH (10:34)
[2022-06-26] MEDS: DAPTOMYCIN IVPB SCH (10:34)
--- NOTE | 2022-06-26 12:28 | P.CNS ---
Date of Consult: 06/26/22 Chief Complaint: Shortness of breath hypoxemia altered mental status History of Present Illness: Patient is a 77 yo male with a PMH of COPD, Diabetes mellitus type 2, hypertension, atrial fibrillation, PPM/AICD. He presented to the ED with complaints of shortness of breath and altered mental status. Pt was found to be hypoxic and met criteria for sepsis and admitted inpatient. Blood cultures were drawn, 3/3 bottles positive for gram-positive cocci in clusters. Patient was started on empiric IV antibiotics Vancomycin and Ceftriaxone. Vancomycin switched to Daptomycin due to allergy concerns. ID is consulted for gram-positive bacteremia. Patient is currently sitting on side of bed, on 2L nasal cannula, audible expiratory wheezing noted. Patient reports shortness of breath on exertion. Denies any chest pain or palpitations. Allergies codeine [Codeine] Allergy (Unknown, Verified 02/24/20 05:) Hives/Rash Penicillins Allergy (Unknown, Verified 02/24/20 05:) Hives/Rash vancomycin Allergy (Verified 06/23/22 19:10) Hives/Rash Home medications list reviewed: Yes Home Medications: Atorvastatin Calcium [Lipitor*] 80 mg PO BEDTIME 07/20/15 Metformin HCl [Glucophage] 1,000 mg PO BID 07/20/15 buPROPion HCL [Wellbutrin*] 150 mg PO DAILY 07/20/15 allopurinoL [Zyloprim*] 100 mg PO BID 05/04/17 Tamsulosin [Flomax*] 1 cap PO BEDTIME 07/12/17 Apixaban [Eliquis] 5 mg PO BID 12/30/17 Duloxetine HCl [Cymbalta] 60 mg PO DAILY 12/30/17 Lisinopril [Zestril] 2.5 mg PO DAILY 02/24/20 Albuterol Neb [Proventil 0.083% Neb Soln] 2.5 mg NEB [id number] PRN #120 amp 02/27/20 Albuterol Sulfate [Albuterol Sulfate Hfa] 1 puff IH DAILY 06/24/22 Cyanocobalamin (Vitamin B-12) [Vitamin B-12] 1 tab PO DAILY 06/24/22 Empagliflozin [Jardiance] 1 tab PO DAILY 06/24/22 Fluticasone Propion/Salmeterol [Fluticasone-Salmeterol 250-50] 1 puff IH DAILY 06/24/22 Gabapentin 1 cap PO SEECOM 06/24/22 Tiotropium [Spiriva Handihaler*] 2 puff IH DAILY 06/24/22 guaiFENesin [Guaifenesin ER] 1 tab PO BID 06/24/22 - Past Medical/Surgical History Diabetic: Yes -: DM-2, gout -: COPD -: LUNG CANCER -: Back Pain, back pain -: HTN,HLD -: AFib -: anxiety, depression -: cellulitis, lymphedema -: cva -: constipation -: prostate problems -: trigeminal neuralgia -: LUNG CANCER- RADIATION 2012 -: pacemaker/defibrillator 2007 - Family History Father Medical History: Heart disease, Lung disease, Diabetes Brother Medical History: Cancer Mother Medical History: Heart disease, Diabetes, Stroke - Social History Smoking Status: Unknown if ever smoked Alcohol use: No CD- Drugs: No Caffeine use: Yes Review of Systems 10-point ROS is otherwise unremarkable Respiratory: Shortness of Breath Cardiovascular: Edema (right lower extremity) Physical Examination Temp Pulse Resp BP Pulse Ox 98.2 F 82 17 142/80 H 96 06/26/22 08:00 06/26/22 08:00 06/26/22 08:00 06/26/22 08:00 06/26/22 08:00 General: Alert, In no apparent distress, Oriented x3, Cooperative HEENT: Atraumatic, Normocephalic, Other (No teeth) Neck: Supple, JVD not distended Respiratory: Expiratory wheezes Cardiovascular: Normal pulses, Other (pacemaker), Edema (RLE nonpitting) Gastrointestinal: Normal bowel sounds, Soft and benign, Non-distended Musculoskeletal: No clubbing, No swelling Integumentary: No rashes, No breakdown Neurological: Normal speech, Normal tone, Normal affect Laboratory Data - Reviewed Microbiology Data - Reviewed Imagings Data: - CT Chest/Abd/Pelvis 06/24: "No source of bacteremia identified by CT." - Chest XR 06/23: "The lungs are grossly clear. The heart is normal in size. No displaced fractures.Dual lead pacer/defibrillator device noted. No acute intrathoracic process suspected." - US right leg: "No evidence of right lower extremity deep venous thrombosis." Conclusions/Impression: Problem List - Severe Sepsis - Bacteremia - Atrial Fibrillation - Diabetes Mellitus Type II - COPD - BPH - Hypertension - Hyperlipidemia - Gout - History of lung cancer s/p radiation 2013 Severe Sepsis secondary to Gram-Positive Bacteremia - CT Chest/Abd/Pelvis 06/24: "No source of bacteremia identified by CT." - Blood cultures: gram positive cocci; coagulase positive Staphylococcus 3/4 bottles - Vancomycin d/c due to allergy concern and switched to Daptomycin - Patient has PPM/AICD, Cardiology on case; TTE pending to eval for endocarditis - Leukocytosis improving; afebrile - Currently on Ceftriaxone and Daptomycin (started 06/24) Recommendations - Continue IV Ceftriaxone and Daptomycin (06/24-) - Monitor CK levels on Daptomycin ID will follow up and monitor patient closely Case discussed with Howard Dela Cruz
--- NOTE | 2022-06-26 12:48 | EKG ---
Test Date: 2022-06-23 Test Time: 06:39:04 Dry Box Operator: JUAN MEASUREMENT RESULTS: Intervals: Rate: 91 MD: QRSD: 92 QT: 368 QTc: 452 [place]: P: MD: QRS: 61 T: 88 INTERPRETIVE STATEMENTS: Atrial fibrillation Abnormal ECG Compared to ECG 12/24/2021 16:51:57 Sinus rhythm no longer present Electronically Signed On 06-26-22 12:41:07 CDT by Jose Aguirre
--- NOTE | 2022-06-26 14:09 | ECHO ---
HEIGHT: 5 ft 8 in WEIGHT: 223 lb 11.2 oz DATE OF STUDY: 06/26/[address]: Arnol Ch MD 2-DIMENSIONAL: YES M.MODE: YES DOPPLER: YES COLOR FLOW: YES TDS: PORTABLE: YES DEFINITY: BUBBLE STUDY: DIAGNOSIS: EVALUATE FOR VEGETATIONS, GRAM POSITIVE BACTERMIA CARDIAC HISTORY: CATHERIZATION: YES SURGERY: NO PROSTHETIC VALVE: NO PACEMAKER: YES MEASUREMENTS (cm) DIASTOLIC (NORMALS) SYSTOLIC (NORMALS) IVSd 1.2 (0.6-1.2) LA Diam 3.6 (1.9-4.0) LVEF 66% LVIDd 5.2 (3.5-5.7) LVIDs 3.3 (2.0-3.5) %FS 36% LVPWd 1.3 (0.6-1.2) Ao Diam 3.1 (2.0-3.7) 2 DIMENSIONAL ASSESSMENT: RIGHT ATRIUM: NORMAL LEFT ATRIUM: NORMAL RIGHT VENTRICLE: NORMAL LEFT VENTRICLE: NORMAL TRICUSPID VALVE: NORMAL MITRAL VALVE: MILD MITRAL ANNULAR CALCIFICATION PULMONIC VALVE: NOT WELL SEEN AORTIC VALVE: NORMAL PERICARDIAL EFFUSION: NONE AORTIC ROOT: NORMAL LEFT VENTRICULAR WALL MOTION: NORMAL DOPPLER/COLOR FLOW: SEE BELOW COMMENTS: 1. NORMAL LEFT VENTRICULAR EJECTION FRACTION 60-65% WITH NORMAL WALL MOTION 2. MILD MITRAL ANNULAR CALCIFICATION WITH TRACE MITRAL REGURGIATION 3. NO VEGETATION IS SEEN ON THIS EXAM. TECHNOLOGIST: BRANDON LAM
[2022-06-26] MEDS: ACETAMINOPHEN 325 MG TABLET PO PRN ×2 (17:59→22:21)
--- NOTE | 2022-06-26 18:24 | P.PN ---
Subjective Date of Service: 06/26/22 Chief Complaint: Shortness of breath hypoxemia altered mental status No acute events overnight. His blood cultures continue to return positive. His only symptom is generalized weakness. Spoke with Dr. Jackson - advised to look for oromaxillary cause of infection. He denies any chest pain, palpitations, or shortness of breath. Review of Systems 10-point ROS is otherwise unremarkable General: Weakness (generalized) Physical Examination - Vital Signs Temperature: 98.5 F Blood Pressure: 132/73 Pulse: 76 Respirations: 17 Pulse Ox (%): 96 - Studies Microbiology Data (last 24 hrs): 06/23/22 11:49 Blood - Blood Blood Culture Gram Stain - Final 06/23/22 11:49 Blood - Blood Anaerobic Blood Culture - Final 06/23/22 08:35 Blood - Blood Blood Culture Gram Stain - Final 06/23/22 08:35 Blood - Blood Gram Stain - Final Assessment And Plan - Plan - Physical Exam General: Alert, In no apparent distress, Oriented x3 HEENT: Atraumatic, Mucous membr. moist/pink, Sclerae nonicteric Neck: JVD not distended Respiratory: Clear to auscultation bilaterally, Diminished Cardiovascular: Regular rate/rhythm, No murmurs, Edema (BLE - right > left) Gastrointestinal: Normal bowel sounds, Soft, Non-distended, No tenderness Musculoskeletal: No clubbing Integumentary: No rashes Neurological: Normal speech, Normal affect # Severe Sepsis secondary to Gram-Positive Bacteremia - POA # Suspected Vancomycin Allergy He met criteria based on HR > 90 bpm and WBC > 12,000, and the suspected source is bacteremia. Severe sepsis is suspected due to concern for tissue hypoperfusion/organ dysfunction based on hypotension (SBP < 90) and lactic acid > 2 mmol/L. - Consulted Infectious Diseases and spoke with Dr. Jackson - recommendations appreciated - CT chest/abdomen/pelvis = "no source of bacteremia identified by CT. Shin catheter balloon deployed within the prostate. Suggest repositioning. If the patient has had a prior TURP, the Shin catheter may keep retracting into the defect." - CT maxillofacial = pending - Sepsis order set was initiated - Lactate trend: 3.6 -> 1.4 - Blood cultures drawn before antibiotics were given - 3/4 positive for coagulase-positive Staphylococcus - Broad spectrum antibiotics started: Vancomycin + Ceftriaxone - Vancomycin switched to Daptomycin due to concern for allergy - In regards to fluids: - 30 mL/kg of IV fluids was not administered given lactic acid < 4 and concern for volume overload (CHF) - Ordered a transthoracic echocardiogram to evaluate for endocarditis - May require transesophageal echocardiogram - appreciate Cards recs # Chronic Atrial Fibrillation s/p PPM/AICD (2007) His [id number] = 5 (HTN=1, Age>75=2, DM=1, CVA=1), which warrants anticoagulation. 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 He appears euvolemic. He denies a history of CHF. His transthoracic echocardiogram from 05/04/2017 revealed, "normal 2D echo. mild tricuspid regurgitation. no evidence of congestive heart failure." Her chest x- ray revealed, "no acute intrathoracic process suspected." - Continue home inhalers - Discontinue furosemide # Bilateral Lower Extremity Swelling - chronic Lymphedema (Right > Left) - Right lower extremity Doppler = "no evidence of right lower extremity deep venous thrombosis." # Gout - Continue home allopurinol # Anxiety # Depression - Continue home bupropion Arnol Ch M.D.
--- NOTE | 2022-06-26 20:01 | CON ---
Date of Consultation: 06/26/2022 History Of Present Illness: Mr. Toussaint was admitted to Dr. Ch, has a has a history of diabetes, C OPD, hypertension, dyslipidemia, question of endocarditis because of pacemaker infection. Patient phelan s a history of pacemaker and came in with possible infection. No cardiac complaint. Patient typical ly goes to the [facility] Allergies: ALLERGIC TO CODEINE, VANCOMYCIN, AND PENICILLIN. Medications: At home listed by Dr. Ch. Review of Systems: Negative. Social History: Negative. Family History: Negative. Physical Examination: VITAL SIGNS: Stable, afebrile. HEENT: Negative. Neck: Supple with no bruit. Chest: Clear. Cardiac: Revealed a paced rhythm. Abdomen: Benign. Extremities: Revealed no clubbing, cyanosis, or edema. Diagnostic Data: For today, echocardiogram was normal except for some mild mitral regurgitation, mil d mitral annular calcification, no effusion, no wall motion abnormalities. No evidence of endocardit is. No evidence of infection. The case was discussed with Dr. Ch. AIDAN/GERMAN Voice ID: [id number] Report ID: [id number]
[2022-06-26] MEDS: ATORVASTATIN 80 MG TAB PO SCH (20:10)
--- NOTE | 2022-06-26 21:52 | RAD REPORT ---
EXAM DESCRIPTION: CT - CTF CLINICAL HISTORY: source of bacteremia? Pain and swelling COMPARISON: <Comparisons> TECHNIQUE: Axial 2 mm thick images of the face were obtained with sagittal and coronal reconstructio n images. All CT scans are performed using dose optimization technique as appropriate and may include automated exposure control or mA/KV adjustment according to patient size. FINDINGS: No acute facial bone fracture is seen.The mandible is intact. The globes and orbital contents are grossly unremarkable.The paranasal sinuses and mastoids are essen tially clear. IMPRESSION: No pathologic process identified.
[2022-06-26] MEDS ORDERED: IPRATROPIUM BROM 0.5MG/2.5ML ONE (22:48)
[2022-06-26] MEDS ORDERED: LEVALBUTEROL 1.25 MG/3 ML NEB ONE (22:48)
[2022-06-26] MEDS ORDERED: FUROSEMIDE 40 MG/4 ML VIAL IV ONE (23:19)
--- NOTE | 2022-06-26 23:24 | P.PN ---
Date of Service: 06/26/[address] this evening and became very short of breath, O2 sat of 80% with periorbital cyanosis and tachycardia. He was shaking and stating that he was very cold. Temp recorded was 96.8F. Myself and RT came to bedside. Audible wheezing noted. No JVD. No evidence of edema in the lower extremities or abdomen. He did endorse shortness of breath. Atrovent and xopenex administered via nebulizer. His O2 saturation and heart rate improved although the wheezes/rhonchi did not resolve. Stat chest xray ordered, which demonstrated "Hazy bibasilar opacities, exacerbated on rightward rotation views and favoring subsegmental atelectasis, with otherwise no focal consolidation." Patient shortly went to sleep afterwards this episode and has no new complaints. 40 mg IV lasix was ordered but patient refused as he states that his breathing has improved and will not take lasix unless he has a dhillon catheter.
[2022-06-27] MEDS ORDERED: LEVALBUTEROL 1.25 MG/3 ML NEB NEB PRN (01:55)
[2022-06-27] MEDS ORDERED: IPRATROPIUM BROM 0.5MG/2.5ML NEB PRN (01:55)
[2022-06-27 06:11] LABS: Absolute Lymphocytes (CBC) 1.4 K/uL (0.7-4.9); Hematocrit 41.7 % (39.6-49.0); MCV 88.7 fL (80-100)
[2022-06-27] MEDS: INSULIN -REGULAR HUMAN 50 UNIT/0.5 ML ML SQ SCH ×4 (07:30→21:00)
[2022-06-27] MEDS: ARFORMOTEROL TARTRATE 15 MCG/2 ML VIAL.NEB NEB SCH ×2 (08:02→20:20)
[2022-06-27] MEDS: CEFTRIAXONE 1,000 MG in NA CHLORIDE 0.9% 50 ML IVPB SCH (08:38)
[2022-06-27] MEDS: FUROSEMIDE 40 MG/4 ML VIAL IV SCH ×2 (08:38→16:09)
[2022-06-27] MEDS: ENOXAPARIN 100 MG/ML SYR SQ SCH ×2 (08:39→20:18)
[2022-06-27] MEDS: DULOXETINE 30 MG CAP PO SCH (08:39)
[2022-06-27] MEDS: GABAPENTIN 300 MG CAP PO SCH ×3 (08:39→20:19)
[2022-06-27] MEDS: allopurinoL 100 MG TAB PO SCH ×2 (08:40→20:19)
[2022-06-27] MEDS: BUPROPRION HCL S.R. 150MG TAB PO SCH (08:40)
--- NOTE | 2022-06-27 10:54 | P.PN ---
Subjective Date of Service: 06/27/22 Chief Complaint: Shortness of breath hypoxemia altered mental status overnight, patient reported chills, shortness of breath and tachycardic. SpO2 80%, afebrile. Pt was given nebulizer treatments which improved O2 saturation and HR improved. Currently patient is sitting up on side of bed, breathing comfortably on 2L NC. Audible expiratory wheezing noted. Patient denies any chills, fever or shortness of breath. Denies any chest pain or palpitations. Pending transfer to [facility]. Review of Systems 10-point ROS is otherwise unremarkable Respiratory: SOB with Excertion Physical Examination - Vital Signs Temperature: 98.4 F Blood Pressure: 116/73 Pulse: 70 Respirations: 16 Pulse Ox (%): 98 - Physical Exam General: Alert, In no apparent distress, Oriented x3 HEENT: Atraumatic, Normocephalic Neck: Supple, JVD not distended Respiratory: Diminished, Expiratory wheezes Cardiovascular: Normal pulses, Other (pacemaker), Edema (RLE nonpitting) Gastrointestinal: Normal bowel sounds, Soft and benign, Non-distended Musculoskeletal: No clubbing, No swelling Integumentary: No rashes, No breakdown Neurological: Normal speech, Normal tone, Normal affect - Studies Laboratory Data - Reviewed Microbiology Data (last 24 hrs): 06/23/22 11:49 Blood - Blood Aerobic Blood Culture - Final Staph Aureus 06/23/22 11:49 Blood - Blood Blood Culture Gram Stain - Final 06/23/22 11:49 Blood - Blood Anaerobic Blood Culture - Final 06/23/22 08:35 Blood - Blood Aerobic Blood Culture - Final Staph Aureus 06/23/22 08:35 Blood - Blood Blood Culture Gram Stain - Final 06/23/22 08:35 Blood - Blood Anaerobic Blood Culture - Final Staph Aureus 06/23/22 08:35 Blood - Blood Gram Stain - Final Imagings Data: - CT Chest/Abd/Pelvis 06/24: "No source of bacteremia identified by CT." - Chest XR 06/23: "The lungs are grossly clear. The heart is normal in size. No displaced fractures.Dual lead pacer/defibrillator device noted. No acute intrathoracic process suspected." - US right leg: "No evidence of right lower extremity deep venous thrombosis." - Echocardiogram 06/26: "1. Normal left ventricular ejection fraction 60-65% with normal wall motion. 2. Mild mitral annular calcification with trace mitral regurgitation. 3. No vegetation is seen on this exam." Medications List Reviewed: Yes Assessment And Plan - Plan Problem List - Severe Sepsis - Bacteremia - Atrial Fibrillation - Diabetes Mellitus Type II - COPD - BPH - Hypertension - Hyperlipidemia - Gout - History of lung cancer s/p radiation 2013 * Allergy: Penicillins, Vancomycin, codeine * Severe Sepsis secondary to Gram-Positive Bacteremia - CT Chest/Abd/Pelvis 06/24: "No source of bacteremia identified by CT." - Vancomycin d/c due to allergy concern and switched to Daptomycin - Patient has PPM/AICD. Cardiology on case; echocardiogram performed 06/26, no evidence of endocarditis - Blood cultures 06/23-06/25: coagulase positive Staphylococcus - Repeat Blood cultures 06/26 No growth 24 hours - WBC improving then worse 9.2 -> 12.5 - on 06/27 - Afebrile - Currently on Ceftriaxone and Daptomycin (started 06/24) Recommendations - Continue IV Ceftriaxone and Daptomycin (06/24-) - Monitor CK levels on Daptomycin - f/u with blood cultures - WBC and fever trends ID will follow up and monitor patient closely Case discussed with Howard Dela Cruz
[2022-06-27] MEDS: NA CHLORIDE 0.9% IVPB SCH (11:10)
[2022-06-27] MEDS: DAPTOMYCIN IVPB SCH (11:10)
--- NOTE | 2022-06-27 16:29 | RAD REPORT ---
EXAM DESCRIPTION: RAD - Chest Single View - 06/26/2022 10:58 pm CLINICAL HISTORY: ABD PAIN TECHNIQUE: Axial computed tomography images of the abdomen and pelvis with intravenous contrast. S agittal and coronal reformatted images were created and reviewed. This CT exam was performed using one or more of the following dose reduction techniques: automated exposure control, adjustment of t he mA and/or kV according to patient size, and/or use of iterative reconstruction technique. COMPARISON: No relevant prior studies available. FINDINGS: Lung bases: Unremarkable. No mass. No consolidation. ABDOMEN: Liver: Unremarkable. No mass. Gallbladder and bile ducts: Unremarkable. No calcified stones. No ductal dilation. Pancreas: Unremarkable. No mass. No ductal dilation. Spleen: Unremarkable. No splenomegaly. Adrenals: Unremarkable. No mass. Kidneys and ureters: Normal renal cortical enhancement. Excreted contrast is present within the p roximal collecting systems bilaterally. No hydronephrosis. Stomach and bowel: Small bowel loops appear somewhat thickened. Small and large bowel air-fluid l evels. No obstruction. PELVIS: Appendix: Normal caliber appendix. No findings to suggest acute appendicitis. Bladder: Unremarkable. No mass. Reproductive: Unremarkable as visualized. ABDOMEN and PELVIS: Intraperitoneal space: Unremarkable. No free air. No significant fluid collection. Bones/joints: No acute fracture. No dislocation. Soft tissues: Ovoid soft tissue density in the right inguinal canal compatible with an undescended/ retracted testis. Vasculature: Unremarkable. Lymph nodes: Numerous subcentimeter mesenteric lymph nodes. IMPRESSION: 1. Findings which may reflect nonspecific enteritis. Small and large bowel air-fluid levels which can be seen in the clinical setting of diarrhea. 2. Other findings as above. Electronically signed by: Javi Joseph MD 06/27/2022 12:24 AM CDT Due to temporary technical issues with the PACS/Fluency reporting system, reports are being signed by the in house radiologists without review as a courtesy to insure prompt reporting. The interpreting radiologist is fully responsible for the content of the report.
--- NOTE | 2022-06-27 16:55 | PN ---
There was a question of infected pacemaker. The patient has a history of hypertension, COPD, pacemak er placement. Came in with positive blood cultures, chills. Echocardiogram was very clear on the tr ansthoracic part without any evidence of vegetation or endocarditis. Case was discussed with Dr. Rogerio gorman. No plans for any transesophageal echocardiogram at this point. The patient is clinically impro loan. Continue present treatment. AIDAN/GERMAN Voice ID: [id number] Report ID: [id number]
[2022-06-27] MEDS: ATORVASTATIN 80 MG TAB PO SCH (20:19)
[2022-06-27] MEDS: ACETAMINOPHEN 325 MG TABLET PO PRN (20:19)
--- NOTE | 2022-06-27 21:14 | P.PN ---
Subjective Date of Service: 06/27/22 Chief Complaint: Shortness of breath hypoxemia altered mental status He had an event of perioral cyanosis and hypoxia overnight, with no clear cause. It appeared to resolve without intervention. His initial blood culture returned positive for MSSA. His only symptom is generalized weakness. [facility]. He denies any chest pain, palpitations, or shortness of breath. Review of Systems 10-point ROS is otherwise unremarkable General: Weakness (generalized) Physical Examination - Vital Signs Temperature: 98.4 F Blood Pressure: 132/63 Pulse: 96 Respirations: 18 Pulse Ox (%): 93 - Studies Microbiology Data (last 24 hrs): 06/23/22 11:49 Blood - Blood Aerobic Blood Culture - Final Staph Aureus 06/23/22 11:49 Blood - Blood Blood Culture Gram Stain - Final 06/23/22 11:49 Blood - Blood Anaerobic Blood Culture - Final 06/23/22 08:35 Blood - Blood Aerobic Blood Culture - Final Staph Aureus 06/23/22 08:35 Blood - Blood Blood Culture Gram Stain - Final 06/23/22 08:35 Blood - Blood Anaerobic Blood Culture - Final Staph Aureus 06/23/22 08:35 Blood - Blood Gram Stain - Final Medications List Reviewed: Yes Assessment And Plan - Plan - Physical Exam General: Alert, In no apparent distress, Oriented x3 HEENT: Atraumatic, Sclerae nonicteric Neck: JVD not distended Respiratory: Clear to auscultation bilaterally, Diminished Cardiovascular: Regular rate/rhythm, No murmurs, Mild edema (BLE - right > left) Gastrointestinal: Normal bowel sounds, Soft, Non-distended, No tenderness Musculoskeletal: No clubbing Integumentary: No rashes Neurological: Normal speech, Normal affect # Severe Sepsis secondary to Methicillin-Sensitive Staphylococcus Aureus bacteremia - POA # Suspected Vancomycin Allergy He met criteria based on HR > 90 bpm and WBC > 12,000, and the suspected source is bacteremia. Severe sepsis is suspected due to concern for tissue hypoperfusion/organ dysfunction based on hypotension (SBP < 90) and lactic acid > 2 mmol/L. - Consulted Infectious Diseases and spoke with Dr. Jackson - recommendations appreciated - CT chest/abdomen/pelvis = "no source of bacteremia identified by CT. Shin catheter balloon deployed within the prostate. Suggest repositioning. If the patient has had a prior TURP, the Shin catheter may keep retracting into the defect." - CT maxillofacial = "no pathologic process identified" - Sepsis order set was initiated - Lactate trend: 3.6 -> 1.4 - Blood cultures drawn before antibiotics were given - 3/4 positive for coagulase-positive Staphylococcus - Broad spectrum antibiotics started: Vancomycin + Ceftriaxone - Vancomycin switched to Daptomycin due to concern for allergy - In regards to fluids: - 30 mL/kg of IV fluids was not administered given lactic acid < 4 and concern for volume overload (CHF) - Transthorachic echocardiogram = "1. normal left ventricular ejection fraction 60-65% with normal wall motion 2. mild mitral annular calcification with trace mitral regurgiation 3. no vegetation is seen on this exam." - May require transesophageal echocardiogram - appreciate Cards recs # Chronic Atrial Fibrillation s/p PPM/AICD (2007) His [id number] = 5 (HTN=1, Age>75=2, DM=1, CVA=1), which warrants anticoagulation. - Consulted Cardiology due to bacteremia with presence of PPM/AICD - Transthorachic echocardiogram = "1. normal left ventricular ejection fraction 60-65% with normal wall motion 2. mild mitral annular calcification with trace mitral regurgiation 3. 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 He appears euvolemic. He denies a history of CHF. His transthoracic echocardiogram from 05/04/2017 revealed, "normal 2D echo. mild tricuspid regurgitation. no evidence of congestive heart failure." His chest x- ray revealed, "no acute intrathoracic process suspected." - Continue home inhalers - Discontinue furosemide # Bilateral Lower Extremity Swelling - chronic Lymphedema (Right > Left) - Right lower extremity Doppler = "no evidence of right lower extremity deep venous thrombosis." # Gout - Continue home allopurinol # Anxiety # Depression - Continue home bupropion Arnol Ch M.D.
[2022-06-28] MEDS: INSULIN -REGULAR HUMAN 50 UNIT/0.5 ML ML SQ SCH ×4 (07:30→19:58)
[2022-06-28 08:00] LABS: Absolute Lymphocytes (CBC) 1.7 K/uL (0.7-4.9); Hematocrit 39.3 % (39.6-49.0); Lymphocytes % 10.4 % (15.3-44.8); MCV 88.4 fL (80-100); MPV 9.8 fL (7.6-11.3); RBC Red Blood Cell Count 4.45 M/uL (4.33-5.43)
[2022-06-28 08:07] LABS: Potassium 3.8 mEq/L (3.5-5.1)
[2022-06-28] MEDS: ENOXAPARIN 100 MG/ML SYR SQ SCH ×2 (08:48→20:10)
[2022-06-28] MEDS: DULOXETINE 30 MG CAP PO SCH (08:49)
[2022-06-28] MEDS: FUROSEMIDE 40 MG/4 ML VIAL IV SCH ×2 (08:50→17:54)
[2022-06-28] MEDS: allopurinoL 100 MG TAB PO SCH ×2 (08:50→20:11)
[2022-06-28] MEDS: GABAPENTIN 300 MG CAP PO SCH ×3 (08:50→20:11)
[2022-06-28] MEDS: CEFTRIAXONE 1,000 MG in NA CHLORIDE 0.9% 50 ML IVPB SCH (08:51)
[2022-06-28] MEDS: BUPROPRION HCL S.R. 150MG TAB PO SCH (08:53)
[2022-06-28] MEDS: ARFORMOTEROL TARTRATE 15 MCG/2 ML VIAL.NEB NEB SCH ×2 (09:06→19:45)
[2022-06-28] MEDS: NA CHLORIDE 0.9% IVPB SCH (12:17)
[2022-06-28] MEDS: DAPTOMYCIN IVPB SCH (12:17)
--- NOTE | 2022-06-28 12:22 | P.PN ---
Date of Service: 06/28/22 Chief Complaint: Shortness of breath hypoxemia altered mental status Subjective: Patient is sitting in chair, breathing comfortably on 2L NC. Patient reports he is feeling fine and wants to go home. No new complaints at this time. No acute events reported overnight. Review of Systems 10-point ROS is otherwise unremarkable Respiratory: SOB with Exertion, Productive cough Physical Examination - Vital Signs Temp Pulse Resp BP Pulse Ox 97.9 F 79 17 120/57 L 96 06/28/22 08:00 06/28/22 08:00 06/28/22 08:00 06/28/22 08:00 06/28/22 08:00 - Physical Exam General: Alert, In no apparent distress, Oriented x3 HEENT: Atraumatic, Normocephalic Neck: Supple, JVD not distended Respiratory: Diminished, Expiratory wheezes, on 2L NC Cardiovascular: Normal pulses, PPM/AICD, Edema (RLE nonpitting) Gastrointestinal: Normal bowel sounds, Soft and benign, Non-distended Musculoskeletal: No clubbing, No swelling Integumentary: No rashes, No breakdown Neurological: Normal speech, Normal tone, Normal affect - Studies Laboratory Data - Reviewed Microbiology Data - Blood cultures 06/23: coagulase-positive Staphylococcus aureus - Repeat blood cultures have been positive - Sputum culture 06/27: pending Imagings Data: - CT Chest/Abd/Pelvis 06/24: "No source of bacteremia identified by CT." - Chest XR 06/23: "The lungs are grossly clear. The heart is normal in size. No displaced fractures.Dual lead pacer/defibrillator device noted. No acute intrathoracic process suspected." - US right leg: "No evidence of right lower extremity deep venous thrombosis." - TTE 06/26: "1. Normal left ventricular ejection fraction 60-65% with normal wall motion. 2. Mild mitral annular calcification with trace mitral regurgitation. 3. No vegetation is seen on this exam." Medications List Reviewed: Yes Assessment And Plan Problem List - Severe Sepsis - Bacteremia - Atrial Fibrillation - Diabetes Mellitus Type II - COPD - BPH - Hypertension - Hyperlipidemia - Gout - History of lung cancer s/p radiation 2012 * Allergy: Penicillins, Vancomycin, codeine * Severe Sepsis secondary to coagulase-positive Staphylococcus aureus - CT Chest/Abd/Pelvis 06/24: "No source of bacteremia identified by CT." - Vancomycin d/c due to allergy concern and switched to Daptomycin - Patient has PPM/AICD, concern for endocarditis - Cardiology on case - TTE performed 06/26: No evidence of vegetation or endocarditis. - Blood cultures 06/23-06/25: coagulase-positive Staphylococcus aureus - Repeat Blood cultures have been positive - WBC trending up 12.5 -> 16.3 - on 06/28 - Afebrile - Currently on Ceftriaxone and Daptomycin (started 06/24) - sputum culture 06/27 pending Recommendations - Continue IV Ceftriaxone and Daptomycin (06/24-) for now - Monitor CK levels weekly while on daptopmycin - Recommend RICHI for further evaluation of endocarditis - f/u with blood cultures - WBC and fever trends ID will follow up and monitor patient closely Case discussed with Howard Dela Cruz
--- NOTE | 2022-06-28 12:41 | P.PN ---
Subjective Date of Service: 06/28/22 Chief Complaint: Shortness of breath hypoxemia altered mental status Subjective: No new changes, Improving Physical Examination - Vital Signs Temperature: 97.9 F Blood Pressure: 120/57 Pulse: 79 Respirations: 17 Pulse Ox (%): 96 - Physical Exam General: Alert, Oriented x3 HEENT: Atraumatic, Normocephalic Respiratory: Normal air movement Gastrointestinal: Soft and benign Neurological: Normal speech - Studies Microbiology Data (last 24 hrs): 06/23/22 11:49 Blood - Blood Aerobic Blood Culture - Final Staph Aureus 06/23/22 11:49 Blood - Blood Blood Culture Gram Stain - Final 06/23/22 11:49 Blood - Blood Anaerobic Blood Culture - Final 06/23/22 08:35 Blood - Blood Aerobic Blood Culture - Final Staph Aureus 06/23/22 08:35 Blood - Blood Blood Culture Gram Stain - Final 06/23/22 08:35 Blood - Blood Anaerobic Blood Culture - Final Staph Aureus 06/23/22 08:35 Blood - Blood Gram Stain - Final Medications List Reviewed: Yes Assessment And Plan - Plan Plan: # Severe Sepsis secondary to Methicillin-Sensitive Staphylococcus Aureus bacteremia - POA # Suspected Vancomycin Allergy Still has bacteremia. Repeat blood culture has been positive. we will strongly consider RICHI. Antibiotics to be continued pending final decision. # Chronic Atrial Fibrillation s/p PPM/AICD (2007) His [id number] = 5 (HTN=1, Age>75=2, DM=1, CVA=1), which warrants anticoagulation. - Consulted Cardiology due to bacteremia with presence of PPM/AICD - Transthorachic echocardiogram = "1. normal left ventricular ejection fraction 60-65% with normal wall motion 2. mild mitral annular calcification with trace mitral regurgiation 3. no vegetation is seen on this exam." - Switched home apixaban to enoxaparin while hospitalized. # KDIGO Stage I Acute Kidney Injury - improved Resolved. we will follow closely. 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 # Benign Prostatic Hyperplasia - Hold home tamsulosin given concern for sepsis # Chronic Obstructive Pulmonary Disease # History of Lung Cancer s/p Radiation (2012) -Stable clinically. No new issues. # Bilateral Lower Extremity Swelling - chronic Lymphedema (Right > Left) - Right lower extremity Doppler = "no evidence of right lower extremity deep venous thrombosis." # Gout - Continue home allopurinol. # Anxiety # Depression - Continue home bupropion Arnol Ch M.D.
[2022-06-28] MEDS: ATORVASTATIN 80 MG TAB PO SCH (20:11)
[2022-06-29] MEDS: INSULIN -REGULAR HUMAN 50 UNIT/0.5 ML ML SQ SCH ×4 (07:30→20:31)
[2022-06-29] MEDS: FUROSEMIDE 40 MG/4 ML VIAL IV SCH ×2 (08:34→16:32)
[2022-06-29] MEDS: CEFTRIAXONE 1,000 MG in NA CHLORIDE 0.9% 50 ML IVPB SCH (08:35)
[2022-06-29] MEDS: allopurinoL 100 MG TAB PO SCH ×2 (08:35→20:30)
[2022-06-29] MEDS: ENOXAPARIN 100 MG/ML SYR SQ SCH ×2 (08:35→20:30)
[2022-06-29] MEDS: DULOXETINE 30 MG CAP PO SCH (08:35)
[2022-06-29] MEDS: ARFORMOTEROL TARTRATE 15 MCG/2 ML VIAL.NEB NEB SCH ×2 (09:30→19:42)
[2022-06-29] MEDS: GABAPENTIN 300 MG CAP PO SCH ×3 (10:02→20:30)
[2022-06-29] MEDS: BUPROPRION HCL S.R. 150MG TAB PO SCH (10:02)
--- NOTE | 2022-06-29 10:35 | P.PN ---
Date of Service: 06/29/22 Chief Complaint: Shortness of breath hypoxemia altered mental status Subjective: No changes Patient is sitting in chair, not in distress, on 2L NC. No new complaints at this time. No acute events reported overnight. Review of Systems 10-point ROS is otherwise unremarkable Respiratory: SOB with Exertion, Productive cough Physical Examination - Vital Signs Temp Pulse Resp BP Pulse Ox 97.6 F 62 18 142/79 H 97 06/29/22 07:47 06/29/22 08:34 06/29/22 07:47 06/29/22 08:34 06/29/22 07:47 - Physical Exam General: Alert, In no apparent distress, Oriented x3 HEENT: Atraumatic, Normocephalic Neck: Supple, JVD not distended Respiratory: Diminished, Expiratory wheezes, on 2L NC Cardiovascular: Normal pulses, PPM/AICD, Edema (RLE nonpitting) Gastrointestinal: Normal bowel sounds, Soft and benign, Non-distended Musculoskeletal: No clubbing, No swelling Integumentary: No rashes, No breakdown Neurological: Normal speech, Normal tone, Normal affect - Studies Laboratory Data - Reviewed Microbiology Data - Blood cultures 06/23-06/27: coagulase-positive Staphylococcus aureus; - Sputum culture 06/27: Presumptive Alyssa albicans - Blood cultures 06/28: No growth to date Imagings Data: - CT Chest/Abd/Pelvis 06/24: "No source of bacteremia identified by CT." - Chest XR 06/23: "The lungs are grossly clear. The heart is normal in size. No displaced fractures.Dual lead pacer/defibrillator device noted. No acute intrathoracic process suspected." - US right leg: "No evidence of right lower extremity deep venous thrombosis." - TTE 06/26: "1. Normal left ventricular ejection fraction 60-65% with normal wall motion. 2. Mild mitral annular calcification with trace mitral regurgitation. 3. No vegetation is seen on this exam." Medications List Reviewed: Yes Assessment And Plan Problem List - Severe Sepsis - Bacteremia - Atrial Fibrillation - Diabetes Mellitus Type II - COPD - BPH - Hypertension - Hyperlipidemia - Gout - History of lung cancer s/p radiation 2012 * Allergy: Penicillins, Vancomycin, codeine * Severe Sepsis secondary to coagulase-positive Staphylococcus aureus - Blood cultures 06/23-06/27: coagulase-positive Staphylococcus aureus - Patient has PPM/AICD, there was concern for endocarditis - Cardiology on case - TTE performed 06/26: No evidence of vegetation or endocarditis. - Leukocytosis; Afebrile - Repeat Blood cultures 06/28: no growth 24 hours - On Ceftriaxone, Daptomycin and Rifampin Abx - Ceftriaxone (started 06/24-) - Daptomycin (started 06/24-) - Rifampin (started 06/27-) Recommendations - Continue Ceftriaxone, Daptomycin and Rifampin (started 06/24) - f/u with blood cultures - WBC and fever trends - Consider LTAC for persistent bacteremia / IV antibiotics ID will follow up and monitor patient closely Case discussed with Howard Dela Cruz
[2022-06-29] MEDS: DAPTOMYCIN IVPB SCH (11:50)
[2022-06-29] MEDS: NA CHLORIDE 0.9% IVPB SCH (11:50)
--- NOTE | 2022-06-29 18:32 | P.PN ---
Subjective Date of Service: 06/29/22 Chief Complaint: Shortness of breath hypoxemia altered mental status Patient has no new complaint. No issues overnight. He has been afebrile. Physical Examination - Vital Signs Temperature: 96.9 F Blood Pressure: 133/73 Pulse: 71 Respirations: 18 Pulse Ox (%): 98 - Physical Exam General: Alert, In no apparent distress, Obese HEENT: Mucous membr. moist/pink Neck: Supple Respiratory: Clear to auscultation bilaterally, Normal air movement Cardiovascular: No edema, Regular rate/rhythm, Normal S1 S2 Gastrointestinal: Normal bowel sounds, Soft and benign, Non-distended Musculoskeletal: No swelling, No tenderness Integumentary: No cyanosis Neurological: Other (No focal motor deficit) - Studies Medications List Reviewed: Yes Assessment And Plan - Plan Severe Sepsis secondary to Methicillin-Sensitive Staphylococcus Aureus bacteremia - POA Suspected Vancomycin Allergy Patient with multiple blood cultures growing MSSA. There was a concern for reseeding of bacteria from her blood source. Status post pacemaker Most recent blood culture 06/28: No growth to date. Echocardiogram done which showed no vegetation. Cardiology recommended no RICHI. Possible source of reseeding: Pacemaker wires. Salvage versus removal of pace maker. May be a candidate for LTAC Continue daptomycin and Rocephin. Infectious diseases following. Chronic Atrial Fibrillation s/p PPM/AICD (2007) His [id number] = 5 (HTN=1, Age>75=2, DM=1, CVA=1), which warrants anticoagulation. - Consulted Cardiology due to bacteremia with presence of PPM/AICD - Transthorachic echocardiogram = "1. normal left ventricular ejection fraction 60-65% with normal wall motion 2. mild mitral annular calcification with trace mitral regurgiation 3. no vegetation is seen on this exam." -Apixaban on hold. Continue enoxaparin while hospitalized. KDIGO Stage I Acute Kidney Injury - improved Resolved. 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 Benign Prostatic Hyperplasia -Resume tamsulosin. Chronic Obstructive Pulmonary Disease History of Lung Cancer s/p Radiation (2012) -Stable clinically. No new issues. Bilateral Lower Extremity Swelling - chronic Lymphedema (Right > Left) - Right lower extremity Doppler = "no evidence of right lower extremity deep venous thrombosis." Gout - Continue home allopurinol. Anxiety Depression - Continue home bupropion
[2022-06-29] MEDS: TAMSULOSIN 0.4 MG SR CAP PO SCH (20:30)
[2022-06-29] MEDS: ATORVASTATIN 80 MG TAB PO SCH (20:31)
[2022-06-30 04:47] LABS: Absolute Lymphocytes (CBC) 1.5 K/uL (0.7-4.9); Hematocrit 39.7 % (39.6-49.0); Lymphocytes % 9.9 % (15.3-44.8); MCV 86.7 fL (80-100); MPV 9.7 fL (7.6-11.3); RBC Red Blood Cell Count 4.58 M/uL (4.33-5.43)
[2022-06-30 04:57] LABS: Potassium 3.5 mEq/L (3.5-5.1)
[2022-06-30] MEDS: INSULIN -REGULAR HUMAN 50 UNIT/0.5 ML ML SQ SCH ×4 (07:30→21:00)
[2022-06-30] MEDS: GABAPENTIN 300 MG CAP PO SCH ×3 (07:58→20:37)
[2022-06-30] MEDS: CEFTRIAXONE 1,000 MG in NA CHLORIDE 0.9% 50 ML IVPB SCH (07:59)
[2022-06-30] MEDS: DULOXETINE 30 MG CAP PO SCH (07:59)
[2022-06-30] MEDS: BUPROPRION HCL S.R. 150MG TAB PO SCH (07:59)
[2022-06-30] MEDS: allopurinoL 100 MG TAB PO SCH ×2 (07:59→20:37)
[2022-06-30] MEDS: FUROSEMIDE 40 MG/4 ML VIAL IV SCH ×2 (08:00→17:28)
[2022-06-30] MEDS: ENOXAPARIN 100 MG/ML SYR SQ SCH ×2 (08:00→20:36)
[2022-06-30] MEDS: HOME MED 1 EA UNK (Fluticasone Propion/Salmeterol [Fluticasone-Salmeterol 250-50] Blst.W.D IH SCH (08:01)
[2022-06-30] MEDS: CYANOCOBALAMIN 100 MCG PO SCH (08:01)
[2022-06-30] MEDS: TIOTROPIUM 5 SPRAYS/INHALER IH SCH (08:01)
[2022-06-30] MEDS: ARFORMOTEROL TARTRATE 15 MCG/2 ML VIAL.NEB NEB SCH ×2 (08:40→20:14)
--- NOTE | 2022-06-30 10:14 | P.PN ---
Date of Service: 06/30/22 Chief Complaint: Shortness of breath hypoxemia altered mental status Subjective: No changes. Patient is sitting up in bed not in distress, on 2L NC. No new complaints at this time. No acute events reported overnight. Plan for LTAC [facility] for continued antibiotic therapy / persistent bacteremia Physical Examination - Vital Signs Temp Pulse Resp BP Pulse Ox 99.8 F 78 16 134/62 93 06/30/22 08:00 06/30/22 08:00 06/30/22 08:00 06/30/22 08:00 06/30/22 08:00 - Physical Exam General: Alert, In no apparent distress, Oriented x3 HEENT: Atraumatic, Normocephalic Neck: Supple, JVD not distended Respiratory: Diminished, Expiratory wheezes, on 2L NC Cardiovascular: Normal pulses, PPM/AICD, Edema (RLE nonpitting) Gastrointestinal: Normal bowel sounds, Soft and benign, Non-distended Musculoskeletal: No clubbing, No swelling Integumentary: No rashes, No breakdown Neurological: Normal speech, Normal tone, Normal affect - Studies Laboratory Data - Reviewed Microbiology Data - Blood cultures 06/23-06/27: coagulase-positive Staphylococcus aureus; - Sputum culture 06/27: Presumptive Alyssa albicans - Blood cultures 06/28: No growth to date Imagings Data: - CT Chest/Abd/Pelvis 06/24: "No source of bacteremia identified by CT." - Chest XR 06/23: "The lungs are grossly clear. The heart is normal in size. No displaced fractures.Dual lead pacer/defibrillator device noted. No acute intrathoracic process suspected." - US right leg: "No evidence of right lower extremity deep venous thrombosis." - TTE 06/26: "1. Normal left ventricular ejection fraction 60-65% with normal wall motion. 2. Mild mitral annular calcification with trace mitral regurgitation. 3. No vegetation is seen on this exam." Medications List Reviewed: Yes Assessment And Plan Problem List - Severe Sepsis - Bacteremia - Atrial Fibrillation - Diabetes Mellitus Type II - COPD - BPH - Hypertension - Hyperlipidemia - Gout - History of lung cancer s/p radiation 2012 * Allergy: Penicillins, Vancomycin, codeine * Severe Sepsis secondary to Staphylococcus aureus Bacteremia Persistent bacteremia - Blood cultures 06/23 through 06/27: coagulase-positive Staphylococcus aureus - Patient has PPM/AICD, concern for endocarditis; cardiology on case - TTE performed 06/26: No evidence of vegetation or endocarditis. Cardiology recommended no RICHI - Repeat Blood cultures 06/28: no growth 24 hours - Rifampin discontinued (06/27-06/30) - Leukocytosis improving slightly; Afebrile - On Ceftriaxone and Daptomycin Recommendations - Continue Ceftriaxone and Daptomycin (started 06/24) - Pending LTAC placement [facility] for continued IV antibiotic therapy / persistent bacteremia - WBC and fever trends. f/u with blood cultures ID will follow up and monitor patient closely Case discussed with Howard Dela Cruz
[2022-06-30] MEDS: NA CHLORIDE 0.9% IVPB SCH (10:45)
[2022-06-30] MEDS: DAPTOMYCIN IVPB SCH (10:45)
--- NOTE | 2022-06-30 15:52 | P.PN ---
Subjective Date of Service: 06/30/22 Chief Complaint: Shortness of breath hypoxemia altered mental status No new complaint. Patient has good oral intake and currently at baseline. Physical Examination - Vital Signs Temperature: 99.8 F Blood Pressure: 134/62 Pulse: 78 Respirations: 16 Pulse Ox (%): 93 - Physical Exam General: Alert, In no apparent distress, Oriented x3 HEENT: Mucous membr. moist/pink Neck: JVD not distended Respiratory: Clear to auscultation bilaterally, Normal air movement Cardiovascular: Regular rate/rhythm, Normal S1 S2, No murmurs Gastrointestinal: Normal bowel sounds, Soft and benign, Non-distended, No tenderness Musculoskeletal: No swelling Integumentary: No cyanosis Neurological: Normal strength at 5/5 x4 extr - Studies Medications List Reviewed: Yes Assessment And Plan - Plan Severe Sepsis secondary to Methicillin-Sensitive Staphylococcus Aureus bacteremia - POA Suspected Vancomycin Allergy Patient with multiple blood cultures growing MSSA. There is concern that the pacemaker wires are infected and reseeding the blood leading to multiple blood culture growths. Most recent blood culture 06/28: No growth to date. Echocardiogram done which showed no vegetation. Cardiology recommended no RICHI. Discussed with infectious disease Dr. Jackson who wants to focus on salvaging the pacemaker. Patient is a candidate for LTAC Continue daptomycin and Rocephin. Infectious diseases following. Social service assisting with LTAC placement. Chronic Atrial Fibrillation s/p PPM/AICD (2007) His [id number] = 5 (HTN=1, Age>75=2, DM=1, CVA=1), which warrants anticoagulation. - Consulted Cardiology due to bacteremia with presence of PPM/AICD - Transthorachic echocardiogram = "1. normal left ventricular ejection fraction 60-65% with normal wall motion 2. mild mitral annular calcification with trace mitral regurgiation 3. no vegetation is seen on this exam." -Apixaban on hold. Continue enoxaparin while hospitalized. KDIGO Stage I Acute Kidney Injury - improved Resolved. 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 Benign Prostatic Hyperplasia -Continue tamsulosin. Chronic Obstructive Pulmonary Disease History of Lung Cancer s/p Radiation (2012) -Stable clinically. No new issues. Bilateral Lower Extremity Swelling - chronic Lymphedema (Right > Left) - Right lower extremity Doppler = "no evidence of right lower extremity deep venous thrombosis." Gout - Continue home allopurinol. Anxiety Depression - Continue home bupropion
[2022-06-30] MEDS: ALBUTEROL 2.5 MG/3 ML NEB SOL NEB PRN (20:24)
[2022-06-30] MEDS: ATORVASTATIN 80 MG TAB PO SCH (20:37)
[2022-06-30] MEDS: TAMSULOSIN 0.4 MG SR CAP PO SCH (20:37)
[2022-07-01 03:55] LABS: Absolute Lymphocytes (CBC) 1.4 K/uL (0.7-4.9); Hematocrit 40.6 % (39.6-49.0); Lymphocytes % 9.9 % (15.3-44.8); MCV 86.8 fL (80-100); MPV 9.3 fL (7.6-11.3); RBC Red Blood Cell Count 4.68 M/uL (4.33-5.43)
[2022-07-01 04:08] LABS: Potassium 3.5 mEq/L (3.5-5.1)
[2022-07-01] MEDS: INSULIN -REGULAR HUMAN 50 UNIT/0.5 ML ML SQ SCH ×4 (07:30→20:53)
[2022-07-01] MEDS: CEFTRIAXONE 1,000 MG in NA CHLORIDE 0.9% 50 ML IVPB SCH (07:40)
[2022-07-01] MEDS: FUROSEMIDE 40 MG/4 ML VIAL IV SCH ×2 (07:40→16:18)
[2022-07-01] MEDS: DULOXETINE 30 MG CAP PO SCH (07:41)
[2022-07-01] MEDS: allopurinoL 100 MG TAB PO SCH ×2 (07:41→20:49)
[2022-07-01] MEDS: BUPROPRION HCL S.R. 150MG TAB PO SCH (07:41)
[2022-07-01] MEDS: GABAPENTIN 300 MG CAP PO SCH ×3 (07:41→20:48)
[2022-07-01] MEDS: ENOXAPARIN 100 MG/ML SYR SQ SCH (07:41)
[2022-07-01] MEDS: HOME MED 1 EA UNK (Fluticasone Propion/Salmeterol [Fluticasone-Salmeterol 250-50] Blst.W.D IH SCH (07:42)
[2022-07-01] MEDS: CYANOCOBALAMIN 100 MCG PO SCH (07:42)
[2022-07-01] MEDS: TIOTROPIUM 5 SPRAYS/INHALER IH SCH (07:42)
[2022-07-01] MEDS: ALBUTEROL 2.5 MG/3 ML NEB SOL NEB PRN ×2 (08:47→20:40)
[2022-07-01] MEDS: ARFORMOTEROL TARTRATE 15 MCG/2 ML VIAL.NEB NEB SCH ×2 (08:47→20:40)
--- NOTE | 2022-07-01 11:06 | P.PN ---
Subjective Date of Service: 07/01/22 Chief Complaint: Shortness of breath hypoxemia altered mental status Patient reports seeing blood in his nose and around his gums today. He reports generalized weakness. He has been afebrile. Physical Examination - Vital Signs Temperature: 98.6 F Blood Pressure: 123/62 Pulse: 79 Respirations: 16 Pulse Ox (%): 94 - Physical Exam General: In no apparent distress, Oriented x3 HEENT: Mucous membr. moist/pink, Other (No ulcerations tonsillar exudate or ble eding noted.) Neck: JVD not distended Respiratory: Clear to auscultation bilaterally, Normal air movement Cardiovascular: Regular rate/rhythm Gastrointestinal: Normal bowel sounds, Soft and benign, Non-distended, No tenderness Musculoskeletal: No swelling, No warmth Integumentary: No cyanosis Neurological: Normal strength at 5/5 x4 extr - Studies Medications List Reviewed: Yes Assessment And Plan - Plan Severe Sepsis secondary to Methicillin-Sensitive Staphylococcus Aureus bacteremia - POA Suspected Vancomycin Allergy Patient with multiple blood cultures growing MSSA. There is concern that the pacemaker wires are infected and reseeding the blood leading to multiple blood culture growths. Most recent blood culture 06/28: No growth to date. Echocardiogram done which showed no vegetation. Cardiology recommended no RICHI. Discussed with infectious disease Dr. Jackson who wants to focus on salvaging the pacemaker. Patient is a candidate for LTAC Continue daptomycin and Rocephin. Infectious diseases following. Social service assisting with LTAC placement. Chronic Atrial Fibrillation s/p PPM/AICD (2007) His [id number] = 5 (HTN=1, Age>75=2, DM=1, CVA=1), which warrants anticoagulation. - Consulted Cardiology due to bacteremia with presence of PPM/AICD - Transthorachic echocardiogram = "1. normal left ventricular ejection fraction 60-65% with normal wall motion 2. mild mitral annular calcification with trace mitral regurgiation 3. no vegetation is seen on this exam." -Apixaban on hold. Continue enoxaparin while hospitalized. Resume Eliquis and discontinue full dose Lovenox. Monitor for active bleeding. KDIGO Stage I Acute Kidney Injury - improved Resolved. 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 Benign Prostatic Hyperplasia -Continue tamsulosin. Chronic Obstructive Pulmonary Disease History of Lung Cancer s/p Radiation (2012) -Stable clinically. No new issues. Bilateral Lower Extremity Swelling - chronic Lymphedema (Right > Left) - Right lower extremity Doppler = "no evidence of right lower extremity deep venous thrombosis." Gout - Continue home allopurinol. Anxiety Depression - Continue home bupropion
[2022-07-01] MEDS: NA CHLORIDE 0.9% IVPB SCH (11:27)
[2022-07-01] MEDS: DAPTOMYCIN IVPB SCH (11:27)
[2022-07-01 13:37] LABS: Protime INR 1.11
[2022-07-01] MEDS: ATORVASTATIN 80 MG TAB PO SCH (20:48)
[2022-07-01] MEDS: TAMSULOSIN 0.4 MG SR CAP PO SCH (20:49)
[2022-07-01] MEDS: APIXABAN 5 MG TABLET PO SCH (20:49)
[2022-07-02] MEDS: INSULIN -REGULAR HUMAN 50 UNIT/0.5 ML ML SQ SCH ×4 (07:30→20:41)
[2022-07-02] MEDS: ARFORMOTEROL TARTRATE 15 MCG/2 ML VIAL.NEB NEB SCH ×2 (08:30→20:06)
[2022-07-02] MEDS: GABAPENTIN 300 MG CAP PO SCH ×3 (08:40→20:40)
[2022-07-02] MEDS: DULOXETINE 30 MG CAP PO SCH (08:40)
[2022-07-02] MEDS: HOME MED 1 EA UNK (Fluticasone Propion/Salmeterol [Fluticasone-Salmeterol 250-50] Blst.W.D IH SCH (08:41)
[2022-07-02] MEDS: allopurinoL 100 MG TAB PO SCH ×2 (08:41→20:41)
[2022-07-02] MEDS: APIXABAN 5 MG TABLET PO SCH ×2 (08:41→20:40)
[2022-07-02] MEDS: BUPROPRION HCL S.R. 150MG TAB PO SCH (08:41)
[2022-07-02] MEDS: FUROSEMIDE 40 MG/4 ML VIAL IV SCH ×2 (08:41→16:26)
[2022-07-02] MEDS: TIOTROPIUM 5 SPRAYS/INHALER IH SCH (08:41)
[2022-07-02] MEDS: CYANOCOBALAMIN 100 MCG PO SCH (08:42)
[2022-07-02] MEDS: CEFTRIAXONE 1,000 MG in NA CHLORIDE 0.9% 50 ML IVPB SCH (08:42)
[2022-07-02] MEDS: DAPTOMYCIN IVPB SCH (11:06)
[2022-07-02] MEDS: NA CHLORIDE 0.9% IVPB SCH (11:06)
--- NOTE | 2022-07-02 11:48 | P.PN ---
Subjective Date of Service: 07/02/22 Chief Complaint: Shortness of breath hypoxemia altered mental status Patient has no new complaint. He feels he is getting stronger. He has been ambulatory and denies shortness of breath. Physical Examination - Vital Signs Temperature: 97.8 F Blood Pressure: 134/63 Pulse: 69 Respirations: 18 Pulse Ox (%): 95 - Studies Medications List Reviewed: Yes Assessment And Plan - Plan Physical Exam General: In no apparent distress, Oriented x3 Neck: JVD not distended Respiratory: Clear to auscultation bilaterally, Normal air movement Cardiovascular: Regular rate/rhythm Gastrointestinal: Normal bowel sounds, Soft and benign, Non-distended, No tenderness Musculoskeletal: No swelling, No warmth Integumentary: No cyanosis Neurological: Normal strength at 5/5 x4 extr Severe Sepsis secondary to Methicillin-Sensitive Staphylococcus Aureus bacteremia - POA Suspected Vancomycin Allergy Patient with multiple blood cultures growing MSSA. There is concern that the pacemaker wires are infected and reseeding the blood leading to multiple blood culture growths. Most recent blood culture 06/28: No growth to date. Echocardiogram done which showed no vegetation. Cardiology recommended no RICHI. Discussed with infectious disease Dr. Jackson who wants to focus on salvaging the pacemaker. Patient is a candidate for LTAC Continue daptomycin and Rocephin. Infectious diseases following. Social service assisting with LTAC placement. Chronic Atrial Fibrillation s/p PPM/AICD (2007) His [id number] = 5 (HTN=1, Age>75=2, DM=1, CVA=1), which warrants anticoagulation. - Consulted Cardiology due to bacteremia with presence of PPM/AICD - Transthorachic echocardiogram = "1. normal left ventricular ejection fraction 60-65% with normal wall motion 2. mild mitral annular calcification with trace mitral regurgiation 3. no vegetation is seen on this exam." Continue Eliquis. Monitor for active bleeding. KDIGO Stage I Acute Kidney Injury - improved Resolved. 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 Benign Prostatic Hyperplasia -Continue tamsulosin. Chronic Obstructive Pulmonary Disease History of Lung Cancer s/p Radiation (2012) -Stable clinically. No new issues. Bilateral Lower Extremity Swelling - chronic Lymphedema (Right > Left) - Right lower extremity Doppler = "no evidence of right lower extremity deep venous thrombosis." Gout - Continue home allopurinol. Anxiety Depression - Continue home bupropion Awaiting LTAC placement.
[2022-07-02] MEDS: TAMSULOSIN 0.4 MG SR CAP PO SCH (20:40)
[2022-07-02] MEDS: ATORVASTATIN 80 MG TAB PO SCH (20:41)
[2022-07-03] MEDS ORDERED: GABAPENTIN 100 MG CAP ONE ×3 (07:14→11:09)
[2022-07-03] MEDS: INSULIN -REGULAR HUMAN 50 UNIT/0.5 ML ML SQ SCH ×4 (07:30→20:30)
[2022-07-03] MEDS: allopurinoL 100 MG TAB PO SCH ×2 (07:42→20:29)
[2022-07-03] MEDS: DULOXETINE 30 MG CAP PO SCH (07:42)
[2022-07-03] MEDS: GABAPENTIN 300 MG CAP PO SCH ×3 (07:43→20:29)
[2022-07-03] MEDS: APIXABAN 5 MG TABLET PO SCH (07:43)
[2022-07-03] MEDS: BUPROPRION HCL S.R. 150MG TAB PO SCH (07:44)
[2022-07-03] MEDS: HOME MED 1 EA UNK (Fluticasone Propion/Salmeterol [Fluticasone-Salmeterol 250-50] Blst.W.D IH SCH (07:44)
[2022-07-03] MEDS: FUROSEMIDE 40 MG/4 ML VIAL IV SCH ×2 (07:44→16:13)
[2022-07-03] MEDS: TIOTROPIUM 5 SPRAYS/INHALER IH SCH (07:44)
[2022-07-03] MEDS: CEFTRIAXONE 1,000 MG in NA CHLORIDE 0.9% 50 ML IVPB SCH (07:45)
[2022-07-03] MEDS: ARFORMOTEROL TARTRATE 15 MCG/2 ML VIAL.NEB NEB SCH ×2 (08:00→20:00)
[2022-07-03] MEDS: CYANOCOBALAMIN 100 MCG PO SCH (08:50)
--- NOTE | 2022-07-03 09:45 | P.PN ---
Date of Service: 07/03/22 Chief Complaint: Shortness of breath hypoxemia altered mental status Subjective: No new changes. Patient is awake and oriented x3. Sitting up on side of bed. Denies any complaints at this time. Pending transfer to [facility]. Continue current plan of care. Physical Examination - Vital Signs Temp Pulse Resp BP Pulse Ox 97.5 F 81 17 121/61 93 07/03/22 08:00 07/03/22 08:00 07/03/22 08:00 07/03/22 08:00 07/03/22 08:00 - Physical Exam General: Alert, In no apparent distress, Oriented x3 HEENT: Atraumatic, Normocephalic Neck: Supple, JVD not distended Respiratory: Diminished, currently breathing comfortably on room air Cardiovascular: Normal pulses, PPM/AICD, Gastrointestinal: Normal bowel sounds, Soft and benign, Non-distended Musculoskeletal: No clubbing, RLE edema nonpitting Integumentary: No rashes, No breakdown Neurological: Normal speech, Normal tone, Normal affect - Studies Laboratory Data - Reviewed Microbiology Data - Blood cultures 06/23-06/27: Methicillin-Sensitive Staphylococcus aureus; - Sputum culture 06/27: Presumptive Alyssa albicans - Blood cultures 06/28: No growth to date Imagings Data: - CT Chest/Abd/Pelvis 06/24: "No source of bacteremia identified by CT." - Chest XR 06/23: "The lungs are grossly clear. The heart is normal in size. No displaced fractures.Dual lead pacer/defibrillator device noted. No acute intrathoracic process suspected." - US right leg: "No evidence of right lower extremity deep venous thrombosis." - TTE 06/26: "1. Normal left ventricular ejection fraction 60-65% with normal wall motion. 2. Mild mitral annular calcification with trace mitral regurgitation. 3. No vegetation is seen on this exam." Medications List Reviewed: Yes Assessment And Plan Problem List - Severe Sepsis - Bacteremia - Atrial Fibrillation - Diabetes Mellitus Type II - COPD - BPH - Hypertension - Hyperlipidemia - Gout - History of lung cancer s/p radiation 2012 * Allergy: Penicillins, Vancomycin, codeine * Severe Sepsis secondary to Staphylococcus aureus Bacteremia Persistent bacteremia - Blood cultures 06/23 through 06/27: Staphylococcus aureus - Patient has PPM/AICD, concern for endocarditis; cardiology on case - TTE performed 06/26: No evidence of vegetation or endocarditis. Cardiology recommended no RICHI - Most recent blood cultures 06/28: no growth to date - Previously on Rifampin (06/27-06/30) - Leukocytosis (WBC 13.8) - Afebrile - On Ceftriaxone and Daptomycin Recommendations - Continue Ceftriaxone and Daptomycin (started 06/24) - Pending transfer to [facility] for continued IV antibiotic therapy / persistent bacteremia ID will follow up and monitor patient closely Case discussed with Howard Dela Cruz
[2022-07-03] MEDS: NA CHLORIDE 0.9% IVPB SCH (10:56)
[2022-07-03] MEDS: DAPTOMYCIN IVPB SCH (10:56)
--- NOTE | 2022-07-03 12:16 | P.PN ---
Subjective Date of Service: 07/03/22 Chief Complaint: Shortness of breath hypoxemia altered mental status Patient reports bleeding from the left nostril after blowing his nose today. Overall he states he feels back to baseline. Physical Examination - Vital Signs Temperature: 97.5 F Blood Pressure: 121/61 Pulse: 81 Respirations: 17 Pulse Ox (%): 93 - Studies Medications List Reviewed: Yes Assessment And Plan - Plan Physical Exam General: In no apparent distress, Oriented x3 ENT: Crust of dried blood-left nostril Neck: JVD not distended Respiratory: Clear to auscultation bilaterally, Normal air movement Cardiovascular: Regular rate/rhythm Gastrointestinal: Normal bowel sounds, Soft and benign, Non-distended, No tenderness Musculoskeletal: No swelling, No warmth Neurological: Normal strength at 5/5 x4 extr Severe Sepsis secondary to Methicillin-Sensitive Staphylococcus Aureus bacteremia - POA Suspected Vancomycin Allergy Patient with multiple blood cultures growing MSSA. There is concern that the pacemaker wires are infected and reseeding the blood leading to multiple blood culture growths. Most recent blood culture 06/28: No growth to date. Echocardiogram done showed no vegetation. Cardiology recommended no RICHI. Discussed with infectious disease Dr. Jackson who wants to focus on salvaging the pacemaker. Patient is a candidate for LTAC Continue daptomycin and Rocephin. Infectious diseases following. Social service assisting with LTAC placement. Chronic Atrial Fibrillation s/p PPM/AICD (2007) His [id number] = 5 (HTN=1, Age>75=2, DM=1, CVA=1), which warrants anticoagulation. - Consulted Cardiology due to bacteremia with presence of PPM/AICD - Transthorachic echocardiogram = "1. normal left ventricular ejection fraction 60-65% with normal wall motion 2. mild mitral annular calcification with trace mitral regurgiation 3. no vegetation is seen on this exam." We will hold Eliquis until no epistaxis and then resume it. Monitor for active bleeding. KDIGO Stage I Acute Kidney Injury - improved Resolved. 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 Benign Prostatic Hyperplasia -Continue tamsulosin. Chronic Obstructive Pulmonary Disease History of Lung Cancer s/p Radiation (2012) -Stable clinically. No new issues. Bilateral Lower Extremity Swelling - chronic Lymphedema (Right > Left) - Right lower extremity Doppler = "no evidence of right lower extremity deep venous thrombosis." Gout - Continue home allopurinol. Anxiety Depression - Continue home bupropion. Epistaxis -Likely secondary to cracks in the dried nasal mucosal lining from oxygen. -Hold Eliquis until no epistaxis and then resume it. -Nasal saline spray to moisten nasal mucosa lining. -Humidified/aerosolized oxygen Awaiting LTAC placement.
[2022-07-03] MEDS: SOD CHLORIDE 0.65% NASAL SPRAY NAS SCH ×3 (13:27→20:30)
--- NOTE | 2022-07-03 19:26 | P.PN ---
Date of Service: 07/04/22 Subjective: Feeling "fine" this morning no SOB or pain noted today no new / worsening problems reports might be able to administer antibiotics at home ROS: 10 point ROS as noted above, otherwise negative Physical Exam: Gen: Alert, NAD, AOx3 HEENT: normal conjunctiva, sclera anicteric CV: regular rate & rhythm, no edema Pulm: mildly-labored respirations on 2L NC, diminished at bases b/l Abd: soft, non-tender, non-distended MSK: no joint tenderness Neuro: normal speech, normal affect, moves all extremities vitals reviewed Problem List: Severe Sepsis secondary to Methicillin-Sensitive Staphylococcus Aureus bacteremia - POA Suspected Vancomycin Allergy Chronic Atrial Fibrillation s/p PPM/AICD (2007) KDIGO Stage I Acute Kidney Injury - improved DM2 with Neuropathy History of Cerebrovascular Accident Hypertension Hyperlipidemia Benign Prostatic Hyperplasia Chronic Obstructive Pulmonary Disease History of Lung Cancer s/p Radiation (2012) Bilateral Lower Extremity Swelling - chronic Lymphedema (Right > Left) Gout Anxiety / Depression Epistaxis Severe Sepsis secondary to Methicillin-Sensitive Staphylococcus Aureus bacteremia - POA Suspected Vancomycin Allergy multiple blood cultures growing MSSA There is concern that the pacemaker wires are infected and reseeding the blood leading to multiple blood culture growths. blood culture 06/28: No growth to date Echocardiogram showed no vegetation. Cardiology recommended no RICHI. ID consulted - Dr. Jackson who wants to focus on salvaging the pacemaker. Continue daptomycin and Rocephin Chronic Atrial Fibrillation s/p PPM/AICD (2007) Cardiology Consulted due to bacteremia with presence of PPM/AICD Transthorachic echocardiogram = "1. normal left ventricular ejection fraction 60-65% with normal wall motion 2. mild mitral annular calcification with trace mitral regurgiation 3. no vegetation is seen on this exam." We will hold Eliquis until no epistaxis and then resume it. Monitor for active bleeding KDIGO Stage I Acute Kidney Injury - improved DM2 with Neuropathy Correction scale insulin Empagliflozin, metformin on hold while hospitalized Continue home gabapentin, duloxetine History of Cerebrovascular Accident Hypertension Hyperlipidemia Continue home atorvastatin Benign Prostatic Hyperplasia Continue tamsulosin Chronic Obstructive Pulmonary Disease History of Lung Cancer s/p Radiation (2012) Stable Bilateral Lower Extremity Swelling - chronic Lymphedema (Right > Left) Right lower extremity Doppler = "no evidence of right lower extremity deep venous thrombosis." Gout Continue home allopurinol Anxiety Depression Continue home bupropion Epistaxis Likely secondary to cracks in the dried nasal mucosal lining from oxygen. Hold Eliquis until no epistaxis and then resume it. Nasal saline spray to moisten nasal mucosa lining. Humidified/aerosolized oxygen VTE: Hold eliquis Code: Full Dispo: LTAC Social service assisting with LTAC placement.
[2022-07-03] MEDS: ATORVASTATIN 80 MG TAB PO SCH (20:29)
[2022-07-03] MEDS: TAMSULOSIN 0.4 MG SR CAP PO SCH (20:29)
[2022-07-04] MEDS: INSULIN -REGULAR HUMAN 50 UNIT/0.5 ML ML SQ SCH ×2 (07:30→11:30)
[2022-07-04] MEDS: GABAPENTIN 300 MG CAP PO SCH ×2 (08:02→10:43)
[2022-07-04] MEDS: CEFTRIAXONE 1,000 MG in NA CHLORIDE 0.9% 50 ML IVPB SCH (08:02)
[2022-07-04] MEDS: allopurinoL 100 MG TAB PO SCH (08:02)
[2022-07-04] MEDS: DULOXETINE 30 MG CAP PO SCH (08:02)
[2022-07-04] MEDS: FUROSEMIDE 40 MG/4 ML VIAL IV SCH (08:02)
[2022-07-04] MEDS: BUPROPRION HCL S.R. 150MG TAB PO SCH (08:02)
[2022-07-04] MEDS: SOD CHLORIDE 0.65% NASAL SPRAY NAS SCH ×2 (08:03→12:21)
[2022-07-04 08:24] LABS: Absolute Lymphocytes (CBC) 1.3 K/uL (0.7-4.9); Hematocrit 38.6 % (39.6-49.0); Lymphocytes % 10.7 % (15.3-44.8); MCV 87.2 fL (80-100); MPV 8.4 fL (7.6-11.3); RBC Red Blood Cell Count 4.43 M/uL (4.33-5.43)
[2022-07-04] MEDS: TIOTROPIUM 5 SPRAYS/INHALER IH SCH (08:24)
[2022-07-04] MEDS: CYANOCOBALAMIN 100 MCG PO SCH (08:24)
[2022-07-04] MEDS: HOME MED 1 EA UNK (Fluticasone Propion/Salmeterol [Fluticasone-Salmeterol 250-50] Blst.W.D IH SCH (08:24)
[2022-07-04 08:32] VITALS: BMI 33.9
[2022-07-04 08:42] LABS: Albumin 2.9 g/dL (3.4-5.0); Bilirubin Total 0.3 mg/dL (0.2-1.0); Magnesium 2.4 mg/dL (1.6-2.4); Phosphorus 3.8 mg/dL (2.5-4.9); Potassium 4.3 mEq/L (3.5-5.1); Protein, Total 7.9 g/dL (6.4-8.2)
[2022-07-04 09:01] VITALS: BP 133/74; TEMP 97.2
[2022-07-04] MEDS: ARFORMOTEROL TARTRATE 15 MCG/2 ML VIAL.NEB NEB SCH (09:02)
--- NOTE | 2022-07-04 09:41 | P.PN ---
Date of Service: 07/04/22 Chief Complaint: Shortness of breath hypoxemia altered mental status Subjective: No new changes. Patient accepted to LTAC [facility]. Continue current plan of care. Patient is awake and oriented x3, not in distress. No new complaints at this time. No acute events reported overnight. Afebrile. Physical Examination - Vital Signs Temp Pulse Resp BP Pulse Ox 97.2 F 73 17 133/74 92 07/04/22 08:00 07/04/22 08:00 07/04/22 08:00 07/04/22 08:00 07/04/22 08:00 - Physical Exam General: Alert, In no apparent distress, Oriented x3 HEENT: Atraumatic, Normocephalic Neck: Supple, JVD not distended Respiratory: Diminished, currently breathing comfortably on room air Cardiovascular: Normal pulses, PPM/AICD, Gastrointestinal: Normal bowel sounds, Soft and benign, Non-distended Musculoskeletal: No clubbing, RLE edema nonpitting Integumentary: No rashes, No breakdown Neurological: Normal speech, Normal tone, Normal affect - Studies Laboratory Data - Reviewed Microbiology Data - Blood cultures 06/23-06/27: Methicillin-Sensitive Staphylococcus aureus; - Sputum culture 06/27: Presumptive Alyssa albicans - Blood cultures 06/28: No growth to date Imagings Data: - CT Chest/Abd/Pelvis 06/24: "No source of bacteremia identified by CT." - Chest XR 06/23: "The lungs are grossly clear. The heart is normal in size. No displaced fractures.Dual lead pacer/defibrillator device noted. No acute intrathoracic process suspected." - US right leg: "No evidence of right lower extremity deep venous thrombosis." - TTE 06/26: "1. Normal left ventricular ejection fraction 60-65% with normal wall motion. 2. Mild mitral annular calcification with trace mitral regurgitation. 3. No vegetation is seen on this exam." Medications List Reviewed: Yes Assessment And Plan Problem List - Severe Sepsis - Bacteremia - Atrial Fibrillation - Diabetes Mellitus Type II - COPD - BPH - Hypertension - Hyperlipidemia - Gout - History of lung cancer s/p radiation 2012 * Allergy: Penicillins, Vancomycin, codeine * Severe Sepsis secondary to Staphylococcus aureus Bacteremia Persistent bacteremia - Blood cultures 06/23 through 06/27: Staphylococcus aureus - Patient has PPM/AICD, concern for endocarditis; cardiology on case - TTE performed 06/26: No evidence of vegetation or endocarditis. Cardiology recommended no RICHI - Most recent blood cultures 06/28: no growth to date - Previously on Rifampin (06/27-06/30) - Leukocytosis slightly improving (WBC 13.8 -> 12.5 - on 07/04) - Afebrile - On Ceftriaxone and Daptomycin Recommendations - Continue Ceftriaxone and Daptomycin (started 06/24) - LTAC approved, Mirella Carlin ID will follow the patient as needed. Case discussed with Howard Dela Cruz
[2022-07-04 10:29] VITALS: O2SAT 99
[2022-07-04] MEDS: ACETAMINOPHEN 325 MG TABLET PO PRN (10:43)
[2022-07-04] MEDS: DAPTOMYCIN IVPB SCH (12:01)
[2022-07-04] MEDS: NA CHLORIDE 0.9% IVPB SCH (12:01)
--- NOTE | 2022-07-04 14:09 | P.DS ---
Admission Date: 06/23/22 Discharge Date: 07/04/22 Disposition: [facility] Discharge Condition: GOOD Reason for Admission: Shortness of breath hypoxemia altered mental status Consultations: Cardiology - Dr. Smith Infectious Disease - Dr. Jackson Brief History of Present Illness: 77yo M Anand presented to the emergency department with complaints of shortness of breath for the past 4 days. He came in altered hypoxic is currently more stable off the oxygen blood pressure is stable but he is very short of breath is also very hard of hearing has had lower extremity edema cardiac history Hospital Course: Problem List: Severe Sepsis secondary to Methicillin-Sensitive Staphylococcus Aureus bacteremia - POA Suspected Vancomycin Allergy Chronic Atrial Fibrillation s/p PPM/AICD (2007) KDIGO Stage I Acute Kidney Injury - improved DM2 with Neuropathy History of Cerebrovascular Accident Hypertension Hyperlipidemia Benign Prostatic Hyperplasia Chronic Obstructive Pulmonary Disease History of Lung Cancer s/p Radiation (2012) Bilateral Lower Extremity Swelling - chronic Lymphedema (Right > Left) Gout Anxiety / Depression Epistaxis Severe Sepsis secondary to Methicillin-Sensitive Staphylococcus Aureus bacteremia - POA Suspected Vancomycin Allergy Patient with multiple blood cultures growing MSSA. There is concern that the pacemaker wires are infected and reseeding the blood leading to multiple blood culture growths. Most recent blood culture 06/28: No growth to date. Echocardiogram done showed no vegetation. Cardiology recommended no RICHI - felt TTE was adequate with great resolution Discussed with infectious disease Dr. Jackson who wants to focus on salvaging the pacemaker. Patient is a candidate for LTAC Continue daptomycin and Rocephin. Infectious diseases following. Chronic Atrial Fibrillation s/p PPM/AICD (2007) His [id number] = 5 (HTN=1, Age>75=2, DM=1, CVA=1), which warrants anticoagulation. - Consulted Cardiology due to bacteremia with presence of PPM/AICD - Transthorachic echocardiogram = "1. normal left ventricular ejection fraction 60-65% with normal wall motion 2. mild mitral annular calcification with trace mitral regurgiation 3. no vegetation is seen on this exam." We will hold Eliquis until no epistaxis and then resume it. Monitor for active bleeding. KDIGO Stage I Acute Kidney Injury - improved Resolved. 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 No new issues. Bilateral Lower Extremity Swelling - chronic Lymphedema (Right > Left) - Right lower extremity Doppler = "no evidence of right lower extremity deep venous thrombosis." History of CVA, HTN, HLD - Continue home atorvastatin. Benign Prostatic Hyperplasia -Continue tamsulosin. Gout - Continue home allopurinol. Anxiety, Depression - Continue home bupropion. Epistaxis -Likely secondary to cracks in the dried nasal mucosal lining from oxygen. -Hold Eliquis until no epistaxis and then resume it. -Nasal saline spray to moisten nasal mucosa lining. -Humidified/aerosolized oxygen Physical Exam: Gen: Alert, NAD, AOx3 HEENT: normal conjunctiva, sclera anicteric CV: regular rate & rhythm, no edema Pulm: mildly-labored respirations on 2L NC, diminished at bases b/l Abd: soft, non-tender, non-distended Neuro: normal speech, normal affect, moves all extremities Vital Signs/Physical Exam: Temp Pulse Resp BP Pulse Ox 97.2 F 73 17 133/74 92 07/04/22 08:00 07/04/22 08:00 07/04/22 08:00 07/04/22 08:00 07/04/22 08:00 Laboratory Data at Discharge: WBC 12.50 thou/uL (4.3-10.9) H 07/04/22 08:09 Hgb 12.4 g/dL (13.6-17.9) L 07/04/22 08:09 Hct 38.6 % (39.6-49.0) L 07/04/22 08:09 Plt Count 337 thou/uL (152-406) 07/04/22 08:09 PT 12.2 SECONDS (9.5-12.5) 07/01/22 13:24 INR 1.11 07/01/22 13:24 APTT 26.5 SECONDS (24.3-36.9) 06/23/22 07:35 Sodium 135 mEq/L (136-145) L 07/04/22 08:09 Potassium 4.3 mEq/L (3.5-5.1) 07/04/22 08:09 BUN 29 mg/dL (7-18) H 07/04/22 08:09 Creatinine 1.06 mg/dL (0.70-1.30) 07/04/22 08:09 Glucose 129 mg/dL (74-106) H 07/04/22 08:09 Phosphorus 3.8 mg/dL (2.5-4.9) 07/04/22 08:09 Magnesium 2.4 mg/dL (1.6-2.4) 07/04/22 08:09 Total Bilirubin 0.3 mg/dL (0.2-1.0) 07/04/22 08:09 AST 33 U/L (15-37) 07/04/22 08:09 ALT 72 U/L (16-61) H 07/04/22 08:09 Alkaline Phosphatase 65 U/L (45-117) 07/04/22 08:09 Home Medications: Atorvastatin Calcium [Lipitor*] 80 mg PO BEDTIME 07/20/15 Metformin HCl [Glucophage] 1,000 mg PO BID 07/20/15 buPROPion HCL [Wellbutrin*] 150 mg PO DAILY 07/20/15 allopurinoL [Zyloprim*] 100 mg PO BID 05/04/17 Tamsulosin [Flomax*] 1 cap PO BEDTIME 07/12/17 Apixaban [Eliquis] 5 mg PO BID 12/30/17 Duloxetine HCl [Cymbalta] 60 mg PO DAILY 12/30/17 Lisinopril [Zestril] 2.5 mg PO DAILY 02/24/20 Albuterol Neb [Proventil 0.083% Neb Soln] 2.5 mg NEB [id number] PRN #120 amp 02/27/20 Albuterol Sulfate [Albuterol Sulfate Hfa] 1 puff IH DAILY 06/24/22 Cyanocobalamin (Vitamin B-12) [Vitamin B-12] 1 tab PO DAILY 06/24/22 Empagliflozin [Jardiance] 1 tab PO DAILY 06/24/22 Fluticasone Propion/Salmeterol [Fluticasone-Salmeterol 250-50] 1 puff IH DAILY 06/24/22 Gabapentin 1 cap PO SEECOM 06/24/22 Tiotropium [Spiriva Handihaler*] 2 puff IH DAILY 06/24/22 guaiFENesin [Guaifenesin ER] 1 tab PO BID 06/24/22 Followup: NONE,NONE [Primary Care Provider] - Time spent managing pt's care (in minutes): 45
== END 2022-07-04 15:35 | DRG 872 ==
LOC: ER 06:28 → ERHOLD 17:01 → 4TH 20:09
PROVIDERS: ADMIT Internal Medicine Sleep Medicine; ATTEND Hospitalist
DX: A41.01 Sepsis due to Methicillin susceptible Staphylococcus aureus (principal); E87.3 Alkalosis; G93.1 Anoxic brain damage, not elsewhere classified; I48.20 Chronic atrial fibrillation, unspecified; N17.9 Acute kidney failure, unspecified; R65.20 Severe sepsis without septic shock; I12.9 Hypertensive chronic kidney disease with stage 1 through stage 4 chronic kidney disease, or unspecified chronic kidney disease; N18.9 Chronic kidney disease, unspecified; E11.22 Type 2 diabetes mellitus with diabetic chronic kidney disease; E11.40 Type 2 diabetes mellitus with diabetic neuropathy, unspecified; J43.9 Emphysema, unspecified; N40.0 Benign prostatic hyperplasia without lower urinary tract symptoms; F41.9 Anxiety disorder, unspecified; F32.A Depression, unspecified; M10.9 Gout, unspecified; E78.00 Pure hypercholesterolemia, unspecified; I89.0 Lymphedema, not elsewhere classified; I34.0 Nonrheumatic mitral (valve) insufficiency; D72.829 Elevated white blood cell count, unspecified; B96.89 Other specified bacterial agents as the cause of diseases classified elsewhere; R23.0 Cyanosis; R04.0 Epistaxis; Z88.5 Allergy status to narcotic agent; Z88.0 Allergy status to penicillin; Z88.1 Allergy status to other antibiotic agents; Z79.01 Long term (current) use of anticoagulants; Z79.84 Long term (current) use of oral hypoglycemic drugs; Z86.73 Personal history of transient ischemic attack (TIA), and cerebral infarction without residual deficits; Z79.899 Other long term (current) drug therapy; Z85.118 Personal history of other malignant neoplasm of bronchus and lung; Z95.810 Presence of automatic (implantable) cardiac defibrillator; Z20.822 Contact with and (suspected) exposure to COVID-19
CPT/HCPCS: 0240U; 36415; 70486; 71045; 71250; 74176; 80048; 80053; 81001; 82550; 82805; 82947; 83605; 83735; 83880; 84100; 84443; 85025; 85610; 85730; 87040; 87070; 87077; 87186; 87205; 93005; 93306; 93971; 94760; 97116; 97161; 99285; J0696; J0878; J1200; J1650; J1940; J2185; J2930; J7030; J7040; J7050; J7605; J7613; J7614; J7644

== ENCOUNTER 2022-12-29 16:57 | Emergency (ER) | payer OTHER ==
[2022-12-29] MEDS ORDERED: LIDOCAINE 1% 20 ML MDV ONE (17:50)
--- NOTE | 2022-12-29 18:14 | ER ---
Nurse's Notes [facility] Name: Honorio Toussaint Age: 77 yrs Sex: Male : 1945 Arrival Date: 12/29/2022 Time: 16:57 Bed 9 Private MD: Diagnosis: Laceration without foreign body of lower leg Presentation: 12/29 17:10 Chief complaint: Patient states: "About 30-45 minutes I fell and hit a cinder block. I mb9 cut my right lower leg." Pt denies LOC. Pt currently takes Eliquis. Coronavirus screen: At this time, the client does not indicate any symptoms associated with coronavirus-19. Ebola Screen: No symptoms or risks identified at this time. Initial Sepsis Screen: Does the patient meet any 2 criteria? No. Patient's initial sepsis screen is negative. Does the patient have a suspected source of infection? No. Patient's initial sepsis screen is negative. Risk Assessment: Do you want to hurt yourself or someone else? Patient reports no desire to harm self or others. Onset of symptoms was December 29, 2022. 17:10 Method Of Arrival: Wheelchair mb9 17:10 Acuity: ATIF 4 mb9 Triage Assessment: 17:13 General: Appears in no apparent distress. Behavior is calm, cooperative. Pain: mb9 Complains of pain in right leg. EENT: No signs and/or symptoms were reported regarding the EENT system. Neuro: Scott Agitation-Sedation Scale (RASS): 0 - Alert and Calm. Cardiovascular: Patient's skin is warm and dry. Respiratory: Airway is patent Respiratory effort is even, unlabored, Respiratory pattern is regular, symmetrical. GI: No signs and/or symptoms were reported involving the gastrointestinal system. : No signs and/or symptoms were reported regarding the genitourinary system. Derm: Skin is pink, warm \\T\\ dry. Musculoskeletal: Range of motion: intact in all extremities. Injury Description: Laceration sustained to right loo is clean, 2.6 to 7.5 cm long, not bleeding. Historical: - Allergies: 17:12 Codeine; mb9 17:12 PENICILLINS; mb9 17:12 Vancomycin; mb9 - Home Meds: 17:12 Eliquis oral [Active]; mb9 - PMHx: 17:12 COPD; diabetes mellitus; Hypercholesterolemia; Hypertensive disorder; mb9 - PSHx: 17:12 Pacemaker/Defib; mb9 - Immunization history:: Adult Immunizations up to date. - Social history:: Smoking status: Patient/guardian denies using tobacco, the patient reports quitting approximately 40 years ago. Screenin:14 [facility] ED Fall Risk Assessment (Adult) History of falling in the last 3 months, mb9 including since admission No falls in past 3 months (0 pts) Confusion or Disorientation No (0 pts) Intoxicated or Sedated No (0 pts) Impaired Gait No (0 pts) Mobility Assist Device Used No (0 pt) Altered Elimination No (0 pt) Score/Fall Risk Level 0 - 2 = Low Risk Oriented to surroundings, Maintained a safe environment, Educated pt \\T\\ family on fall prevention, incl call for assistance when getting out of bed. Abuse screen: Denies threats or abuse. Nutritional screening: No deficits noted. Tuberculosis screening: No symptoms or risk factors identified. Assessment: 18:14 Reassessment: No changes from previously documented assessment. Patient and/or family mb9 updated on plan of care and expected duration. Pain level reassessed. Patient is alert, oriented x 3, equal unlabored respirations, skin warm/dry/pink. Vital Signs: 17:10 BP 107 / 45; Pulse 75; Resp 18; Pulse Ox 97% on 3 lpm NC; Weight 99.79 kg; Height 5 ft. mb9 6 in. ; 18:14 BP 111 / 61; Pulse 72; Resp 16; Pulse Ox 99% on R/A; mb9 17:10 Body Mass Index 35.51 (99.79 kg, 167.64 cm) mb9 Sal Coma Score: 17:28 Eye Response: spontaneous(4). Motor Response: obeys commands(6). Verbal Response: snw oriented(5). Total: 15. ED Course: 17:00 Patient arrived in ED. mr 17:01 [facility]C [facility] snw 17:01 Jerome Matias MD is Attending Physician. snw 17:12 Triage completed. mb9 17:13 Arm band placed on. mb9 17:15 Placed in gown. Bed in low position. Call light in reach. Side rails up X 1. Client mb9 placed on continuous cardiac and pulse oximetry monitoring. NIBP monitoring applied. 18:14 No provider procedures requiring assistance completed. Patient did not have IV access mb9 during this emergency room visit. 18:28 Sri Singh, RN is Primary Nurse. myriam Administered Medications: 18:13 Drug: Lidocaine Infiltration (1 %) 1 vials 20 ml Infiltration once; to bedside Volume: mb9 20 ml; Route: Infiltration; Medication: 18:14 VIS not applicable for this client. myriam Outcome: 18:14 Discharge ordered by MD. jiménez 18:28 Discharged to home via wheelchair, with family, myriam 18:28 Condition: stable 18:28 Discharge instructions given to patient, family, Instructed on discharge instructions, follow up and referral plans. Demonstrated understanding of instructions, follow-up care, medications, Prescriptions given X 1, 18:28 Patient left the ED. myriam Signatures: Ariane Garcia, INSURANCE VERIFY REP-C INSURANCE VERIFY REP-Csnw Sri Amaya, Reg Reg MeilouieSri, RN RN myriam
--- NOTE | 2022-12-29 18:15 | EDPHYS ---
Physician Documentation [facility] Name: Honorio Toussaint Age: 77 yrs Sex: Male : 1945 Arrival Date: 12/29/2022 Time: 16:57 Bed 9 Private MD: ED Physician Jerome Matias HPI: 12/29 18:19 This 77 yrs old Male presents to ER via Wheelchair with complaints of Facial Injury, snw Laceration To Leg. 18:19 The patient or guardian reports no c/o head injury, pt stumbled over manager spa wheel snw and landed on cinder block at right loo. + laceration, bleeding controlled.. The patient has not experienced similar symptoms in the past. on prophylactic antibiotics. Historical: - Allergies: 17:12 Codeine; mb9 17:12 PENICILLINS; mb9 17:12 Vancomycin; mb9 - Home Meds: 17:12 Eliquis oral [Active]; mb9 - PMHx: 17:12 COPD; diabetes mellitus; Hypercholesterolemia; Hypertensive disorder; mb9 - PSHx: 17:12 Pacemaker/Defib; mb9 - Immunization history:: Adult Immunizations up to date. - Social history:: Smoking status: Patient/guardian denies using tobacco, the patient reports quitting approximately 40 years ago. ROS: 17:32 Constitutional: Negative for fever, chills, and weight loss, Eyes: Negative for injury, snw pain, redness, and discharge, ENT: Negative for injury, pain, and discharge, Neck: Negative for injury, pain, and swelling, Cardiovascular: Negative for chest pain, palpitations, and edema, Respiratory: Negative for shortness of breath, cough, wheezing, and pleuritic chest pain, Abdomen/GI: Negative for abdominal pain, nausea, vomiting, diarrhea, and constipation, Back: Negative for injury and pain, : Negative for injury, bleeding, discharge, and swelling, Skin: Negative for injury, rash, and discoloration, Neuro: Negative for headache, weakness, numbness, tingling, and seizure, Psych: Negative for depression, anxiety, suicide ideation, homicidal ideation, and hallucinations, 17:32 MS/extremity: Positive for injury or acute deformity, of the right loo, Exam: 17:29 Constitutional: This is a well developed, well nourished patient who is awake, alert, snw and in no acute distress. Head/Face: Normocephalic, atraumatic. Eyes: Pupils equal round and reactive to light, extra-ocular motions intact. Lids and lashes normal. Conjunctiva and sclera are non-icteric and not injected. Cornea within normal limits. Periorbital areas with no swelling, redness, or edema. ENT: Nares patent. No nasal discharge, no septal abnormalities noted. Tympanic membranes are normal and external auditory canals are clear. Oropharynx with no redness, swelling, or masses, exudates, or evidence of obstruction, uvula midline. Mucous membranes moist. Neck: Trachea midline, no thyromegaly or masses palpated, and no cervical lymphadenopathy. Supple, full range of motion without nuchal rigidity, or vertebral point tenderness. No Meningismus. Chest/axilla: Normal chest wall appearance and motion. Nontender with no deformity. No lesions are appreciated. Cardiovascular: Regular rate and rhythm with a normal S1 and S2. No gallops, murmurs, or rubs. Normal PMI, no JVD. No pulse deficits. 17:29 Abdomen/GI: Soft, non-tender, with normal bowel sounds. No distension or tympany. No guarding or rebound. No evidence of tenderness throughout. Back: No spinal tenderness. No costovertebral tenderness. Full range of motion. MS/ Extremity: Pulses equal, no cyanosis. Neurovascular intact. Full, normal range of motion. Neuro: Awake and alert, GCS 15, oriented to person, place, time, and situation. Cranial nerves II-XII grossly intact. Motor strength 5/5 in all extremities. Sensory grossly intact. Cerebellar exam normal. Normal gait. Psych: Awake, alert, with orientation to person, place and time. Behavior, mood, and affect are within normal limits. 17:29 Respiratory: the patient does not display signs of respiratory distress, Respirations: shallow respirations, Breath sounds: rhonchi, Chronic obstructive pulmonary disease - on 3L O2 continuously, 17:29 Skin: Appearance: normal except for affected area, injury, laceration(s), the wound is approximately 7 cm(s), with a depth of 1.5 cm(s), of the right loo, lymphedema to right leg, Vital Signs: 17:10 BP 107 / 45; Pulse 75; Resp 18; Pulse Ox 97% on 3 lpm NC; Weight 99.79 kg; Height 5 ft. mb9 6 in. ; 18:14 BP 111 / 61; Pulse 72; Resp 16; Pulse Ox 99% on R/A; mb9 17:10 Body Mass Index 35.51 (99.79 kg, 167.64 cm) mb9 Donie Coma Score: 17:28 Eye Response: spontaneous(4). Motor Response: obeys commands(6). Verbal Response: snw oriented(5). Total: 15. Laceration: 18:11 Wound Repair of 7cm ( 2.8in ) fascia involved laceration to right loo. Skin/tissue snw flap noted.. Distal neuro/vascular/tendon intact. Anesthesia: Local anesthetic administered with 8 mls of 1% lidocaine. Wound prep: Extensive cleansing with hibiclenz by me. Skin closed with 9 1-0 Brandee using staple gun. Dressed with non-adherent dressing. Patient tolerated well. MDM: 17:07 Patient medically screened. snw 17:28 Differential diagnosis: Laceration of right loo. Data reviewed: vital signs, nurses snw notes. Historians other than the Patient: Family Member: Grand-daughter. Counseling: I had a detailed discussion with the patient and/or guardian regarding the historical points, exam findings, and any diagnostic results supporting the discharge/admit diagnosis, the need for outpatient follow up, for definitive care, to return to the emergency department if symptoms worsen or persist or if there are any questions or concerns that arise at home. 18:08 Response to treatment: the patient's symptoms have markedly improved after treatment. snw Special discussion: I discussed in detail with the patient the higher chance of wound infection based on his presenting history. Based on the history and exam findings, there is no indication for further emergent testing or inpatient evaluation. keep brandee in place x 14 days. 12/29 17:28 Order name: Dressing - Wound; Complete Time: 17:41 snw 12/29 17: Order name: Gloves, Sterile; Complete Time: 17:41 snw 12/29 17: Order name: Setup Suture Tray; Complete Time: 17:41 snw Administered Medications: 18:13 Drug: Lidocaine Infiltration (1 %) 1 vials 20 ml Infiltration once; to bedside Volume: mb9 20 ml; Route: Infiltration; Disposition: 20:12 Co-signature as Attending Physician, Jerome Matias MD I reviewed the patient's care rt provided by the Advanced Practice Provider and agree with the diagnosis and treatment plan. Disposition Summary: 12/29/22 18:14 Discharge Ordered Notes: Please continue current prophylactic antibiotics Location: Home snw Condition: Stable snw Diagnosis - Laceration without foreign body of lower leg snw Followup: snw - With: Emergency Department - When: 10 - 14 days - Reason: Staple/Suture removal Followup: snw - With: Private Physician - When: 1 week - Reason: Recheck today's complaints, Continuance of care, Re-evaluation by your physician Discharge Instructions: - Discharge Summary Sheet snw - How to Change Your Wound Dressing snw - Laceration Care, Adult snw - Wound Infection snw - Wound Closure Removal, Care After snw Forms: - Medication Reconciliation Form snw - Thank You Letter snw - Antibiotic Education snw - Prescription Opioid Use snw - Patient Portal Instructions snw - Leadership Thank You Letter snw Prescriptions: - Mobic 7.5 mg Oral tablet - take 1 tablet ORAL route once daily take with food; 5 tablet; Refills: 0, snw Product Selection Permitted Signatures: Ariane Garcia, ALLEY WORKER-C ALLEY WORKER-Csnw Sri Singh RN RN mb9 Jerome Matias MD MD rt Corrections: (The following items were deleted from the chart) 18:13 17:29 Skin: Appearance: normal except for affected area, injury, laceration(s), the snw wound is approximately 5 cm(s), with a depth of 1.5 cm(s), of the right loo, lymphedema to right leg, snw
[2022-12-29 18:33] VITALS: BP 111/61; O2SAT 99
== END 2022-12-29 18:28 | disposition home or self-care (01) ==
LOC: ER 16:57
PROC: 0HQKXZZ Repair Right Lower Leg Skin, External Approach (ICD-10-PCS; principal; 2022-12-29)
DX: S81.811A Laceration without foreign body, right lower leg, initial encounter (principal); Z95.810 Presence of automatic (implantable) cardiac defibrillator; Z88.0 Allergy status to penicillin; Z88.3 Allergy status to other anti-infective agents; Z88.5 Allergy status to narcotic agent
CPT/HCPCS: 99283; 12002; J2001

== ENCOUNTER 2023-05-30 13:25 | Observation (INO) | payer OTHER ==
[2023-05-30 14:15] LABS: Absolute Basophils 0.1 K/uL (0-0.5); Absolute Eosinophils 0.1 K/uL (0-0.5); Absolute Lymphocytes (CBC) 1.7 K/uL (0.7-4.9); Absolute Monocytes 0.9 K/uL (0.1-1.3); Absolute Neutrophil 15.7 K/uL (1.8-8.0); Basophils % 0.3 % (0-1.3); Eosinophils % 0.3 % (0-4.4); Hematocrit 47.1 % (39.6-49.0); Hemoglobin 15.3 g/dL (13.6-17.9); MCH 28.5 pg (27.0-35.0); MCHC 32.5 g/dL (32.0-36.0); MCV 87.7 fL (80-100); MPV 8.9 fL (7.6-11.3); Monocytes % 5.1 % (3.3-12.3); Neutrophils % 85.3 % (41.7-73.7); Nucleated Red Blood Cells % 0.1 % (0-0); Platelets 473 thou/uL (152-406); RBC Red Blood Cell Count 5.37 M/uL (4.33-5.43); Red Cell Distribution Width 16.3 % (12.1-15.2)
[2023-05-30 14:29] LABS: PT Prothrombin Time 16.8 SECONDS (9.5-12.5); Protime INR 1.55
[2023-05-30 14:38] LABS: Albumin 3.2 g/dL (3.4-5.0); Albumin/Globulin Ratio 0.7 (1.1-1.8); Anion Gap 12.7 mEq/L (5.0-15.0); Bilirubin Direct 0.2 mg/dL (0-0.2); Bilirubin Indirect, Calculated 0.4 mg/dL (0.2-0.8); Bilirubin Total 0.6 mg/dL (0.2-1.0); Globulin 4.6 g/dL (2.3-3.5); Magnesium 2.1 mg/dL (1.6-2.4); Potassium 4.7 mEq/L (3.5-5.1); Protein, Total 7.8 g/dL (6.4-8.2); Troponin High Sensitivity 8.5 pg/mL (<58.9)
--- NOTE | 2023-05-30 15:15 | RAD REPORT ---
EXAM DESCRIPTION: CT - Abdomen Pelvis W Contrast - 05/30/2023 2:51 pm CLINICAL HISTORY: Abdominal pain / memena COMPARISON: 2015 TECHNIQUE: Computed axial tomography of the abdomen pelvis was obtained. 100 cc Isovue-300 was admin istered intravenously. Oral contrast was not requested which limits evaluation of bowel and appendix All CT scans are performed using dose optimization technique as appropriate and may include automated exposure control or mA/KV adjustment according to patient size. FINDINGS: Fatty liver. Spleen, pancreas and adrenals are unremarkable. 4.1 centimeter right renal cyst. Parapelvic cysts left kidney. Diverticula stem from the colon without of diverticulitis. The wall of the ascending colon/proximal transverse colon appears mildly thickened Normal appendix. Mild prostatic enlargement. Spondylosis lumbar spine. Small umbilical hernia contains fat. Several centimeters superior is a ventral hernia containing fat. The neck measures 2 centimeters. The herniated fat 5 centimeters Mild reticulonodular opacities right middle lobe atherosclerosis IMPRESSION: The wall of the ascending colon/proximal transverse colon appears mildly thickened. This could be secondary to a mild colitis or incomplete distention. Fatty liver Mild reticulonodular opacities right middle lobe may indicate a mild atypical pneumonia
[2023-05-30] MEDS ORDERED: CIPROFLOXACIN 400mg IV 400 MG/200 ML BAG IV ONE (15:31)
[2023-05-30] MEDS ORDERED: METRONIDAZOLE 500mg IVPB 500 MG/100 ML BAG IV ONE (15:31)
--- NOTE | 2023-05-30 15:32 | EDPHYS ---
Physician Documentation [facility] Name: Honorio Toussaint Age: 77 yrs Sex: Male : 1945 Arrival Date: 05/30/2023 Time: 13:25 Bed 5 Private MD: ED Physician Tresa Kellogg HPI: 05/29 14:09 This 77 yrs old Male presents to ER via Wheelchair with complaints of Diarrhea, sp3 Dizziness, Blood Is Low. 14:09 77-year-old male with history of COPD, diabetes, hyperlipidemia, hypertension, CAD with sp3 pacemaker/defibrillator currently on Eliquis presents to the ED with 3 days of diarrhea, melena and generalized weakness. Patient states a long time ago he had to get a blood transfusion to similar episodes. He is concerned about anemia. He denies any other symptoms including headache, fever, URI symptoms, chest pain, shortness of breath, abdominal pain, vomiting, syncope, near syncope, or any other signs or symptoms on ROS at this time. He denies bleeding from any other places.. Historical: - Allergies: 13:44 Codeine; ld1 13:44 PENICILLINS; ld1 13:44 Vancomycin; ld1 - PMHx: 13:44 COPD; diabetes mellitus; Hypercholesterolemia; Hypertensive disorder; ld1 - PSHx: 13:44 Pacemaker/Defib; ld1 - Immunization history:: Adult Immunizations up to date. - Social history:: Smoking status: Patient denies any tobacco usage or history of. Patient/guardian denies using alcohol. ROS: 14:15 Constitutional: Negative for fever, chills, and weight loss, Eyes: Negative for injury, sp3 pain, redness, and discharge, ENT: Negative for injury, pain, and discharge, Neck: Negative for injury, pain, and swelling, Cardiovascular: Negative for chest pain, palpitations, and edema, Respiratory: Negative for shortness of breath, cough, wheezing, and pleuritic chest pain, Back: Negative for injury and pain, MS/Extremity: Negative for injury and deformity, Skin: Negative for injury, rash, and discoloration, Neuro: Negative for headache, weakness, numbness, tingling, and seizure, Psych: Negative for depression, anxiety, suicide ideation, homicidal ideation, and hallucinations, Allergy/Immunology: Negative for hives, rash, and allergies, Endocrine: Negative for neck swelling, polydipsia, polyuria, polyphagia, and marked weight changes, 14:15 All other systems are negative, Exam: 14:17 Constitutional: This is a well developed, well nourished patient who is awake, alert, sp3 and in no acute distress. Head/Face: Normocephalic, atraumatic. Eyes: Pupils equal round and reactive to light, extra-ocular motions intact. Lids and lashes normal. Conjunctiva and sclera are non-icteric and not injected. Cornea within normal limits. Periorbital areas with no swelling, redness, or edema. ENT: Nares patent. No nasal discharge, no septal abnormalities noted. External auditory canals are clear. Oropharynx with no redness, swelling, or masses, exudates, or evidence of obstruction, uvula midline. Mucous membranes moist. Neck: Trachea midline, no thyromegaly or masses palpated, and no cervical lymphadenopathy. Supple, full range of motion without nuchal rigidity, or vertebral point tenderness. No Meningismus. Chest/axilla: Normal chest wall appearance and motion. Nontender with no deformity. No lesions are appreciated. Cardiovascular: Regular rate and rhythm with a normal S1 and S2. No gallops, murmurs, or rubs. Normal PMI, no JVD. No pulse deficits. Respiratory: Lungs have equal breath sounds bilaterally, clear to auscultation and percussion. No rales, rhonchi or wheezes noted. No increased work of breathing, no retractions or nasal flaring. Abdomen/GI: Soft, non-tender, with normal bowel sounds. No distension or tympany. No guarding or rebound. No evidence of tenderness throughout. Back: No spinal tenderness. No costovertebral tenderness. Full range of motion. Skin: Warm, dry with normal turgor. Normal color with no rashes, no lesions, and no evidence of cellulitis. MS/ Extremity: Pulses equal, no cyanosis. Neurovascular intact. Full, normal range of motion. Neuro: Awake and alert, GCS 15, oriented to person, place, time, and situation. Cranial nerves II-XII grossly intact. Motor strength 5/5 in all extremities. Sensory grossly intact. Cerebellar exam normal. Normal gait. Psych: Awake, alert, with orientation to person, place and time. Behavior, mood, and affect are within normal limits. 14:17 ECG was reviewed by the Attending Physician. EKG demonstrates normal sinus rhythm at 89 bpm with a first-degree AV block of 212 ms inferior T wave changes, normal axis, normal QRS with nonspecific changes diffusely. Vital Signs: 13:42 BP 135 / 89; Pulse 91; Resp 18; Temp 98; Pulse Ox 98% on 3 lpm NC; Weight 93.5 kg; ll1 Height 5 ft. 10 in. ; Pain 0/10; 14:43 BP 142 / 89; Pulse 85; Resp 16; Pulse Ox 99% ; ll1 17:29 BP 142 / 82; Pulse 86; Resp 15; Temp 98; Pulse Ox 96% ; bp 13:42 Body Mass Index 29.58 (93.50 kg, 177.8 cm) ll1 13:42 Pain Scale: Adult ll1 MDM: 13:32 Patient medically screened. sp3 14:17 Data reviewed: vital signs, nurses notes, lab test result(s), EKG, radiologic studies. sp3 ED course: 77-year-old male with PMH above now with melena and generalized weakness. Consider anemia secondary to Eliquis versus primary GI bleed versus coagulopathy. Workup pending including laboratory values, CT scan of the abdomen pelvis and general observation. Patient will be kept n.p.o. until workup is complete. Patient's PCP is at the [facility] and he has recently changed physicians to his new primary doctor there does not know about any of the symptoms. Patient does not have a GI physician. Disposition pending workup and patient course with possible admission.. 05/29 13:44 Order name: Basic Metabolic Panel; Complete Time: 14:39 sp3 05/29 13:44 Order name: CBC with Diff; Complete Time: 14:39 sp3 05/29 13:44 Order name: LFT's; Complete Time: 14:39 sp3 05/29 13:44 Order name: Magnesium; Complete Time: 14:39 sp3 05/29 13:44 Order name: PT-INR; Complete Time: 14:39 sp3 05/29 13:44 Order name: Troponin HS; Complete Time: 14:39 sp3 05/29 16:38 Order name: Basic Metabolic Panel EDAR 05/29 16:38 Order name: Basic Metabolic Panel EDAR 05/29 16:38 Order name: Basic Metabolic Panel EDMS 05/29 16:38 Order name: Basic Metabolic Panel EDMS 05/29 16:38 Order name: Basic Metabolic Panel EDMS 05/29 16:38 Order name: Basic Metabolic Panel EDMS 05/29 16:38 Order name: Urinalysis w/ reflexes EDMS 05/29 16:39 Order name: CBC with Automated Diff EDMS 05/29 16:39 Order name: CBC with Automated Diff EDMS 05/29 16:39 Order name: CBC with Automated Diff EDMS 05/29 16:39 Order name: CBC with Automated Diff EDMS 05/29 16:39 Order name: CBC with Automated Diff EDMS 05/29 16:39 Order name: CBC with Automated Diff EDMS 05/29 16:39 Order name: Magnesium EDMS 05/29 16:39 Order name: Magnesium EDMS 05/29 16:39 Order name: Magnesium EDMS 05/29 16:39 Order name: Magnesium EDMS 05/29 16:39 Order name: Magnesium EDMS 05/29 16:39 Order name: Magnesium EDMS 05/29 16:39 Order name: Phosphorus EDMS 05/29 16:39 Order name: Phosphorus EDMS 05/29 16:39 Order name: Phosphorus EDMS 05/29 16:39 Order name: Phosphorus EDMS 05/29 16:39 Order name: Phosphorus EDMS 05/29 16:39 Order name: Phosphorus EDMS 05/29 14:19 Order name: CT Abd/Pelvis - IV Contrast Only; Complete Time: 15:23 sp3 05/29 13:43 Order name: EKG; Complete Time: 13:44 ll1 05/29 13:44 Order name: EKG; Complete Time: 13:45 sp3 05/29 16:38 Order name: Physical Therapy Consult EDMS 05/29 13:43 Order name: EKG - Nurse/Tech; Complete Time: 13:43 ll1 05/29 13:44 Order name: Cardiac monitoring; Complete Time: 13:46 sp3 05/29 13:44 Order name: EKG - Nurse/Tech; Complete Time: 13:46 sp3 05/29 13:44 Order name: IV Saline Lock; Complete Time: 13:56 sp3 05/29 13:44 Order name: Labs collected and sent; Complete Time: 13:56 sp3 05/29 13:44 Order name: O2 Per Protocol; Complete Time: 13:46 sp3 05/29 13:44 Order name: O2 Sat Monitoring; Complete Time: 13:46 sp3 Administered Medications: 15:35 Drug: Ciprofloxacin IVPB 400 mg 200 ml IVPB once over 60 mins Volume: 200 ml; Route: bp IVPB; Infused Over: 60 mins; Site: right forearm; 17:37 Follow up: IV Status: Completed infusion; IV Intake: 100ml bp 15:35 Drug: metroNIDAZOLE IVPB 500 mg 100 ml IVPB at 200 ml/hr once over 30 mins Volume: 100 bp ml; Route: IVPB; Rate: 200 ml/hr; Infused Over: 30 mins; Site: right forearm; 17:38 Follow up: IV Status: Completed infusion; IV Intake: 100ml bp Disposition Summary: 05/30/23 15:32 Hospitalization Ordered Notes: Hospitalization Status: Inpatient Admission sp3 Provider: Kirt Bishop sp3 [facility] sp3 Condition: Stable sp3 Problem: new sp3 Symptoms: have worsened sp3 Bed/Room Type: Standard sp3 Room Assignment: 208(05/30/23 17:26) sp Diagnosis - Colitis sp3 Forms: - Medication Reconciliation Form sp3 - SBAR form sp3 - Leadership Thank You Letter sp3 Signatures: Dispatcher [employer] Sho Paz Brian RN RN Reno Harrell RN RN ll1 Luann Purdy RN RN ld1 Tresa Kellogg MD MD sp3 Corrections: (The following items were deleted from the chart) 17:26 15:32 sp3 sp
--- NOTE | 2023-05-30 15:32 | ER ---
Nurse's Notes [facility] Name: Honorio Toussaint Age: 77 yrs Sex: Male : 1945 Arrival Date: 05/30/2023 Time: 13:25 Bed 5 Private MD: Diagnosis: Colitis Presentation: 05/29 13:42 Chief complaint: Patient states: Dizziness, feeling weak X 2 weeks. Pt reports diarrhea ld1 since last night. States "I think I am anemic.". Coronavirus screen: At this time, the client does not indicate any symptoms associated with coronavirus-19. Ebola Screen: No symptoms or risks identified at this time. Initial Sepsis Screen: Does the patient meet any 2 criteria? No. Patient's initial sepsis screen is negative. Does the patient have a suspected source of infection? No. Patient's initial sepsis screen is negative. Risk Assessment: Do you want to hurt yourself or someone else? Patient reports no desire to harm self or others. Onset of symptoms was May 30, 2023 at 13:43. 13:42 Method Of Arrival: Wheelchair ld1 13:42 Acuity: ATIF 3 ld1 Triage Assessment: 13:44 General: Appears in no apparent distress. comfortable, Behavior is calm, cooperative, ld1 appropriate for age. Pain: Denies pain. EENT: No signs and/or symptoms were reported regarding the EENT system. Neuro: Level of Consciousness is awake, alert, obeys commands, Oriented to person, place, time, situation. Cardiovascular: Capillary refill < 3 seconds Patient's skin is warm and dry. Respiratory: Airway is patent Respiratory effort is even, unlabored. GI: Abdomen is round non-distended. : No signs and/or symptoms were reported regarding the genitourinary system. Derm: No signs and/or symptoms reported regarding the dermatologic system. Musculoskeletal: No signs and/or symptoms reported regarding the musculoskeletal system. Historical: - Allergies: 13:44 Codeine; ld1 13:44 PENICILLINS; ld1 13:44 Vancomycin; ld1 - PMHx: 13:44 COPD; diabetes mellitus; Hypercholesterolemia; Hypertensive disorder; ld1 - PSHx: 13:44 Pacemaker/Defib; ld1 - Immunization history:: Adult Immunizations up to date. - Social history:: Smoking status: Patient denies any tobacco usage or history of. Patient/guardian denies using alcohol. Screenin:03 [facility] ED Fall Risk Assessment (Adult) History of falling in the last 3 months, ll1 including since admission No falls in past 3 months (0 pts) Confusion or Disorientation No (0 pts) Intoxicated or Sedated No (0 pts) Impaired Gait Yes (1 pt) Mobility Assist Device Used Yes (1 pt) Altered Elimination No (0 pt) Score/Fall Risk Level 0 - 2 = Low Risk Maintained a safe environment, Hourly rounding (assess needs \\T\\ fall precautionary measures) done. Abuse screen: Denies threats or abuse. Nutritional screening: no appetite. Assessment: 13:56 Reassessment: No changes from previously documented assessment. Patient and/or family ll1 updated on plan of care and expected duration. Pain level reassessed. Patient is alert, oriented x 3, equal unlabored respirations, skin warm/dry/pink. 14:43 Reassessment: Patient appears in no apparent distress at this time. Patient is alert, ll1 oriented x 3, equal unlabored respirations, skin warm/dry/pink. 17:30 Reassessment: REPORT FAXED TO 208. bp Vital Signs: 13:42 BP 135 / 89; Pulse 91; Resp 18; Temp 98; Pulse Ox 98% on 3 lpm NC; Weight 93.5 kg; ll1 Height 5 ft. 10 in. ; Pain 0/10; 14:43 BP 142 / 89; Pulse 85; Resp 16; Pulse Ox 99% ; ll1 17:29 BP 142 / 82; Pulse 86; Resp 15; Temp 98; Pulse Ox 96% ; bp 13:42 Body Mass Index 29.58 (93.50 kg, 177.8 cm) ll1 13:42 Pain Scale: Adult ll1 ED Course: 13:29 Patient arrived in ED. mg5 13:29 Tresa Kellogg MD is Attending Physician. sp3 13:31 Renny Mata, RN is Primary Nurse. bp 13:43 Patient has correct armband on for positive identification. Bed in low position. Call ll1 light in reach. Client placed on continuous cardiac and pulse oximetry monitoring. NIBP monitoring applied. business operations coordinator on. Warm blanket given. 13:44 Triage completed. ld1 13:44 Arm band placed on right wrist. ld1 13:44 EKG done, by ED staff, reviewed by Tresa Kellogg MD. ll1 13:53 Missed attempt(s): 20 gauge in right forearm. Bleeding controlled, band aid applied, ll1 catheter tip intact. 13:56 Initial lab(s) drawn, by me, sent to lab. Inserted saline lock: 22 gauge in right ll1 forearm, using aseptic technique. Blood collected. 14:14 Basic Metabolic Panel Sent. ll1 14:14 CBC with Diff Sent. ll1 14:14 LFT's Sent. ll1 14:14 Magnesium Sent. ll1 14:14 PT-INR Sent. ll1 14:14 Troponin HS Sent. ll1 14:53 CT Abd/Pelvis - IV Contrast Only In Process Unspecified. EDMS 15:31 Kirt Bishop is Hospitalizing Provider. sp3 17:30 No provider procedures requiring assistance completed. Patient admitted, IV remains in bp place. Administered Medications: 15:35 Drug: Ciprofloxacin IVPB 400 mg 200 ml IVPB once over 60 mins Volume: 200 ml; Route: bp IVPB; Infused Over: 60 mins; Site: right forearm; 17:37 Follow up: IV Status: Completed infusion; IV Intake: 100ml bp 15:35 Drug: metroNIDAZOLE IVPB 500 mg 100 ml IVPB at 200 ml/hr once over 30 mins Volume: 100 bp ml; Route: IVPB; Rate: 200 ml/hr; Infused Over: 30 mins; Site: right forearm; 17:38 Follow up: IV Status: Completed infusion; IV Intake: 100ml bp Intake: 17:37 IV: 100ml; Total: 100ml. bp 17:38 IV: 100ml; Total: 200ml. bp Outcome: 15:32 Decision to Hospitalize by Provider. sp3 18:27 Patient left the ED. bp Signatures: Dispatcher [employer] EDMS Renny Mata RN RN bp Reno Martinez RN RN ll1 Luann Purdy RN RN ld1 Tresa Kellogg MD MD sp3 Dorothy Wagoner mg5 Corrections: (The following items were deleted from the chart) 13:46 13:42 BP 135 / 89; Pulse 91bpm; Resp 18bpm; Pulse Ox 98% 3 lpm Nasal Cannula; 93.5 kg; ll1 Height 5 ft. 10 in.; BMI: 29.5; Pain 0/10, Adult; ld1
--- NOTE | 2023-05-30 15:42 | P.HP ---
Certification for Inpatient Patient admitted to: Observation With expected LOS: >2 Midnights Patient will require the following post-hospital care: None Practitioner: I am a practitioner with admitting privileges, knowledge of patient current condition, hospital course, and medical plan of care. Services: Services provided to patient in accordance with Admission requirements found in Title 42 Section 412.3 of the Code of Federal Regulations Patient History Date of Service: 05/30/23 Reason for admission: colitis/diarrhea with melena History of Present Illness: Honorio Toussaint is a 77-year-old male with past medical history of COPD, diabetes mellitus, hypercholesterolemia, hypertensive disorder, pacemaker/defibrillator implanted who presents to the ED with complaints of weakness and diarrhea for three days, at times it looked dark like blood. He reports starting Eliquis a year ago with no bleeding complications previously. He reports trying Imodium which did not help. Initial vitals BP 135 / 89; Pulse 91; Resp 18; Temp 98; Pulse Ox 98% on 3 lpm NC Laboratory evaluation WBC 18.4, H&H 15/47, platelets 473, sodium 133, BUN/creatinine 30/1.49, GFR 48, serum glucose 123 CT abdomen pelvis report "The wall of the ascending colon/proximal transverse colon appears mildly thickened. This could be secondary to a mild colitis or incomplete distention. Fatty liver. Mild reticulonodular opacities, right middle lobe may indicate a mild atypical pneumonia." Honorio will be admitted to hospitalist service for further evaluation and treatment of colitis. Allergies codeine [Codeine] Allergy (Unknown, Verified 02/24/20 05:23) Hives/Rash Penicillins Allergy (Unknown, Verified 02/24/20 05:23) Hives/Rash vancomycin Allergy (Verified 06/23/22 19:10) Hives/Rash Home Medications: Atorvastatin Calcium [Lipitor*] 80 mg PO BEDTIME 07/20/15 Metformin HCl [Glucophage] 1,000 mg PO BID 07/20/15 buPROPion HCL [Wellbutrin*] 150 mg PO DAILY 07/20/15 allopurinoL [Zyloprim*] 100 mg PO BID 05/04/17 Tamsulosin [Flomax*] 1 cap PO BEDTIME 07/12/17 Apixaban [Eliquis] 5 mg PO BID 12/30/17 Duloxetine HCl [Cymbalta] 60 mg PO DAILY 12/30/17 Lisinopril [Zestril] 2.5 mg PO DAILY 02/24/20 Albuterol Neb [Proventil 0.083% Neb Soln] 2.5 mg NEB [id number] PRN #120 amp 02/27/20 Albuterol Sulfate [Albuterol Sulfate Hfa] 1 puff IH DAILY 06/24/22 Cyanocobalamin (Vitamin B-12) [Vitamin B-12] 1 tab PO DAILY 06/24/22 Empagliflozin [Jardiance] 1 tab PO DAILY 06/24/22 Fluticasone Propion/Salmeterol [Fluticasone-Salmeterol 250-50] 1 puff IH DAILY 06/24/22 Gabapentin 1 cap PO SEECOM 06/24/22 Tiotropium [Spiriva Handihaler*] 2 puff IH DAILY 06/24/22 guaiFENesin [Guaifenesin ER] 1 tab PO BID 06/24/22 - Past Medical/Surgical History Diabetic: Yes -: DM-2, gout -: COPD -: LUNG CANCER -: Back Pain, back pain -: HTN,HLD -: AFib -: anxiety, depression -: cellulitis, lymphedema -: cva -: constipation -: prostate problems -: trigeminal neuralgia -: LUNG CANCER- RADIATION 2013 -: pacemaker/defibrillator 2007 - Family History Father -: Heart disease, Lung disease, Diabetes Brother -: Cancer Mother -: Heart disease, Diabetes, Stroke - Social History Alcohol use: No CD- Drugs: No Caffeine use: Yes Review of Systems Gastrointestinal: Diarrhea, Melena Neurological: Other (dizziness) Physical Examination - Physical Exam General: Alert, In no apparent distress, Oriented x3 HEENT: Atraumatic, Normocephalic, PERRLA Neck: Supple, 2+ carotid pulse no bruit, JVD not distended Respiratory: Clear to auscultation bilaterally, Normal air movement Cardiovascular: Normal pulses, Regular rate/rhythm, Normal S1 S2 Capillary refill: <2 Seconds Gastrointestinal: Normal bowel sounds, Soft and benign Musculoskeletal: No clubbing, No contractures, Other (Right lower extremity with venous stasis) Integumentary: No rashes Neurological: Normal speech, Normal strength at 5/5 x4 extr - Studies Laboratory Data (last 24 hrs) 05/30/23 05/30/23 05/30/23 13:55 13:55 13:55 WBC 18.40 H Hgb 15.3 Hct 47.1 Plt Count 473 H PT 16.8 H INR 1.55 Sodium 133 L Potassium 4.7 BUN 30 H Creatinine 1.49 H Glucose 123 H Magnesium 2.1 Total Bilirubin 0.6 AST 20 ALT 33 Alkaline Phosphatase 138 H Assessment and Plan - Plan Assessment and plan Colitis with diarrhea and positive melena Leukocytosis -CT abdomen pelvis report "The wall of the ascending colon/proximal transverse colon appears mildly thickened. This could be secondary to a mild colitis or incomplete distention. Fatty liver. Mild reticulonodular opacities, right middle lobe may indicate a mild atypical pneumonia." -WBC 18.4 -H&H stable, will continue to monitor in a.m. labs -Stool study -probiotic -Cipro and Flagyl started in the ED, will continue on the floor Mild atypical pneumonia -CT abd/pelvis reports "Mild reticulonodular opacities, right middle lobe may indicate a mild atypical pneumonia." -consult Infectious disease Acute on chronic AVERY Hyponatremia likely secondary to dehydration -Gentle IV fluids History of COPD -Restart home medication when available -continue 3 LNC home O2 History of diabetes mellitus -Accu-Chek with SSI -Initial serum glucose 123 History of hypertensive disorder -Restart home medication if appropriate Fatty liver Umbilical hernia 4.1 renal cyst Spondylosis of the lumbar spine -incidental findings on CT abd/pelvis -Follow up as outpatient DVT PPx SCDs for now Full code LOS 2 to 3 days Discharge Plan: Home Plan to discharge in: 48 Hours - Advance Directives Does patient have a Living Will: Yes Does patient have a Durable POA for Healthcare: No Time Spent Managing Pts Care (In Minutes): 50
[2023-05-30] MEDS ORDERED: IPRATROPIUM BROM 0.5MG/2.5ML NEB PRN (16:26)
[2023-05-30] MEDS ORDERED: LEVALBUTEROL 0.63 MG/3 ML NEB NEB PRN (16:26)
[2023-05-30] MEDS: INSULIN REGULAR (HUMAN) 100 UNIT/ML SQ SCH (16:30)
[2023-05-30] MEDS: METRONIDAZOLE 500mg IVPB 500 MG/100 ML BAG IV SCH (17:00)
[2023-05-30] MEDS: CIPROFLOXACIN 400mg IV 400 MG/200 ML BAG IV SCH (21:04)
[2023-05-30] MEDS: LACTOBACILLUS/ACIDOPHILUS TAB PO SCH (21:05)
[2023-05-30] MEDS: NA CHLORIDE 0.9% 1,000 ML IV SCH (21:36)
[2023-05-30 23:12] VITALS: BMI 29.9
[2023-05-30] MEDS: TRAMADOL HCL 50 MG TAB PO PRN (23:17)
[2023-05-31] MEDS: ONDANSETRON 4 MG/2 ML VIAL IV PRN (03:42)
[2023-05-31 04:12] LABS: Anion Gap 11.4 mEq/L (5.0-15.0); Magnesium 2.1 mg/dL (1.6-2.4); Phosphorus 3.2 mg/dL (2.5-4.9); Potassium 4.4 mEq/L (3.5-5.1)
[2023-05-31 04:18] LABS: Absolute Basophils 0.1 K/uL (0-0.5); Absolute Lymphocytes (CBC) 1.4 K/uL (0.7-4.9); Absolute Monocytes 1.3 K/uL (0.1-1.3); Absolute Neutrophil 14.8 K/uL (1.8-8.0); Basophils % 0.5 % (0-1.3); Eosinophils % 0.2 % (0-4.4); Hemoglobin 14.7 g/dL (13.6-17.9); Lymphocytes % 7.9 % (15.3-44.8); MCH 28.6 pg (27.0-35.0); MCHC 32.7 g/dL (32.0-36.0); MCV 87.6 fL (80-100); MPV 9.5 fL (7.6-11.3); Monocytes % 7.3 % (3.3-12.3); Neutrophils % 84.1 % (41.7-73.7); Nucleated Red Blood Cells % 0.1 % (0-0); Platelets 353 thou/uL (152-406); RBC Red Blood Cell Count 5.14 M/uL (4.33-5.43); Red Cell Distribution Width 16.6 % (12.1-15.2)
[2023-05-31] MEDS ORDERED: HYDRALAZINE HCL 20 MG/ML VIAL IV PRN (07:15)
[2023-05-31] MEDS ORDERED: SODIUM CHLORIDE 0.9% 10ML INJ IV PRN (07:17)
--- NOTE | 2023-05-31 07:24 | P.PN ---
Date of Service: 05/31/23 Subjective Awake and working with physical therapy, able to walk down the sommers with a walker, has a rolling walker at home On home oxygen 2 L nasal cannula ROS 10 point ROS as noted above, otherwise negative P Physical Exam General: Alert and oriented x 3, conversing well HEENT: Atraumatic, Normocephalic, PERRLA Neck: Supple, 2+ carotid pulse no bruit, JVD not distended Respiratory: Clear to auscultation bilaterally, Normal air movement, symmetrical chest wall movement Cardiovascular: Normal pulses, RRR, Normal S1 S2 present, no murmur noted Capillary refill: <2 Seconds Gastrointestinal: Normoactive bowel sounds, Soft and benign on palpation, distended (obese) Musculoskeletal: No clubbing, No contractures, Other (Right lower extremity with venous stasis) Integumentary: No rashes Neurological: Normal speech, Normal strength at 5/5 x4 extr Vitals Reviewed Problem list Colitis with diarrhea and positive melena Leukocytosis Mild atypical pneumonia Acute on chronic AVERY Hyponatremia likely secondary to dehydration History of COPD History of diabetes mellitus History of hypertensive disorder Fatty liver Umbilical hernia 4.1 renal cyst Spondylosis of the lumbar spine Assessment and plan Colitis with diarrhea and positive melena Leukocytosis -CT abdomen pelvis report "The wall of the ascending colon/proximal transverse colon appears mildly thickened. This could be secondary to a mild colitis or incomplete distention. Fatty liver. Mild reticulonodular opacities, right middle lobe may indicate a mild atypical pneumonia." -WBC 17.6 down from 18.4 -H&H stable, will continue to monitor in a.m. labs -Stool study- needs to be collected -continue probiotic -continue Cipro and Flagyl -GI consulted Mild atypical pneumonia -CT abd/pelvis reports "Mild reticulonodular opacities, right middle lobe may indicate a mild atypical pneumonia." -consult Infectious disease Acute on chronic AVERY Hyponatremia likely secondary to dehydration -Gentle IV fluids -Bun/creatinine 32/1.31, GFR 56- improved History of COPD -continue home medication -continue 3 LNC home O2 History of diabetes mellitus -Accu-Chek with SSI -Initial serum glucose 119 History of hypertensive disorder -Restart home medication when available -hydralazine PRN Fatty liver Umbilical hernia 4.1 renal cyst Spondylosis of the lumbar spine -incidental findings on CT abd/pelvis -Follow up as outpatient DVT PPx SCDs for now Full code LOS 2 to 3 days Discharge Plan: Home Plan to discharge in: 48 Hours
--- NOTE | 2023-05-31 09:48 | P.CNS ---
Date of Consult: 05/31/23 Reason for Consult: diarrhea, pneumonia Chief Complaint: colitis/diarrhea with melena History of Present Illness: Patient is a 77-year-old male with medical history of COPD, diabetes mellitus, HLD, HTN, pacemaker/defibrillator who presented to the ED on 05/30/23 with complaints of weakness and diarrhea for three days. He reports the stool appeared like dark blood at times. Laboratory evaluation WBC 18.4, H&H 15/47, platelets 473, sodium 133, BUN/creatinine 30/1.49. CT abomen/pelvis reporting ""The wall of the ascending colon/proximal transverse colon appears mildly thickened. This could be secondary to a mild colitis or incomplete distention. Fatty liver. Mild reticulonodular opacities, right middle lobe may indicate a mild atypical pneumonia." Patient was admitted for further evaluation and treatment of colitis. Stool studies ordered. Infectious disease consulted. Allergies codeine [Codeine] Allergy (Unknown, Verified 02/24/20 05:23) Hives/Rash Penicillins Allergy (Unknown, Verified 02/24/20 05:23) Hives/Rash vancomycin Allergy (Verified 06/23/22 19:10) Hives/Rash Home medications list reviewed: Yes Home Medications: Atorvastatin Calcium [Lipitor*] 80 mg PO BEDTIME 07/20/15 Metformin HCl [Glucophage] 1,000 mg PO BID 07/20/15 buPROPion HCL [Wellbutrin*] 150 mg PO DAILY 07/20/15 allopurinoL [Zyloprim*] 100 mg PO BID 05/04/17 Tamsulosin [Flomax*] 1 cap PO BEDTIME 07/12/17 Apixaban [Eliquis] 5 mg PO BID 12/30/17 Duloxetine HCl [Cymbalta] 60 mg PO DAILY 12/30/17 Lisinopril [Zestril] 2.5 mg PO DAILY 02/24/20 Albuterol Neb [Proventil 0.083% Neb Soln] 2.5 mg NEB [id number] PRN #120 amp 02/27/20 Albuterol Sulfate [Albuterol Sulfate Hfa] 1 puff IH DAILY 06/24/22 Cyanocobalamin (Vitamin B-12) [Vitamin B-12] 1 tab PO DAILY 06/24/22 Empagliflozin [Jardiance] 1 tab PO DAILY 06/24/22 Fluticasone Propion/Salmeterol [Fluticasone-Salmeterol 250-50] 1 puff IH DAILY 06/24/22 Gabapentin 1 cap PO SEECOM 06/24/22 Tiotropium [Spiriva Handihaler*] 2 puff IH DAILY 06/24/22 guaiFENesin [Guaifenesin ER] 1 tab PO BID 06/24/22 - Past Medical/Surgical History Diabetic: Yes -: DM-2, gout -: COPD -: LUNG CANCER -: Back Pain, back pain -: HTN,HLD -: AFib -: anxiety, depression -: cellulitis, lymphedema -: cva -: constipation -: prostate problems -: trigeminal neuralgia -: LUNG CANCER- RADIATION 2013 -: pacemaker/defibrillator 2007 - Family History Father Medical History: Heart disease, Lung disease, Diabetes Brother Medical History: Cancer Mother Medical History: Heart disease, Diabetes, Stroke - Social History Smoking Status: Unknown if ever smoked Alcohol use: No CD- Drugs: No Caffeine use: Yes Place of Residence: Home Review of Systems General: Weakness Gastrointestinal: Abdominal Pain, Diarrhea Physical Examination Temp Pulse Resp BP Pulse Ox 96.4 F L 80 20 164/88 H 99 05/31/23 04:00 05/31/23 04:00 05/31/23 04:00 05/31/23 04:00 05/31/23 04:00 General: In no apparent distress, Oriented x3 HEENT: Atraumatic, Sclerae nonicteric Respiratory: Diminished, Other (unlabored respirations on 2L nasal cannula) Cardiovascular: No edema, Regular rate/rhythm (paced rhythm) Gastrointestinal: Normal bowel sounds, Tenderness (diffuse) Integumentary: No rashes, Other (stasis dermatitis lower extremity) Laboratory Data - Reviewed Microbiology Data - Reviewed Imagings Data: - Reviewed Conclusions/Impression: Problem List Colitis with diarrhea Mild atypical pneumonia Acute on chronic AVERY Hyponatremia COPD Diabetes mellitus Hypertension Fatty liver Colitis Diarrhea - CT abdomen pelvis 05/29: "The wall of the ascending colon/proximal transverse colon appears mildly thickened. This could be secondary to a mild colitis or incomplete distention. Fatty liver. Mild reticulonodular opacities right middle lobe may indicate a mild atypical pneumonia" - stool studies pending - currently on cipro and flagyl (started 05/29) - Leukocytosis (WBC 17.6) - Afebrile Recommendations - Continue cipro/flagyl for now. - Follow up with stool studies/c.diff - Continue probiotic - Monitor CBC and BMP. Electrolyte replacement per protocol. Case discussed with Howard Dela Cruz
[2023-05-31] MEDS: PANTOPRAZOLE 40 MG INJ IVP SCH (10:01)
[2023-05-31] MEDS: CALCIUM CARBONATE CHEW 500MG TAB PO SCH (13:53)
--- NOTE | 2023-05-31 14:26 | EKG ---
Test Date: 2023-05-30 Test Time: 13:31:15 Hide Tanner: DEZ MEASUREMENT RESULTS: Intervals: Rate: 89 MA: 212 QRSD: 86 QT: 354 QTc: 430 [place]: P: 62 MA: 212 QRS: 56 T: -74 INTERPRETIVE STATEMENTS: Sinus rhythm with 1st degree AV block ST & T wave abnormality, consider inferior ischemia ST & T wave abnormality, consider anterolateral ischemia Abnormal ECG Compared to ECG 06/23/2022 06:39:04 First degree AV block now present ST (T wave) deviation now present Possible ischemia now present Atrial fibrillation no longer present Electronically Signed On 05-31-23 14:23:18 CDT by Jose Aguirre
[2023-06-01 00:51] VITALS: O2SAT 99
[2023-06-01 03:21] LABS: Absolute Eosinophils 0.2 K/uL (0-0.5); Absolute Lymphocytes (CBC) 1.1 K/uL (0.7-4.9); Absolute Monocytes 0.8 K/uL (0.1-1.3); Absolute Neutrophil 8.6 K/uL (1.8-8.0); Basophils % 0.3 % (0-1.3); Hematocrit 39.3 % (39.6-49.0); Lymphocytes % 10.5 % (15.3-44.8); MCHC 33.1 g/dL (32.0-36.0); MCV 87.6 fL (80-100); Monocytes % 7.5 % (3.3-12.3); Neutrophils % 79.7 % (41.7-73.7); Nucleated Red Blood Cells % 0.2 % (0-0); Platelets 263 thou/uL (152-406); RBC Red Blood Cell Count 4.49 M/uL (4.33-5.43); Red Cell Distribution Width 16.2 % (12.1-15.2)
[2023-06-01 03:33] LABS: Specific Gravity 1.018 (1.005-1.030); Sqamous Epithelial <5 /HPF (None Seen); Urine Bacteria <20 /HPF (<20); Urine Bilirubin NEGATIVE (Negative); Urine Blood Negative (Negative); Urine Clarity Clear (Clear); Urine Color Yellow (Yellow); Urine Culture Reflex Order NOT NEEDED; Urine Glucose 3+ (Negative); Urine Ketones NEGATIVE (Negative); Urine Microscopic Reflex YN ORDER UMIC; Urine Mucus Slight /HPF (None Seen); Urine Nitrite NEGATIVE (Negative); Urine Protein NEGATIVE (Negative); Urine RBC <5 /HPF (None Seen); Urine Urobilinogen Normal (Normal); Urine WBC <5 /HPF (<5)
[2023-06-01 04:29] LABS: Anion Gap 10.6 mEq/L (5.0-15.0); Magnesium 2.1 mg/dL (1.6-2.4); Phosphorus 2.7 mg/dL (2.5-4.9); Potassium 4.6 mEq/L (3.5-5.1)
--- NOTE | 2023-06-01 07:01 | P.PN ---
Date of Service: 06/01/23 Subjective On home oxygen 2 L nasal cannula ambulating independently with a walker advancing diet today He reports not having a BM since admission, no blood in his urine, no N/V ROS 10 point ROS as noted above, otherwise negative Physical Exam General: Alert and oriented x 3, conversing well HEENT: Atraumatic, Normocephalic, PERRLA Neck: Supple, 2+ carotid pulse no bruit, JVD not distended Respiratory: Clear to auscultation bilaterally, Normal air movement, symmetrical chest wall movement Cardiovascular: Normal pulses, RRR, Normal S1 S2 present, no murmur noted Capillary refill: <2 Seconds Gastrointestinal: Normoactive bowel sounds, Soft and benign on palpation, distended (obese) Musculoskeletal: No clubbing, No contractures, Other (Right lower extremity with venous stasis) Integumentary: No rashes Neurological: Normal speech, Normal strength at 5/5 x4 extr Vitals Reviewed Problem list Colitis with diarrhea and positive melena Leukocytosis Mild atypical pneumonia Acute on chronic AVERY Hyponatremia likely secondary to dehydration History of COPD History of diabetes mellitus History of hypertensive disorder Fatty liver Umbilical hernia 4.1 renal cyst Spondylosis of the lumbar spine Assessment and plan Colitis with diarrhea and positive melena Leukocytosis -CT abdomen pelvis report "The wall of the ascending colon/proximal transverse colon appears mildly thickened. This could be secondary to a mild colitis or incomplete distention. Fatty liver. Mild reticulonodular opacities, right middle lobe may indicate a mild atypical pneumonia." -WBC 17.6 down from 18.4 -H&H stable, will continue to monitor in a.m. labs -Stool study- needs to be collected -continue probiotic -continue Cipro and Flagyl -GI consulted -Advanced diet -no bowel movement since admission per patient Mild atypical pneumonia -CT abd/pelvis reports "Mild reticulonodular opacities, right middle lobe may indicate a mild atypical pneumonia." -consult Infectious disease Acute on chronic AVERY Hyponatremia likely secondary to dehydration -Gentle IV fluids -Bun/creatinine 32/1.31, GFR 56- improved History of COPD -continue home medication -continue 3 LNC home O2 History of diabetes mellitus -Accu-Chek with SSI -Initial serum glucose 119 History of hypertensive disorder -Restart home medication when available -hydralazine PRN Fatty liver Umbilical hernia 4.1 renal cyst Spondylosis of the lumbar spine -incidental findings on CT abd/pelvis -Follow up as outpatient DVT PPx SCDs for now Full code LOS 2 to 3 days Discharge Plan: Home Plan to discharge in: 48 Hours
[2023-06-01] MEDS: lisinopriL 5 MG TAB PO SCH (08:59)
[2023-06-01] MEDS: GABAPENTIN 300 MG CAP PO SCH (08:59)
[2023-06-01] MEDS ORDERED: buPROPion HCL 100 MG TAB PO SCH (09:00)
[2023-06-01] MEDS: FUROSEMIDE 20 MG TABLET PO SCH (09:00)
[2023-06-01] MEDS: DULOXETINE 30 MG CAP PO SCH (09:00)
[2023-06-01] MEDS: allopurinoL 100 MG TAB PO SCH (09:01)
[2023-06-01] MEDS: LEVALBUTEROL 0.63 MG/3 ML NEB NEB SCH (13:15)
[2023-06-01] MEDS: IPRATROPIUM BROM 0.5MG/2.5ML NEB SCH (13:15)
[2023-06-01 14:26] VITALS: BP 183/85; TEMP 96.9
--- NOTE | 2023-06-01 18:04 | P.DS ---
Admission Date: 05/30/23 Discharge Date: 06/01/23 Disposition: ROUTINE DISCHARGE Discharge Condition: GOOD Reason for Admission: colitis/diarrhea with melena Brief History of Present Illness: Diagnosis Colitis with diarrhea and positive melena Leukocytosis Mild atypical pneumonia Acute on chronic AVERY Hyponatremia likely secondary to dehydration History of COPD History of diabetes mellitus History of hypertensive disorder Fatty liver Umbilical hernia 4.1 renal cyst Spondylosis of the lumbar spine HPI 05/30/23 Honorio Toussaint is a 77-year-old male with past medical history of COPD, diabetes mellitus, hypercholesterolemia, hypertensive disorder, pacemaker/defibrillator implanted who presents to the ED with complaints of weakness and diarrhea for three days, at times it looked dark like blood. He reports starting Eliquis a year ago with no bleeding complications previously. He reports trying Imodium which did not help. Initial vitals BP 135 / 89; Pulse 91; Resp 18; Temp 98; Pulse Ox 98% on 3 lpm NC Laboratory evaluation WBC 18.4, H&H 15/47, platelets 473, sodium 133, BUN/creatinine 30/1.49, GFR 48, serum glucose 123 CT abdomen pelvis report "The wall of the ascending colon/proximal transverse colon appears mildly thickened. This could be secondary to a mild colitis or incomplete distention. Fatty liver. Mild reticulonodular opacities, right middle lobe may indicate a mild atypical pneumonia." Honorio will be admitted to hospitalist service for further evaluation and treatment of colitis. Hospital Course: Honorio Toussaint is a pleasant 77 year old male with a past medical history significant for COPD, diabetes mellitus, hypercholesterolemia, hypertensive disorder, pacemaker/defibrillator implanted who was admitted to the [facility] on 05/30/23 for Colitis with diarrhea and positive melena. Honorio presented to the ED with chief complaint of weakness and diarrhea for 3 days. He reports seeing dark stool that reminded him of blood since he is on Eliquis for the last year. He reports having history of a gastric ulcer but not having any bleeding issues since he started Eliquis one year ago. During his admission, his H&H has remained stable, no bowel movement or diarrhea, tolerated clear liquid diet, tolerated regular diet this morning with no nausea, abdominal pain, or diarrhea. He is ambulating independently with his walker, on home oxygen per nasal cannula, and stable for discharge. On 06/01/23, Honorio was seen on morning rounds and deemed medically stable for discharge. Honorio was discharged with instructions to schedule follow-up appointments with PCP and Dr. Haro. Honorio was provided prescriptions for cefdinir, Flagyl, prednisone, and Tums. Honorio was given the opportunity to ask questions and reported no further questions. Furthermore, all questions were answered to the best of my ability. A copy of this discharge summary will be sent to the above providers to facilitate continuity of care. Today, I personally spent 50 minutes with Honorio, of which greater than 50% of the time was spent in patient education, counseling, and coordination of care as described above. Physical Exam General: NAD, AAOx3 HEENT: Atraumatic, Normocephalic, PERRLA Neck: Supple, 2+ carotid pulse no bruit, JVD not distended Respiratory: Clear to auscultation bilaterally, Normal air movement, symmetrical chest wall movement Cardiovascular: Regular rate and rhythm, normal S1 S2 present, no murmur noted Capillary refill: <2 Seconds Gastrointestinal: bowel sounds present, Soft and benign on palpation, distended (obese) but nontender Musculoskeletal: No clubbing, No contractures, Other (Right lower extremity with venous stasis) Integumentary: No rashes Neurological: Normal speech, Normal strength at 5/5 x4 extr,calm Vital Signs/Physical Exam: Temp Pulse Resp BP Pulse Ox 96.9 F 68 17 183/85 H 97 06/01/23 12:00 06/01/23 12:00 06/01/23 12:00 06/01/23 12:00 06/01/23 12:00 Laboratory Data at Discharge: WBC 10.80 thou/uL (4.3-10.9) 06/01/23 03:10 Hgb 13.0 g/dL (13.6-17.9) L D 06/01/23 03:10 Hct 39.3 % (39.6-49.0) L 06/01/23 03:10 Plt Count 263 thou/uL (152-406) 06/01/23 03:10 PT 16.8 SECONDS (9.5-12.5) H 05/30/23 13:55 INR 1.55 05/30/23 13:55 Sodium 133 mEq/L (136-145) L 06/01/23 03:29 Potassium 4.6 mEq/L (3.5-5.1) 06/01/23 03:29 BUN 24 mg/dL (7-18) H 06/01/23 03:29 Creatinine 1.00 mg/dL (0.70-1.30) 06/01/23 03:29 Glucose 98 mg/dL (74-106) 06/01/23 03:29 Phosphorus 2.7 mg/dL (2.5-4.9) 06/01/23 03:29 Magnesium 2.1 mg/dL (1.6-2.4) 06/01/23 03:29 Total Bilirubin 0.6 mg/dL (0.2-1.0) 05/30/23 13:55 AST 20 U/L (15-37) 05/30/23 13:55 ALT 33 U/L (16-61) 05/30/23 13:55 Alkaline Phosphatase 138 U/L (45-117) H 05/30/23 13:55 Home Medications: Metformin HCl [Glucophage] 500 mg PO BID 07/20/15 buPROPion HCL [Wellbutrin*] 150 mg PO DAILY 07/20/15 allopurinoL [Zyloprim*] 100 mg PO BID 05/04/17 Apixaban [Eliquis] 5 mg PO BID 12/30/17 Duloxetine HCl [Cymbalta] 60 mg PO DAILY 12/30/17 Lisinopril [Zestril] 2.5 mg PO DAILY 02/24/20 Cyanocobalamin (Vitamin B-12) [Vitamin B-12] 1 tab PO DAILY 06/24/22 Empagliflozin [Jardiance] 1 tab PO DAILY 06/24/22 Tiotropium [Spiriva Handihaler*] 2 puff IH DAILY 06/24/22 Furosemide 20 mg PO DAILY 05/31/23 Gabapentin 300 mg PO DAILY 05/31/23 Gabapentin 600 mg PO BEDTIME 05/31/23 Calcium Carbonate [Tums Regular*] 500 mg PO BID #60 tab 06/01/23 Cefdinir [Cefdinir*] 300 mg PO BID #14 cap 06/01/23 metroNIDAZOLE [Flagyl] 500 mg PO Q8H #20 tab 06/01/23 predniSONE [Deltasone] 20 mg PO DAILY #5 tab 06/01/23 New Medications: Cefdinir [Cefdinir*] 300 mg PO BID #14 cap metroNIDAZOLE [Flagyl] 500 mg PO Q8H #20 tab predniSONE [Deltasone] 20 mg PO DAILY #5 tab Calcium Carbonate [Tums Regular*] 500 mg PO BID #60 tab Physician Discharge Instructions: -DC IV and DC home -Follow-up with PCP in 1 to 2 weeks -Follow-up with Gastroenterology, for colonoscopy, in 1 to 2 weeks -Please call Dr. Mayfield at [phone] if any questions regarding hospital stay -Please call nursing station at [phone] if any nursing or medication questions -Return to the emergency room if symptoms worsen Diet: Regular Activity: Fall precautions Followup: David Dahl MD [Primary Care Provider] - 1-2 Weeks David Haro MD [ASSOCIATE-ACTIVE - CAN ADMIT] - Time spent managing pt's care (in minutes): 50
== END 2023-06-01 15:46 | disposition home or self-care (01) ==
LOC: ER 13:25 → ERHOLD 16:26 → 2ND 18:16
PROVIDERS: ADMIT Internal Medicine; ATTEND Hospitalist
DX: K52.9 Noninfective gastroenteritis and colitis, unspecified (principal); K92.1 Melena; J44.9 Chronic obstructive pulmonary disease, unspecified; E11.9 Type 2 diabetes mellitus without complications; E78.00 Pure hypercholesterolemia, unspecified; I10 Essential (primary) hypertension; R53.1 Weakness; D72.829 Elevated white blood cell count, unspecified; J18.9 Pneumonia, unspecified organism; N17.9 Acute kidney failure, unspecified; E87.1 Hypo-osmolality and hyponatremia; E86.0 Dehydration; K76.0 Fatty (change of) liver, not elsewhere classified; K42.9 Umbilical hernia without obstruction or gangrene; N28.1 Cyst of kidney, acquired; M47.896 Other spondylosis, lumbar region; Z88.0 Allergy status to penicillin; Z88.2 Allergy status to sulfonamides; Z88.3 Allergy status to other anti-infective agents; Z95.0 Presence of cardiac pacemaker; Z88.5 Allergy status to narcotic agent
CPT/HCPCS: 96365; 96368; 93005; 85025 ×3; 81001; 80048 ×3; 36415 ×2; 83735 ×3; 84100 ×2; 85610; 82947 ×7; 80076; 84484; 74177; 97116; 97161; 97530; 99285; 96366; Q9967; J7644; C9113 ×3; J7614; J2405; J0744 ×4; J7030; G0378 ×5

== ENCOUNTER 2023-08-28 00:56 | Inpatient (IN) | payer OTHER ==
[2023-08-28 02:26] LABS: Arterial Blood Carboxyhemoglob 0.7 % (0-1.5); Blood Gas Oxyhemoglobin 94.4 % (94-97); Blood Gas THB 13.1 g/dl (12-18); Blood O2 Saturation 96.8 % (92-98.5)
[2023-08-28 02:26] LABS: Absolute Eosinophils 0.1 K/uL (0-0.5); Absolute Lymphocytes (CBC) 1.2 K/uL (0.7-4.9); Absolute Monocytes 0.9 K/uL (0.1-1.3); Absolute Neutrophil 10.1 K/uL (1.8-8.0); Basophils % 0.3 % (0-1.3); Eosinophils % 0.9 % (0-4.4); Hematocrit 41.9 % (39.6-49.0); Hemoglobin 13.2 g/dL (13.6-17.9); Lymphocytes % 9.7 % (15.3-44.8); MCH 28.7 pg (27.0-35.0); MCHC 31.5 g/dL (32.0-36.0); MCV 90.9 fL (80-100); MPV 10.2 fL (7.6-11.3); Monocytes % 7.1 % (3.3-12.3); Nucleated Red Blood Cells % 0.1 % (0-0); Platelets 265 thou/uL (152-406); RBC Red Blood Cell Count 4.61 M/uL (4.33-5.43); Red Cell Distribution Width 16.6 % (12.1-15.2)
[2023-08-28] MEDS ORDERED: ALBUTEROL 2.5 MG/3 ML NEB SOL ONE ×4 (02:28→20:21)
[2023-08-28] MEDS ORDERED: CEFTRIAXONE 1000 MG/VIAL ONE (02:29)
[2023-08-28] MEDS ORDERED: HYDROCODONE/APAP 10/325 TAB ONE ×3 (02:29→18:01)
[2023-08-28] MEDS ORDERED: METHYLPREDNISOLONE 125 MG INJ ONE ×3 (02:29→17:05)
[2023-08-28] MEDS ORDERED: ONDANSETRON 4 MG (ODT) TAB ONE (02:29)
[2023-08-28 02:35] LABS: ALT/SGPT 39 U/L (16-61); AST/SGOT 20 U/L (15-37); Albumin 3.5 g/dL (3.4-5.0); Albumin/Globulin Ratio 0.8 (1.1-1.8); Alkaline Phosphatase 93 U/L (45-117); Anion Gap 13.1 mEq/L (5.0-15.0); BUN Blood Urea Nitrogen 29 mg/dL (7-18); Bicarbonate 26 mEq/L (21-32); Bilirubin Total 0.3 mg/dL (0.2-1.0); Creatine Phosphokinase 78 U/L (39-308); Globulin 4.3 g/dL (2.3-3.5); Glomerular Filtration Rate 62 ml/min (=/>90); Glucose Level 130 mg/dL (74-106); Lipase 53 U/L (13-75); Magnesium 1.9 mg/dL (1.6-2.4); NT PRO-BNP 176 pg/mL (<450); Potassium 4.1 mEq/L (3.5-5.1); Protein, Total 7.8 g/dL (6.4-8.2); Sodium Level 141 mEq/L (136-145); Troponin High Sensitivity 9.2 pg/mL (<58.9)
[2023-08-28 02:47] LABS: Bilirubin Direct < 0.2 mg/dL (0-0.2); Bilirubin Indirect, Calculated 0.1 mg/dL (0.2-0.8)
[2023-08-28 02:58] LABS: PT Prothrombin Time 11.7 SECONDS (9.5-12.5); PTT, Activated Partial Thromb 31.6 SECONDS (24.3-36.9); Protime INR 1.07
--- NOTE | 2023-08-28 05:49 | P.HP ---
Certification for Inpatient Patient admitted to: Inpatient With expected LOS: >2 Midnights Patient will require the following post-hospital care: None Practitioner: I am a practitioner with admitting privileges, knowledge of patient current condition, hospital course, and medical plan of care. Services: Services provided to patient in accordance with Admission requirements found in Title 42 Section 412.3 of the Code of Federal Regulations <Ariane Garcia - Last Filed: 08/28/23 07:06> Patient History Date of Service: 08/28/23 Reason for admission: COPD exacerbation/cellulitis/vol overload History of Present Illness: Mr. Toussaint is a 78-year-old gentleman with a past medical history of COPD, lung cancer, hypertension, atrial fibrillation within ICD, diabetes and colitis. Over the last several days he has had subjective fever, worsening shortness of breath, and swelling to his lower extremities. He presented to the emergency department overnight with a blood pressure of 133/71, heart rate 98, respiratory rate 20, temperature 98.8, with a pulse ox of 98% using the 3 L he has for home use. Of note, he is chronically on cefdinir and Flagyl for "a vegetable garden" on the leads of his pacemaker. He will be admitted for further investigation and treatment. Laboratory evaluation: WBC 12.3 with 82% neutrophils, H/H 13.2/41.9, platelets 265, sodium 141, potassium 4.1, chloride 106, CO2 26, glucose 130, BUN 29, creatinine 1.2 with a GFR of 62, LFTs normal, lipase 53, mag 1.9, proBNP 176, INR 1.07, troponin 9.2 ABG essentially normal Chest imaging pending Home medications list reviewed: Yes - Past Medical/Surgical History Has patient received pneumonia vaccine in the past: Yes Diabetic: Yes -: DM-2, gout -: COPD -: LUNG CANCER -: Back Pain, back pain -: HTN,HLD -: AFib -: anxiety, depression -: cellulitis, lymphedema -: cva -: constipation -: prostate problems -: trigeminal neuralgia -: LUNG CANCER- RADIATION 2013 -: pacemaker/defibrillator 2007 Psychosocial/ Personal History: Pt of the [place], [facility]. Pt lives at home with his (she just had a liver transplant). He has home O2 at 3L, a w/c, rollator, and scooter. - Family History Father -: Heart disease, Lung disease, Diabetes Brother -: Cancer Mother -: Heart disease, Diabetes, Stroke - Social History Smoking Status: Former smoker Alcohol use: No CD- Drugs: No Caffeine use: Yes Place of Residence: Home <Ariane Garcia - Last Filed: 08/28/23 07:06> Date of Service: 08/28/23 <Matthew Teresa - Last Filed: 08/28/23 13:06> Allergies codeine [Codeine] Allergy (Unknown, Verified 02/24/20 05:23) Hives/Rash Penicillins Allergy (Unknown, Verified 02/24/20 05:23) Hives/Rash vancomycin Allergy (Verified 06/23/22 19:10) Hives/Rash Home Medications: Metformin HCl [Glucophage] 500 mg PO BID 07/20/15 buPROPion HCL [Wellbutrin*] 300 mg PO DAILY 07/20/15 allopurinoL [Zyloprim*] 100 mg PO BID 05/04/17 Apixaban [Eliquis] 5 mg PO BID 12/30/17 Duloxetine HCl [Cymbalta] 60 mg PO DAILY 12/30/17 Lisinopril [Zestril] 2.5 mg PO DAILY 02/24/20 Cyanocobalamin (Vitamin B-12) [Vitamin B-12] 1,000 mcg PO DAILY 06/24/22 Empagliflozin [Jardiance] 1 tab PO DAILY 06/24/22 Tiotropium [Spiriva Handihaler*] 2 puff IH DAILY 06/24/22 Furosemide 40 mg PO DAILY 05/31/23 Gabapentin 300 mg PO TID 05/31/23 Gabapentin 600 mg PO BEDTIME 05/31/23 Calcium Carbonate [Tums Regular*] 500 mg PO BID #60 tab 06/01/23 Cefdinir [Cefdinir*] 300 mg PO BID #14 cap 06/01/23 metroNIDAZOLE [Flagyl] 500 mg PO Q8H #20 tab 06/01/23 predniSONE [Deltasone] 20 mg PO DAILY #5 tab 06/01/23 Aspirin Chewable [Aspirin Chewable*] 1 tab PO DAILY 08/28/23 Atorvastatin Calcium 20 mg PO DAILY 08/28/23 Diclofenac Sodium [Voltaren Arthritis Pain] 08/28/23 Docusate [Colace Cap*] 1 tab PO BID 08/28/23 Fluticasone Propion/Salmeterol [Fluticasone-Salmeterol 250-50] 1 puff BID 08/28/23 Formoterol Fumarate Dihyd,Micr [Formoterol Fumarate] 12 mcg PO BID 08/28/23 Metoprolol Succinate [Toprol Xl*] 25 mg PO DAILY 08/28/23 Minocycline HCl 100 mg PO BID 08/28/23 Omeprazole 20 mg PO DAILY 08/28/23 Simvastatin 40 mg PO 08/28/23 Tamsulosin HCl 1 cap PO 08/28/23 Terazosin HCl 2 mg PO 08/28/23 Tiotropium Br/Olodaterol HCl [Stiolto Respimat Inhaler (10)] 2 inh DAILY 08/28/23 Tizanidine [Zanaflex*] 2 mg PO BID 08/28/23 Tramadol HCl [Ultram] 100 mg PO TID PRN 08/28/23 Triamcinolone 0.1% Crm [Kenalog 0.1% Cream*] 1 gtt TOP DAILY 08/28/23 Valsartan/Hydrochlorothiazide [Valsartan-Hctz 160-12.5 mg Tab] 160 mg PO DAILY 08/28/23 Review of Systems 10-point ROS is otherwise unremarkable General: Fever Respiratory: Cough, Shortness of Breath <Garcia,Ariane Kuldeep - Last Filed: 08/28/23 07:06> Physical Examination - Physical Exam General: Oriented x3, Other (sitting up in chair, audible wheezing) HEENT: Atraumatic, Normocephalic Neck: Supple Respiratory: Diminished (RUL), Expiratory wheezes, Inspiratory wheezes Cardiovascular: Normal S1 S2, Edema Capillary refill: <2 Seconds Gastrointestinal: Soft and benign Musculoskeletal: No clubbing Integumentary: Erythema (and edema to bilateral lower extremities), Warmth Neurological: Normal speech, Normal tone, Normal affect Lymphatics: No axilla or inguinal lymphadenopathy External genitalia: Deferred Rectal: Deferred - Studies Laboratory Data (last 24 hrs) 08/28/23 08/28/23 08/28/23 02:37 01:50 01:50 WBC 12.30 H Hgb 13.2 L Hct 41.9 Plt Count 265 PT 11.7 INR 1.07 APTT 31.6 Sodium 141 Potassium 4.1 BUN 29 H Creatinine 1.20 Glucose 130 H Magnesium 1.9 Total Bilirubin 0.3 AST 20 ALT 39 Alkaline Phosphatase 93 Lipase 53 <Ariane Garcia - Last Filed: 08/28/23 07:06> - Studies Laboratory Data (last 24 hrs) 08/28/23 08/28/23 08/28/23 02:37 01:50 01:50 WBC 12.30 H Hgb 13.2 L Hct 41.9 Plt Count 265 PT 11.7 INR 1.07 APTT 31.6 Sodium 141 Potassium 4.1 BUN 29 H Creatinine 1.20 Glucose 130 H Magnesium 1.9 Total Bilirubin 0.3 AST 20 ALT 39 Alkaline Phosphatase 93 Lipase 53 <Matthew Teresa - Last Filed: 08/28/23 13:06> Assessment and Plan - Plan COPD exacerbation, hx of lung CA (2012) Blood cultures drawn in ED Cefepime PICC Monitor and trend vs A. fib with ICD (2007) Continue Eliquis tele Volume overload Lasix 20mg IV BID I&O, daily weights ECHO if no hx of recent - COMMENTS: 1. NORMAL LEFT VENTRICULAR EJECTION FRACTION 60-65% WITH NORMAL WALL MOTION 2. MILD MITRAL ANNULAR CALCIFICATION WITH TRACE MITRAL REGURGIATION 3. NO VEGETATION IS SEEN ON THIS EXAM. Dictated By: Jose Aguirre 06/26/22 1405 HTN Lisinopril monitor and trend HLD atorvastatin 40mg po q hs NIDDM glucose monitoring with SSI coverage VRE/GI prophylaxis Eliquis, SCDs/Protonix Code Status: Full - Advance Directives Does patient have a Living Will: No Does patient have a Durable POA for Healthcare: Yes <Ariane Garcia - Last Filed: 08/28/23 07:06> - Plan Pt seen and examined. I agree with the note by the CREATIVE DIRECTOR. Pt is a 78yo male with past medical history of COPD, lung cancer, hypertension, atrial fibrillation within ICD, diabetes and colitis who presents with SOB, Leg edema and subjective fever. Of note, pt takes Cefdinir and flagyl daily for the vegetable garden on the lead of his pacemaker. Lab studies show wbc 12.3, Hgb 13.2, platelets 265, sodium 141, potassium 4.1, chloride 106, CO2 26, glucose 130, BUN 29, creatinine 1.2 with a GFR of 62, LFTs normal, lipase 53, mag 1.9, proBNP 176, INR 1.07, troponin 9.2, and ABG essentially normal. CXR is unremarkable. At bedside, Pt is in NAD but wheezing on expiration. A/P: Acute COPD Exacerbation: Will continue steroid, abx, mucinex and oxygen. He uses 2L BNC at home. Volume overload: BNP is 176. Last Echo from June, showed EF 60 - 65%. Will repeat Echo. Continue lasix 20mg iv BID, strict I/O and daily weight. Will continue home med for other chronic medical problems. <Matthew Teresa - Last Filed: 08/28/23 13:06>
[2023-08-28] MEDS ORDERED: SODIUM CHLORIDE 0.9% 10ML INJ IV PRN (06:07)
[2023-08-28] MEDS ORDERED: ACETAMINOPHEN 500 MG TAB PO PRN (06:07)
--- NOTE | 2023-08-28 06:24 | ER ---
Nurse's Notes [facility] Name: Honorio Toussaint Age: 78 yrs Sex: Male : 1945 Arrival Date: 08/28/2023 Time: 00:56 Bed 20 Private MD: Diagnosis: COPD/ Chronic obstructive pulmonary disease with (acute) exacerbation;Acute bronchitis, unspecified Presentation: 08/27 01:38 Chief complaint: Patient states: bilateral leg swelling x 2-3 days and SOB that began ss last night. Coronavirus screen: Client denies travel out of the [place] in the last 14 days. Ebola Screen: Patient denies exposure to infectious person. Patient denies travel to an Ebola-affected area in the 21 days before illness onset. Initial Sepsis Screen: Does the patient meet any 2 criteria? No. Patient's initial sepsis screen is negative. Does the patient have a suspected source of infection? No. Patient's initial sepsis screen is negative. Risk Assessment: Do you want to hurt yourself or someone else? Patient reports no desire to harm self or others. Onset of symptoms is unknown. 01:38 Method Of Arrival: Ambulatory ss 01:38 Acuity: ATIF 3 ss Triage Assessment: 03:48 General: Appears uncomfortable. Respiratory: Reports shortness of breath at rest Onset: kd3 The symptoms/episode began/occurred gradually, the patient has moderate shortness of breath. Historical: - Allergies: 01:40 Codeine; ss 01:40 PENICILLINS; ss 01:40 Vancomycin; ss - PMHx: 01:40 COPD; diabetes mellitus; Hypercholesterolemia; Hypertensive disorder; ss - PSHx: 01:40 Pacemaker/Defib; ss - Immunization history:: Adult Immunizations up to date. - Infectious Disease History:: Denies. - Family history:: not pertinent. - Social history:: Smoking status: unknown. Screenin:56 [facility] ED Fall Risk Assessment (Adult) History of falling in the last 3 months, kd3 including since admission No falls in past 3 months (0 pts) Confusion or Disorientation No (0 pts) Intoxicated or Sedated No (0 pts) Impaired Gait No (0 pts) Mobility Assist Device Used Yes (1 pt) Altered Elimination No (0 pt) Score/Fall Risk Level 0 - 2 = Low Risk Oriented to surroundings. Abuse screen: Denies threats or abuse. Denies injuries from another. Nutritional screening: No deficits noted. Tuberculosis screening: No symptoms or risk factors identified. Assessment: 02:54 General: Appears uncomfortable, Behavior is calm, cooperative. Pain: Complains of pain kd3 in chest and abdomen. Neuro: Level of Consciousness is awake, alert, obeys commands, Oriented to person, place, time, situation. Cardiovascular: Rhythm is regular. Respiratory: Airway is patent Trachea midline Respiratory effort is even, unlabored, Breath sounds are diminished bilaterally. 03:46 General: Appears in no apparent distress. Behavior is calm, cooperative. Neuro: Level kd3 of Consciousness is awake, alert, obeys commands, Oriented to person, place, time, situation. Cardiovascular: Patient's skin is warm and dry. Respiratory: Airway is patent Trachea midline Respiratory effort is even, unlabored. 04:28 Neuro: Level of Consciousness is awake, alert, obeys commands, Oriented to person, kd3 place, time, situation. Respiratory: Reports shortness of breath Pt reports little to no improvements with SOB. Pt respirations are even and unlabored when he sleeps. However pt frequently coughs and clears his throat and report having continued work of breathing. O2 remains 95 to 98% on room air. Pt does have a blue hue to his finger tips. 05:16 General: Pt independently ambulatory to the restroom with his walker. PT is wheezing on kd3 exertion. . 05:24 General: Pt does not want to be connected to the monitor at this time. Pt is seated in kd3 the chair and does not want to return to the bed. Pt provided a sandwich, pudding cup, milk, coffee and squirt. 05:57 General: Provider is at the bedside to discuss possible admission. . kd3 Vital Signs: 01:38 BP 133 / 71; Pulse 98; Resp 20; Temp 98.8(O); Pulse Ox 98% ; Weight 98.43 kg; Height 5 ss ft. 9 in. ; Pain 7/10; 02:54 BP 172 / 71; Pulse 83; Resp 16; Pulse Ox 95% on R/A; kd3 03:47 BP 143 / 90; Pulse 102; Resp 20; Pulse Ox 98% on R/A; kd3 04:27 BP 131 / 78; Pulse 88; Resp 16; Pulse Ox 98% on R/A; kd3 05:24 BP 115 / 58; Pulse 79; Resp 17; Pulse Ox 98% on R/A; kd3 01:38 Body Mass Index 32.04 (98.43 kg, 175.26 cm) ss 01:38 Pain Scale: Adult ss Sal Coma Score: 06:24 Eye Response: spontaneous(4). Motor Response: obeys commands(6). Verbal Response: sp4 oriented(5). Total: 15. ED Course: 01:08 Patient arrived in ED. mr 01:11 Zachary Miranda MD is Attending Physician. sp4 01:40 Triage completed. ss 01:40 Arm band placed on right wrist. ss 01:53 Bushra Vincent, RN is Primary Nurse. kd3 02:11 BMP Sent. ss 02:11 Blood Culture Adult (2) Sent. ss 02:11 CBC with Diff Sent. ss 02:11 CPK Sent. ss 02:11 Hepatic Function Sent. ss 02:11 Lipase Sent. ss 02:11 Magnesium Sent. ss 02:11 NT PRO-BNP Sent. ss 02:11 PT-INR Sent. ss 02:11 Ptt, Activated Sent. ss 02:11 Troponin HS Sent. ss 02:12 Inserted saline lock: 22 gauge in right antecubital area, using aseptic technique. rc3 Blood collected. 02:50 Blood Culture Adult (2) Sent. rc3 02:50 PT-INR Sent. rc3 02:50 Ptt, Activated Sent. rc3 03:47 No provider procedures requiring assistance completed. kd3 04:27 Patient has correct armband on for positive identification. kd3 05:22 [facility] called [facility] patient. Notification [id number]. [place] Approval Number ty [id number]. 05:25 Called [facility] for patient approval, spoke with Christi. ty 06:23 Chest Single View XRAY In Process Unspecified. EDMS 06:23 Matthew Teresa MD is Hospitalizing Provider. sp4 08:40 Primary Nurse role handed off by Bushra Vincent, RN ll1 08:40 Reno Martinez, MANOLO is Primary Nurse. ll1 13:19 Patient admitted, IV remains in place. iw Administered Medications: 02:43 Drug: Rocephin - Rocephin (cefTRIAXone) IVPB 1 grams IVPB once over 30 mins; (mix in 50 kd3 mL NS) Route: IVPB; Infused Over: 30 mins; Site: right antecubital; 02:43 Drug: Ondansetron PO 4 mg PO once Route: PO; kd3 02:44 Drug: MethylPREDNISolone Sodium Succinate IM 125 mg IM once Route: IM; Site: Other; kd3 02:44 Drug: Albuterol Inhalation 2.5 mg Inhalation every 20 minutes x3 Route: Inhalation; kd3 02:44 Drug: [place] PO 10 mg-325 mg 1 tabs PO once Route: PO; kd3 03:46 Drug: Albuterol Inhalation 2.5 mg Inhalation every 20 minutes x3 Route: Inhalation; kd3 04:40 Drug: Albuterol Inhalation 2.5 mg Inhalation every 20 minutes x3 Route: Inhalation; kd3 Medication: 03:48 VIS not applicable for this client. kd3 Outcome: 06:23 Decision to Hospitalize by Provider. sp4 13:19 Admitted to ER Hold. Please see [facility] for further documentation. iw 13:19 Condition: stable 13:19 Instructed on the need for admit, 20:18 Patient left the ED. mb9 Signatures: Dispatcher [employer] EDIL Sri Amaya, Reg Reg mr Jessica Perez RN RN iw Dai Valero RN RN ss Lewis, Lynsay, RN RN ll1 Bushar Vincent RN RN kd3 Sri Singh RN RN mb9 Zachary Miranda MD MD sp4 Waqar Perez Rebecca Laura
--- NOTE | 2023-08-28 06:24 | EDPHYS ---
Physician Documentation [facility] Name: Honorio Toussaint Age: 78 yrs Sex: Male : 1945 Arrival Date: 08/28/2023 Time: 00:56 Bed 20 Private MD: ED Physician Zachary Miranda HPI: 08/27 01:11 This 78 yrs old Black Male presents to ER via Unassigned with complaints of Shortness sp4 Of Breath. 06:24 Male past medical history of COPD presents with worsening shortness of breath sp4 associated with persistent cough.. Historical: - Allergies: 01:40 Codeine; ss 01:40 PENICILLINS; ss 01:40 Vancomycin; ss - PMHx: 01:40 COPD; diabetes mellitus; Hypercholesterolemia; Hypertensive disorder; ss - PSHx: 01:40 Pacemaker/Defib; ss - Immunization history:: Adult Immunizations up to date. - Infectious Disease History:: Denies. - Family history:: not pertinent. - Social history:: Smoking status: unknown. ROS: 06:24 Constitutional: Negative for fever, chills, and weight loss, positive shortness of sp4 breath, positive persistent cough 06:24 All other systems are negative, Exam: 06:24 Constitutional: This is a well developed, well nourished patient who is awake, alert, sp4 and in no acute distress. Head/Face: Normocephalic, atraumatic. Eyes: Pupils equal round and reactive to light, extra-ocular motions intact. Lids and lashes normal. Conjunctiva and sclera are not injected. Cornea within normal limits. Periorbital areas with no swelling, redness, or edema. ENT: Nares patent. No nasal discharge, no septal abnormalities noted. Tympanic membranes are normal and external auditory canals are clear. Oropharynx with no redness, swelling, or masses, exudates, or evidence of obstruction, uvula midline. Mucous membranes moist. Neck: Trachea midline, no thyromegaly or masses palpated, and no cervical lymphadenopathy. Supple, full range of motion without nuchal rigidity, or vertebral point tenderness. Chest/axilla: Normal chest wall appearance and motion. Nontender with no deformity. No lesions are appreciated. Cardiovascular: Regular rate and rhythm with a normal S1 and S2. No gallops, murmurs, or rubs. Normal PMI, no JVD. No pulse deficits. Respiratory: Lungs have equal breath sounds bilaterally, positive bilateral wheezing, positive bilateral crackles to auscultation. Dyspnea and tachypnea on exam Abdomen/GI: Soft, with normal bowel sounds. No distension or tympany. No guarding or rebound. No evidence of tenderness throughout. Back: No spinal tenderness. No costovertebral tenderness. Skin: Warm, dry with normal turgor. Normal color with no rashes, no lesions, and no evidence of cellulitis. MS/ Extremity: Pulses equal, no cyanosis. Neurovascular intact. Full, normal range of motion. Neuro: Awake and alert, GCS 15, oriented to person, place, time, and situation. Cranial nerves II-XII grossly intact. Motor strength 5/5 in all extremities. Sensory grossly intact. Psych: Awake, alert, with orientation to person, place and time. Behavior, mood, and affect are within normal limits 06:24 ECG was reviewed by the Attending Physician. EKG at 0 242 reveals sinus rhythm sp4 first-degree AV block rate 78. Otherwise normal Vital Signs: 01:38 BP 133 / 71; Pulse 98; Resp 20; Temp 98.8(O); Pulse Ox 98% ; Weight 98.43 kg; Height 5 ss ft. 9 in. ; Pain 7/10; 02:54 BP 172 / 71; Pulse 83; Resp 16; Pulse Ox 95% on R/A; kd3 03:47 BP 143 / 90; Pulse 102; Resp 20; Pulse Ox 98% on R/A; kd3 04:27 BP 131 / 78; Pulse 88; Resp 16; Pulse Ox 98% on R/A; kd3 05:24 BP 115 / 58; Pulse 79; Resp 17; Pulse Ox 98% on R/A; kd3 01:38 Body Mass Index 32.04 (98.43 kg, 175.26 cm) ss 01:38 Pain Scale: Adult ss [place] Coma Score: 06:24 Eye Response: spontaneous(4). Motor Response: obeys commands(6). Verbal Response: sp4 oriented(5). Total: 15. MDM: 01:20 Patient medically screened. sp4 06:26 Differential diagnosis: Anxiety Reaction asthma, Bronchitis CHF exacerbation, Chronic sp4 Obstructive Pulmonary Disease pneumonia. Antibiotic administration: Given Rocephin IV . Data reviewed: vital signs, nurses notes, lab test result(s), EKG, radiologic studies, plain films. Consideration of Admission/Observation Patient was admitted/placed on observation. Escalation of care including admission/observation considered. Management of patient was discussed with the following: Hospitalist: Admit team . ED course: Admitted for COPD management . 08/27 01:12 Order name: BMP; Complete Time: 05: sp4 08/27 01:12 Order name: Blood Culture Adult (2) sp4 08/27 01:12 Order name: CBC with Diff; Complete Time: 05: sp4 08/27 01:12 Order name: CPK; Complete Time: : sp4 08/27 01:12 Order name: Hepatic Function; Complete Time: :4 08/27 01:12 Order name: Lipase; Complete Time: :4 08/27 01:12 Order name: Magnesium; Complete Time: 05:4 08/27 01:12 Order name: NT PRO-BNP; Complete Time: 05:4 08/27 01:12 Order name: PT-INR; Complete Time: 05:4 08/27 01:12 Order name: Ptt, Activated; Complete Time: 05:4 08/27 01:12 Order name: Troponin HS; Complete Time: : sp4 08/27 02:01 Order name: ABG; Complete Time: 05:4 08/27 06:23 Order name: Urinalysis w/ reflexes EDMS 08/27 06:23 Order name: CBC with Automated Diff EDMS 08/27 06:23 Order name: CBC with Automated Diff EDMS 08/27 06:23 Order name: CBC with Automated Diff EDMS 08/27 06:23 Order name: CBC with Automated Diff EDMS 08/27 06:23 Order name: Comprehensive Metabolic Panel EDMS 08/27 06:23 Order name: Comprehensive Metabolic Panel EDMS 08/27 06:23 Order name: Comprehensive Metabolic Panel EDMS 08/27 06:23 Order name: Comprehensive Metabolic Panel EDMS 08/27 06:23 Order name: Lipid Profile EDMS 08/27 06:23 Order name: Lipid Profile EDMS 08/27 06:23 Order name: Magnesium EDMS 08/27 06:23 Order name: Magnesium EDMS 08/27 06:23 Order name: Magnesium EDMS 06/18 06:23 Order name: Magnesium [facility] 08/27 07:57 Order name: Glucose, Ancillary Testing [facility] 08/27 12:07 Order name: Glucose, Ancillary Testing [facility] 08/27 17:13 Order name: Glucose, Ancillary Testing [facility] 08/27 05:24 Order name: Chest Single View XRAY [facility] 08/27 01:12 Order name: EKG; Complete Time: 01:12 [facility] 08/27 01:12 Order name: Cardiac monitoring; Complete Time: 02:44 [facility] 08/27 01:12 Order name: EKG - Nurse/Tech; Complete Time: 02:44 [facility] 08/27 01:12 Order name: IV Saline Lock; Complete Time: 02:11 [facility] 08/27 01:12 Order name: Labs collected and sent; Complete Time: 02:11 [facility] 08/27 01:12 Order name: O2 Per Protocol; Complete Time: 02:44 [facility] 08/27 01:12 Order name: O2 Sat Monitoring; Complete Time: 02:44 [facility] 08/27 02:20 Order name: Misc. Order: RECOLLECT - [place] (More blood); Complete Time: 02:43 ty EC:24 Rate is 78 beats/min. Rhythm is regular, Sinus Rhythm. QRS [place] is Normal. CO interval sp4 is prolonged. QRS interval is normal. QT interval is normal. No Q waves. T waves are Normal. No ST changes noted. Clinical impression: No evidence of ischemia. Interpreted by me. Reviewed by me. Administered Medications: 02:43 Drug: Rocephin - Rocephin (cefTRIAXone) IVPB 1 grams IVPB once over 30 mins; (mix in 50 kd3 mL NS) Route: IVPB; Infused Over: 30 mins; Site: right antecubital; 02:43 Drug: Ondansetron PO 4 mg PO once Route: PO; kd3 02:44 Drug: MethylPREDNISolone Sodium Succinate IM 125 mg IM once Route: IM; Site: Other; kd3 02:44 Drug: Albuterol Inhalation 2.5 mg Inhalation every 20 minutes x3 Route: Inhalation; kd3 02:44 Drug: [place] PO 10 mg-325 mg 1 tabs PO once Route: PO; kd3 03:46 Drug: Albuterol Inhalation 2.5 mg Inhalation every 20 minutes x3 Route: Inhalation; kd3 04:40 Drug: Albuterol Inhalation 2.5 mg Inhalation every 20 minutes x3 Route: Inhalation; kd3 Disposition Summary: 08/28/23 06:23 Hospitalization Ordered Notes: Hospitalization Status: Inpatient Admission sp4 Provider: Matthew Teresa sp4 Condition: Fair sp4 Problem: an acute exacerbation sp4 Symptoms: have improved sp4 Bed/Room Type: Standard sp4 Location: [facility] ER HOLD(08/28/23 07:34) bd Room Assignment: ERHOLD-(08/28/23 07:34) bd Diagnosis - COPD/ Chronic obstructive pulmonary disease with (acute) exacerbation sp4 - Acute bronchitis, unspecified sp4 Discharge Instructions: - Discharge Summary Sheet ty Forms: - Medication Reconciliation Form sp4 - Leadership Thank You Letter sp4 - SBAR form ty Signatures: Dispatcher [employer] EDTaisha Aguilar Shelby, RN RN Bushra Ya RN RN kd3 Zachary Miranda MD MD sp4 Waqar Perez ty Corrections: (The following items were deleted from the chart) 01: 01:12 BASIC METABOLIC PANEL+C.LAB.BRZ ordered. EDMS EDMS 01:13 01:12 BLOOD CULTURE*+BA.LAB.BRZ ordered. EDMS EDMS :13 01:12 CBC+H.LAB.BRZ ordered. EDMS EDMS :13 01:12 CREATINE PHOSPHOKINASE+C.LAB.BRZ ordered. EDMS EDMS 01:13 01:12 HEPATIC FUNCTION+C.LAB.BRZ ordered. EDMS EDMS 01:13 01:12 LIPASE+C.LAB.BRZ ordered. EDMS EDMS 01:13 01:12 MAGNESIUM+C.LAB.BRZ ordered. EDMS EDMS 01:13 01:12 PROBNP+C.LAB.BRZ ordered. EDMS EDMS :13 01:12 PROTIME (+INR)+COAG.LAB.BRZ ordered. EDMS EDMS :13 01:12 PTT, ACTIVATED+COAG.LAB.BRZ ordered. EDMS EDMS 01:13 01:12 Troponin High Sensitivity+C.LAB.BRZ ordered. EDSC EDMS 05:25 05:25 Chest Single View+RAD.RAD.BRZ ordered. EDMS EDMS 07:34 06:23 Telemetry/MedSurg (Inpatient) sp4 bd 07:34 06:23 sp4 bd
[2023-08-28] MEDS: ARFORMOTEROL TARTRATE 15 MCG/2 ML VIAL.NEB NEB SCH (07:00)
[2023-08-28] MEDS: ALBUTEROL 2.5 MG/3 ML NEB SOL NEB SCH (07:00)
[2023-08-28] MEDS: INSULIN REGULAR (HUMAN) 100 UNIT/ML SQ SCH (07:30)
[2023-08-28] MEDS ORDERED: INSULIN REGULAR (HUMAN) 100 UNIT/ML ONE ×3 (07:47→17:05)
[2023-08-28 07:52] VITALS: BMI 31.8
[2023-08-28] MEDS ORDERED: APIXABAN 5 MG TABLET ONE (08:06)
[2023-08-28] MEDS ORDERED: GABAPENTIN 300 MG CAP ONE (08:06)
[2023-08-28] MEDS ORDERED: PANTOPRAZOLE 40 MG INJ ONE (08:06)
[2023-08-28] MEDS ORDERED: lisinopriL 5 MG TAB ONE (08:07)
[2023-08-28] MEDS ORDERED: NA CHLORIDE 0.9% 100 ML ONE (08:07)
[2023-08-28] MEDS ORDERED: FUROSEMIDE 20 MG/ 2ML VIAL ONE ×2 (08:07→17:05)
[2023-08-28] MEDS ORDERED: CEFEPIME 1 GM/VIAL ONE (08:07)
--- NOTE | 2023-08-28 08:20 | RAD REPORT ---
[facility] CLINICAL HISTORY: CHEST PAIN COMPARISON: Chest Single View dated 06/26/2022; Chest Single View dated 06/23/2022; Chest Single View dated 12/24/2021; Chest Single View dated 02/26/2020 TECHNIQUE: Portable AP view of the chest. FINDINGS: The lungs are clear. Left chest wall pacer in place. No pneumothorax or effusion. The car diomediastinal contours are unremarkable. IMPRESSION: No acute cardiopulmonary process.
[2023-08-28] MEDS: APIXABAN 5 MG TABLET PO SCH (08:23)
[2023-08-28] MEDS: FUROSEMIDE 20 MG/ 2ML VIAL IV SCH (08:23)
[2023-08-28] MEDS: CEFEPIME 1 GM in NA CHLORIDE 0.9% 100 ML IV SCH (08:23)
[2023-08-28] MEDS: CYANOCOBALAMIN 1000MCG/ML INJ IM ONE (08:23)
[2023-08-28] MEDS: Mupirocin NASAL 2 APPL/1 GM TUBE NAS SCH (08:23)
[2023-08-28] MEDS: PANTOPRAZOLE 40 MG INJ IVP SCH (08:24)
[2023-08-28] MEDS: GABAPENTIN 300 MG CAP PO SCH (08:24)
[2023-08-28] MEDS: lisinopriL 5 MG TAB PO SCH (08:24)
[2023-08-28] MEDS ORDERED: TIOTROPIUM 5 SPRAYS/INHALER IH SCH (09:00)
[2023-08-28] MEDS: HYDROCODONE/APAP 10/325 TAB PO PRN (10:16)
[2023-08-28] MEDS: METHYLPREDNISOLONE 125 MG INJ IV SCH (12:00)
--- NOTE | 2023-08-28 14:13 | EKG ---
Test Date: 2023-08-28 Test Time: 02:42:47 Funeral Driver: RRIrma MEASUREMENT RESULTS: Intervals: Rate: 78 NC: 252 QRSD: 78 QT: 390 QTc: 444 [place]: P: 45 NC: 252 QRS: 23 T: 32 INTERPRETIVE STATEMENTS: Sinus rhythm with 1st degree AV block Otherwise normal ECG Compared to ECG 05/30/2023 13:31:15 ST (T wave) deviation no longer present Possible ischemia no longer present Electronically Signed On 08-28-23 14:10:41 CDT by Jose Aguirre
[2023-08-28] MEDS ORDERED: ARFORMOTEROL TARTRATE 15 MCG/2 ML VIAL.NEB ONE (20:21)
[2023-08-28 20:29] VITALS: BP 115/58; TEMP 98.8; O2SAT 98
[2023-08-28] MEDS ORDERED: GABAPENTIN 300 MG CAP PO SCH (21:00)
[2023-08-28] MEDS ORDERED: DULOXETINE 30 MG CAP PO SCH (21:00)
== END 2023-08-28 20:00 | disposition left against medical advice (07) | DRG 192 ==
LOC: ER 00:56 → ERHOLD 06:07
PROVIDERS: ADMIT Hospitalist; ATTEND Hospitalist
PROC: 02HV33Z Insertion of Infusion Device into Superior Vena Cava, Percutaneous Approach (ICD-10-PCS; principal; 2023-08-28)
DX: J44.1 Chronic obstructive pulmonary disease with (acute) exacerbation (principal); I10 Essential (primary) hypertension; J20.9 Acute bronchitis, unspecified; J44.0 Chronic obstructive pulmonary disease with (acute) lower respiratory infection; E78.5 Hyperlipidemia, unspecified; E87.70 Fluid overload, unspecified; I48.91 Unspecified atrial fibrillation; M10.9 Gout, unspecified; Z88.0 Allergy status to penicillin; Z88.1 Allergy status to other antibiotic agents; Z88.5 Allergy status to narcotic agent; Z99.81 Dependence on supplemental oxygen; Z79.82 Long term (current) use of aspirin; Z79.52 Long term (current) use of systemic steroids; Z79.01 Long term (current) use of anticoagulants; Z79.84 Long term (current) use of oral hypoglycemic drugs; Z53.29 Procedure and treatment not carried out because of patient's decision for other reasons; Z86.73 Personal history of transient ischemic attack (TIA), and cerebral infarction without residual deficits; Z79.899 Other long term (current) drug therapy; Z87.891 Personal history of nicotine dependence; Z95.810 Presence of automatic (implantable) cardiac defibrillator; Z85.118 Personal history of other malignant neoplasm of bronchus and lung
CPT/HCPCS: 36415; 71045; 80048; 80076; 82550; 82805; 82947; 83690; 83735; 83880; 84484; 85025; 85610; 85730; 87040; 87077; 87186; 87205; 93005; 96372; 96374; 99285; C9113; J0692; J0696; J1940; J2919; J3420; J7605; J7613; Q0162

== ENCOUNTER 2023-12-11 08:17 | Emergency (ER) | payer MEDICARE, OTHER ==
--- NOTE | 2023-12-11 08:52 | RAD REPORT ---
EXAMINATION: ONE VIEW CHEST XR CLINICAL INDICATION: COUGH TECHNIQUE: Frontal chest projection is submitted. Examination is limited by patient positioning and t echnique. COMPARISON: 08/28/2023 FINDINGS: Moderate sized opacity abutting the pleura is seen in the left upper lobe measuring approximately 6 c m. No visible air bronchograms. Vague linear opacity is seen in the right upper lobe, chronic in appearance. The heart is normal in size. No displaced fractures identified. Multilead pacer/defib rillator device present. IMPRESSION: Moderate-sized pleural-based opacity in the left upper lobe laterally could be pneumonia or neoplasm.
--- NOTE | 2023-12-11 09:01 | RAD REPORT ---
EXAM: CT CHEST, ABDOMEN AND PELVIS WITHOUT CONTRAST CLINICAL INDICATION: Abdominal distention;Chest pain TECHNIQUE: CT chest, abdomen and pelvis was performed without contrast, as per department protocol. A xial, sagittal and coronal reconstructions were obtained. One or more of the following dose reduction techniques were used: Automated exposure control, adjustment of the mA and/or kV according to patient size, and/or iterative reconstruction. Unless otherwise specified, incidental findings do not require dedicated imaging follow-up. Examination is limited by the lack of intravenous contrast material. COMPARISON: 05/30/2023, 06/24/2022 FINDINGS: LUNGS: Pleural-based masslike lesion is present in the left upper lobe laterally measuring maximally 4.2 x 3.6 cm. There is no bony erosion seen associated with this. No air bronchograms are present within this lesion. There appears to be fiducial marker superior to this lesion. Medial right upper lobe there is an additional masslike lesion present measuring 2.5 x 2.4 cm. This a ppears to contain fiducial markers. This appears unchanged since 06/24/2022. Areas of nodularity are seen in the right middle lobe measuring 21 x 9 mm, more prominent than on th e 06/24/2022 comparison study. Noncalcified nodule in the right middle lobe laterally is also apparent and appears new measuring 6 mm (image 28/132). PLEURA: No pleural effusion. No pneumothorax. MEDIASTINUM AND LYMPH NODES: No mediastinal mass or fluid collection. Normal size mediastinal, hilar, and axillary lymph nodes. OSSEOUS STRUCTURES AND CHEST WALL: Intact. LIVER: The liver demonstrates mild fatty infiltration. No focal lesion or biliary dilatation is seen. PANCREAS: No mass, ductal dilation, or [place]-pancreatic fluid. SPLEEN: Normal size. No focal lesion. ADRENALS: Normal; no mass. KIDNEYS: Multiple cysts are present parapelvic location bilaterally. No hydronephrosis or mass. URINARY BLADDER: Normal contour. GASTROINTESTINAL TRACT: No bowel obstruction, free air, significant free fluid or abscess. Small fa t-containing ventral hernia is present. This appears supraumbilical in location. Prominent diverticulosis coli of the descending colon as well as the sigmoid colon present. Slight reticulation in the fat surrounding the sigmoid colon diverticula is present. APPENDIX: Normal appendix. LYMPH NODES: No lymphadenopathy. MUSCULOSKELETAL: Moderate lumbar degenerative changes. IMPRESSION: 4.2 cm masslike lesion is present left upper lobe laterally. The presence of fiducial markers superio r to the lesion suggests that this may be recurrent growth of a previously treated neoplastic lesion. Nonemergent PET/CT follow-up may be of value to further workup this finding. New areas of nodularity are also present in the right middle lobe as detailed which could be metastat ic in origin. 2.5 cm masslike lesion in the medial right upper lobe also appearing to contain fiducial markers appe ars relatively stable. Quite prominent diverticulosis of the sigmoid colon is present with subtle reticulation surrounding t he: This region which could indicate early acute diverticulitis.
[2023-12-11] MEDS ORDERED: FAMOTIDINE 20 MG/2 ML VIAL IV ONE (09:15)
[2023-12-11] MEDS ORDERED: NA CHLORIDE 0.9% 500 ML ONE (09:15)
[2023-12-11 09:37] LABS: Absolute Basophils 0.1 K/uL (0-0.5); Absolute Lymphocytes (CBC) 1.1 K/uL (0.7-4.9); Basophils % 0.4 % (0-1.3); Eosinophils % 0.1 % (0-4.4); Hematocrit 45.1 % (39.6-49.0); Hemoglobin 14.4 g/dL (13.6-17.9); Lymphocytes % 6.5 % (15.3-44.8); MCH 27.3 pg (27.0-35.0); MCHC 31.9 g/dL (32.0-36.0); MCV 85.6 fL (80-100); MPV 9.2 fL (7.6-11.3); Monocytes % 5.6 % (3.3-12.3); Neutrophils % 87.4 % (41.7-73.7); Nucleated Red Blood Cells % 0.1 % (0-0); Platelets 371 thou/uL (152-406); RBC Red Blood Cell Count 5.27 M/uL (4.33-5.43); Red Cell Distribution Width 16.6 % (12.1-15.2)
[2023-12-11 09:40] LABS: PT Prothrombin Time 13.7 SECONDS (9.4-12.5); Protime INR 1.23
[2023-12-11 09:58] LABS: Albumin 3.2 g/dL (3.4-5.0); Albumin/Globulin Ratio 0.7 (1.1-1.8); Anion Gap 9.4 mEq/L (5.0-15.0); Bilirubin Direct 0.2 mg/dL (0-0.2); Bilirubin Indirect, Calculated 0.4 mg/dL (0.2-0.8); Bilirubin Total 0.6 mg/dL (0.2-1.0); Globulin 4.5 g/dL (2.3-3.5); Magnesium 1.9 mg/dL (1.6-2.4); Potassium 4.4 mEq/L (3.5-5.1); Protein, Total 7.7 g/dL (6.4-8.2); Troponin High Sensitivity 7.5 pg/mL (<58.9)
[2023-12-11 10:46] LABS: Blood Morphology Comment NOT SEEN (NOT SEEN); Platelet Estimate ADEQ; White Blood Cell Scan OK (OK)
[2023-12-11] MEDS ORDERED: HYDROCODONE/APAP 7.5/325 MG TAB ONE (11:43)
--- NOTE | 2023-12-11 12:16 | ER ---
Nurse's Notes [facility] Name: Honorio Toussaint Age: 78 yrs Sex: Male : 1945 Arrival Date: 12/11/2023 Time: 08:17 Bed 23 Private MD: Diagnosis: Chest pain, unspecified;Malignant neoplasm of upper lobe, left bronchus or lung;Malignant neoplasm of lower lobe, right bronchus or lung;Elevated white blood cell count;Dyspnea Presentation: 12/10 08:59 Chief complaint: Patient states: "I've had CP, Diarrhea, losing weight, and stomach mb9 pain for a while now. I recently got diagnosed with cancer but haven't started treatment yet.". Coronavirus screen: Vaccine status: Patient reports receiving the 2nd dose of the covid vaccine. Ebola Screen: No symptoms or risks identified at this time. Initial Sepsis Screen: Does the patient meet any 2 criteria? No. Patient's initial sepsis screen is negative. Does the patient have a suspected source of infection? No. Patient's initial sepsis screen is negative. Risk Assessment: Do you want to hurt yourself or someone else? Patient reports no desire to harm self or others. Onset of symptoms was December 11, 2023. 08:59 Acuity: ATIF 2 mb9 08:59 Method Of Arrival: Wheelchair mb9 Triage Assessment: 09:02 General: Appears in no apparent distress. Behavior is calm, cooperative. Pain: mb9 Complains of pain in chest and abdomen. Cardiovascular: Reports chest pain. Historical: - Allergies: 09:01 PENICILLINS; mb9 09:01 Vancomycin; mb9 - PMHx: 09:01 COPD; diabetes mellitus; Hypercholesterolemia; Hypertensive disorder; mb9 - PSHx: 09:01 Pacemaker/Defib; mb9 - Immunization history:: Adult Immunizations up to date. - Infectious Disease History:: Denies. - Social history:: Smoking status: Patient/guardian denies using tobacco. - Family history:: not pertinent. Screenin:47 [facility] ED Fall Risk Assessment (Adult) History of falling in the last 3 months, iw including since admission No falls in past 3 months (0 pts) Confusion or Disorientation No (0 pts) Intoxicated or Sedated No (0 pts) Impaired Gait No (0 pts) Mobility Assist Device Used Yes (1 pt) Altered Elimination No (0 pt) Score/Fall Risk Level 0 - 2 = Low Risk Oriented to surroundings. Abuse screen: Denies threats or abuse. Nutritional screening: No deficits noted. Tuberculosis screening: No symptoms or risk factors identified. Assessment: 11:46 Reassessment: Patient appears in no apparent distress at this time. Patient and/or iw family updated on plan of care and expected duration. Pain level reassessed. pt requesting to speak to doctor. 12:05 General: Appears comfortable, well groomed, well developed, well nourished, Behavior is me1 calm, cooperative, appropriate for age, Reports "I've had CP, Diarrhea, losing weight, and stomach pain for a while now. I recently got diagnosed with cancer but haven't started treatment yet.". Pain: Complains of pain in left lateral posterior chest and left lateral anterior chest and anterior aspect of left upper chest and left clavicle and abdomen and chest Pain currently is 2 out of 10 on a pain scale. Quality of pain is described as dull, Is continuous. Pain: Pain does not radiate. Pain began gradually. Neuro: Level of Consciousness is awake, alert, obeys commands, Oriented to person, place, time, situation, Appropriate for age. Cardiovascular: Reports chest pain, Patient's skin is warm and dry. Respiratory: Airway is patent Respiratory effort is even, unlabored, Respiratory pattern is regular, symmetrical, o2 dependant at 2 lpm via nc. GI: Reports lower abdominal pain, upper abdominal pain, diarrhea. : No signs and/or symptoms were reported regarding the genitourinary system. EENT: No signs and/or symptoms were reported regarding the EENT system. Derm: Skin is intact, is healthy with good turgor, Skin is pink, warm \\T\\ dry. Musculoskeletal: No signs and/or symptoms reported regarding the musculoskeletal system. 15:27 General: Report called to MANOLO Hansen at the [facility] in [place]. me1 Vital Signs: 08:59 BP 144 / 86; Pulse 74; Resp 18; Temp 97; Pulse Ox 100% on 2.5 lpm NC; Weight 86.18 kg; mb9 Height 5 ft. 8 in. ; 11:47 BP 167 / 74; Pulse 68; Resp 16; Pulse Ox 98% on 2 lpm NC; iw 13:00 BP 174 / 89; Pulse 69; Resp 18; Pulse Ox 100% on 2 lpm NC; me1 14:00 BP 164 / 87; Pulse 71; Resp 18; Pulse Ox 99% on 2 lpm NC; me1 15:00 BP 153 / 91; Pulse 72; Resp 17; Pulse Ox 100% on 2 lpm NC; me1 15:50 BP 162 / 87; Pulse 72; Resp 17; Temp 98.1; Pulse Ox 100% on 2 lpm NC; me1 08:59 Body Mass Index 28.89 (86.18 kg, 172.72 cm) mb9 ED Course: 08:23 Patient arrived in ED. im 08:29 Ag Patricio MD is Attending Physician. yvon 08:41 CT Chest Abdomen Pelvis W/O Contrast In Process Unspecified. EDMS 08:49 XRAY Chest (1 view) In Process Unspecified. EDMS 09:01 Triage completed. mb9 09:02 Arm band placed on. mb9 09:11 Patient placed in waiting room, in a wheelchair, Patient notified of wait time. jl7 09:11 EKG done, by ED staff, reviewed by Ag Patricio MD. jl7 09:24 Jessica Perez, MANOLO is Primary Nurse. iw 09:25 Initial lab(s) drawn, by me, sent to lab. Inserted saline lock: 22 gauge in right iw forearm, using aseptic technique. Blood collected. Flushed with 10 mL NS. 12:05 Patient has correct armband on for positive identification. Bed in low position. Call me1 light in reach. Side rails up X2. Provided Education on: POC, Verbalized understanding. . Client placed on continuous cardiac and pulse oximetry monitoring. NIBP monitoring applied. 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 Pulse ox on. NIBP on. 12:05 No provider procedures requiring assistance completed. Oxygen administration via nasal me1 cannula \\T\\ 2L/min. 12:31 initiated transfer to [facility], faxed chart to ER as requested by transfer center. bd 13:41 Lactate w/ 2H reflex if indic. Sent. me1 14:16 pt accepted in transfer to [facility] er by dr Sharp admin approval given by rashi Burks RN. 16:15 Patient transferred, IV remains in place. me1 Administered Medications: 09:38 Drug: NS 0.9% IV 500 ml IV at bolus once Route: IV; Rate: bolus; Site: right forearm; iw 12:05 Follow up: Response: No adverse reaction; IV Status: Completed infusion me1 09:38 Drug: Famotidine IVP 20 mg IVP once; dilute with 10 mL 0.9% NaCl; give over 2 minutes iw Route: IVP; Site: right forearm; 12:05 Follow up: Response: No adverse reaction me1 11:45 Drug: Hydrocodone-Acetaminophen PO (7.5 mg-325 mg) 1 tabs PO once; RASS on ADMIN: iw Combtv4, Very Agttd3, Agttd2, Rstlss1, AlertClm0, Drwsy-1, Lt Sdtn-2, Mod Sdtn-3, Dp Sdtn-4, UnArsble-5 Route: PO; 12:06 Follow up: Response: No adverse reaction; Pain is decreased me1 13:49 Drug: Cefepime IVPB 1 grams IVPB at 200 ml/hr once over 30 mins; (mix in NS 100 mL) me1 Route: IVPB; Rate: 200 ml/hr; Infused Over: 30 mins; Site: right forearm; 14:24 Follow up: Response: No adverse reaction; IV Status: Completed infusion; IV Intake: me1 100ml 13:49 Drug: NS 0.9% IV 1000 ml IV at 125 ml/hr continuous Route: IV; Rate: 125 ml/hr; Site: co1 right forearm; 16:15 Follow up: IV Status: Infusion continued upon transfer me1 14:24 Drug: levofloxacin IVPB 500 mg 100 ml IVPB once over 60 mins Volume: 100 ml; Route: me1 IVPB; Infused Over: 60 mins; Site: right forearm; 15:24 Follow up: Response: No adverse reaction; IV Status: Completed infusion; IV Intake: me1 100ml Medication: 12:05 VIS not applicable for this client. me1 Intake: 14:24 IV: 100ml; Total: 100ml. me1 15:24 IV: 100ml; Total: 200ml. me1 Outcome: 12:15 ER care complete, transfer ordered by MD. sanz 16:15 Transferred by ground EMS to [facility] Transfer form completed. co1 16:15 Condition: stable 16:15 Instructed on the need for transfer, 16:16 Patient left the ED. me1 Signatures: Dispatcher [employer] EDMS Dirrim, Taisha bd Sheng, Ag, MD MD yvon Chris, Jessica, RN RN iw Kal Madsen RN RN Sri Benz, RN RN mb9 Kitty Francis Michelle, RN RN me1 Corrections: (The following items were deleted from the chart) 11:42 09:01 Allergies: Codeine; myriam iw 14:43 08:59 Chief complaint: Patient states: "I've had CP, Diarrhea, losing weight, and me1 stomach pain for a while now. I recently got diagnosed with cancer but haven't started treatment yet." mb9
--- NOTE | 2023-12-11 12:16 | EDPHYS ---
Physician Documentation [facility] Name: Honorio Toussaint Age: 78 yrs Sex: Male : 1945 Arrival Date: 12/11/2023 Time: 08:17 Bed 23 Private MD: ED Physician Ag Patricio HPI: 12/10 12:06 This 78 yrs old Male presents to ER via Wheelchair with complaints of Chest yvon Pain, Diarrhea, Abdominal Pain. 12:06 The patient or guardian reports chest pain that is located primarily in the anterior yvon chest wall, left. Onset: 2 day(s) ago. The pain does not radiate. Associated signs and symptoms: The patient has no apparent associated signs or symptoms. The chest pain is described as aching. Duration: The patient or guardian reports multiple episodes, with no pattern. Modifying factors: The symptoms are alleviated by nothing. the symptoms are aggravated by nothing. Severity of pain: At its worst the pain was moderate in the emergency department the pain has improved mildly. The patient has experienced similar episodes in the past, multiple times. Historical: - Allergies: 09:01 PENICILLINS; mb9 09:01 Vancomycin; mb9 - PMHx: 09:01 COPD; diabetes mellitus; Hypercholesterolemia; Hypertensive disorder; mb9 - PSHx: 09:01 Pacemaker/Defib; mb9 - Immunization history:: Adult Immunizations up to date. - Infectious Disease History:: Denies. - Social history:: Smoking status: Patient/guardian denies using tobacco. - Family history:: not pertinent. ROS: 12:06 Constitutional: Negative for fever, chills, and weight loss, Eyes: Negative for injury, yvon pain, redness, and discharge, ENT: Negative for injury, pain, and discharge, Neck: Negative for injury, pain, and swelling, Respiratory: Negative for shortness of breath, cough, wheezing, and pleuritic chest pain, Abdomen/GI: Negative for abdominal pain, nausea, vomiting, diarrhea, and constipation, Back: Negative for injury and pain, : Negative for injury, bleeding, discharge, and swelling, MS/Extremity: Negative for injury and deformity, Skin: Negative for injury, rash, and discoloration, Neuro: Negative for headache, weakness, numbness, tingling, and seizure, Psych: Negative for depression, anxiety, suicide ideation, homicidal ideation, and hallucinations, Allergy/Immunology: Negative for hives, rash, and allergies, Endocrine: Negative for neck swelling, polydipsia, polyuria, polyphagia, and marked weight changes, Hematologic/Lymphatic: Negative for swollen nodes, abnormal bleeding, and unusual bruising, 12:06 Cardiovascular: Positive for chest pain, of the left clavicle, anterior aspect of left upper chest, left lateral anterior chest and left lateral posterior chest, Exam: 12:06 Constitutional: This is a well developed, well nourished patient who is awake, alert, yvon and in no acute distress. Head/Face: Normocephalic, atraumatic. Eyes: Pupils equal round and reactive to light, extra-ocular motions intact. Lids and lashes normal. Conjunctiva and sclera are non-icteric and not injected. Cornea within normal limits. Periorbital areas with no swelling, redness, or edema. ENT: Nares patent. No nasal discharge, no septal abnormalities noted. Tympanic membranes are normal and external auditory canals are clear. Oropharynx with no redness, swelling, or masses, exudates, or evidence of obstruction, uvula midline. Mucous membranes moist. Neck: Trachea midline, no thyromegaly or masses palpated, and no cervical lymphadenopathy. Supple, full range of motion without nuchal rigidity, or vertebral point tenderness. No Meningismus. Chest/axilla: Normal chest wall appearance and motion. Nontender with no deformity. No lesions are appreciated. Cardiovascular: Regular rate and rhythm with a normal S1 and S2. No gallops, murmurs, or rubs. Normal PMI, no JVD. No pulse deficits. Respiratory: Lungs have equal breath sounds bilaterally, clear to auscultation and percussion. No rales, rhonchi or wheezes noted. No increased work of breathing, no retractions or nasal flaring. Abdomen/GI: Soft, non-tender, with normal bowel sounds. No distension or tympany. No guarding or rebound. No evidence of tenderness throughout. Back: No spinal tenderness. No costovertebral tenderness. Full range of motion. Male : Normal genitalia with no discharge or lesions. Skin: Warm, dry with normal turgor. Normal color with no rashes, no lesions, and no evidence of cellulitis. MS/ Extremity: Pulses equal, no cyanosis. Neurovascular intact. Full, normal range of motion. Neuro: Awake and alert, GCS 15, oriented to person, place, time, and situation. Cranial nerves II-XII grossly intact. Motor strength 5/5 in all extremities. Sensory grossly intact. Cerebellar exam normal. Normal gait. Psych: Awake, alert, with orientation to person, place and time. Behavior, mood, and affect are within normal limits. 12:06 ECG was reviewed by the Attending Physician. Vital Signs: 08:59 BP 144 / 86; Pulse 74; Resp 18; Temp 97; Pulse Ox 100% on 2.5 lpm NC; Weight 86.18 kg; mb9 Height 5 ft. 8 in. ; 11:47 BP 167 / 74; Pulse 68; Resp 16; Pulse Ox 98% on 2 lpm NC; iw 13:00 BP 174 / 89; Pulse 69; Resp 18; Pulse Ox 100% on 2 lpm NC; me1 14:00 BP 164 / 87; Pulse 71; Resp 18; Pulse Ox 99% on 2 lpm NC; me1 15:00 BP 153 / 91; Pulse 72; Resp 17; Pulse Ox 100% on 2 lpm NC; me1 15:50 BP 162 / 87; Pulse 72; Resp 17; Temp 98.1; Pulse Ox 100% on 2 lpm NC; me1 08:59 Body Mass Index 28.89 (86.18 kg, 172.72 cm) 9 MDM: 08:29 Patient medically screened. yvon 12:09 Differential diagnosis: abnormal EKG, acute myocardial infarction, acute pericarditis, yvon chest wall pain, Cholelithiasis costochondritis, esophagitis, hiatal hernia, pancreatitis, peptic ulcer disease, pleurisy, pneumonia, pulmonary embolus, stable angina, unstable angina. HEART Score: History: Moderately Suspicious (1), ECG: Normal (0), Age: > or = 65 years (2). The patient was given aspirin in the Emergency Department. ARLETH Risk Score: 1 - patient's age is greater or equal to 65 years, 1 - Three or more CAD risk factors, 1- Known CAD, TOTAL SCORE = 3. Data reviewed: vital signs, nurses notes, lab test result(s), EKG, radiologic studies, plain films. Consideration of Admission/Observation Escalation of care including admission/observation considered. I considered the following discharge prescriptions or medication management in the emergency department Medications were administered in the Emergency Department. See MAR. Independent interpretation of the following test(s) in the Emergency Department EKG: See my EKG interpretation above. Test considered but Not performed: Ultrasound NO 2 D ECHO. Care significantly affected by the following chronic conditions: Diabetes, Hypertension, Chronic Obstructive Pulmonary Disease, Cancer. 12/10 08:31 Order name: Basic Metabolic Panel; Complete Time: 11:48 [facility] 12/10 08:31 Order name: CBC with Diff; Complete Time: 11:48 [facility] 12/10 08:31 Order name: LFT's; Complete Time: 11:48 [facility] 12/10 08:31 Order name: Magnesium; Complete Time: 11:48 [facility] 12/10 08:31 Order name: NT PRO-BNP; Complete Time: 11:48 [facility] 12/10 08:31 Order name: PT-INR; Complete Time: 11:48 [facility] 12/10 08:31 Order name: Troponin HS; Complete Time: 11:48 [facility] 12/10 08:31 Order name: Lipase; Complete Time: 11:48 [facility] 12/10 10:46 Order name: CBC Smear Scan; Complete Time: 11:48 [facility] 12/10 12:01 Order name: Blood Culture Adult (2) [facility] 12/10 12:01 Order name: Lactate w/ 2H reflex if indic. [facility] 12/10 08:31 Order name: XRAY Chest (1 view); Complete Time: 11:48 [facility] 12/10 08:31 Order name: CT Chest Abdomen Pelvis W/O Contrast; Complete Time: 11:48 [facility] 12/10 08:31 Order name: Cardiac monitoring; Complete Time: 11:12 [facility] 12/10 08:31 Order name: EKG - Nurse/Tech; Complete Time: 09:02 [facility] 12/10 08:31 Order name: IV Saline Lock; Complete Time: 09:39 [facility] 12/10 08:31 Order name: Labs collected and sent; Complete Time: 09:39 [facility] 12/10 08:31 Order name: O2 Per Protocol; Complete Time: 11:12 [facility] 12/10 08:31 Order name: O2 Sat Monitoring; Complete Time: 11:12 [facility] EC:06 Rate is 78 beats/min. Rhythm is regular. QRS [place] is Normal. CT interval is normal. QRS yvon interval is normal. QT interval is normal. No Q waves. T waves are Normal. No ST changes noted. Clinical impression: Normal ECG and No evidence of ischemia. Interpreted by me. Reviewed by me. Administered Medications: 09:38 Drug: NS 0.9% IV 500 ml IV at bolus once Route: IV; Rate: bolus; Site: right forearm; iw 12:05 Follow up: Response: No adverse reaction; IV Status: Completed infusion me1 09:38 Drug: Famotidine IVP 20 mg IVP once; dilute with 10 mL 0.9% NaCl; give over 2 minutes iw Route: IVP; Site: right forearm; 12:05 Follow up: Response: No adverse reaction me1 11:45 Drug: Hydrocodone-Acetaminophen PO (7.5 mg-325 mg) 1 tabs PO once; RASS on ADMIN: iw Combtv4, Very Agttd3, Agttd2, Rstlss1, AlertClm0, Drwsy-1, Lt Sdtn-2, Mod Sdtn-3, Dp Sdtn-4, UnArsble-5 Route: PO; 12:06 Follow up: Response: No adverse reaction; Pain is decreased me1 13:49 Drug: Cefepime IVPB 1 grams IVPB at 200 ml/hr once over 30 mins; (mix in NS 100 mL) me1 Route: IVPB; Rate: 200 ml/hr; Infused Over: 30 mins; Site: right forearm; 14:24 Follow up: Response: No adverse reaction; IV Status: Completed infusion; IV Intake: me1 100ml 13:49 Drug: NS 0.9% IV 1000 ml IV at 125 ml/hr continuous Route: IV; Rate: 125 ml/hr; Site: me1 right forearm; 16:15 Follow up: IV Status: Infusion continued upon transfer me1 14:24 Drug: levofloxacin IVPB 500 mg 100 ml IVPB once over 60 mins Volume: 100 ml; Route: me1 IVPB; Infused Over: 60 mins; Site: right forearm; 15:24 Follow up: Response: No adverse reaction; IV Status: Completed infusion; IV Intake: me1 100ml Disposition Summary: 12/11/23 12:15 Transfer Ordered Notes: Transfer Location: [facility] yvon Reason: Higher level of care yvon Condition: Fair yvon Problem: new yvon Symptoms: have improved yvon Accepting Physician: TO SD(12/11/23 16:16) me1 Diagnosis - Chest pain, unspecified yvon - Malignant neoplasm of upper lobe, left bronchus or lung yvon - Malignant neoplasm of lower lobe, right bronchus or lung yvon - Elevated white blood cell count yvon - Dyspnea yvon Forms: - Medication Reconciliation Form yvon - SBAR form yvon Signatures: Dispatcher [employer] EDMS Ag Patricio MD MD cha Williams, Irene RN MANOLO iw Marianne, Sri Saab RN RN mb9 Marisel Clements RN RN me1 Corrections: (The following items were deleted from the chart) 08:31 08:31 BASIC METABOLIC PANEL+C.LAB.BRZ ordered. EDMS EDMS 08:31 08:31 CBC+H.LAB.BRZ ordered. EDMS EDMS 08:31 08:31 HEPATIC FUNCTION+C.LAB.BRZ ordered. EDMS EDMS 08:31 08:31 MAGNESIUM+C.LAB.BRZ ordered. EDMS EDMS 08:31 08:31 PROBNP+C.LAB.BRZ ordered. EDMS EDMS 08:31 08:31 PROTIME (+INR)+COAG.LAB.BRZ ordered. EDMS EDMS 08:31 08:31 Troponin High Sensitivity+C.LAB.BRZ ordered. EDMS EDMS 08:31 08:31 LIPASE+C.LAB.BRZ ordered. EDMS EDMS 08:31 08:31 Urinalysis+U.LAB.BRZ ordered. EDMS EDMS 08:31 08:31 Chest Single View+RAD.RAD.BRZ ordered. EDMS EDMS 08:32 08:32 Chest Abdomen Pelvis Wo Con+CT.RAD.BRZ ordered. EDMS EDMS 11:42 09:01 Allergies: Codeine; mb9 iw 12:02 12:01 BLOOD CULTURE*+BA.LAB.BRZ ordered. EDMS EDMS 12:02 12:01 LACTATE+C.LAB.BRZ ordered. EDMS EDMS 15:19 15:19 Chest Single View+RAD.RAD.BRZ ordered. EDMS EDMS 16:16 12:15 TO [facility] yvon me1
[2023-12-11] MEDS ORDERED: Levofloxacin500mg IV 500 MG/100 ML BAG IV ONE (13:45)
[2023-12-11] MEDS ORDERED: NA CHLORIDE 0.9% 1,000 ML ONE (13:46)
[2023-12-11] MEDS ORDERED: CEFEPIME 1 GM/VIAL ONE (13:46)
[2023-12-11] MEDS ORDERED: NA CHLORIDE 0.9% 100 ML ONE (13:46)
[2023-12-11 16:59] VITALS: O2SAT 100
[2023-12-11 17:01] VITALS: BP 162/87; TEMP 98.1
--- NOTE | 2023-12-12 12:59 | EKG ---
Test Date: 2023-12-11 Test Time: 09:07:51 Pulp Grinder: MB MEASUREMENT RESULTS: Intervals: Rate: 78 MO: 202 QRSD: 80 QT: 380 QTc: 433 [place]: P: 29 MO: 202 QRS: 51 T: 56 INTERPRETIVE STATEMENTS: Normal sinus rhythm with sinus arrhythmia Normal ECG Compared to ECG 08/28/2023 02:42:47 First degree AV block no longer present Electronically Signed On 12-12-23 12:55:05 CDT by Koby Robles
== END 2023-12-11 16:16 ==
LOC: ER 08:17
DX: R07.89 Other chest pain (principal); C34.12 Malignant neoplasm of upper lobe, left bronchus or lung; C34.31 Malignant neoplasm of lower lobe, right bronchus or lung; D72.829 Elevated white blood cell count, unspecified; R06.00 Dyspnea, unspecified; I10 Essential (primary) hypertension; J44.9 Chronic obstructive pulmonary disease, unspecified; Z95.810 Presence of automatic (implantable) cardiac defibrillator
CPT/HCPCS: 96365; 96367; 96361; 93005; 87040; 85025; 80048; 36415; 83735; 85610; 80076; 83605; 84484; 83690; 83880; 71250; 74176; 71045; 96375; 99285; J7040; J7030; J0692